=== PATIENT | male | born 1955 | race Caucasian/White ===

== ENCOUNTER 2018-05-08 12:23 | Inpatient (IN) ==
[2018-05-08 13:18] LABS: BASO# 0.05 X1000 (0.0-0.2); BASO% 0.5 % (0.0-0.8); EOS# 0.08 X1000 (0.0-0.7); EOS% 0.9 % (0.0-10.0); HEMATOCRIT 39.7 % (42.0-52.0); HEMOGLOBIN 12.8 g/dL (14.0-18.0); IMM GRAN# 0.02 X1000 (0.0-0.04); IMM GRAN% 0.2 % (0.0-0.5); LYMPH# 1.37 X1000 (1.2-3.4); MCH 27.2 PG (27-31); MCHC 32.2 g/dL (33-37); MCV 84.5 FL (81-99); MONO# 0.46 X1000 (0.11-0.59); MPV 9.5 FL (7.4-10.4); NEUT# 7.17 X1000 (1.4-6.5); NEUT% 78.4 % (42.2-75.2); PLT 347 X1000 (130-400); RDW 16.4 % (11.5-14.5); WBC 9.15 X1000 (4.8-10.8)
--- NOTE | 2018-05-08 13:21 | Diag Imaging Result Doc PS360 ---
CHEST-PORTABLE - 05/08/2018 INDICATION: cough COMPARISON: 04/12/2018 FINDINGS: There is stable COPD. Stable coarse interstitial pulmonary fibrosis. No new infiltrates. Heart size is top normal. IMPRESSION: COPD with pulmonary fibrosis. Electronically signed by Parviz Klein 05/08/2018 1:18 PM
[2018-05-08 13:26] LABS: INR 0.94; PROTIME 13.3 Seconds (11.0-16.0)
[2018-05-08] MEDS ORDERED: ATIVAN IV ONE ×4 (13:35→18:19)
[2018-05-08 13:40] LABS: AGAP 12; ALB/GLOB RATIO 1.2; ALBUMIN 3.9 g/dL (3.5-5.0); ALKALINE PHOSPHATASE 63 U/L (32-122); BUN 9 mg/dL (8-22); CALCIUM 9.6 mg/dL (8.8-10.2); CHLORIDE 94 mmol/L (98-107); COSMO 264; CREATININE 0.7 mg/dL (0.7-1.2); ESTIMATED GFR > 60; GLUCOSE 105 mg/dL (70-104); GOT 18 U/L (10-34); GPT 10 U/L (10-44); POTASSIUM 3.6 mmol/L (3.5-5.1); SALICYLATES < 3.00 mg/dL (3-10); SODIUM 132 mmol/L (136-145); TCO2 26 mmol/L (25-35); TOTAL BILIRUBIN 0.33 mg/dL (0.20-1.00); TOTAL PROTEIN 7.2 g/dL (6.3-8.3)
[2018-05-08] MEDS ORDERED: NS 1,000 ML ONE (13:47)
[2018-05-08] MEDS ORDERED: ZOFRAN IV ONE (14:02)
[2018-05-08 15:26] LABS: URINE SOURCE CLEAN CATCH
[2018-05-08 15:33] LABS: BILIRUBIN URINE NEGATIVE (NEGATIVE); BLOOD URINE NEGATIVE (NEGATIVE); COLOR YELLOW; GLUCOSE URINE NEGATIVE (NEGATIVE); KETONE URINE NEGATIVE (NEGATIVE); LEUKOCYTES URINE NEGATIVE (NEGATIVE); NITRITE URINE NEGATIVE (NEGATIVE); PH URINE 5.5; PROTEIN URINE 50 mg/dL (NEGATIVE); SP GRAVITY URINE > 1.050; TURBIDITY URINE CLEAR (CLEAR); UR EPITHELIAL CELLS <10 /HPF (<10); URINE BACTERIA NEGATIVE /HPF; URINE WBC <10 /HPF (<10); UROBILINOGEN URINE NORMAL (NORMAL)
[2018-05-08 15:47] LABS: UR AMPHETAMINES QUAL NONE DETECTED (NONE DETECT); UR BARBITUATES QUAL NONE DETECTED (NONE DETECT); UR BENZODIAZEPIN QUAL NONE DETECTED (NONE DETECT); UR CANNABINOIDS QUAL NONE DETECTED (NONE DETECT); UR COCAINE QUAL NONE DETECTED (NONE DETECT); UR METHADONE QUAL NONE DETECTED (NONE DETECT); UR OPIATES QUAL NONE DETECTED (NONE DETECT); UR OXYCODONE QUAL NONE DETECTED (NONE DETECT); UR PCP QUAL NONE DETECTED (NONE DETECT)
--- NOTE | 2018-05-08 16:10 | EKG Report ---
Test Performed on : 05/08/2018 12:57:57 PM Test Reason : altered mental Blood Pressure : / mmHG Vent. Rate : 083 BPM Atrial Rate : 083 BPM P-R Int : 176 ms QRS Dur : 108 ms QT Int : 420 ms P-R-T Axes : 087 -31 043 degrees QTc Int : 493 ms Sinus rhythm. with occasional ventricular-paced complexes and with occasional premature ventricular c omplexes. Left axis deviation Septal infarct , age undetermined Abnormal ECG When compared with ECG of 18-FEB-2018 21:54, Electronic ventricular pacemaker has replaced Sinus rhythm. Unconfirmed Result
--- NOTE | 2018-05-08 16:13 | PROVIDER DOCUMENTATION ---
This chart was entered by Kristen Chavis Scribe, acting as scribe for Sulema Stephen MD. HPI-General Adult - General Chief Complaint: Altered Mental Status Stated Complaint: ams Time Seen by Provider: 05/08/18 12:39 Source: patient, EMS Unable to obtain history due to:: altered Allergies/Adverse Reactions: Patient Allergies Allergy/AdvReac Type Severity Reaction Status Date / Time phenytoin sodium * Allergy Severe ANAPHYLAXIS Verified 05/08/18 14:29 [From Dilantin] phenytoin sodium extended * Allergy Severe ANAPHYLAXIS Verified 05/08/18 14:29 [From Dilantin] Milk Containing Products Allergy Mild NAUSEA Verified 05/08/18 14:29 ceftazidime Allergy RASH Verified 05/08/18 14:29 codeine Allergy Unknown Verified 05/08/18 14:29 milk Allergy Unknown Verified 05/08/18 14:29 phenytoin [From Dilantin] Allergy Unknown Verified 05/08/18 14:29 Home Medications: Home Medication List Medication Instructions Recorded Confirmed Last Taken Type Docusate Sodium 100 mg PO DAILY 04/12/18 05/08/18 04/15/18 History Aspirin 325 mg PO DAILY 04/18/18 05/08/18 04/17/18 History Lamotrigine 25 mg PO DAILY 04/18/18 05/08/18 04/15/18 History Paroxetine HCl [Paxil] 40 mg PO DAILY 04/18/18 05/08/18 04/15/18 History Tamsulosin [Flomax] 0.4 mg PO DAILY 04/18/18 05/08/18 04/17/18 History Buspirone [Buspar] 15 mg PO TID 05/08/18 05/08/18 Unknown History - History of Present Illness -Gen Adult Nature of Presenting Problems: 62 yowm presents to the ed with blue substance on lips and tongue and erratic movements BUE/BLE with decreased verbal answering. pt makes grunting noises and shakes head yes. pt was found by ems with a blue capsule (possible lamictal) in his mouth. pt by past charts is a known alcoholic. Location of Pain/Injury: reports: none Pain Radiation: reports: no radiation Quality of Pain: reports: none Severity: reports: moderate (erratic movements) Onset/Duration: reports: unsure Timing: reports: still present Context/Activities at Onset: reports: other (was found at home by family) Modifying Factors: improves with: nothing Associated Symptoms: reports: other (erratic movements of BUE/BLE). denies: back/neck pain, chest pain, cough, fatigue, malaise, nausea, vomiting, trouble walking Similar Symptoms Previously?: No Recently seen or treated by another doctor?: No Review of Systems - Adult - REVIEW OF SYSTEMS - ADULT ROS:: limited per condition Constitutional: denies: chills, fever Eyes: reports: no symptoms reported Ears, Nose, Mouth & Throat: reports: no symptoms reported Cardiovascular: denies: chest pain, edema, palpitations Respiratory: denies: cough, shortness of breath, wheezing Gastrointestinal: denies: abdominal pain, diarrhea, nausea, vomiting Genitourinary: reports: no symptoms reported Musculoskeletal: denies: back pain, neck pain Integumentary: reports: no symptoms reported Neurological: denies: dizziness/vertigo, headache/migraines Psychiatric: reports: see HPI, alcohol/drug dependence (ETOH), other (possible OD) Endocrine: reports: no symptoms reported Hematologic/Lymphatic: reports: no symptoms reported Allergic/Immunologic: reports: no symptoms reported All Other Systems: Reviewed and Negative Past History - Adult - PAST MEDICAL HISTORY-ADULT Review of Records: reports: Old Records Reviewed, Nursing Assessment Review, Medications Reviewed, Social history reviewed & non-contributory. Major Childhood Illnesses: reports: denies history Cardiovascular: reports: CAD, HTN, hyperlipidemia, [place] Respiratory: reports: asthma, COPD, cancer, sleep apnea Gastrointestinal: reports: cancer, GERD, hepatitis Genitourinary: reports: denies history Musculoskeletal: reports: denies history Neurological: reports: Seizures/Epilepsy Psychiatric: reports: bipolar, schizophrenia Endocrine/Immune: reports: HIV/AIDS Other Conditions: reports: other (HIV) Additional History: alcoholism - PRIOR SURGERIES/PROCEDURES Surgical/Procedure History: reports: cardiac stent, hernia repair, orthopedic ( extremity), other - IMMUNIZATION STATUS Childhood Immunizations: See Nurse Assessment Flu Vaccine: See Nurse Assessment - FAMILY HISTORY Family History: reviewed, not pertinent - SOCIAL HISTORY Smoking: quit less than 1 year Substance Use: alcohol Alcohol Use Frequency: every day Number of drinks per typical drinking period:: 3-4 drinks Living Situation: family Physical Exam-General - PHYSICAL EXAM-ADULT Exam Limited by: agitation and confusion with ams Initial Vital Signs Reviewed: Yes - CONSTITUTIONAL General Appearance: alert, mild distress - EYES Eyes: PERRL/EOMI, pink conjunctivae - HEAD, EARS, NOSE, MOUTH & THROAT HENMT: other (blue substance on lips and tongue, dry mucus membranes) - NECK Neck: full range of motion, normal inspection - RESPIRATORY Respiratory: chest non-tender, lungs clear, normal breath sounds - CARDIOVASCULAR Cardiovascular: normal peripheral pulses, regular rate, rhythm - GASTROINTESTINAL (ABDOMEN) Abdominal Exam: normal bowel sounds, soft, no organomegaly, no pulsatile mass - LYMPHATIC Lymphatic: no adenopathy - MUSCULOSKELETAL Back Exam: normal inspection Extremity: normal range of motion, normal inspection, other (erratic movements) Peripheral Pulses: radial (R): 2+, radial (L): 2+ - SKIN Integumentary: normal color, normal turgor, warm/dry - NEUROLOGIC Neurologic: no motor/sensory deficits. negative: facial droop, motor weakness - PSYCHIATRIC Psych/Mental Status: other (not verbal on exam) Progress - PLAN OF CARE/RESULTS Progress/Plan/Lab Results: Vital Signs - 8 hr 05/08/18 12:34 Temperature 97.7 F Pulse Rate 81 Respiratory Rate 20 Blood Pressure 132/89 O2 Sat by Pulse Oximetry 96 Laboratory Results - last 24 hr 05/08/18 05/08/18 13:04 13:06 WBC 9.15 RBC 4.70 Hgb 12.8 L Hct 39.7 L MCV 84.5 MCH 27.2 MCHC 32.2 L RDW Std Deviation 16.4 H Plt Count 347 MPV 9.5 Immature Gran % (Auto) 0.2 Neut % (Auto) 78.4 H Lymph % (Auto) 15.0 L Bee % (Auto) 5.0 Eos % (Auto) 0.9 Baso % (Auto) 0.5 Immature Gran # (Auto) 0.02 Neut # (Auto) 7.17 H Lymph # (Auto) 1.37 Bee # (Auto) 0.46 Eos # (Auto) 0.08 Baso # (Auto) 0.05 POC Glucose 112 H Orders Category Date Time Status Saline Loc DIRECTED Care 05/08/18 12:53 Active CHEST-PORTABLE [RAD] Stat Exams 05/08/18 12:55 Completed ACETONE SERUM [CHEM] Stat Lab 05/08/18 13:06 Received ALCOHOL BLOOD Stat Lab 05/08/18 13:06 Received CBC WITH ELECTRONIC DIFF [HEME] Stat Lab 05/08/18 13:06 Completed COMPREHENSIVE METABOLIC PANEL [CHEM] Stat Lab 05/08/18 13:06 Received LACTATE, PLASMA [CHEM] Stat Lab 05/08/18 13:06 Received LAMICTAL [HOOKS] Stat Lab 05/08/18 13:09 Ordered PRO B-NATRIURETIC PEPTIDE Stat Lab 05/08/18 13:06 Received PT [PROTIME WITH INR] [COAG] Stat Lab 05/08/18 13:06 Received SALICYLATES [TDM] Stat Lab 05/08/18 13:06 Received TROPONIN T Stat Lab 05/08/18 13:06 Received URINALYSIS W/POSS RFLX CULT [URINALYSIS] Stat Lab 05/08/18 12:53 Uncollected URINE DRUG SCREEN Stat Lab 05/08/18 12:53 Uncollected [id number] spoke w Anum at Poison Control re possible Lamictal accidental overdose, risk of seizure, tachycardia, tremors, agitation, hyperreflexia, confusion, wide QRS, elevated K, check q 6 hours. Treat symptoms. Ativan for agitation start at 1 to 2 mg, may have to move to barbiturates or propofol if cannot control agitation with larger doses of ativan, pt VSS at this time 1346 spoke with family member who heard pt throwing up around 2 am and became agitated and continued to have nonbloody emesis. Pt had Lamictal pills and others on the floor, more than half the pills are missing from the Lamictal bottle received 04/26/18. Pt also visits an herbal vitamin store in [place] and she does not know what he is taking from there, she is going home to get bottles to bring back to the ED multiple bottles of meds and supplements from daughter, one is a blue gel cap with herb supplements for sexual performance, unknown how many were taken, all new meds reviewed by poison control, same result, treat the symptoms UDS neg, ETOH neg, WBC nl and no fever, most likely med/supplement po intact overdose, ativan is reducing agitation, will attempt head CT to complete work up and repeat EKG to check QRS, then admit, though pt will likely remain in ED due to no beds pt in room 4, nl VS, sleeping, when flat seems to have sleep apnea, raised HOB 30 degrees and improved, mouth breathing, 96% on 2LBNC head CT neg for intracranial acute changes, some soft tissue swelling left scalp , likely fell past chart info not on summary of problems includes hepatitis, HIV, PMH huffer of pain d/w Bhumi ZELAYA w hospitalist, d/w her HPI exam treatment results, poison control recs, admit to [facility] Result Diagrams: 05/08/18 13:06 05/08/18 13:06 - REASSESSMENT Reassessment #1 Time Reassessed: 13:31 (family now at bedside) Status: unchanged Reassessment #2 Time Reassessed: 14:05 (family at bedside sts he has been to an herbal store recently and bought some "pills". family sts at 0200am this morning pt was heard vomiting ) Status: unchanged Reassessment #3 Time Reassessed: 14:35 (all pt medicine are empty on exam and has been taking a male natural libido medication which s blue in color. unnown how many has been taken) Status: unchanged Reassessment #4 Time Reassessed: 17:00 (pt is combative and confused upon waking) Status: worsening Reassessment Comment: daughter is still at bedside - EKG 1 Time of EKG reading by physician:: 12:57 EKG Read and Signed by:: Sulema Stephen EKG Interpretation (*Must complete 3 of following elements*): Abnormal Rate: 83 Rhythm: sinus rhythm w/ occ ventricular paced complexes w/ occ PVC [place]: left (deviation) QRS: normal MO Interval: normal ST Wave: normal Comments: septal infarct, age undetermined - XRAY 1 XRAY: Bilateral XRAY Study: Chest (CHEST-PORTABLE - 05/08/2018 INDICATION: cough COMPARISON: 04/12/2018 FINDINGS: There is stable COPD. Stable coarse interstitial pulmonary fibrosis. No new infiltrates. Heart size is top normal. IMPRESSION: COPD with pulmonary fibrosis. Electronically signed by Parviz Klein 2018 1:18 PM 05/08/18 1318 Interpreting Physician: Parviz Klein MD Dictated Date/Time: 05/08/18 1314 cc: Sulema Stephen MD; None,PCP) - CT/MRI 1 CT Study: Head (EXAM: CT HEAD W/O CONTRAST INDICATION: ALTERED MENTAL STATUS TECHNIQUE: This exam was performed using automated exposure control, adjustment of mA or kV according to patient size, and/or use of iterative reconstruction technique. COMPARISON: 09/01/2016 FINDINGS: There is no definite acute infarct given the limited sensitivity of CT versus MRI. There is no discrete intracranial mass, mass effect, or intracranial hemorrhage. There is mild soft tissue edema at the forehead on the left. The calvaria is intact. IMPRESSION: 1.No evidence of acute intracranial pathology. 2.Mild scalp edema anteriorly on the left. Electronically signed by Armani Ansari 05/08/2018 4 :24 PM 05/08/18 1624 Interpreting Physician: Armani Ansari MD Dictated Date/Time: 05/08/18 1621 cc: Sulema Stephen MD; None,PCP) - CONSULTS/PCP/HOSPITALIST Notification #1 *Consult/PCP/Hospitalist*: posion control Time Discussed: 13:31 (possible OD on lamictal) Reason/Comments: can cause eraatic movemennts Consult Disposition: other (watch) #2 Consult: hospitalist [facility] Time Discussed: 16:59 Consult Disposition: Admit Departure - Departure Date of Disposition Decision: 05/08/18 Time of Disposition Decision: 16:05 DIAGNOSIS: Agitation, Change in mental state, Overdose, Bipolar disorder, COPD (chronic obstructive pulmonary disease) Disposition: ADMITTED INPATIENT 09 Certified Medical Emergency: Emergent Condition: Good Additional Freetext Instructions: Admit to [facility] 1701 Referrals and Follow-Ups: None,PCP [Primary Care Provider] - - Critical Care Note This patient required my direct & personal management of CC.: Yes Total Time (mins): 46 Critical Care Statement: This patient required my direct personal management to treat or rule out processes, the absence of which, could potentiallly result in sudden, clinically significant life or limb threatening deterioration. Attestation - Physician/ JOSÉ MIGUEL Attestation Patient care was provided by Advanced Practice Provider:: No The physician spent face to face time with patient:: Yes Advanced Practice Provider documentation review:: Supervising physician onsite and consulted in the evaluation and care of this patient. The physician did have a face to face encounter with the patient. This chart was documented by the indicated scribe, (Heflin,Kristen, Scribe) and accurately reflects the services I performed and decisions made by me, Sulema Stephen MD, as attested by the provider's signature.
--- NOTE | 2018-05-08 16:26 | Diag Imaging Result Doc PS360 ---
EXAM: CT HEAD W/O CONTRAST INDICATION: ALTERED MENTAL STATUS TECHNIQUE: This exam was performed using automated exposure control, adjustment of mA or kV according to patient size, and/or use of iterative reconstruction technique. COMPARISON: 09/01/2016 FINDINGS: There is no definite acute infarct given the limited sensitivity of CT versus MRI. There is no discrete intracranial mass, mass effect, or intracranial hemorrhage. There is mild soft tissue edema at the forehead on the left. The calvaria is intact. IMPRESSION: 1.No evidence of acute intracranial pathology. 2.Mild scalp edema anteriorly on the left. Electronically signed by Armani Ansari 05/08/2018 4:24 PM
[2018-05-08] MEDS ORDERED: ATIVAN ONE (16:52)
[2018-05-08] MEDS ORDERED: ZOFRAN IV PRN (19:31)
[2018-05-08] MEDS: NS 1,000 ML IV SCH (19:31)
--- NOTE | 2018-05-08 20:02 | HISTORY AND PHYSICAL ---
CHIEF COMPLAINT: Altered mental status. HISTORY OF PRESENT ILLNESS: Mr. Rodriges is a 62-year-old male who carries a past medical history of COPD, hypertension, hyperlipidemia, bipolar disorder, coronary artery disease with [place], seizure or pseudoseizures, GERD, alcohol and tobacco use. Per ED report, the daughter has been able to keep him away from alcohol and tobacco over the last few weeks. All information was obtained from the ED doctor and the EMR. The patient was found by his daughter with blue substance on his lip and tongue, erratic movements, bilateral upper and lower extremities with decreased verbal answering. He was groaning and shaking his head, yes. The blue substance on his lips was possible Lamictal or other male enhancing medications. ED spoke with Poison Control about possible Lamictal overdose that puts him at risk for seizure, tachycardia, tremors, agitation, hyperreflexia, confusion, wide QRS, elevated potassium. We will check his EKG as well as potassium every 6 hours. He was given 6 mg total of Ativan to control his agitation. The patient is now obtunded. He does respond to painful stimuli. He does not answer any questions. His daughter is no longer at the bedside. Per records the daughter heard him throwing up around 2 a.m. This is when he became agitated. He had several pills on the floor and there were pills missing from his Lamictal bottle that he had just received on the 17th of this month as well as some herbal vitamins and multiple bottles of medications and supplements 1 med with a blue gel cap for sexual enhancement. Unknown if those were taken. Per Poison Control, same results, treat the symptoms. His urine drug screen was negative. He was ETOH negative. WBC within normal limits. No fever. I feel like this is toxic encephalopathy secondary to unintentional overdose. The Ativan has reduced his agitation. Head CT did not show anything acute. He will be admitted to the ICU to monitor closely on telemetry with serial labs and EKG's. PAST MEDICAL HISTORY: HIV, COPD, hypertension, hyperlipidemia, bipolar disorder , coronary artery disease status post [place], seizure, pseudoseizures, GERD, alcohol use, tobacco use , occasional cannabinoids. PAST SURGICAL HISTORY: Bilateral toe surgeries, coronary artery stenting, eye surgery, ALLERGY: Dilantin causing anaphylaxis, ceftazidime causing rash, codeine causing unknown reaction, milk products causing nausea. SOCIAL HISTORY: He was a 1 to 2 pack per day smoker, as well as the use of alcohol and cannabinoids. The daughter states she has been able to keep him away from tobacco and alcohol. However, he does take [id number] supplements for sexual performance enhancing. He currently resides with his daughter. FAMILY HISTORY: Denies any type of chronic health issues. REVIEW OF SYSTEMS: A 14 point review of systems were hard to obtain secondary to the patient being obtunded. HOME MEDICATIONS: 1. Aspirin 325 mg p.o. daily. 2. BuSpar 15 mg p.o. t.i.d. 3. Dulcolax 100 mg p.o. daily. 4. Lamictal 25 mg p.o. daily. 5. Paxil 40 mg p.o. daily. 6. Flomax 0.4 mg p.o. daily. PHYSICAL EXAMINATION: VITAL SIGNS: Temperature is 97.7 degrees, heart rate 87, respirations 18, blood pressure 115/71, O2 is 95% on room air. GENERAL: Mr. Rodriges is lying on the stretcher. He is obtunded from 6 mg of Ativan. He does respond to painful stimuli. He does not answer any questions or follow commands. HEENT: Appears to be atraumatic, normocephalic. PERRL. NECK: Supple. Trachea midline, CARDIOVASCULAR: S1, S2 appreciated. No murmurs, gallops, or rubs. RESPIRATORY: Lungs sound clear, equal chest excursion, nonlabored breathing. GASTROINTESTINAL: Abdomen appears to be soft, nontender, nondistended. Positive bowel sounds 4 quadrants. EXTREMITIES: Generalized edema to the lower extremities. Bilateral pedal pulses are palpable. DIAGNOSTIC DATA: Head CT showed no evidence of acute intracranial pathology. Mild scalp edema anterior on the left. Chest x-ray: COPD with pulmonary fibrosis. EKG sinus rhythm at 83 beats per minute. QTc is 493. LABORATORY DATA: White count 9, hemoglobin and hematocrit 12 and 39, platelet count is 347,000. Sodium 132, potassium 3.6, BUN 9, creatinine 0.7, blood glucose is 112, proBNP 483. Urinalysis is negative for bacteria. Urine drug screen is negative. Acetone level negative. ASSESSMENT AND PLAN: 1. Toxic encephalopathy secondary to unintentional overdose on probable Lamictal and/or male enhancing drugs. He was agitated upon arrival to the ED. He has received a total of 6 mg of Ativan, per Poison Control, monitor q.6 hour EKG and potassium and treat symptoms. Continue with agitation control. We will do Ativan 1 to 2 mg q.4 hours. We will continue with aggressive hydration. Placed in the ICU. Frequent neuro checks. Head CT was negative. 2. Chronic obstructive pulmonary disease. Continue with supplemental O2 p.r.n. , bronchodilators. 3. Hypertension. 4. Hyperlipidemia. 5. Bipolar disorder. 6. Coronary artery disease status post myocardial infarction. 7. Seizures or pseudoseizures. We will continue with Ativan. 8. Gastroesophageal reflux disease. Continue proton pump inhibitor. 9. History of alcohol, tobacco, and cannabinoid use in the past. However, the daughter states for the last few weeks she has been able to keep him away 10. Further recommendation to follow physician evaluation, laboratory, and diagnostic data. Dictated by XENIA Gabriel for Vega Low MD cc: Vega Low MD [facility]
[2018-05-08] MEDS: ATIVAN IV PRN (20:18)
[2018-05-09] MEDS: ATIVAN IV PRN ×4 (00:15→20:42)
[2018-05-09 01:53] LABS: URINE SOURCE CATH
[2018-05-09 01:57] LABS: BILIRUBIN URINE NEGATIVE (NEGATIVE); BLOOD URINE NEGATIVE (NEGATIVE); COLOR YELLOW; GLUCOSE URINE NEGATIVE (NEGATIVE); KETONE URINE NEGATIVE (NEGATIVE); LEUKOCYTES URINE NEGATIVE (NEGATIVE); NITRITE URINE NEGATIVE (NEGATIVE); PH URINE 6.5; PROTEIN URINE NEGATIVE (NEGATIVE); TURBIDITY URINE CLEAR (CLEAR); UR EPITHELIAL CELLS <10 /HPF (<10); URINE BACTERIA NEGATIVE /HPF; URINE RBC <10 /HPF (<10); URINE WBC <10 /HPF (<10); UROBILINOGEN URINE NORMAL (NORMAL)
[2018-05-09] MEDS: NS 1,000 ML IV SCH ×3 (04:55→21:49)
[2018-05-09 05:38] LABS: BASO# 0.06 X1000 (0.0-0.2); BASO% 0.5 % (0.0-0.8); EOS# 0.31 X1000 (0.0-0.7); EOS% 2.8 % (0.0-10.0); HEMATOCRIT 40.2 % (42.0-52.0); HEMOGLOBIN 12.9 g/dL (14.0-18.0); IMM GRAN# 0.02 X1000 (0.0-0.04); IMM GRAN% 0.2 % (0.0-0.5); LYMPH# 1.62 X1000 (1.2-3.4); LYMPH% 14.4 % (20.5-51.1); MCHC 32.1 g/dL (33-37); MCV 87.2 FL (81-99); MONO# 0.61 X1000 (0.11-0.59); MONO% 5.4 % (1.7-9.3); MPV 9.8 FL (7.4-10.4); NEUT% 76.7 % (42.2-75.2); PLT 314 X1000 (130-400); RBC 4.61 XMIL (4.7-6.1); WBC 11.22 X1000 (4.8-10.8)
[2018-05-09 06:10] LABS: ACETAMINOPHEN 1.6 ug/mL (10-30); AGAP 12; BUN 6 mg/dL (8-22); CALCIUM 9.4 mg/dL (8.8-10.2); CHLORIDE 104 mmol/L (98-107); COSMO 280; CREATININE 0.6 mg/dL (0.7-1.2); ESTIMATED GFR > 60; GLUCOSE 83 mg/dL (70-104); MAGNESIUM 1.7 mg/dL (1.5-2.7); POTASSIUM 3.9 mmol/L (3.5-5.1); SALICYLATES < 3.00 mg/dL (3-10); SODIUM 142 mmol/L (136-145); TCO2 26 mmol/L (25-35)
--- NOTE | 2018-05-09 07:25 | EKG Report ---
Test Performed on : 05/09/2018 07:01:00 AM Test Reason : Wide QRS Complex,Overdose Blood Pressure : / mmHG Vent. Rate : 082 BPM Atrial Rate : 082 BPM P-R Int : 176 ms QRS Dur : 112 ms QT Int : 422 ms P-R-T Axes : 078 -50 075 degrees QTc Int : 493 ms Normal sinus rhythm. Possible Left atrial enlargement Left anterior fascicular block Left ventricular hypertrophy Cannot rule out Septal infarct , age undetermined Abnormal ECG When compared with ECG of 08-MAY-2018 12:57, (Unconfirmed) No significant change was found Confirmed by Cesar SIMS, Josemanuel Hanley ([id number]) on 05/09/2018 1:42:26 PM
--- NOTE | 2018-05-09 07:30 | EKG Report ---
Test Performed on : 05/09/2018 00:45:54 AM Test Reason : RHYTHM EVAL Blood Pressure : / mmHG Vent. Rate : 066 BPM Atrial Rate : 066 BPM P-R Int : 184 ms QRS Dur : 118 ms QT Int : 456 ms P-R-T Axes : 074 -51 041 degrees QTc Int : 478 ms Normal sinus rhythm. Left anterior fascicular block Left ventricular hypertrophy with QRS widening Abnormal ECG When compared with ECG of 08-May-2018 premature ventricular complexes. are no longer seen Confirmed by Cesar SIMS, Josemanuel Hanley ([id number]) on 05/09/2018 9:13:26 AM
--- NOTE | 2018-05-09 09:43 | Diag Imaging Result Doc PS360 ---
CT HEAD W/O CONTRAST - 05/09/2018 INDICATION: AMS, Unequal pupils COMPARISON: 05/08/2018 FINDINGS: The ventricles and sulci are normal in size and contour. No intracranial mass or hemorrhage. The skull is intact. The sinuses mastoids and middle ears are clear. IMPRESSION: Negative exam. This exam was performed using automated exposure control, adjustment of mA or kV according to patient size, and/or use of iterative reconstruction technique Electronically signed by Parviz Klein 05/09/2018 9:40 AM
--- NOTE | 2018-05-09 15:37 | PROGRESS NOTE ---
DATE: 05/09/2018 SUBJECTIVE: The patient resting in bed. Sensorium seems to have improved. OBJECTIVE: Vital Signs: Temperature 97.5, pulse 70, respirations 18, blood pressure 118/71, oxygen saturation 97%. HEENT: Atraumatic, normocephalic. Cardiovascular: S1, S2. Respiratory System has positive rhonchi noted in both lung dockery. Abdomen is soft, nontender. No masses felt. Extremities: No evidence of edema. Central Nervous System: No obvious focal deficits noted. LABORATORY STATUS: WBC is 11.2, hematocrit 40.2, platelet count of 314,000. Sodium is 142, potassium 3.9, chloride is 104. Bicarb 26. BUN 6, creatinine 0.6. Head CT: Negative exam. ASSESSMENT AND PLAN: 1. Encephalopathy. The patient's sensorium seemed to be improving. We will continue to follow up on patient's clinical progression. In the meanwhile, the patient can be transferred out to the floor. 2. Chronic obstructive pulmonary disease. Maintain patient on nebulized bronchodilators. 3. Hypertension, controlled. 4. Hyperlipidemia. Recheck lipid panel. 5. Recurrent disease. Asymptomatic. 6. Seizure disorder. Maintain patient on seizure precaution as well as antiepileptic. 7. Gastroesophageal reflux disease. Proton pump inhibitor. 8. Deep vein thrombosis prophylaxis. Sequential compression devices. 9. Gastrointestinal prophylaxis; proton pump inhibitor. cc: Vega Low MD
[2018-05-09] MEDS: DUONEB (A & A) INH SCH ×3 (16:35→23:43)
[2018-05-09] MEDS ORDERED: TYLENOL PR PRN (20:19)
[2018-05-09] MEDS ORDERED: KEPPRA PO SCH (21:00)
[2018-05-09] MEDS: KEPPRA 500 MG in NS 100 ML IV SCH (21:49)
[2018-05-09] MEDS: PROTONIX IV SCH (23:01)
[2018-05-09] MEDS: SODIUM CHLORIDE 0.9% INJ SCH (23:01)
[2018-05-10] MEDS: DUONEB (A & A) INH SCH ×6 (03:49→23:18)
[2018-05-10] MEDS: NS 1,000 ML IV SCH ×3 (05:55→22:19)
[2018-05-10] MEDS ORDERED: PROTONIX PO SCH (07:00)
[2018-05-10 07:44] LABS: BASO% 1.1 % (0.0-0.8); EOS# 0.47 X1000 (0.0-0.7); EOS% 5.3 % (0.0-10.0); HEMATOCRIT 36.5 % (42.0-52.0); HEMOGLOBIN 11.4 g/dL (14.0-18.0); IMM GRAN# 0.04 X1000 (0.0-0.04); IMM GRAN% 0.4 % (0.0-0.5); LYMPH# 1.84 X1000 (1.2-3.4); LYMPH% 20.7 % (20.5-51.1); MCH 27.7 PG (27-31); MCHC 31.2 g/dL (33-37); MCV 88.8 FL (81-99); MONO% 5.6 % (1.7-9.3); MPV 10.4 FL (7.4-10.4); NEUT# 5.96 X1000 (1.4-6.5); NEUT% 66.9 % (42.2-75.2); PLT 250 X1000 (130-400); RBC 4.11 XMIL (4.7-6.1); RDW 17.3 % (11.5-14.5); WBC 8.91 X1000 (4.8-10.8)
[2018-05-10 08:06] LABS: CHOLESTEROL 163 mg/dL (0-200); HDL 37 mg/dL (35-55); LDL 109 mg/dL; TRIGLYCERIDES 86 mg/dL (39-160); VLDL 17 mg/dL
[2018-05-10 08:08] LABS: AGAP 9; ALB/GLOB RATIO 1.3; ALBUMIN 3.2 g/dL (3.5-5.0); ALKALINE PHOSPHATASE 53 U/L (32-122); BUN 5 mg/dL (8-22); CALCIUM 8.4 mg/dL (8.8-10.2); CHLORIDE 104 mmol/L (98-107); COSMO 276; CREATININE 0.5 mg/dL (0.7-1.2); ESTIMATED GFR > 60; GLUCOSE 127 mg/dL (70-104); GOT 15 U/L (10-34); GPT 9 U/L (10-44); POTASSIUM 3.2 mmol/L (3.5-5.1); SODIUM 139 mmol/L (136-145); TCO2 26 mmol/L (25-35); TOTAL BILIRUBIN 0.52 mg/dL (0.20-1.00); TOTAL PROTEIN 5.6 g/dL (6.3-8.3)
[2018-05-10] MEDS: KEPPRA 500 MG in NS 100 ML IV SCH ×2 (08:11→20:03)
--- NOTE | 2018-05-10 18:37 | PROGRESS NOTE ---
DATE: 05/10/2018 INTERVAL HISTORY: The patient encephalopathy is significantly improved. Still slightly confused, but most responses are appropriate, following commands well. No arrhythmias on heart monitor and no acute events overnight. No new complaints. REVIEW OF SYSTEMS: Twelve point review of systems negative except as per interval history. LABS: WBC 8.9, hemoglobin 11.4, hematocrit 36.5, platelets 250. Sodium 139, potassium 3.2, BUN 5, creatinine 0.5, glucose 91 to 138. PHYSICAL EXAMINATION: Vitals: Temperature, T-max 99.1, pulse 77, respirations 18, blood pressure 138/72, O2 saturation 95% on 2 L by nasal cannula. General: No acute distress. Vitals: As above. HEENT: Normocephalic, atraumatic. Moist mucous membranes. Neck: No cervical adenopathy. Cardiovascular: Regular rate and rhythm. No murmurs, rubs or gallops. Pulmonary: Slightly decreased air entry throughout, otherwise clear to auscultation bilaterally. Abdomen: Soft, nontender, nondistended. Bowel sounds positive. Extremities: Peripheral pulses intact. No clubbing or cyanosis. Neurologic: Cranial nerves grossly intact. No focal deficits identified. Psychiatric: Slightly odd affect. Normal mood. Awake, alert. Oriented to person and place, but not time. Skin: No new rashes or lesions identified. ASSESSMENT AND PLAN: 1. Likely toxic encephalopathy related to accidental Lamictal overdose. Was markedly encephalopathic on admission, but has been improving slowly. Family noted that he was missing a number of pills from his recently filled Lamictal prescription. The patient endorses poor recall of events leading up to his hospitalization, but denies any intentional overdose or suicidal ideation. No events on heart monitor thus far. Lamictal level still pending. Ativan available p.r.n. On Keppra to prevent seizure. The patient is stable for the floor when bed is available. 2. Chronic obstructive pulmonary disease. No signs of exacerbation. Continue nebulizers as needed. 3. Hypertension. Reasonable control on current regimen. Continue to monitor. 4. Seizure disorder on Keppra as above. 5. Gastroesophageal reflux disease. Continue proton pump inhibitor. 6. Coronary artery disease restarting aspirin. 7. History of alcohol, tobacco, and THC use. Patient now living with his daughter who states that he has been abstaining the last several weeks. 8. Deep vein thrombosis prophylaxis. Sequential compression devices. 9. Hypokalemia. Will replete and monitor.
[2018-05-10] MEDS: POTASSIUM CHLORIDE 20 MEQ/SWI 20 MEQ/100 ML IVPB IV SCH ×2 (19:00→21:06)
[2018-05-10] MEDS: PROTONIX IV SCH (22:19)
[2018-05-10] MEDS: SODIUM CHLORIDE 0.9% INJ SCH (22:19)
[2018-05-11] MEDS: DUONEB (A & A) INH SCH ×3 (02:58→11:22)
[2018-05-11] MEDS: KEPPRA 500 MG in NS 100 ML IV SCH (08:00)
[2018-05-11] MEDS ORDERED: ASPIRIN EC PO SCH (09:00)
[2018-05-11 12:01] VITALS: BP 115/65
--- NOTE | 2018-05-11 12:32 | EKG Report ---
Test Performed on : 05/11/2018 12:27:24 PM Test Reason : possible lamictal overdose Blood Pressure : / mmHG Vent. Rate : 071 BPM Atrial Rate : 071 BPM P-R Int : 176 ms QRS Dur : 116 ms QT Int : 440 ms P-R-T Axes : 081 -39 015 degrees QTc Int : 478 ms Normal sinus rhythm. Left axis deviation Left ventricular hypertrophy with QRS widening Abnormal ECG When compared with ECG of 09-MAY-2018 07:01, Minimal criteria for Septal infarct are no longer present T wave inversion now evident in Inferior leads Confirmed by Maxwell Fortune MD ([id number]) on 05/13/2018 5:38:50 PM
--- NOTE | 2018-05-12 09:54 | DISCHARGE SUMMARY ---
ADMISSION DATE: 05/08/2018 DISCHARGE DATE: 05/11/2018 PRINCIPAL DIAGNOSIS: Toxic encephalopathy secondary to unintentional overdose, with probable Lamictal. SECONDARY DIAGNOSES: 1. Chronic obstructive pulmonary disease. 2. Hypertension. 3. Hyperlipidemia. 4. Bipolar disorder. 5. Coronary artery disease. 6. Seizure disorder. 7. Gastroesophageal reflux disease. 8. Tobacco use history. 9. Alcoholism. 10. History of substance abuse. DISCHARGE MEDICATIONS: Colace 100 mg p.o. daily. Paroxetine 40 mg p.o. daily. Tamsulosin 0.4 mg p.o. daily. Aspirin 325 mg p.o. once a day. Buspirone 15 mg p.o. 3 times a day. Combivent Respimat 1 puff every 6 hours. Advair Diskus 250/50 one puff twice a day. CONSULTATIONS DONE DURING THIS HOSPITAL STAY: None. PROCEDURES DONE DURING THIS HOSPITAL STAY: CT scan of the head done on 05/08/2018 as well as 05/09/2018. HOSPITAL COURSE: Mr. Obed Rodriges is a 59-year-old male, with a history of COPD, hypertension, hyperlipidemia, bipolar disorder, coronary artery disease, seizure disorder, gastroesophageal reflux disease, and alcohol as well as tobacco use, who presented to the hospital because of altered mental status. The patient was thought to have overdosed on Lamictal or other male enhancing medications. The ED did speak with Poison Control about possible Lamictal overdose. The plan was to check EKG as well as a potassium. The patient did receive 6 mg of Ativan for agitation. His head CT was negative. Urine drug screen was also negative. Alcohol level was negative. The patient was managed in the intensive care unit and his mental status did improve. The patient was subsequently transferred to the floor where he continue to recuperate. At this time he has done fairly well, he is stable, he is now fit to be discharged. I will check an EKG prior to discharge with regards to his QTc level. PHYSICAL EXAMINATION: Vitals: During my evaluation today, his vital signs were as follows: Temperature 98.3 degrees, pulse 68, respirations 18, blood pressure 115/65, oxygen 96%. HEENT: Atraumatic, normocephalic. Cardiovascular: S1, S2. Respiratory system: Has evidence of good entry bilaterally. Abdomen: Soft. Nontender. No masses felt. Extremities: No evidence of edema. Central nervous system: No obvious focal deficits noted. LABORATORY DATA: Blood sugar level is 104. PLAN: Discharge home if QTc level and EKG is within acceptable limits and the patient is clinically stable. The patient will need to follow up with his primary care physician. cc: Vega Low MD
== END 2018-05-11 14:42 | disposition home or self-care (01) | DRG 917 ==
LOC: SUPCPDRO → ED 12:23 → EDIPHOLD 17:48 → SUATTDRO 17:48 → ICU 23:43 → 3N 05-10 22:47
PROVIDERS: ATTEND Internal Medicine
CPT/HCPCS: 51701; 70450; 71010; 71045; 80048; 80053; 80061; 80101; 80175; 80196; 80299; 80301; 80307; 80320; 80324; 80329; 80345; 80346; 80353; 80358; 80361; 80365; 81001; 82003; 82009; 82055; 82948; 83605; 83735; 83880; 83992; 84132; 84484; 85025; 85610; 93005; 93010; 94640; 94761; 96374; 96375; 96376; 99285; A9270; C9113; G0431; G0434; G0479; G0480; G6038; G6039; G6040; J1953; J2060; J2405; J3480; J7030; S0164; XXXXX

== ENCOUNTER 2018-06-30 05:05 | Inpatient (IN) ==
[2018-06-30] MEDS ORDERED: DUONEB (A & A) INH ONE (05:22)
--- NOTE | 2018-06-30 05:32 | PROVIDER DOCUMENTATION ---
HPI-Musculoskeletal Pain/Inj - GENERAL Stated Complaint: fall Time Seen by Provider: 06/30/18 05:32 Source: patient - HX OF PRESENT ILLNESS-MUSKULOSKELTAL Nature of Presenting Problem: Patient states he was getting up to get his medication out of the refridgerator for his breathing treatment when he slipped in dog urine and landed on the floor. he felt a pop in his left hip. he hit his head and states he was knocked out for a minute. He also complains of left knee pain and right shoulder pain. Quality of Pain: reports: aching Severity in ED: severe Onset/Duration: abrupt, just prior to arrival Timing: still present Modifying Factors: improves with: movement Any recent injury?: Yes Locality of Occurance: Home Similar Symptoms Previously?: No Recently seen or treated by another doctor?: No - FALL INJURY Location of Pain/Injury: reports: head, upper extremity, lower extremity Pain Radiation: reports: no radiation Reason for Fall: reports: slipped Symptoms prior to fall:: reports: none Loss of Consciousness: unsure Injury Associated Symptoms: reports: snap/crack/pop sensation (left hip) - BACK & NECK PAIN/INJURY Back/Neck Pain Location: denies: C-spine, T-spine, lumbar spine, sacrum, coccyx, paraspinous muscles, other Back/Neck Pain Radiation: reports: headache - HIP/PELVIS PAIN/INJURY Hip Pain Location: reports: hip (L) Pain Radiation: reports: no radiation - LOWER EXTREMITY PAIN/INJURY Lower Extremities Pain: knee: left Context / Method of Injury: reports: fell - UPPER EXTREMITY PAIN/INJURY Extremities Pain Location: shoulder: right Context / Method of Injury: reports: fell. denies: unknown, assault, burn, direct blow, incised, motor vehicle accident, sports injury, twisted, other Review of Systems - Adult - REVIEW OF SYSTEMS - ADULT Constitutional: reports: no symptoms reported Eyes: reports: no symptoms reported Ears, Nose, Mouth & Throat: reports: no symptoms reported Cardiovascular: reports: no symptoms reported Respiratory: reports: wheezing Gastrointestinal: reports: no symptoms reported Genitourinary: reports: no symptoms reported Musculoskeletal: reports: see HPI Integumentary: reports: no symptoms reported Neurological: reports: no symptoms reported Psychiatric: reports: no symptoms reported Endocrine: reports: no symptoms reported Hematologic/Lymphatic: reports: no symptoms reported Allergic/Immunologic: reports: no symptoms reported Past History - Adult - PAST MEDICAL HISTORY-ADULT Review of Records: reports: Old Records Reviewed, Nursing Assessment Review Major Childhood Illnesses: reports: denies history Cardiovascular: reports: CAD, HTN, hyperlipidemia, PA Respiratory: reports: asthma, COPD, cancer, sleep apnea Gastrointestinal: reports: cancer, GERD, hepatitis Obstetrical/Gynecological: reports: denies history Genitourinary: reports: denies history Musculoskeletal: reports: denies history Neurological: reports: Seizures/Epilepsy Psychiatric: reports: bipolar, schizophrenia Endocrine/Immune: reports: HIV/AIDS Other Conditions: reports: other (HIV) Additional History: alcoholism - PRIOR SURGERIES/PROCEDURES Surgical/Procedure History: reports: cardiac stent, hernia repair, orthopedic (extremity), other - IMMUNIZATION STATUS Childhood Immunizations: See Nurse Assessment Flu Vaccine: See Nurse Assessment - FAMILY HISTORY Family History: reviewed, not pertinent Physical Exam-Injury Related - Physical Exam-Injury Related Initial Vital Signs Reviewed: Yes General Appearance: appears well, alert, moderate distress Eyes: PERRL/EOMI, pink conjunctivae Head, Ears, Nose, Mouth & Throat: normocephalic/atraumatic, moist mucous membranes, normal ENT inspection, TMs normal, pharynx normal Neck: non-tender, full range of motion, supple Respiratory: chest non-tender, wheezing Cardiovascular: normal peripheral pulses, regular rate, rhythm, no edema, no gallop Peripheral Pulses: dorsalis-pedis (R): 1+, dorsalis-pedis (L): 1+ Abdominal Exam: normal bowel sounds, non tender, soft, no organomegaly, no pulsatile mass Rectal Exam: deferred Lymphatic: no adenopathy Back Exam: normal inspection, no CVA tenderness, no vertebral tenderness Extremity: other (left leg shortened and externally rotated. tender to left knee. Tender right shoulder) Integumentary: normal color, warm/dry Neurologic: due diligence coordinator II-XII nml as tested, grossly normal Psych/Mental Status: normal mood/affect, normal thought content - Glascow Coma Score Best Eye Response (Brandan): (4) open spontaneously Best Verbal Response (Brandan): (5) oriented Best Motor Response (Brandan): (6) obeys commands Brandan Total: 15 Progress - PLAN OF CARE/RESULTS Progress/Plan/Lab Results: Laboratory Results - last 24 hr 06/30/18 06/30/18 06/30/18 08:12 08:12 08:12 WBC 15.85 H RBC 3.65 L Hgb 10.2 L Hct 33.6 L MCV 92.1 MCH 27.9 MCHC 30.4 L RDW Std Deviation 15.6 H Plt Count 344 MPV 9.5 Immature Gran % (Auto) 1.8 H Neut % (Auto) 72.6 Lymph % (Auto) 16.3 L Quay % (Auto) 5.8 Eos % (Auto) 3.3 Baso % (Auto) 0.2 Immature Gran # (Auto) 0.29 H Neut # (Auto) 11.50 H Lymph # (Auto) 2.58 Quay # (Auto) 0.92 H Eos # (Auto) 0.53 Baso # (Auto) 0.03 PT 13.2 INR 0.92 PTT (Actin FS) 32.1 Sodium 141 Potassium 3.5 Chloride 106 Carbon Dioxide 27 Anion Gap 8 BUN 9 Creatinine 0.6 L Estimated GFR/1.73 m2 > 60 BUN/Creatinine Ratio 15 Glucose 102 Calculated Osmolality 280 Calcium 8.4 L Total Bilirubin < 0.15 L AST 17 ALT 20 Alkaline Phosphatase 55 Creatine Kinase 50 Troponin T Total Protein 5.7 L Albumin 2.9 L Globulin 2.8 Albumin/Globulin Ratio 1.0 Urine Source Urine Color Urine Turbidity Urine pH Ur Specific [place] Urine Protein Ur Glucose (Stick) Ur Ketones (Stick) Urine Blood Urine Nitrite Urine Bilirubin Urobilinogen Dipstick Urine Leukocytes Urine WBC (Auto) Urine RBC (Auto) U Epithel Cells (Auto) Urine Bacteria (Auto) Urine Opiates Screen Ur Oxycodone Screen Ur Methadone, Qual Ur Barbiturates Screen Ur Phencyclidine Scrn Ur Amphetamines Screen U Benzodiazepines Scrn Urine Cocaine Screen U Cannabinoids Screen Plasma/Serum Ethyl Alc HIV 1&2 Antibody Screen 06/30/18 06/30/18 06/30/18 08:12 08:12 08:12 WBC RBC Hgb Hct MCV MCH MCHC RDW Std Deviation Plt Count MPV Immature Gran % (Auto) Neut % (Auto) Lymph % (Auto) Quay % (Auto) Eos % (Auto) Baso % (Auto) Immature Gran # (Auto) Neut # (Auto) Lymph # (Auto) Quay # (Auto) Eos # (Auto) Baso # (Auto) PT INR PTT (Actin FS) Sodium Potassium Chloride Carbon Dioxide Anion Gap BUN Creatinine Estimated GFR/1.73 m2 BUN/Creatinine Ratio Glucose Calculated Osmolality Calcium Total Bilirubin AST ALT Alkaline Phosphatase Creatine Kinase Troponin T < 0.010 Total Protein Albumin Globulin Albumin/Globulin Ratio Urine Source Urine Color Urine Turbidity Urine pH Ur Specific [place] Urine Protein Ur Glucose (Stick) Ur Ketones (Stick) Urine Blood Urine Nitrite Urine Bilirubin Urobilinogen Dipstick Urine Leukocytes Urine WBC (Auto) Urine RBC (Auto) U Epithel Cells (Auto) Urine Bacteria (Auto) Urine Opiates Screen Ur Oxycodone Screen Ur Methadone, Qual Ur Barbiturates Screen Ur Phencyclidine Scrn Ur Amphetamines Screen U Benzodiazepines Scrn Urine Cocaine Screen U Cannabinoids Screen Plasma/Serum Ethyl Alc HIV 1&2 Antibody Screen SEE COMMENTS 06/30/18 06/30/18 09:37 09:37 WBC RBC Hgb Hct MCV MCH MCHC RDW Std Deviation Plt Count MPV Immature Gran % (Auto) Neut % (Auto) Lymph % (Auto) Quay % (Auto) Eos % (Auto) Baso % (Auto) Immature Gran # (Auto) Neut # (Auto) Lymph # (Auto) Quay # (Auto) Eos # (Auto) Baso # (Auto) PT INR PTT (Actin FS) Sodium Potassium Chloride Carbon Dioxide Anion Gap BUN Creatinine Estimated GFR/1.73 m2 BUN/Creatinine Ratio Glucose Calculated Osmolality Calcium Total Bilirubin AST ALT Alkaline Phosphatase Creatine Kinase Troponin T Total Protein Albumin Globulin Albumin/Globulin Ratio Urine Source CLEAN CATCH Urine Color YELLOW Urine Turbidity CLEAR Urine pH 5.5 Ur Specific [place] 1.009 Urine Protein NEGATIVE Ur Glucose (Stick) NEGATIVE Ur Ketones (Stick) NEGATIVE Urine Blood NEGATIVE Urine Nitrite NEGATIVE Urine Bilirubin NEGATIVE Urobilinogen Dipstick NORMAL Urine Leukocytes NEGATIVE Urine WBC (Auto) <10 Urine RBC (Auto) <10 U Epithel Cells (Auto) <10 Urine Bacteria (Auto) NEGATIVE Urine Opiates Screen NONE DETECTED Ur Oxycodone Screen NONE DETECTED Ur Methadone, Qual NONE DETECTED Ur Barbiturates Screen NONE DETECTED Ur Phencyclidine Scrn NONE DETECTED Ur Amphetamines Screen NONE DETECTED U Benzodiazepines Scrn NONE DETECTED Urine Cocaine Screen NONE DETECTED U Cannabinoids Screen PRESUMPTIVE POSITIVE A Plasma/Serum Ethyl Alc HIV 1&2 Antibody Screen Orders Category Date Time Status [facility] Routine AdmDCTranf 06/30/18 08:55 Active Activity - Strict Bedrest ORDERED Care 06/30/18 08:55 Active Mason Cath Insertion ORDERED Care 06/30/18 08:37 Active Intake and Output-Strict ORDERED Care 06/30/18 08:55 Active Nursing- MD Consult Request ROUTINE Care 06/30/18 08:51 Active Vital Signs Order Q 4-HR ASSESS Care 06/30/18 08:55 Active Z-Document. for Tele Applied ORDERED Care 06/30/18 08:55 Completed Physician/Provider Consults Routine Cons 06/30/18 08:50 Ordered Social Service Consult Routine Cons 06/30/18 08:51 Active CHEST-2 VIEWS [RAD] Stat Exams 06/30/18 05:[address] HEAD W/O CONTRAST [CT] Stat Exams 06/30/18 05:19 Completed KNEE 3 VIEWS LEFT [RAD] Stat Exams 06/30/18 05:21 Completed SHOULDER-RIGHT [RAD] Stat Exams 06/30/18 05:21 Completed XRAY HIP UNILATERAL LT [RAD] Stat Exams 06/30/18 05:23 Completed ABG [RESP] Routine Lab 06/30/18 11:28 Completed ALCOHOL BLOOD Stat Lab 06/30/18 08:12 Completed BASIC METABOLIC PANEL [CHEM] Lab 07/01/18 06:00 Ordered BASIC METABOLIC PANEL [CHEM] Lab 07/02/18 06:00 Ordered BASIC METABOLIC PANEL [CHEM] Lab 07/03/18 06:00 Ordered BASIC METABOLIC PANEL [CHEM] Lab 07/04/18 06:00 Ordered BASIC METABOLIC PANEL [CHEM] Lab 07/05/18 06:00 Ordered CBC WITH DIFF [HEME] Lab 07/01/18 06:00 Ordered CBC WITH DIFF [HEME] Lab 07/02/18 06:00 Ordered CBC WITH DIFF [HEME] Lab 07/03/18 06:00 Ordered CBC WITH ELECTRONIC DIFF [HEME] Stat Lab 06/30/18 08:12 Completed CK PROFILE [SP CHEM] Stat Lab 06/30/18 08:12 Completed COMPREHENSIVE METABOLIC PANEL [CHEM] Stat Lab 06/30/18 08:12 Completed HEPATITIS PROFILE [HH] Timed Lab 06/30/18 08:12 Received HIV AB SCREEN [HH] Timed Lab 06/30/18 08:12 Completed PROTIME WITH INR [COAG] Stat Lab 06/30/18 08:12 Completed PTT [COAG] Stat Lab 06/30/18 08:12 Completed TROPONIN T Stat Lab 06/30/18 08:12 Completed URINALYSIS W/POSS RFLX CULT [URINALYSIS] Stat Lab 06/30/18 09:37 Completed URINE DRUG SCREEN Stat Lab 06/30/18 09:37 Completed 0.9% Sodium Chloride Inj [Ns] 1,000 ml Med 06/30/18 09:19 Discontinued IV 75 mls/hr Albuterol 2.5MG/Ipratrop 0.5MG [Duoneb (A & A)] Med 06/30/18 05:22 Discontinued 3 ml INH NOW ONE Levalbuterol Neb [Xopenex Neb] Med 06/30/18 09:19 Discontinued 1.25 mg INH Q4H PRN PRN Meperidine [Demerol] Med 06/30/18 05:58 Discontinued 25 mg IM NOW ONE Meperidine [Demerol] Med 06/30/18 07:18 Discontinued 25 mg IV NOW ONE Promethazine [Phenergan] Med 06/30/18 07:19 Discontinued 12.5 mg IV NOW ONE Sodium Chloride 0.9% Med 06/30/18 07:19 Discontinued 10 ml INJ NOW ONE Aerosol Treatments Routine Oth 06/30/18 05:22 Completed Aerosol Treatments Routine Oth 06/30/18 09:19 Completed Aerosol Treatments Stat Oth 06/30/18 05:22 Completed Consent for Surgery Routine Oth 06/30/18 10:01 Ordered Telemetry [OM.EQ] Routine Oth 06/30/18 08:55 Active Transfer/Admit Order [TRANSFER] Routine Transfer 06/30/18 08:39 Completed Result Diagrams: 06/30/18 08:12 06/30/18 08:12 - CONSULTS/PCP/HOSPITALIST Notification #1 *Consult/PCP/Hospitalist*: Spoke with Dr Camacho who will see patient in consult #2 Consult: Spoke with Dr Raymond Departure - Departure Date of Disposition Decision: 06/30/18 Time of Disposition Decision: 07:05 DIAGNOSIS: Hip fracture Disposition: ADMITTED INPATIENT 09 Certified Medical Emergency: Emergent Condition: Stable - Critical Care Note This patient required my direct & personal management of CC.: No Attestation - Physician/ JOSÉ MIGUEL Attestation Patient care was provided by Advanced Practice Provider:: No The physician spent face to face time with patient:: Yes Advanced Practice Provider documentation review:: Supervising physician onsite and consulted in the evaluation and care of this patient. The physician did have a face to face encounter with the patient.
[2018-06-30] MEDS ORDERED: DEMEROL IM ONE (05:58)
[2018-06-30] MEDS ORDERED: DEMEROL IV ONE (07:18)
[2018-06-30] MEDS ORDERED: SODIUM CHLORIDE 0.9% INJ ONE (07:19)
[2018-06-30] MEDS ORDERED: PHENERGAN IV ONE (07:19)
--- NOTE | 2018-06-30 08:16 | Diag Imaging Result Doc PS360 ---
EXAM: XRAY HIP UNILATERAL LT INDICATION: fall TECHNIQUE: One view COMPARISON: None. FINDINGS: There is a mildly comminuted intertrochanteric fracture of the left hip. There is significant medial displacement of a fracture fragment through the base of the lesser trochanter. No other discrete fracture or dislocation is appreciated. The surrounding soft tissues are essentially unremarkable. IMPRESSION: Intertrochanteric fracture of the left hip as described. Electronically signed by Armani Ansari 06/30/2018 8:14 AM
--- NOTE | 2018-06-30 08:17 | Diag Imaging Result Doc PS360 ---
EXAM: SHOULDER-RIGHT INDICATION: fall TECHNIQUE: 2 views COMPARISON: None. FINDINGS: There is mild to moderate degenerative arthropathy at the AC joint. There is no discrete fracture, dislocation, or significant intrinsic osseous lesion, otherwise. The surrounding soft tissues are essentially unremarkable. IMPRESSION: No evidence of acute osseous abnormality. Electronically signed by Armani Ansari 06/30/2018 8:14 AM
--- NOTE | 2018-06-30 08:18 | Diag Imaging Result Doc PS360 ---
EXAM: KNEE 3 VIEWS LEFT INDICATION: fall TECHNIQUE: 3 views COMPARISON: None. FINDINGS: There are small marginal osteophytes at all three compartments and mild loss of joint space at the medial and lateral compartments. There is no discrete fracture, dislocation, or significant intrinsic osseous lesion, otherwise. There is probably mild prepatellar soft tissue edema. IMPRESSION: No evidence of acute osseous abnormality. Electronically signed by Armani Ansari 06/30/2018 8:16 AM
--- NOTE | 2018-06-30 08:20 | Diag Imaging Result Doc PS360 ---
EXAM: CHEST-2 VIEWS INDICATION: left hip pain TECHNIQUE: 3 views COMPARISON: 06/22/2018 FINDINGS: COPD changes and diffuse interstitial thickening bilaterally suggesting fibrosis is again noted. The interstitial markings are slightly less prominent than the previous study suggesting that there was a component of interstitial edema that has improved. There is no discrete pleural fluid collection or pneumothorax. The cardiomediastinal silhouette and central vasculature are grossly unremarkable. IMPRESSION: Interstitial thickening throughout that has improved since the previous study. Electronically signed by Armani Ansari 06/30/2018 8:18 AM
[2018-06-30 08:22] LABS: BASO# 0.03 X1000 (0.0-0.2); BASO% 0.2 % (0.0-0.8); EOS# 0.53 X1000 (0.0-0.7); EOS% 3.3 % (0.0-10.0); HEMATOCRIT 33.6 % (42.0-52.0); HEMOGLOBIN 10.2 g/dL (14.0-18.0); IMM GRAN# 0.29 X1000 (0.0-0.04); IMM GRAN% 1.8 % (0.0-0.5); LYMPH# 2.58 X1000 (1.2-3.4); LYMPH% 16.3 % (20.5-51.1); MCH 27.9 PG (27-31); MCHC 30.4 g/dL (33-37); MCV 92.1 FL (81-99); MONO# 0.92 X1000 (0.11-0.59); MONO% 5.8 % (1.7-9.3); MPV 9.5 FL (7.4-10.4); NEUT% 72.6 % (42.2-75.2); PLT 344 X1000 (130-400); RBC 3.65 XMIL (4.7-6.1); RDW 15.6 % (11.5-14.5); WBC 15.85 X1000 (4.8-10.8)
[2018-06-30 08:26] LABS: INR 0.92; PROTIME 13.2 Seconds (11.0-16.0)
[2018-06-30 08:27] LABS: PTT 32.1 Seconds (22.3-41.8)
[2018-06-30 08:41] LABS: AGAP 8; ALBUMIN 2.9 g/dL (3.5-5.0); ALKALINE PHOSPHATASE 55 U/L (32-122); BUN 9 mg/dL (8-22); CALCIUM 8.4 mg/dL (8.8-10.2); CHLORIDE 106 mmol/L (98-107); CK PROFILE 50 U/L (24-204); COSMO 280; CREATININE 0.6 mg/dL (0.7-1.2); ESTIMATED GFR > 60; GLUCOSE 102 mg/dL (70-104); GOT 17 U/L (10-34); GPT 20 U/L (10-44); POTASSIUM 3.5 mmol/L (3.5-5.1); SODIUM 141 mmol/L (136-145); TCO2 27 mmol/L (25-35); TOTAL BILIRUBIN < 0.15 mg/dL (0.20-1.00); TOTAL PROTEIN 5.7 g/dL (6.3-8.3)
[2018-06-30] MEDS ORDERED: NS 1,000 ML IV ONE (09:19)
[2018-06-30] MEDS ORDERED: XOPENEX NEB INH PRN (09:19)
[2018-06-30 09:45] LABS: URINE SOURCE CLEAN CATCH
[2018-06-30 10:11] LABS: BILIRUBIN URINE NEGATIVE (NEGATIVE); BLOOD URINE NEGATIVE (NEGATIVE); COLOR YELLOW; GLUCOSE URINE NEGATIVE (NEGATIVE); KETONE URINE NEGATIVE (NEGATIVE); LEUKOCYTES URINE NEGATIVE (NEGATIVE); NITRITE URINE NEGATIVE (NEGATIVE); PH URINE 5.5; PROTEIN URINE NEGATIVE (NEGATIVE); SP GRAVITY URINE 1.009; TURBIDITY URINE CLEAR (CLEAR); UROBILINOGEN URINE NORMAL (NORMAL)
[2018-06-30 10:13] LABS: UR EPITHELIAL CELLS <10 /HPF (<10); URINE BACTERIA NEGATIVE /HPF; URINE RBC <10 /HPF (<10); URINE WBC <10 /HPF (<10)
[2018-06-30 10:36] LABS: UR AMPHETAMINES QUAL NONE DETECTED (NONE DETECT); UR BARBITUATES QUAL NONE DETECTED (NONE DETECT); UR BENZODIAZEPIN QUAL NONE DETECTED (NONE DETECT); UR CANNABINOIDS QUAL PRESUMPTIVE POSITIVE (NONE DETECT); UR COCAINE QUAL NONE DETECTED (NONE DETECT); UR METHADONE QUAL NONE DETECTED (NONE DETECT); UR OPIATES QUAL NONE DETECTED (NONE DETECT); UR OXYCODONE QUAL NONE DETECTED (NONE DETECT); UR PCP QUAL NONE DETECTED (NONE DETECT)
[2018-06-30] MEDS: MORPHINE IV PRN ×3 (11:15→20:02)
[2018-06-30 11:32] LABS: BE 5.7 mmoll (-3.0-3.0); BLOOD TYPE ARTERIAL; HCO3-(ACT) 29.3 mmoll (20.0-26.0); METHB 1.1 % (0.0-1.5); O2(CT) 14.7 mL/dL (15.0-23.0); O2HB 94.9 % (95.0-99.0); PCO2(98.6) 48 mmHg (35-45); PO2(98.6) 97 mmHg (60-100); SAMPLE BLOOD; SAO2 99.6 % (95.0-100.0); THB 10.9 g/dL (11.5-17.4); pH(98.6) 7.42 (7.35-7.45)
[2018-06-30 11:34] LABS: ALLEN TEST YES; MODALITY CANNULA
--- NOTE | 2018-06-30 11:40 | Diag Imaging Result Doc PS360 ---
EXAM: CT HEAD W/O CONTRAST INDICATION: head contusion with LOC TECHNIQUE: This exam was performed using automated exposure control, adjustment of mA or kV according to patient size, and/or use of iterative reconstruction technique. COMPARISON: 06/21/2018 FINDINGS: There is no definite acute infarct given the limited sensitivity of CT versus MRI. There is no discrete intracranial mass, mass effect, or intracranial hemorrhage. The surrounding soft tissues and bony structures are essentially unremarkable. IMPRESSION: No evidence of acute intracranial pathology. Electronically signed by Armani Ansari 06/30/2018 11:38 AM
--- NOTE | 2018-06-30 13:08 | HISTORY AND PHYSICAL ---
CHIEF COMPLAINT: Fall with left hip pain. HISTORY OF PRESENT ILLNESS: Mr. Rodriges is a 63-year-old male with a history of polysubstance dependence, coronary artery disease, seizure disorder, questionable history of HIV, and a history of COPD on oxygen at home, who presents status post fall this morning with subsequent left hip pain. The patient is somewhat altered at this time and has multiple admissions for toxic encephalopathy as well as polysubstance dependence, so history is somewhat difficult to obtain. He was going to the refrigerator this morning and slipped on the floor in front of his refrigerator and immediately starting having left hip pain. He came to the ER, had imaging done, and was noted to have a left hip fracture. His laboratory data shows some leukocytosis and anemia. Chemistry is unremarkable. A CT of the head was ordered and official read is pending. Orthopedics has been consulted and will see the patient, he will be admitted for further treatment and evaluation. PAST MEDICAL HISTORY: 1. COPD on oxygen at home. 2. Polysubstance dependence. 3. Seizure disorder. 4. Medical noncompliance. 5. Questionable history of HIV: Multiple different documents suggest a history of HIV but the patient himself denies any history, the only antibody test we have is nonreactive in 2014. 6. Coronary artery disease. 7. Bipolar disorder. PAST SURGICAL HISTORY: He has had toe surgery, coronary stenting, and eye surgery. SOCIAL HISTORY: Unclear as to the exact amount of substance use. There is report of 1-2 pack a day of cigarettes, heavy alcohol, and cannabinoid use. The patient himself states that he has a few shots a day. His last drink was a day and half ago. He actually denies illicit substance use at this time. FAMILY HISTORY: Noncontributory. REVIEW OF SYSTEMS: Difficult to obtain, but a limited 10-point review of systems was obtained and found to be negative with the exception of the HPI. ALLERGIES: Dilantin, milk, ceftazidime, codeine. HOME MEDICATIONS: Unknown. PHYSICAL EXAMINATION: VITAL SIGNS: Blood pressure is 145/88, heart rate is 80, respiratory rate 27, O2 saturation 100% on nasal cannula, temperature is 98.1. GENERAL: This is a chronically ill, disheveled and malnourished-appearing 63-year-old male lying in the hospital bed, lethargic. NEUROLOGICAL: He does open his eyes to verbal stimulus. His speech is somewhat garbled but he is oriented to time and place. HEENT: Head is atraumatic and normocephalic. His pupils are pinpoint bilaterally. Oral mucosa is dry. NECK: Trachea is midline. There is no JVD. CHEST: Diminished but clear to auscultation. CARDIOVASCULAR: Regular rate and rhythm. S1 and S2 is noted. GASTROINTESTINAL: Soft, nondistended, nontender. Bowel sounds positive. EXTREMITIES: Trace edema bilaterally. There are diminished pulses, and his left leg is shortened and externally rotated. DIAGNOSTIC DATA: Hip x-ray shows intertrochanteric fracture of the left hip with significant medial displacement. Shoulder x-ray is negative for acute osseous abnormality. Knee x-ray is negative for anything on the left of acute nature. Chest x-ray shows interstitial thickening throughout that has improved since the previous study. Head CT official read is pending. Preliminary on-call report says generalized involutional changes consistent with age. No acute abnormalities. WBC 15.85, hemoglobin 10.2, hematocrit 33.6, platelet count 344. INR 0.92. Sodium 141, potassium 3.5, chloride 106, CO2 27, anion gap 8, BUN 9, creatinine 0.6, glucose 102, calcium 8.4, total bilirubin 0.15, AST 17, ALT 20, alkaline phosphatase 55. Troponin negative. Alcohol level 0. ASSESSMENT AND PLAN: 1. Fall with left intertrochanteric hip fracture: Surgery has been consulted. Will keep the patient n.p.o. Order a Mason, urinalysis and drug screen is pending. Will consult social work and continue with pain control. 2. Toxic encephalopathy: The patient is clearly altered at this time. He has a significant polysubstance dependence history. Head CT is preliminarily negative and we are awaiting urinalysis, drug screen, and ABG. Will hold off on any pain medication at this time since he has had Demerol and Phenergan in the ER. 3. Chronic obstructive pulmonary disease stable. Will add breathing treatments and check an ABG. No exacerbation noted. 4. Questionable history of human immunodeficiency virus: Unclear as to where the documentation of HIV originated, however, we will go ahead and check antibody and also hepatitis as well. 5. Coronary artery disease, stable. No chest pain noted. Will follow telemetry. 6. Polysubstance dependence. We will follow closely for signs of withdrawal or DTs. 7. Deep venous thrombosis prophylaxis will be added after surgery. 8. Further recommendations to follow. Dictated by XENIA Farias for Aquiles Evans MD cc: XENIA Farias MD I agree with most components of history, physical, assessment and plan. A separate addendum has been dictated. ILAN
[2018-06-30] MEDS: DUONEB (A & A) INH SCH ×2 (15:48→19:21)
[2018-06-30] MEDS ORDERED: LOVENOX SUBQ SCH (16:30)
[2018-06-30] MEDS ORDERED: BUSPAR PO SCH (17:00)
--- NOTE | 2018-06-30 17:30 | HISTORY AND PHYSICAL ---
Addendum to history and physical dictated by nurse practitioner. I agree with most components of history, physical, assessment, and plan. In brief, Mr. Rodriges is a 63 years old man who had a mechanical fall early this morning when he tripped and slipped when he stepped over a dog pee pad. He fell on his left side and so he went to the emergency room. In the emergency room, x-ray of hip had suggested left-sided intertrochanteric comminuted fracture. He had CT shoulder x-ray and the x-rays were unremarkable. SUBJECTIVE: He is denying any chest pain. He is not feeling short of breath. He denies any dizziness. He denies any urination problem. We discussed about hip fracture surgery, postoperative potential complications and management. I answered all of his questions. VITALS: Currently, temperature of 98.7 degrees, pulse 83, respiratory rate 18, blood pressure 134/78, saturating 97% on 3 L nasal cannula. PHYSICAL EXAMINATION: GENERAL: Does not appear in any acute distress. HEENT: Oral cavity is moist. LUNGS: He has prominent wheezing bilateral lung dockery. No crackles. Air entry adequate bilaterally. CARDIOVASCULAR: S1, S2 normal. No murmur, rub, or gallop. ABDOMEN: Soft, nontender. EXTREMITIES: No lower extremity edema. His left lower extremity is shorter than the right lower extremity. It is externally rotated. LABS: Suggestive of leukocytosis, normocytic anemia, normal platelet count, normal coagulation, normal kidney function. His troponins initial was negative. His U-tox was positive for cannabinoids. He does mention smoking marijuana off and on. ASSESSMENT AND PLAN: 1. Left femoral intertrochanteric displaced comminuted fracture. 2. Acute exacerbation of COPD, mild. 3. History of COPD and chronic hypoxic respiratory failure on home O2. 4. History of polysubstance abuse. 5. History of benign prostatic hypertrophy. 6. History of anxiety. 7. History of seizure. PLAN: The patient will be admitted for surgical correction of left intertrochanteric femoral fracture. Orthopedic on board. I will continue most of his home medication. I will start him on albuterol ipratropium nebulization. His exacerbation is mild and he does not appear to be in any distress so I am holding off on giving him steroids. Also he has surgical intervention plan. Plan of care discussed with him. All of his questions have been answered. cc: Aquiles Evans MD
[2018-06-30 19:45] LABS: HIV ANTIBODY SCREEN SEE COMMENTS
--- NOTE | 2018-06-30 21:07 | ORTHOPAEDICS CONSULTATION ---
ADMISSION DATE: 06/30/2018 Mr. Rodriges seen today for left hip pain. He reports a fall at home. He presents complaining of pain, tenderness about the left hip. He reports some soreness over the right shoulder. PAST MEDICAL HISTORY: Significant for COPD. He has also undergone surgery on his toes in the past by DR. Reddy. SOCIAL HISTORY: He is a community ambulator and resides in [facility] with his daughter. ALLERGIES: [facility] to [facility] and are as listed by the hospital admission sheet. PHYSICAL EXAM: Examination reveals both upper extremities to be atraumatic and motor and sensory intact. There is good range of motion both shoulders, elbows and wrists and digits. Right lower extremity has normal hip and knee motion with no tenderness about the ankle or calf. Left lower extremity had swelling over the proximal thigh is slightly shortened and externally rotated. Compartments are soft. No open wounds. He is motor and sensory intact. He is nontender from the distal femur down to the toes. There is good capillary refill and warm extremity. X-RAYS: X-rays reviewed show a 2 to 3 part intertrochanteric left hip fracture. X-rays of the shoulder and knee are unremarkable. ASSESSMENT: Left intertrochanteric hip fracture. PLAN: The patient will be admitted and evaluated by the hospitalist for surgical and medical management. We will plan on fixation left hip tomorrow morning. He can be n.p.o. after midnight. I have discussed risks such as bleeding, infection, damage to tendon, nerve, or blood vessel, loss of limb or life and other imponderables with him and he is willing to proceed. cc: Armani Moy MD
[2018-06-30] MEDS: KEPPRA PO SCH (21:19)
[2018-07-01] MEDS ORDERED: MORPHINE IV PRN ×2 (01:06)
[2018-07-01] MEDS: DUONEB (A & A) INH SCH ×4 (03:25→21:29)
[2018-07-01 06:48] LABS: BASO# 0.02 X1000 (0.0-0.2); BASO% 0.2 % (0.0-0.8); EOS# 0.42 X1000 (0.0-0.7); EOS% 3.6 % (0.0-10.0); HEMATOCRIT 36.7 % (42.0-52.0); HEMOGLOBIN 11.2 g/dL (14.0-18.0); IMM GRAN% 1.7 % (0.0-0.5); LYMPH# 2.33 X1000 (1.2-3.4); LYMPH% 19.7 % (20.5-51.1); MCH 27.8 PG (27-31); MCHC 30.5 g/dL (33-37); MCV 91.1 FL (81-99); MONO# 1.13 X1000 (0.11-0.59); MONO% 9.6 % (1.7-9.3); MPV 9.9 FL (7.4-10.4); NEUT# 7.73 X1000 (1.4-6.5); NEUT% 65.2 % (42.2-75.2); PLT 349 X1000 (130-400); RBC 4.03 XMIL (4.7-6.1); RDW 15.4 % (11.5-14.5); WBC 11.83 X1000 (4.8-10.8)
[2018-07-01 07:30] LABS: AGAP 10; BUN 6 mg/dL (8-22); CALCIUM 8.5 mg/dL (8.8-10.2); CHLORIDE 100 mmol/L (98-107); COSMO 274; CREATININE 0.5 mg/dL (0.7-1.2); ESTIMATED GFR > 60; GLUCOSE 108 mg/dL (70-104); POTASSIUM 4.2 mmol/L (3.5-5.1); SODIUM 138 mmol/L (136-145); TCO2 28 mmol/L (25-35)
[2018-07-01] MEDS ORDERED: LR 1,000 ML ONE (07:33)
[2018-07-01] MEDS ORDERED: LEVAQUIN 500 MG/D5W 500 MG/100 ML IVPB IV ONE (07:43)
[2018-07-01] MEDS ORDERED: DIPRIVAN 1% ONE ×2 (07:46→08:49)
[2018-07-01] MEDS ORDERED: XYLOCAINE-MPF 2% ONE ×2 (07:48→08:50)
[2018-07-01] MEDS ORDERED: SUFENTA ONE (07:49)
[2018-07-01] MEDS ORDERED: QUELICIN (DOSE) ONE (07:49)
[2018-07-01] MEDS: KEFZOL 2 GM/D5W 0 GM/0 ML IVPB ONE (07:55)
[2018-07-01] MEDS ORDERED: ZOFRAN ONE (08:42)
[2018-07-01] MEDS ORDERED: DECADRON ONE (08:42)
[2018-07-01] MEDS: DILAUDID ONE ×2 (09:28→09:32)
--- NOTE | 2018-07-01 09:42 | OPERATIVE NOTE ---
PROCEDURE DATE: 06/30/2018 PREOPERATIVE DIAGNOSIS: Intertrochanteric left hip fracture. POSTOPERATIVE DIAGNOSIS: Intertrochanteric left hip fracture. PROCEDURE PERFORMED: Closed reduction and trochanteric fixation nail fixation of left hip. SURGEON: Domonique Moy MD. ANESTHESIA: General. COMPLICATIONS: None. PROCEDURE IN DETAIL: A 63-year-old male who presents for surgical fixation of a left intertrochanteric hip fracture. Risks, benefits, and no guarantees were discussed, and he is willing to proceed. He was taken to the operating room and satisfactory anesthesia obtained. He was transferred to the [place] table. The left hip was prepped and draped in the usual sterile fashion. A time-out was taken to confirm operative site, procedure, and patient. Using the table, traction was slightly applied to the hip with roughly neutral rotation, with near-anatomic reduction of the fracture. A lateral incision was then made roughly 3 cm above the lesser trochanter and dissection carried down to the tip of the trochanter. A TFN guide pin was placed down the intramedullary canal through the tip of the trochanter. This was reamed with the entry reamer and exchanged for a ball-tip guidewire. A 440 length nail was selected. A 12 mm reamer was run over the guidewire and a 440 x 11 diameter nail inserted over the guidewire. The guidewire was removed. Using the proximal alignment sleeve, a small additional incision was made at the level of the lesser trochanter. A guide pin was placed across the nail and into the central aspect of the femoral neck and head with care taken to avoid any articular penetration. This was measured and a 110 helical blade inserted over this after reaming of the lateral cortex. The anti-rotation screw was set and the proximal guide removed, completing proximal fixation of the femur. The C-arm was used to verify accurate hardware placement and reduction. A distal screw was placed through the dynamic slot of the nail using fluoroscopic guidance through a small lateral percutaneous incision. A 42 length screw was placed with bicortical fixation and verified to capture the nail on the fluoroscopic image. The wounds were then closed in layers with 2-0 Vicryl followed by skin kulwinder. Sterile dressings were applied. The patient was recovered from anesthesia and transferred to the recovery room in stable condition. No intraoperative complications were noted. Instrument count and sponge count were correct at the time of closure. cc: Armani Moy MD
[2018-07-01] MEDS ORDERED: ZOFRAN IV PRN (09:46)
[2018-07-01] MEDS ORDERED: HALDOL IV PRN (10:00)
[2018-07-01] MEDS ORDERED: VANCOMYCIN 1 GM/NS 1 GM/250 ML IVPB IV SCH (11:00)
[2018-07-01] MEDS: FLOMAX PO SCH (11:16)
[2018-07-01] MEDS: BUSPAR PO SCH ×3 (11:16→17:26)
[2018-07-01] MEDS: NS 1,000 ML IV SCH (11:17)
[2018-07-01] MEDS: KEPPRA PO SCH ×2 (11:17→20:58)
[2018-07-01] MEDS: PAXIL PO SCH (11:17)
[2018-07-01] MEDS: TYLENOL PO SCH ×2 (11:18→17:26)
[2018-07-01 12:51] LABS: HEPATITIS PROFILE ACUTE SEE COMMENTS
[2018-07-01] MEDS: MORPHINE IV PRN ×3 (13:23→22:43)
[2018-07-01] MEDS: MILK OF MAGNESIA PO PRN (13:24)
--- NOTE | 2018-07-01 13:26 | PROGRESS NOTE ---
DATE: 07/01/2018 INTERVAL HISTORY: Mr. Rodriges underwent closed reduction and trochanteric nail fixation of left hip today morning and he tolerated the procedure well. I am seeing him postprocedure. He currently denies any pain. Alert, oriented, not in any distress. He is not feeling short of breath. Denies any chest pain. VITALS: Temperature 98.1 degrees, pulse 89, respiratory rate 28, blood pressure 117/77, saturating 90% on 3 L of nasal cannula. PHYSICAL EXAMINATION: General: He does not appear in any acute distress. Oral cavity is moist. No pallor, cyanosis, clubbing, or icterus. Lungs: Air entry bilaterally equal. No wheeze, rhonchi, or crackles. He has transmitted upper respiratory tract noise on lung examination. He has S1, S2 normal. No murmur, rub, or gallop. Abdomen: Soft, nontender. No lower extremity edema. The left lower extremity and right lower extremity are of equal length. Left lower extremity is no longer externally rotated. He is able to wiggle his toes and has intact circulation on both extremities, lower side. LABS: Suggestive of normocytic anemia, mild leukocytosis which is likely reactive, with normal platelet count. BMP is essentially unremarkable. ASSESSMENT AND PLAN: 1. Left femoral intertrochanteric displaced comminuted fracture after mechanical fall, status post closed reduction and intertrochanteric nailing by orthopedics on July 01. Today is postoperative day 0. Continue oxycodone, intravenous morphine as needed for pain control. Continue Xarelto for deep venous thrombosis prophylaxis as per surgery recommendation. 2. The patient will be advised to follow up with his regular doctor outpatient for osteoporosis screening. 3. Mild acute chronic obstructive pulmonary disease exacerbation with chronic hypoxic respiratory failure, on home oxygen. Continue albuterol ipratropium nebulization every 6 hours scheduled. I will avoid steroids since his exacerbation appears better today and he just had a surgery to allow proper wound healing. Continue home oxygen to maintain saturation between 88 to 92 percent. 4. History of anxiety and depression. Continue home buspirone and paroxetine. Continue tamsulosin for history of benign prostatic hypertrophy and levetiracetam for history of seizure. 5. Continue docusate sodium with milk of magnesia to avoid constipation. 6. Others: His HIV and Hepatitis panel are negative. 6. Disposition. Patient remains inside the hospital as we monitor postoperative course. I will evaluate. Physical therapy will be ordered and, accordingly, we will plan discharge sometime next week. Plan of care discussed with the patient. All of his questions have been answered. cc: Aquiles Evans MD MTDD
[2018-07-01] MEDS: OXY IR PO PRN (20:57)
[2018-07-01] MEDS: PERIDEX MT SCH (20:58)
[2018-07-01] MEDS: COLACE PO SCH (20:58)
[2018-07-02] MEDS: OXY IR PO PRN ×4 (00:17→17:48)
[2018-07-02] MEDS: NS 1,000 ML IV SCH ×2 (01:34→19:40)
[2018-07-02] MEDS: MORPHINE IV PRN ×5 (01:38→22:56)
[2018-07-02] MEDS: TYLENOL PO SCH ×3 (01:48→15:55)
[2018-07-02] MEDS: DUONEB (A & A) INH SCH ×4 (03:40→23:26)
[2018-07-02] MEDS: XARELTO PO SCH (05:26)
[2018-07-02 06:19] LABS: BASO# 0.01 X1000 (0.0-0.2); BASO% 0.1 % (0.0-0.8); EOS# 0.01 X1000 (0.0-0.7); EOS% 0.1 % (0.0-10.0); HEMATOCRIT 34.1 % (42.0-52.0); HEMOGLOBIN 10.4 g/dL (14.0-18.0); IMM GRAN# 0.14 X1000 (0.0-0.04); LYMPH# 1.02 X1000 (1.2-3.4); LYMPH% 7.5 % (20.5-51.1); MCH 27.7 PG (27-31); MCHC 30.5 g/dL (33-37); MCV 90.7 FL (81-99); MONO# 1.15 X1000 (0.11-0.59); MONO% 8.5 % (1.7-9.3); MPV 9.8 FL (7.4-10.4); NEUT# 11.18 X1000 (1.4-6.5); NEUT% 82.8 % (42.2-75.2); PLT 296 X1000 (130-400); RBC 3.76 XMIL (4.7-6.1); RDW 14.6 % (11.5-14.5); WBC 13.51 X1000 (4.8-10.8)
[2018-07-02 06:48] LABS: AGAP 7; BUN 8 mg/dL (8-22); CALCIUM 9.1 mg/dL (8.8-10.2); CHLORIDE 97 mmol/L (98-107); COSMO 272; CREATININE 0.6 mg/dL (0.7-1.2); ESTIMATED GFR > 60; GLUCOSE 104 mg/dL (70-104); POTASSIUM 5.1 mmol/L (3.5-5.1); SODIUM 137 mmol/L (136-145); TCO2 33 mmol/L (25-35)
[2018-07-02] MEDS: KEFZOL 2 GM/D5W 0 GM/0 ML IVPB ONE (08:26)
--- NOTE | 2018-07-02 09:03 | PROGRESS NOTE ---
DATE: 07/02/2018 SUBJECTIVE DATA: Mr. Rodriges is on postop day 1 of left TFN placement. He reports he is still having pain and swelling in that leg. He reports he does have some itching today and that he usually takes Benadryl for it and this is normal for him. He is requesting Benadryl at this time. He also reports that he does not have insurance and does want some home health set up. OBJECTIVE DATA: There is good sensation left lower extremity. There is good capillary refill. The patient is able to flex his quadriceps muscles without difficulty. There is negative Homans sign. The incision sites are clean and dry. ASSESSMENT: Left intertrochanteric hip fracture. PLAN: We will plan on monitoring Mr. Rodriges overnight in the hospital. I will order Benadryl for him for itching. We will see how he does with physical therapy today. Dictated by XENIA Marrero for Armani Moy MD cc: XENIA Marrero MD
[2018-07-02] MEDS: BENADRYL PO PRN (11:25)
[2018-07-02] MEDS: BUSPAR PO SCH ×3 (11:34→20:19)
[2018-07-02] MEDS: PERIDEX MT SCH ×2 (15:52→20:20)
[2018-07-02] MEDS: KEPPRA PO SCH ×2 (15:52→20:19)
[2018-07-02] MEDS: PAXIL PO SCH (16:03)
[2018-07-02] MEDS: FLOMAX PO SCH (16:03)
[2018-07-02] MEDS: FERROUS SULFATE PO SCH (16:03)
[2018-07-02] MEDS: DULCOLAX PR SCH ×2 (16:17→20:20)
--- NOTE | 2018-07-02 16:25 | PROGRESS NOTE ---
DATE: 07/02/2018 INTERVAL HISTORY: No acute events overnight. The patient was able to work out with physical therapy, however, he needed a lot of help. Apparently, the patient does not have health insurance and he would not qualify for going to the rehab. We discussed about stopping intravenous pain medications, starting on p.o. medication tomorrow onwards. I answered all of his questions. The patient denies chest pain or shortness of breath, nausea, vomiting, or abdominal pain. OBJECTIVE: Vital Signs: Currently, temperature 98 degrees, pulse 83, respiratory rate 18, blood pressure 117/57, saturating 92% on 2 L nasal cannula. General: He does not appear in any acute distress. Oral cavity is moist. No pallor, cyanosis, clubbing, or icterus. Lungs: Air entry bilaterally equal. No wheeze, rhonchi, or crackles. Cardiovascular: S1, S2 normal. No murmur, rub, or gallop. Abdomen: Soft, nontender. Extremities: Bilateral mild lower extremity edema. He is able to wiggle toes bilaterally. He is able to lift right lower extremity above ground level. Left lower extremity, he is able to wiggle the toes, not able to lift. LABORATORY DATA: Suggestive of leukocytosis of 13,000, which is likely reactive. Hemoglobin of 10.4, platelets of 296,000. His electrolytes are largely in acceptable range with normal kidney function. Microbiology: No data. IMAGING: No data. ASSESSMENT AND PLAN: 1. Left femoral intertrochanteric displaced comminuted fracture after mechanical fall, status post closed reduction and intertrochanteric nailing on 07/01/2018. Today is postoperative day 1. Continue current pain regimen tomorrow onwards. I am going to change the pain medication to minimize intravenous pain medication use. Continue Xarelto for deep venous thrombosis prophylaxis as per Orthopedic Surgery recommendation. The patient was advised to follow up with his regular doctor for osteoporosis screening. 2. Mild acute chronic obstructive pulmonary disease exacerbation with chronic hypoxic respiratory failure on home oxygen. Continue albuterol ipratropium nebulization every 6 hours as scheduled. Avoid steroids to allow wound healing. Continue home oxygen to maintain saturation between 88% to 92%. 3. History of anxiety, depression. Continue home buspirone and paroxetine. 4. Continue tamsulosin for history of benign prostatic hypertrophy. 5. Levetiracetam for history of seizure. 6. Continue docusate sodium with bisacodyl suppository for his constipation. DISPOSITION: The patient remains inside the hospital. My goal is to have him reach appropriate level of functional status before I could discharge him home. He does not have insurance and who would not qualify for rehab or home PT. Plan of care discussed with the patient. All of his questions have been answered. cc: Aquiles Evans MD
[2018-07-02] MEDS: PERCOCET-10 PO PRN (20:18)
[2018-07-02] MEDS: COLACE PO SCH (20:19)
[2018-07-03] MEDS ORDERED: PERCOCET-10 PO PRN (00:01)
[2018-07-03] MEDS: BENADRYL PO PRN (00:03)
[2018-07-03] MEDS: MORPHINE IV PRN ×2 (01:42→09:10)
[2018-07-03] MEDS: DUONEB (A & A) INH SCH ×4 (03:30→23:15)
[2018-07-03 06:05] LABS: BASO# 0.02 X1000 (0.0-0.2); BASO% 0.2 % (0.0-0.8); EOS# 0.56 X1000 (0.0-0.7); EOS% 5.3 % (0.0-10.0); HEMATOCRIT 32.5 % (42.0-52.0); HEMOGLOBIN 9.9 g/dL (14.0-18.0); IMM GRAN# 0.06 X1000 (0.0-0.04); IMM GRAN% 0.6 % (0.0-0.5); LYMPH# 1.42 X1000 (1.2-3.4); LYMPH% 13.4 % (20.5-51.1); MCH 27.7 PG (27-31); MCHC 30.5 g/dL (33-37); MCV 90.8 FL (81-99); MONO# 0.82 X1000 (0.11-0.59); MONO% 7.7 % (1.7-9.3); MPV 9.7 FL (7.4-10.4); NEUT# 7.75 X1000 (1.4-6.5); NEUT% 72.8 % (42.2-75.2); PLT 275 X1000 (130-400); RBC 3.58 XMIL (4.7-6.1); RDW 14.9 % (11.5-14.5); WBC 10.63 X1000 (4.8-10.8)
[2018-07-03] MEDS: PERCOCET-10 PO PRN ×3 (06:25→21:40)
[2018-07-03] MEDS: MILK OF MAGNESIA PO PRN (06:25)
[2018-07-03] MEDS: XARELTO PO SCH (06:25)
[2018-07-03] MEDS ORDERED: LACTULOSE PO PRN (06:27)
[2018-07-03 06:28] LABS: AGAP 8; BUN 11 mg/dL (8-22); CALCIUM 9.1 mg/dL (8.8-10.2); CHLORIDE 97 mmol/L (98-107); COSMO 270; CREATININE 0.6 mg/dL (0.7-1.2); ESTIMATED GFR > 60; GLUCOSE 103 mg/dL (70-104); POTASSIUM 4.3 mmol/L (3.5-5.1); SODIUM 135 mmol/L (136-145); TCO2 30 mmol/L (25-35)
[2018-07-03] MEDS: PERIDEX MT SCH ×2 (08:55→21:56)
[2018-07-03] MEDS: KEPPRA PO SCH ×2 (08:55→21:56)
[2018-07-03] MEDS: FERROUS SULFATE PO SCH (08:55)
[2018-07-03] MEDS: PAXIL PO SCH (08:55)
[2018-07-03] MEDS: BUSPAR PO SCH ×3 (08:56→18:55)
[2018-07-03] MEDS: FLOMAX PO SCH (08:57)
[2018-07-03] MEDS: DULCOLAX PR SCH ×2 (08:57→21:56)
[2018-07-03] MEDS: TYLENOL PO SCH (08:58)
--- NOTE | 2018-07-03 12:39 | PROGRESS NOTE ---
DATE: 07/03/2018 Mr. Rodriges is seen today status post TFN fixation of the hip. At the present time, his incisions are all clean and dry. Vital signs are stable. He is doing relatively well surgically. He can be transferred to a rehab center or home with home therapy when he is medically cleared per the hospitalist. We will need to see him back in the office in roughly 10 to 14 days for staple removal and followup x-rays. He can be mobilized with therapy, partial weightbearing in the interim. He can return in the interim for any worsening signs or symptoms. We will be available as needed at this point. cc: Armani Moy MD
[2018-07-03] MEDS: ZYRTEC PO PRN (13:49)
--- NOTE | 2018-07-03 13:51 | PROGRESS NOTE ---
DATE: 07/03/2018 INTERVAL HISTORY: No acute event overnight. I discussed with physical therapy about informing me whenever the patient is able to transfer himself from bed to chair, go to bedside commode or bathroom without too much assistance at which point I will consider discharging. Currently, the patient denies chest pain, shortness of breath, nausea, vomiting, or abdominal pain. VITALS: Temperature 99.1 degrees, pulse 92, respiratory rate 20, blood pressure 110/58, saturating 91 to 94 percent on 2 L nasal cannula. Input and output, he had liquid brown bowel movement. PHYSICAL EXAMINATION: The patient does not appear in any acute distress. Oral cavity is moist. No pallor, cyanosis, clubbing, or icterus. Air entry bilaterally equal. No wheeze, rhonchi, or crackles. S1, S2 normal. No murmur, rub, or gallop. Abdomen is soft, nontender. Mild bilateral lower extremity edema. He is able to wiggle both toes bilaterally. He is able to flex left lower extremity with some tenderness. The left lateral thigh wound is dressed, not soaked. LAB DATA: Suggestive of drop in hemoglobin. However, no need of transfusion at the moment. BMP suggests mostly acceptable range of electrolytes. ASSESSMENT AND PLAN: 1. Left femoral intertrochanteric, displaced, comminuted fracture after mechanical fall, status post closed reduction and intertrochanteric nailing on July 01. Continue current pain regimen with acetaminophen, Percocet, and intravenous morphine as needed. Continue Xarelto for deep venous thrombosis prophylaxis. The patient was advised to follow up outpatient doctor for osteoporosis screening. 2. Mild acute chronic obstructive pulmonary disease exacerbation with chronic hypoxic respiratory failure, on home oxygen, currently stable. Continue albuterol, ipratropium nebulization. Currently, he is not in any acute exacerbation. 3. Acute blood loss anemia related to surgery. Continue patient on ferrous sulfate. 4. History of anxiety, depression. Continue home buspirone, paroxetine; continue tamsulosin for history of benign prostatic hypertrophy; levetiracetam for history of seizure; docusate, bisacodyl, and magnesium hydroxide to avoid constipation. 5. Disposition. The patient remains inside the hospital for inpatient physical therapy. I am anticipating discharge in the next 48 hours as we aim to have him reach a reasonable functional status level at what point we will consider discharging him home. He does not have insurance so he would not qualify for home physical therapy. cc: Aquiles Evans MD
[2018-07-03] MEDS: COLACE PO SCH (21:56)
[2018-07-03] MEDS: TYLENOL PO PRN (23:48)
[2018-07-04] MEDS: MORPHINE IV PRN ×2 (01:53→16:35)
[2018-07-04] MEDS: DUONEB (A & A) INH SCH ×7 (03:34→23:55)
[2018-07-04] MEDS: PERCOCET-10 PO PRN ×3 (04:31→20:10)
[2018-07-04] MEDS: XARELTO PO SCH ×2 (04:31→06:20)
[2018-07-04 04:50] LABS: URINE SOURCE CATH
[2018-07-04 05:02] LABS: BILIRUBIN URINE NEGATIVE (NEGATIVE); BLOOD URINE NEGATIVE (NEGATIVE); COLOR YELLOW; GLUCOSE URINE NEGATIVE (NEGATIVE); KETONE URINE NEGATIVE (NEGATIVE); LEUKOCYTES URINE NEGATIVE (NEGATIVE); NITRITE URINE NEGATIVE (NEGATIVE); PH URINE 7.5; PROTEIN URINE NEGATIVE (NEGATIVE); SP GRAVITY URINE 1.001; TURBIDITY URINE CLEAR (CLEAR); UROBILINOGEN URINE NORMAL (NORMAL)
[2018-07-04 05:03] LABS: UR EPITHELIAL CELLS <10 /HPF (<10); URINE BACTERIA NEGATIVE /HPF; URINE RBC <10 /HPF (<10); URINE WBC <10 /HPF (<10)
[2018-07-04 05:49] LABS: HEMATOCRIT 28.5 % (42.0-52.0); HEMOGLOBIN 8.9 g/dL (14.0-18.0)
[2018-07-04 06:11] LABS: AGAP 6; BUN 9 mg/dL (8-22); CALCIUM 8.6 mg/dL (8.8-10.2); CHLORIDE 95 mmol/L (98-107); COSMO 266; CREATININE 0.6 mg/dL (0.7-1.2); ESTIMATED GFR > 60; GLUCOSE 107 mg/dL (70-104); POTASSIUM 4.4 mmol/L (3.5-5.1); SODIUM 133 mmol/L (136-145); TCO2 32 mmol/L (25-35)
--- NOTE | 2018-07-04 07:54 | Diag Imaging Result Doc PS360 ---
EXAM: CHEST-PORTABLE INDICATION: Fever, cough, rhonchi TECHNIQUE: One view COMPARISON: 06/30/2018 FINDINGS: Interstitial thickening throughout both lungs has not changed. This probably represents a combination of edema and fibrosis. No new consolidation is identified. Cardiac silhouette is stable. IMPRESSION: Essentially stable chest. Electronically signed by Armani Ansari 07/04/2018 7:51 AM
[2018-07-04] MEDS: PAXIL PO SCH (08:02)
[2018-07-04] MEDS: PERIDEX MT SCH ×2 (08:02→20:09)
[2018-07-04] MEDS: DULCOLAX PR SCH ×2 (08:03→23:39)
[2018-07-04] MEDS: BUSPAR PO SCH ×4 (08:03→20:09)
[2018-07-04] MEDS: KEPPRA PO SCH ×2 (08:03→20:10)
[2018-07-04] MEDS: FERROUS SULFATE PO SCH (08:03)
[2018-07-04] MEDS: FLOMAX PO SCH (08:03)
[2018-07-04] MEDS: TYLENOL PO PRN ×2 (08:14→22:35)
[2018-07-04] MEDS: ZYRTEC PO PRN (08:14)
[2018-07-04] MEDS: COLACE PO SCH (20:09)
--- NOTE | 2018-07-04 20:47 | PROGRESS NOTE ---
DATE: 07/04/2018 INTERVAL HISTORY: No acute events. The patient did have one time fever of 100 degrees Fahrenheit; however, he was asymptomatic. He denies chest pain, shortness of breath, nausea, vomiting. He states he was able to work out with physical therapy; however, he is needing a lot of support and he is not strong enough. He is also complaining of excruciating pain in the left thigh when he is able to move. CURRENT VITAL SIGNS: Detect temperature of 98.4 degrees, pulse 98, respiratory rate 16, blood pressure 107/55, saturating 95% on 4 L nasal cannula. Input and output suggest he had 1 bowel movement today. LABS: Suggestive of drop in hemoglobin to 8.9. I will repeat CBC tomorrow. His BMP is unremarkable. His electrolytes are largely within acceptable range. No new microbiological data. PHYSICAL EXAMINATION: General: Does not appear in any acute distress. HEENT: Oral cavity is moist. No pallor, cyanosis, clubbing, or icterus. Lungs: Air entry bilaterally equal. No wheeze, rhonchi, crackles. Cardiovascular: S1, S2 normal. No murmur, rub, or gallop. Abdomen: Soft, nontender. Extremities: Mild bilateral lower extremity edema, which has improved since presentation. He is able to wiggle both toes bilaterally, and has intact dorsalis pedis and posterior tibial pulses, with normal capillary refill time. He is able to flex left lower extremity slightly with tenderness. The lateral thigh wound is dressed and not soaked. ASSESSMENT AND PLAN: 1. Left femoral intertrochanteric displaced comminuted fracture after mechanical fall, status post closed reduction and intertrochanteric nailing on 07/01/2018. Continue current pain regimen with acetaminophen, Percocet, and intravenous morphine as needed. Continue Xarelto for deep venous thrombosis prophylaxis. The patient should follow up outpatient for osteoporosis screening. 2. Mild acute chronic obstructive pulmonary disease exacerbation on chronic hypoxic respiratory failure, on home oxygen, currently stable. Continue albuterol/ipratropium nebulization. Currently, he is not in any acute exacerbation. I will avoid steroids considering recent surgery. 3. Acute blood loss anemia, related to surgery. Continue the patient on ferrous sulfate. I will follow up with CBC. He does not have any transfusion need at the moment. 4. History of anxiety/depression. Continue home buspirone and paroxetine. 5. Continue tamsulosin for history of BPH; levetiracetam for history of seizure; docusate, bisacodyl, and magnesium hydroxide to avoid constipation. DISPOSITION: Unfortunately, patient does not have any insurance, and so he would not be a candidate to be transferred to rehabilitation, or receive home physical therapy. My goal is to help him achieve a reasonable level of functional status with inpatient physical therapy inside this hospital before I could discharge him. He has shown slow progress so far. I encouraged him. I also discussed with Physical Therapy about this plan. I anticipate he will be able to go home in the next 48 hours or so. Plan of care was discussed with the patient. All of his questions have been answered. cc: Aquiles Evans MD
[2018-07-05] MEDS: PERCOCET-10 PO PRN ×4 (01:28→19:56)
[2018-07-05] MEDS: MORPHINE IV PRN ×2 (02:55→23:41)
[2018-07-05] MEDS: DUONEB (A & A) INH SCH ×6 (03:53→23:53)
[2018-07-05] MEDS ORDERED: BENADRYL CREAM TOP PRN (03:58)
[2018-07-05 06:31] LABS: BASO# 0.05 X1000 (0.0-0.2); BASO% 0.5 % (0.0-0.8); EOS# 0.75 X1000 (0.0-0.7); EOS% 7.7 % (0.0-10.0); HEMATOCRIT 31.2 % (42.0-52.0); HEMOGLOBIN 9.6 g/dL (14.0-18.0); IMM GRAN# 0.09 X1000 (0.0-0.04); IMM GRAN% 0.9 % (0.0-0.5); LYMPH# 1.17 X1000 (1.2-3.4); MCH 27.7 PG (27-31); MCHC 30.8 g/dL (33-37); MCV 89.9 FL (81-99); MONO# 0.68 X1000 (0.11-0.59); MPV 9.7 FL (7.4-10.4); NEUT# 7.02 X1000 (1.4-6.5); NEUT% 71.9 % (42.2-75.2); PLT 301 X1000 (130-400); RBC 3.47 XMIL (4.7-6.1); RDW 14.3 % (11.5-14.5); WBC 9.76 X1000 (4.8-10.8)
[2018-07-05] MEDS: XARELTO PO SCH (06:59)
[2018-07-05] MEDS: PAXIL PO SCH (08:05)
[2018-07-05] MEDS: FERROUS SULFATE PO SCH (08:05)
[2018-07-05] MEDS: FLOMAX PO SCH (08:05)
[2018-07-05] MEDS: KEPPRA PO SCH ×3 (08:05→20:06)
[2018-07-05] MEDS: PERIDEX MT SCH ×3 (08:05→20:06)
[2018-07-05] MEDS: BUSPAR PO SCH ×3 (08:06→19:40)
[2018-07-05] MEDS: DULCOLAX PR SCH ×2 (08:06→20:06)
[2018-07-05] MEDS: TYLENOL PO PRN (10:17)
[2018-07-05] MEDS: COLACE PO SCH ×2 (19:56→20:05)
--- NOTE | 2018-07-05 22:11 | PROGRESS NOTE ---
DATE: 07/05/2018 SUBJECTIVE: The patient has no major complaints. Pain seems to be controlled. OBJECTIVE: Vital signs: Blood pressure is 126/66, heart rate of 88, respiratory rate of 18, temperature 98.1 degrees, saturation 97% on 4 L. Cardiovascular: Regular rate and rhythm. Pulmonary: Bilateral breath sounds. Clear to auscultation. Gastrointestinal: Soft, nontender, nondistended. Bowel sounds were positive. LABORATORY DATA: White count is 9, hemoglobin and hematocrit 9 and 31, platelets 301,000. Electrolytes are stable. 1. Left femoral intertrochanteric fracture status post ORIF with bipolar nailing. He seems to be doing okay at this point. Pain is controlled. He is on Xarelto for DVT prophylaxis. 2. Chronic obstructive pulmonary disease appears to be compensated. 3. Anemia associated with blood loss associated with surgery. Seems to be stable. Hemoglobin and hematocrit are stable. 4. Anxiety/depression. We will continue regular medications and follow. 5. Benign prostatic hypertrophy. We will continue his regular medications. DISPOSITION: Apparently there are no rehab options so anticipate discharge soon hopefully in the next 24 hours. cc: Denilson Capone MD
[2018-07-06] MEDS: PERCOCET-10 PO PRN ×2 (02:58→11:16)
[2018-07-06] MEDS: DUONEB (A & A) INH SCH ×3 (03:45→11:20)
[2018-07-06] MEDS: XARELTO PO SCH (05:52)
[2018-07-06 06:12] LABS: BASO# 0.06 X1000 (0.0-0.2); BASO% 0.7 % (0.0-0.8); EOS# 0.51 X1000 (0.0-0.7); EOS% 5.7 % (0.0-10.0); HEMATOCRIT 29.8 % (42.0-52.0); HEMOGLOBIN 9.1 g/dL (14.0-18.0); IMM GRAN# 0.08 X1000 (0.0-0.04); IMM GRAN% 0.9 % (0.0-0.5); LYMPH% 13.5 % (20.5-51.1); MCH 27.5 PG (27-31); MCHC 30.5 g/dL (33-37); MONO# 0.61 X1000 (0.11-0.59); MONO% 6.9 % (1.7-9.3); MPV 9.9 FL (7.4-10.4); NEUT# 6.44 X1000 (1.4-6.5); NEUT% 72.3 % (42.2-75.2); PLT 333 X1000 (130-400); RBC 3.31 XMIL (4.7-6.1)
[2018-07-06 06:37] LABS: AGAP 8; BUN 8 mg/dL (8-22); CALCIUM 8.5 mg/dL (8.8-10.2); CHLORIDE 96 mmol/L (98-107); COSMO 267; CREATININE 0.6 mg/dL (0.7-1.2); ESTIMATED GFR > 60; GLUCOSE 98 mg/dL (70-104); POTASSIUM 4.2 mmol/L (3.5-5.1); SODIUM 134 mmol/L (136-145); TCO2 30 mmol/L (25-35)
[2018-07-06] MEDS: DULCOLAX PR SCH (09:47)
[2018-07-06] MEDS: PAXIL PO SCH (09:47)
[2018-07-06] MEDS: FLOMAX PO SCH (09:47)
[2018-07-06] MEDS: PERIDEX MT SCH (09:47)
[2018-07-06] MEDS: FERROUS SULFATE PO SCH (09:47)
[2018-07-06] MEDS: BUSPAR PO SCH ×2 (09:47→12:17)
[2018-07-06] MEDS: KEPPRA PO SCH (09:47)
[2018-07-06 11:55] VITALS: BP 125/68
--- NOTE | 2018-07-06 19:27 | DISCHARGE SUMMARY ---
ADMISSION DATE: 06/30/2018 DISCHARGE DATE: 07/06/2018 DISCHARGE DIAGNOSES: 1. Left hip fracture. The patient will be discharged home. He has no insurance for outpatient resources unfortunately. 2. History of alcohol use. 3. History of chronic obstructive pulmonary disease without exacerbation but chronic hypoxia. HOSPITAL COURSE: Briefly, this is a 63-year-old male who came in status post fall on the . He was altered. He has had numerous admissions for encephalopathy, and he was found to have a left hip fracture. His laboratory data showed leukocytosis and anemia and a CT of the head was ordered which showed no significant issue. He had a left intertrochanteric hip fracture and he underwent surgery per Dr. Moy on the which showed a closed reduction and trochanteric nail fixation of his left hip. He tolerated that. Unfortunately, he had a prolonged course because there was no outpatient physical therapy options for him or he refused to participate in outpatient physical therapy that was offered to him and there were no rehab options. We continued to monitor him, give him PT. The PT note stated that he was walked at least 50 feet. On the it was minimum assistance. He had 10 feet ambulated partial weightbearing. He was provided a walker. He did have a low oxygen, but he has oxygen at home. His PT note from the though looked pretty well as far as that is concerned. In any case, the plan will be to discharge. DISCHARGE MEDICATIONS: BuSpar 15 t.i.d., Flomax 0.4 daily, Keppra 500 b.i.d., Paxil 40 daily, prednisone taper. I am not really sure he needs that. I would probably discontinue that. Colace 200 daily, DuoNeb q.6, ferrous sulfate 325 daily, Percocet p.r.n., and Xarelto 10 mg daily for the next 25 days. DISCHARGE CONDITION: Stable. DISCHARGE INSTRUCTIONS: Follow up with Orthopedics in 1-2 weeks. Return for any pain, swelling. TIME SPENT AT DISCHARGE: 35 minute discharge. cc: Denilson Capone MD [facility]
== END 2018-07-06 14:57 | disposition home or self-care (01) | DRG 481 ==
LOC: SUPCPDRO → ED 05:05 → SUATTDRO 09:46 → 4N 09:46
PROVIDERS: ATTEND Internal Medicine
CPT/HCPCS: 51702; 70450; 71010; 71020; 71045; 71046; 73030; 73502; 73562; 76000; 80048; 80053; 80074; 80101; 80301; 80307; 80320; 80324; 80345; 80346; 80353; 80358; 80361; 80365; 81001; 82055; 82550; 82805; 83992; 84484; 85014; 85018; 85025; 85610; 85730; 86701; 87088; 87389; 94640; 94760; 94761; 94799; 96372; 96374; 96375; 97110; 97116; 97162; 97530; 99285; A9270; G0431; G0434; G0479; G0480; G6040; J0330; J0690; J1100; J1170; J1956; J2175; J2270; J2405; J2550; J3370; J7030; J7120

== ENCOUNTER 2018-07-16 23:45 | Inpatient (IN) ==
[2018-07-17 00:06] LABS: ALLEN TEST YES; BE 2.6 mmoll (-3.0-3.0); BLOOD TYPE ARTERIAL; HCO3-(ACT) 26.8 mmoll (20.0-26.0); METHB 1.7 % (0.0-1.5); MODALITY COOL AEROSOL; O2(CT) 15.5 mL/dL (15.0-23.0); PCO2(98.6) 41 mmHg (35-45); PO2(98.6) 110 mmHg (60-100); SAMPLE BLOOD; SAO2 98.9 % (95.0-100.0); THB 12.2 g/dL (11.5-17.4); pH(98.6) 7.43 (7.35-7.45)
[2018-07-17 00:08] LABS: O2HB 89.1 % (95.0-99.0)
[2018-07-17] MEDS ORDERED: SOLU-MEDROL IV ONE (00:12)
[2018-07-17] MEDS ORDERED: ATIVAN IV ONE ×3 (00:12→00:45)
[2018-07-17] MEDS ORDERED: ATIVAN ONE (00:14)
[2018-07-17] MEDS ORDERED: HALDOL IM ONE ×2 (00:20→05:12)
[2018-07-17] MEDS ORDERED: MAGNESIUM SULFATE 2 GM/S.W.I. 2 GM/50 ML IVPB ONE (00:21)
[2018-07-17] MEDS ORDERED: HALDOL ONE ×2 (00:25→05:11)
[2018-07-17] MEDS ORDERED: ZOSYN 4.5 GM in NS 100 ML IV ONE (00:52)
[2018-07-17] MEDS ORDERED: VANCOMYCIN 1 GM/NS 1 GM/250 ML IVPB IV ONE (00:52)
[2018-07-17 01:52] LABS: BASO# 0.04 X1000 (0.0-0.2); BASO% 0.3 % (0.0-0.8); EOS# 0.41 X1000 (0.0-0.7); EOS% 3.4 % (0.0-10.0); HEMATOCRIT 38.3 % (42.0-52.0); HEMOGLOBIN 11.6 g/dL (14.0-18.0); IMM GRAN# 0.17 X1000 (0.0-0.04); IMM GRAN% 1.4 % (0.0-0.5); LYMPH# 1.26 X1000 (1.2-3.4); LYMPH% 10.4 % (20.5-51.1); MCH 26.5 PG (27-31); MCHC 30.3 g/dL (33-37); MCV 87.4 FL (81-99); MONO# 0.54 X1000 (0.11-0.59); MONO% 4.4 % (1.7-9.3); MPV 9.3 FL (7.4-10.4); NEUT# 9.74 X1000 (1.4-6.5); NEUT% 80.1 % (42.2-75.2); PLT 500 X1000 (130-400); RBC 4.38 XMIL (4.7-6.1); RDW 15.5 % (11.5-14.5); WBC 12.16 X1000 (4.8-10.8)
--- NOTE | 2018-07-17 01:56 | PROVIDER DOCUMENTATION ---
This chart was entered by Adalid Dobbins Scribe, acting as scribe for Salazar Langley MD. HPI-General Adult <ChioHattie YeboahCarmen - Last Filed: 07/17/18 02:55> - General Source: family, EMS - History of Present Illness -Gen Adult Nature of Presenting Problems: Pt is a 63 y/o comes to the ED by EMS per family call. EMS reports pt wears home O2 and when they arrive on scene pt was not wearing his O2. Family reports he his altered. Pt keeps yelling he cant breath and does not tolerate breathing tx with the mask on his face. Pt recently treated for metabolic encephalopathy. <Salazar Langley - Last Filed: 07/20/18 14:10> - General Chief Complaint: Altered Mental Status Stated Complaint: ams Time Seen by Provider: 07/17/18 00:03 Allergies/Adverse Reactions: Patient Allergies Allergy/AdvReac Type Severity Reaction Status Date / Time phenytoin sodium * Allergy Severe ANAPHYLAXIS Verified 05/08/18 14:29 [From Dilantin] phenytoin sodium extended * Allergy Severe ANAPHYLAXIS Verified 05/08/18 14:29 [From Dilantin] Milk Containing Products Allergy Mild NAUSEA Verified 05/08/18 14:29 ceftazidime Allergy RASH Verified 05/08/18 14:29 codeine Allergy Unknown Verified 05/08/18 14:29 milk Allergy Unknown Verified 05/08/18 14:29 phenytoin [From Dilantin] Allergy Unknown Verified 05/08/18 14:29 Home Medications: Home Medication List Medication Instructions Recorded Confirmed Last Taken Type Paroxetine HCl [Paxil] 40 mg PO DAILY 04/18/18 07/17/18 06/21/18 History Tamsulosin [Flomax] 0.4 mg PO DAILY 04/18/18 07/17/18 06/21/18 History Buspirone [Buspar] 15 mg PO TID 05/08/18 07/17/18 06/21/18 History Levetiracetam [Keppra] 500 mg PO BID 06/23/18 07/17/18 06/21/18 History Albuterol 2.5MG/Ipratrop 0.5MG 3 ml INH RTQ6H #120 neb 06/24/18 07/17/18 Unknown Rx [Duoneb (A & A)] Docusate Sodium [Colace] 200 mg PO QHS #30 cap 07/06/18 07/17/18 Unknown Rx Ferrous Sulfate 325 mg PO WBREAKFAST #30 tab 07/06/18 07/17/18 Unknown Rx Oxycodone/APAP 10 mg/325 mg 1 ea PO Q6H PRN PRN #25 tab 07/06/18 07/17/18 Unknown Rx [Percocet-10] Rivaroxaban [Xarelto] 10 mg PO Q24H #20 tab 07/06/18 07/17/18 Unknown Rx Review of Systems - Adult - REVIEW OF SYSTEMS - ADULT ROS:: limited per condition Constitutional: denies: chills, fever Respiratory: reports: shortness of breath <Salazar Langley - Last Filed: 07/20/18 14:10> Past History - Adult - PAST MEDICAL HISTORY-ADULT Review of Records: reports: Old Records Reviewed, Nursing Assessment Review, Medications Reviewed Major Childhood Illnesses: reports: denies history Cardiovascular: reports: CAD, HTN, hyperlipidemia, [place] Respiratory: reports: asthma, COPD, cancer, sleep apnea Gastrointestinal: reports: cancer, GERD, hepatitis Obstetrical/Gynecological: reports: denies history Genitourinary: reports: denies history Musculoskeletal: reports: denies history Neurological: reports: Seizures/Epilepsy Psychiatric: reports: bipolar, schizophrenia Endocrine/Immune: reports: HIV/AIDS Other Conditions: reports: other (HIV) Additional History: alcoholism - PRIOR SURGERIES/PROCEDURES Surgical/Procedure History: reports: cardiac stent, hernia repair, orthopedic (extremity), other - IMMUNIZATION STATUS Childhood Immunizations: See Nurse Assessment Flu Vaccine: See Nurse Assessment - FAMILY HISTORY Family History: reviewed, not pertinent - SOCIAL HISTORY Smoking: cigarettes Substance Use: alcohol Living Situation: family <Salazar Langley - Last Filed: 07/20/18 14:10> Physical Exam-General - PHYSICAL EXAM-ADULT Initial Vital Signs Reviewed: Yes - CONSTITUTIONAL General Appearance: alert, moderate distress, anxious (super anxious), combative (keeps pulling off breathing mask) - EYES Eyes: PERRL/EOMI, pink conjunctivae - HEAD, EARS, NOSE, MOUTH & THROAT HENMT: moist mucous membranes, pharynx normal - NECK Neck: non-tender, full range of motion, supple, normal inspection - RESPIRATORY Respiratory: respiratory distress, decreased breath sounds (not moving air, tight sounding), accessory muscle use, increased rate - CARDIOVASCULAR Cardiovascular: normal peripheral pulses, tachycardia - GASTROINTESTINAL (ABDOMEN) Abdominal Exam: normal bowel sounds, non tender, soft - MUSCULOSKELETAL Extremity: normal range of motion, non-tender, normal gait, normal inspection - SKIN Integumentary: normal color, diaphoresis - NEUROLOGIC Neurologic: no motor/sensory deficits - PSYCHIATRIC Psych/Mental Status: anxious. negative: normal thought content, normal thought process, oriented x 3 <Salazar Langley - Last Filed: 07/20/18 14:10> Progress - PLAN OF CARE/RESULTS Progress/Plan/Lab Results: Vital Signs - 8 hr 07/16/18 23:54 07/17/18 00:00 07/17/18 00:10 Pulse Rate 94 H 78 Respiratory Rate 35 H Blood Pressure O2 Sat by Pulse Oximetry 93 L 91 L 07/17/18 00:20 07/17/18 00:30 07/17/18 00:40 Pulse Rate 148 H Respiratory Rate 36 H Blood Pressure O2 Sat by Pulse Oximetry 100 93 L 93 L 07/17/18 00:50 07/17/18 01:00 07/17/18 01:10 Pulse Rate Respiratory Rate Blood Pressure O2 Sat by Pulse Oximetry 93 L 90 L 90 L 07/17/18 01:20 07/17/18 01:30 07/17/18 01:39 Pulse Rate Respiratory Rate Blood Pressure 118/76 O2 Sat by Pulse Oximetry 90 L 91 L 92 L 07/17/18 01:40 07/17/18 01:46 07/17/18 01:50 Pulse Rate Respiratory Rate Blood Pressure 134/70 O2 Sat by Pulse Oximetry 93 L 93 L 92 L 07/17/18 02:00 07/17/18 02:01 07/17/18 02:10 Pulse Rate 97 H 92 H 95 H Respiratory Rate 18 Blood Pressure 118/72 O2 Sat by Pulse Oximetry 97 96 94 L 07/17/18 02:16 07/17/18 02:20 07/17/18 02:30 Pulse Rate 106 H 104 H 114 H Respiratory Rate 15 16 16 Blood Pressure 135/73 O2 Sat by Pulse Oximetry 98 94 L 98 07/17/18 02:31 Pulse Rate 121 H Respiratory Rate 33 H Blood Pressure 145/75 O2 Sat by Pulse Oximetry 98 Laboratory Results - last 24 hr 07/17/18 07/17/18 07/17/18 00:01 01:05 01:05 WBC 12.16 H RBC 4.38 L Hgb 11.6 L Hct 38.3 L MCV 87.4 MCH 26.5 L MCHC 30.3 L RDW Std Deviation 15.5 H Plt Count 500 H MPV 9.3 Immature Gran % (Auto) 1.4 H Neut % (Auto) 80.1 H Lymph % (Auto) 10.4 L Kendall % (Auto) 4.4 Eos % (Auto) 3.4 Baso % (Auto) 0.3 Immature Gran # (Auto) 0.17 H Neut # (Auto) 9.74 H Lymph # (Auto) 1.26 Kendall # (Auto) 0.54 Eos # (Auto) 0.41 Baso # (Auto) 0.04 Specimen Type ARTERIAL Sample Site R RADIAL pH 7.43 pCO2 41 pO2 110 H HCO3 26.8 H Base Excess 2.6 Oxyhemoglobin 89.1 L* ABG O2 Sat (Calculated) 15.5 ABG O2 Saturation 98.9 ABG Carboxyhemoglobin 8.20 H* ABG Methemoglobin 1.7 H Humble Test YES A-a O2 Difference 195.0 Total Hemoglobin 12.2 Lactate 0.90 Liter Flow 10.0 Blood Gas Modality COOL AEROSOL FiO2 % 50.0 Sodium Potassium Chloride Carbon Dioxide Anion Gap BUN Creatinine Estimated GFR/1.73 m2 BUN/Creatinine Ratio Glucose Calculated Osmolality Calcium Total Bilirubin AST ALT Alkaline Phosphatase Ammonia 35 Creatine Kinase Troponin T Total Protein Albumin Globulin Albumin/Globulin Ratio Plasma Lactate Plasma/Serum Ethyl Alc 07/17/18 07/17/18 07/17/18 01:05 01:05 01:05 WBC RBC Hgb Hct MCV MCH MCHC RDW Std Deviation Plt Count MPV Immature Gran % (Auto) Neut % (Auto) Lymph % (Auto) Kendall % (Auto) Eos % (Auto) Baso % (Auto) Immature Gran # (Auto) Neut # (Auto) Lymph # (Auto) Kendall # (Auto) Eos # (Auto) Baso # (Auto) Specimen Type Sample Site pH pCO2 pO2 HCO3 Base Excess Oxyhemoglobin ABG O2 Sat (Calculated) ABG O2 Saturation ABG Carboxyhemoglobin ABG Methemoglobin Humble Test A-a O2 Difference Total Hemoglobin Lactate Liter Flow Blood Gas Modality FiO2 % Sodium 136 Potassium 4.0 Chloride 99 Carbon Dioxide 26 Anion Gap 11 BUN 9 Creatinine 1.0 Estimated GFR/1.73 m2 > 60 BUN/Creatinine Ratio 9 Glucose 106 H Calculated Osmolality 271 Calcium 9.5 Total Bilirubin 0.28 AST 21 ALT 15 Alkaline Phosphatase 129 H Ammonia Creatine Kinase 64 Troponin T Total Protein 7.5 Albumin 4.0 Globulin 3.5 Albumin/Globulin Ratio 1.1 Plasma Lactate 1.6 Plasma/Serum Ethyl Alc 07/17/18 01:05 WBC RBC Hgb Hct MCV MCH MCHC RDW Std Deviation Plt Count MPV Immature Gran % (Auto) Neut % (Auto) Lymph % (Auto) Kendall % (Auto) Eos % (Auto) Baso % (Auto) Immature Gran # (Auto) Neut # (Auto) Lymph # (Auto) Kendall # (Auto) Eos # (Auto) Baso # (Auto) Specimen Type Sample Site pH pCO2 pO2 HCO3 Base Excess Oxyhemoglobin ABG O2 Sat (Calculated) ABG O2 Saturation ABG Carboxyhemoglobin ABG Methemoglobin Humble Test A-a O2 Difference Total Hemoglobin Lactate Liter Flow Blood Gas Modality FiO2 % Sodium Potassium Chloride Carbon Dioxide Anion Gap BUN Creatinine Estimated GFR/1.73 m2 BUN/Creatinine Ratio Glucose Calculated Osmolality Calcium Total Bilirubin AST ALT Alkaline Phosphatase Ammonia Creatine Kinase Troponin T < 0.010 Total Protein Albumin Globulin Albumin/Globulin Ratio Plasma Lactate Plasma/Serum Ethyl Alc Orders Category Date Time Status CHEST-1 VIEW [RAD] Stat Exams 07/17/18 00:12 Taken ABG [RESP] Routine Lab 07/17/18 00:01 Completed ALCOHOL BLOOD Stat Lab 07/17/18 01:05 Completed AMMONIA [CHEM] Stat Lab 07/17/18 01:05 Completed BLOOD CULTURE [BLDCUL] Stat Lab 07/17/18 01:05 Ordered CBC WITH ELECTRONIC DIFF [HEME] Stat Lab 07/17/18 01:05 Completed CK PROFILE [SP CHEM] Stat Lab 07/17/18 01:05 Completed COMPREHENSIVE METABOLIC PANEL [CHEM] Stat Lab 07/17/18 01:05 Completed LACTATE, PLASMA [CHEM] Stat Lab 07/17/18 01:05 Completed TROPONIN T Stat Lab 07/17/18 01:05 Completed URINALYSIS W/POSS RFLX CULT [URINALYSIS] Stat Lab 07/17/18 00:12 Uncollected Haloperidol Lactate [Haldol] Med 07/17/18 00:25 Discontinued 5 mg .ROUTE .STK-MED ONE Lorazepam [Ativan] Med 07/17/18 00:12 Discontinued 1 mg IV NOW ONE Lorazepam [Ativan] Med 07/17/18 00:14 Discontinued 2 mg .ROUTE .STK-MED ONE Magnesium Sulfate 2 gm/S.w.i. [Magnesium Sulfate 2 gm/S Med 07/17/18 00:21 Discontinued .w.i] 2 gm in 50 ml .ROUTE As directed Methylprednisolone Sod Succ [Solu-Medrol] Med 07/17/18 00:12 Discontinued 125 mg IV NOW ONE Piperacillin/Tazobactam [Zosyn] 4.5 gm Med 07/17/18 00:52 Discontinued 0.9% Sodium Chloride Inj [Ns] 100 ml IV NOW Vancomycin 1 gm/Ns Med 07/17/18 00:52 Discontinued 1 gm in 250 ml IV NOW BIPAP Stat Oth 07/17/18 01:29 Active EKG [EKG] Stat Ther 07/17/18 00:12 Ordered Result Diagrams: 07/17/18 01:05 07/17/18 01:05 - EKG 1 Time of EKG reading by physician:: 01:10 EKG Read and Signed by:: Salazar Langley EKG Interpretation (*Must complete 3 of following elements*): Normal (Sinus Rhythm, rate 101, no acute st changes, normal axis and intervals) <Hattie Barroso - Last Filed: 07/17/18 02:55> - PLAN OF CARE/RESULTS Progress/Plan/Lab Results: Laboratory Results - last 24 hr 07/17/18 00:01 Specimen Type ARTERIAL Sample Site R RADIAL pH 7.43 pCO2 41 pO2 110 H HCO3 26.8 H Base Excess 2.6 Oxyhemoglobin 89.1 L* ABG O2 Sat (Calculated) 15.5 ABG O2 Saturation 98.9 ABG Carboxyhemoglobin 8.20 H* ABG Methemoglobin 1.7 H Humble Test YES A-a O2 Difference 195.0 Total Hemoglobin 12.2 Lactate 0.90 Liter Flow 10.0 Blood Gas Modality COOL AEROSOL FiO2 % 50.0 Orders Category Date Time Status CHEST-1 VIEW [RAD] Stat Exams 07/17/18 00:12 Ordered ABG [RESP] Routine Lab 07/17/18 00:01 Completed AMMONIA [CHEM] Stat Lab 07/17/18 00:12 Uncollected CBC WITH ELECTRONIC DIFF [HEME] Stat Lab 07/17/18 00:12 Uncollected COMPREHENSIVE METABOLIC PANEL [CHEM] Stat Lab 07/17/18 00:12 Uncollected LACTATE, PLASMA [CHEM] Stat Lab 07/17/18 00:12 Uncollected URINALYSIS W/POSS RFLX CULT [URINALYSIS] Stat Lab 07/17/18 00:12 Uncollected Lorazepam [Ativan] Med 07/17/18 00:12 Discontinued 1 mg IV NOW ONE Methylprednisolone Sod Succ [Solu-Medrol] Med 07/17/18 00:12 Discontinued 125 mg IV NOW ONE EKG [EKG] Stat Ther 07/17/18 00:12 Ordered Result Diagrams: 07/18/18 04:37 07/18/18 04:37 - CONSULTS/PCP/HOSPITALIST Notification #1 *Consult/PCP/Hospitalist*: [email or web address] Time Discussed: 18:00 Consult Disposition: Admit <Salazar Langley - Last Filed: 07/20/18 14:10> Departure <Hattie Barroso - Last Filed: 07/17/18 02:55> - Departure Date of Disposition Decision: 07/17/18 Time of Disposition Decision: 18:00 Certified Medical Emergency: Emergent - Critical Care Note This patient required my direct & personal management of CC.: No <Salazar Langley - Last Filed: 07/20/18 14:10> - Departure DIAGNOSIS: COPD (chronic obstructive pulmonary disease), COPD (chronic obstructive pulmonary disease) with acute bronchitis, Pneumonia Disposition: ADMITTED INPATIENT 09 Condition: Stable Attestation - Physician/ JOSÉ MIGUEL Attestation Patient care was provided by Advanced Practice Provider:: No The physician spent face to face time with patient:: Yes Advanced Practice Provider documentation review:: Supervising physician onsite and consulted in the evaluation and care of this patient. The physician did have a face to face encounter with the patient. <Salazar Langley - Last Filed: 07/20/18 14:10> This chart was documented by the indicated scribe, (Adalid Dobbins Scribe) and accurately reflects the services I performed and decisions made by Shivam arthur Christophe J., MD, as attested by the provider's signature.
[2018-07-17 02:02] LABS: AGAP 11; ALB/GLOB RATIO 1.1; ALKALINE PHOSPHATASE 129 U/L (32-122); BUN 9 mg/dL (8-22); CALCIUM 9.5 mg/dL (8.8-10.2); CHLORIDE 99 mmol/L (98-107); CK PROFILE 64 U/L (24-204); COSMO 271; ESTIMATED GFR > 60; GLUCOSE 106 mg/dL (70-104); GOT 21 U/L (10-34); GPT 15 U/L (10-44); SODIUM 136 mmol/L (136-145); TCO2 26 mmol/L (25-35); TOTAL BILIRUBIN 0.28 mg/dL (0.20-1.00); TOTAL PROTEIN 7.5 g/dL (6.3-8.3)
[2018-07-17] MEDS ORDERED: MAGNESIUM SULFATE 2 GM/S.W.I. 2 GM/50 ML IVPB IV ONE (02:57)
[2018-07-17] MEDS ORDERED: DUONEB (A & A) INH ONE (02:58)
[2018-07-17] MEDS ORDERED: LASIX IV ONE (03:17)
[2018-07-17] MEDS: LOVENOX SUBQ SCH (03:30)
[2018-07-17] MEDS ORDERED: VANCOMYCIN IV PER PHARMACY MISC SCH (03:30)
[2018-07-17] MEDS ORDERED: NS 1,000 ML IV SCH (03:30)
[2018-07-17] MEDS ORDERED: VANCOMYCIN 1,450 MG in NS 250 ML IV ONE (04:00)
[2018-07-17] MEDS: ATIVAN IV PRN ×11 (04:02→23:22)
[2018-07-17] MEDS: HALDOL IM PRN ×5 (04:02→22:33)
[2018-07-17] MEDS ORDERED: LASIX ONE (04:07)
--- NOTE | 2018-07-17 04:12 | HISTORY AND PHYSICAL ---
ADDENDUM HISTORY OF PRESENT ILLNESS: Mr. Rodriges is a frequent visitor to our ER and usually gets admitted or treated for COPD exacerbation at the times he comes. On this occasion the patient's family called EMS because the patient was acutely dyspneic and when EMS got here he was not wearing his O2. He was also very confused and agitated. He had to be restrained by a total, I believe of 6 people to get him to keep his mask on. He kept on pulling off his mask and his IV Angiocath. Eventually he had to be sedated multiple times to get him to calm down to keep the BiPAP on. Unfortunately, when I got there no family members were there. He is currently restrained and partially sedated. DATA: His lab work is only notable for white count of 12,000, hemoglobin 11, hematocrit 38, platelet count 500,000. His chemistry is grossly unremarkable. His blood gas on 50% shows pH 7.43, pCO2 41, pO2 110 and he is on FIO2 of 50%. X-ray showed COPD with possible bilateral pneumonia versus chronic interstitial changes versus pulmonary edema. The patient had no evidence of CHF, although this does not rule out the possibility he might have pulmonary edema. ASSESSMENT/PLAN: The primary diagnosis here will be bilateral pneumonia with possible superimposed mild pulmonary edema and chronic obstructive pulmonary disease exacerbation. The patient will be admitted with broad spectrum antibiotics to cover for nosocomial pathogens. He will be on short-acting and long-acting bronchodilators. Consult Dr. Almonte. Repeat ABGs in the next few hours while on BiPAP and modify titration accordingly. P.r.n. sedation will be given. The patient's Keppra will also be given to avoid seizure activity. The patient might also benefit from an echocardiogram. His last EF was 55% with some diastolic dysfunction. cc: Marcos Swan MD
[2018-07-17 04:38] LABS: URINE SOURCE CATH
[2018-07-17 04:44] LABS: BILIRUBIN URINE NEGATIVE (NEGATIVE); BLOOD URINE NEGATIVE (NEGATIVE); COLOR YELLOW; GLUCOSE URINE NEGATIVE (NEGATIVE); KETONE URINE NEGATIVE (NEGATIVE); LEUKOCYTES URINE NEGATIVE (NEGATIVE); NITRITE URINE NEGATIVE (NEGATIVE); PH URINE 5.5; PROTEIN URINE NEGATIVE (NEGATIVE); TURBIDITY URINE CLEAR (CLEAR); UROBILINOGEN URINE NORMAL (NORMAL)
[2018-07-17 04:45] LABS: UR EPITHELIAL CELLS <10 /HPF (<10); URINE BACTERIA NEGATIVE /HPF; URINE RBC <10 /HPF (<10); URINE WBC <10 /HPF (<10)
[2018-07-17 06:31] LABS: ALLEN TEST YES; BE 3.4 mmoll (-3.0-3.0); BLOOD TYPE ARTERIAL; HCO3-(ACT) 27.6 mmoll (20.0-26.0); MODALITY BI PAP; PCO2(98.6) 50 mmHg (35-45); PO2(98.6) 180 mmHg (60-100); SAMPLE BLOOD; SRATE 14 BPM; pH(98.6) 7.38 (7.35-7.45)
--- NOTE | 2018-07-17 07:11 | EKG Report ---
Test Performed on : 07/17/2018 01:09:48 AM Test Reason : sob Blood Pressure : / mmHG Vent. Rate : 101 BPM Atrial Rate : 101 BPM P-R Int : 158 ms QRS Dur : 104 ms QT Int : 368 ms P-R-T Axes : 081 -33 072 degrees QTc Int : 477 ms Sinus tachycardia. with occasional premature ventricular complexes. Left axis deviation Abnormal ECG When compared with ECG of 21-JUN-2018 10:53, (Unconfirmed) premature ventricular complexes. are now present premature atrial complexes. are no longer present Minimal criteria for Septal infarct are no longer present Unconfirmed Result
[2018-07-17] MEDS ORDERED: BROVANA NEB ONE ×2 (07:13)
[2018-07-17] MEDS: DUONEB (A & A) INH SCH ×6 (07:30→23:00)
[2018-07-17] MEDS: BROVANA NEB INH SCH ×3 (07:30→18:32)
[2018-07-17] MEDS: ZOSYN 3.375 GM in NS 50 ML IV SCH ×3 (07:48→18:21)
[2018-07-17 08:21] LABS: UR AMPHETAMINES QUAL NONE DETECTED (NONE DETECT); UR BARBITUATES QUAL NONE DETECTED (NONE DETECT); UR BENZODIAZEPIN QUAL NONE DETECTED (NONE DETECT); UR CANNABINOIDS QUAL NONE DETECTED (NONE DETECT); UR COCAINE QUAL NONE DETECTED (NONE DETECT); UR METHADONE QUAL NONE DETECTED (NONE DETECT); UR OPIATES QUAL NONE DETECTED (NONE DETECT); UR OXYCODONE QUAL PRESUMPTIVE POSITIVE (NONE DETECT); UR PCP QUAL NONE DETECTED (NONE DETECT)
--- NOTE | 2018-07-17 08:22 | Diag Imaging Result Doc PS360 ---
EXAM: CHEST-1 VIEW HISTORY: copd exacebation TECHNIQUE: Chest single view COMPARISON: 07/03/2018 FINDINGS: The lungs are well expanded. The heart is not enlarged. The vessels are not distended. There are mild increased interstitial markings bilaterally. These are similar to prior exam and likely represent fibrosis. No effusion identified. IMPRESSION: Stable chest Electronically signed by Esau Kelly 07/17/2018 8:20 AM
[2018-07-17] MEDS: KEPPRA 500 MG in NS 100 ML IV SCH ×2 (08:30→20:16)
[2018-07-17] MEDS: NS 1,000 ML IV SCH (18:22)
--- NOTE | 2018-07-17 18:24 | PROGRESS NOTE ---
DATE: 07/17/2018 SUBJECTIVE: Mr. Rodriges is sleeping at the present time. He is in restraints. He did have quite a bit of agitation when he first came up to the ICU. Breathing is a little more comfortable. We have him on broad-spectrum antibiotics. This is not the first time he has had encephalopathy. Family is concerned, and do not feel like he is drinking or taking a different medication. OBJECTIVE: Temperature 97.9 degrees, pulse 85, respirations 20, blood pressure 105/69. Pupils are equal round. Lungs are clear in all lung dockery. Cardiovascular exam: Regular rhythm and rate without murmur or S3. Abdomen is soft. Skin is warm and dry. Urine output was about 8000 mL yesterday. ASSESSMENT AND PLAN: Bilateral pneumonia, possible superimposed mild pulmonary edema, chronic obstructive pulmonary disease exacerbation and metabolic encephalopathy. My suspicion is that it is related to medication. Continue present antibiotics and bronchodilators. We will continue his normal saline at 125 mL/h. He is on levetiracetam with history of seizures, 500 mg twice a day. Getting Zosyn 3.375 g intravenously q.6, vancomycin 800 mg intravenously q.18 hours and then methylprednisone was loaded with 125 mg. I think he just got a loading dose of it. cc: Humble Guajardo MD
--- NOTE | 2018-07-17 18:41 | CONSULTATION ---
DATE OF CONSULTATION: 07/17/2018 REQUESTING PROVIDER: Dr. Swan. REASON FOR CONSULTATION: Pneumonia and COPD. HISTORY OF PRESENT ILLNESS: This is a 63-year-old male with a medical history of COPD, polysubstance dependence, seizure disorder, medical noncompliance, questionable HIV, coronary artery disease, and bipolar disorder. He presented to the ER last night via EMS with dyspnea, confusion, and agitation. Initial workup in the ER revealed bilateral pneumonia with possible superimposed mild pulmonary edema and COPD exacerbation. He has been admitted to the ICU for further evaluation and management. At the time of my examination, patient is still in the ER. He is lying on the stretcher. He is on the BiPAP at 12/8 and FiO2 50%. Four-point restraint is applied. The nurse at the bedside reports that the patient was really agitated this morning, and he has been sedated multiple times with multiple medicines. He is currently very lethargic and unresponsive to verbal or physical stimuli. He does move his extremities and body randomly at times. There is no family at the bedside. All other information is obtained from the E-chart. PAST MEDICAL HISTORY: 1. COPD, on home oxygen. 2. Polysubstance dependence. 3. Seizure disorder. 4. Medical noncompliance. 5. Questionable history of HIV. 6. Coronary artery disease, status post coronary stenting. 7. Bipolar disorder. 8. Toe surgery. 9. Eye surgery. SOCIAL HISTORY: Per the chart, the patient smokes 1 to 2 packs per day of cigarettes. He is a heavy alcohol drinker with a few shots a day. He has a history of cannabinoid use. FAMILY HISTORY: Unknown. ALLERGIES: Dilantin, milk-containing products, ceftazidime, codeine. REVIEW OF SYSTEMS: Unable to be obtained. PHYSICAL EXAMINATION: Vital Signs: Temperature 98.4 degrees, blood pressure 113/60, pulse 104, respiratory rate 16, oxygen saturation 100% on BiPAP 12/8 with FiO2 50%. General: Chronically ill appearing, malnourished, in no acute distress, randomly moving extremities and body at times. HEENT: Atraumatic. Trachea midline. Respiratory: Symmetrical excursion. Barrel chested. Auscultation reveals diminished breathing sounds with prolonged expiratory phase, otherwise clear. Cardiovascular: Regular rate and rhythm. Gastrointestinal: Bowel sounds present in all 4 quadrants. Soft and nondistended. Extremities: Trace pedal edema. Mild cyanosis with varicose veins bilaterally. No clubbing. Warm to touch. Neurologic: Lethargic, likely sedated, unresponsive to verbal or physical stimuli. LAB DATA: White blood cells 12.16, hemoglobin 11.6, hematocrit 38.3, platelet 500,000. Sodium 136, potassium 4.0, chloride 99, carbon dioxide 26, BUN 9, creatinine 1.0, glucose 106. ABGs: pH 7.38, pCO2 50, pO2 180, HC03 27.6, and base excess 3.4. IMAGING DATA: Chest x-ray reveals stable, mild increased interstitial markings bilaterally, likely representing fibrosis. ASSESSMENT: This is a 63-year-old male with a medical history of chronic obstructive pulmonary disease, polysubstance dependence, seizure disorder, medical noncompliance, questionable history of human immunodeficiency virus, coronary artery disease, and bipolar disorder. He has been admitted to the ICU with metabolic encephalopathy, bilateral pneumonia with possible superimposed mild pulmonary edema and chronic obstructive pulmonary disease exacerbation. 1. Acute on chronic hypoxemic hypercapnic respiratory failure, likely secondary to pneumonia and chronic obstructive pulmonary disease. 2. Bilateral pneumonia. 3. Chronic obstructive pulmonary disease. 4. Metabolic encephalopathy. PLAN: 1. Continue BiPAP with supplemental oxygen. 2. Continue antibiotics and bronchodilators. 3. Check proBNP. 4. Follow up with arterial blood gases, CBC, BMP, chest x-ray, and blood culture. 5. Continue gastrointestinal and deep venous thrombosis prophylaxis. 6. Further recommendations pending hospital course. Thank you for the courtesy of this consult. Dictated by XENIA Gallardo for Kaylie Salazar MD cc: XENIA Gallardo MD [facility]
--- NOTE | 2018-07-17 20:17 | HISTORY AND PHYSICAL ---
CHIEF COMPLAINT: Altered mental status and respiratory distress. HISTORY OF PRESENT ILLNESS: Mr. Rodriges is a 63-year-old, male, with known history of polysubstance dependence, coronary artery disease, seizure disorder and COPD. The patient was just recently discharged from our facility after undergoing treatment for a left femoral intertrochanteric displaced hip fracture and mild COPD exacerbation. He did undergo surgery with Dr. Moy for left hip repair. The patient was discharged on 07/06/2018. According to EMS and ER reports, the patient's family, who unfortunately is not present at this time to assist with providing any information, did call 911 due to the patient being confused. EMS reports that they arrived on scene to find the patient in respiratory distress. He does wear home oxygen, though did not have any oxygen at home at the time of their arrival. He was noted to have oxygen saturations in the low 80s. He was brought to the ER for further treatment evaluation. According to ER staff upon arrival, the patient was confused and agitated, as well as was in respiratory distress. He was also combative as well. I did have a difficult time trying to calm him and get him under control to be able to treat his respiratory distress. Unfortunately, we did end up having to provide some sedation as well as restraints and he is on BiPAP at this time. Since being placed on BiPAP, his respiratory status has improved. His chest x-ray did show what appeared to be a COPD with possible bilateral pneumonia versus chronic interstitial changes versus pulmonary edema. The patient has no reported history of heart failure, though does have longstanding COPD disease. He has recently been admitted to the hospital as previously mentioned. He did have some mild leukocytosis with a white blood cell count of 12,160. Arterial blood gases did show the oxyhemoglobin 89.1, and carboxyhemoglobin of 8.2, though his pCO2 was 41, pO2 was 110 and O2 saturation was 98.9. Urine drug screen was only positive for oxycodone for which patient did have prescription for, and an alcohol level of zero. This time the patient will be admitted to the ICU for further treatment and evaluation. REVIEW OF SYSTEMS: Unfortunately at this time, review of systems is not able to be performed with the patient due to his current condition and mentation. PAST MEDICAL HISTORY: 1. COPD on oxygen at home. 2. Polysubstance dependence. 3. Seizure disorder. 4. Medical noncompliance. 5. Coronary artery disease. 6. Bipolar disorder. 7. Recent discharge from the hospital on 07/06/2018 for repair of a left hip fracture. PAST SURGICAL HISTORY: 1. Toe surgery. 2. Coronary stenting. 3. Eye surgery. 4. Recent left hip surgery for repair of a left hip fracture. SOCIAL HISTORY: The patient has reported history of polysubstance dependence. He reportedly has a history of heavy alcohol and cannabinoid use. He is a reported smoker as well. As far as I know, I do believe he lives at home with family. He was discharged home on his most recent admission. FAMILY HISTORY: Unable to obtain family history at the time due to the patient's current condition and mentation. ALLERGIES: Patient has reported allergy to Dilantin, milk, ceftazidime and codeine. HOME MEDICATION: Unfortunately, at this time, we are unable to confirm the patient's home medications with him due to his current condition and mentation, though on his most recent admission he did take the following medicines: 1. DuoNeb treatments 3 mL inhaled q.6 hours. 2. BuSpar 50 mg p.o. t.i.d. 3. Colace 200 mg p.o. at bedtime. 4. Ferrous sulfate 325 mg p.o. with breakfast. 5. Keppra 500 mg p.o. b.i.d. 6. Percocet 10 mg 1 p.o. q.6 hours p.r.n. 7. Paxil 40 mg p.o. daily. 8. Xarelto 10 mg q.24 hours. The patient was only prescribed 20 of these. This is likely secondary to his recent hip surgery. I do not believe he takes Xarelto on a regular basis for any other medical reasons. 9. Flomax 0.4 mg p.o. daily. DIAGNOSTIC DATA/LABORATORY RESULTS: White blood cell count is 12,160, hemoglobin 11.6, hematocrit 38.3, platelet count is 500. Sodium 136, potassium 4, chloride 99, serum bicarb was 26, BUN 9, creatinine 1, GFR greater than 60. Glucose 106, calcium 9.5. Liver function tests are within normal limits except for alkaline phosphatase that is slightly elevated at 129. Ammonia level 35. CK 64, troponin less than 0.01. ProBNP is 573. Plasma lactate was 1.6. Serum alcohol level was 0. Urinalysis was obtained via catheter and was negative for protein, glucose, ketones, blood, nitrites, leukocytes, white blood cells or bacteria. Urine drug screen positive for oxycodone. Arterial blood gases were obtained on FiO2 of 50%. The pH 7.43, pCO2 of 41, pO2 of 110, HCO-3 is 26.8, oxyhemoglobin 89.1, O2 saturation is 98.9 carboxyhemoglobin was 8.2 with a methemoglobin of 1.7. EKG showed a sinus tachycardia with occasional PVCs at a rate of 101 with a QTc of 477. Chest x-ray did show COPD with possible bilateral pneumonia versus chronic interstitial changes versus pulmonary edema. We are awaiting official radiology over-read. PHYSICAL EXAMINATION: VITAL SIGNS: Her heart rate is 97, respirations 18, blood pressure is 115/63, oxygen saturation 100% on BiPAP at 50% FiO2. GENERAL: Mr. Rodriges is an elderly, 63-year-old, ill-appearing man who was resting in the ER stretcher. At this time, secondary to being given sedative medicines, he is only responsive to painful stimuli, though he does not appear to be in any distress. HEENT: Head is atraumatic, normocephalic. Pupils are 2 mm bilaterally. It was difficult to see reaction at this time, due to his pupils are quite pinpoint. Oral mucosa is difficult to assess at this time due to patient does have a BiPAP mask in place. NECK: Supple. Trachea midline. CARDIOVASCULAR: Patient had S1-S2. No murmurs, gallops, rubs appreciated. Regular rate and rhythm. PULMONARY: His lung sounds were slightly diminished in bilateral bases. Though were clear to auscultation in bilateral upper dockery. ABDOMEN: Soft. Does not appear to be distended. He did not have any facial grimacing upon palpation. Bowel sounds were present. They were slightly hypoactive. EXTREMITIES: No cyanosis or edema noted. Radial and pedal pulses were 2+ bilaterally. Capillary refill is less than 3. INTEGUMENTARY: The patient's skin is pink, warm, and dry. NEUROLOGICAL: Patient is unresponsive to painful stimuli at this time, though he has been given sedative medicine due to when he arrived in the ER, he was acutely confused, agitated and combative. He was able to move all extremities. At this time though his neurological exam is limited secondary to this. ASSESSMENT AND PLAN: 1. Hypoxic respiratory failure. Since arriving to the ER, the patient's respiratory status has markedly improved with placement of BiPAP. We will continue this therapy, especially until the patient's mentation improves as well and he can be weaned off of the BiPAP mask. I do believe this may be likely a causative acute confusion and agitation as well given that he was found at home upon EMS arrival, without his oxygen on. 2. Chronic obstructive pulmonary disease exacerbation. We will continue oxygen therapy as mentioned above. We have placed him on long-acting and short-acting bronchodilators. We will continue with aggressive pulmonary toilet as well. He was given a dose of Solu-Medrol 125 in the emergency room. We will continue to follow closely. Also for #1 2 and 3, we have placed a Pulmonary consult. We will await their evaluation and further recommendations for management. 3. Possible bilateral pneumonia with possible superimposed mild pulmonary edema. Given that the patient had been recently in the hospital, we will place him with antibiotic coverage for healthcare associated pneumonia with Zosyn and vancomycin. Blood cultures have been obtained. We will continue to follow. 4. Encephalopathy. This could be multifactorial. The patient was found to be hypoxic on scene with oxygen saturation in the 80s, though he also does have a history of polysubstance dependency in the past, though his urine drug screen is only positive for oxycodone at this time and serum alcohol was 0. We will continue to monitor this closely. 5. Seizure disorder. We will continue with his rarely prescribed Keppra. 6. History of polysubstance dependence. At this time, we are unsure whether or not the patient might have taken any substances that could have contributed to his encephalopathy. His urine drug screen was only positive for oxycodone and serum alcohol was 0, though we will continue to follow along. 7. Deep vein thrombosis prophylaxis provided with Lovenox 40 mg subcutaneously q.24 hours. 8. The patient has been placed in ICU for close monitoring. He will have vital signs per ICU protocol. We will provide p.r.n. medication for agitation. We will do strict intake and output. 9. Further orders and recommendations pending hospital course, diagnostic studies, and physician evaluation. Dictated by XENIA Henry for Marcos Swan MD cc: Marcos Swan MD
[2018-07-17] MEDS: VANCOMYCIN 1,800 MG in NS 500 ML IV SCH (22:33)
[2018-07-18] MEDS: ZOSYN 3.375 GM in NS 50 ML IV SCH ×4 (01:24→19:31)
[2018-07-18] MEDS: ATIVAN IV PRN ×8 (01:24→23:20)
[2018-07-18] MEDS: NS 1,000 ML IV SCH ×2 (03:23→12:34)
[2018-07-18] MEDS: HALDOL IM PRN ×5 (03:23→21:34)
[2018-07-18] MEDS: LOVENOX SUBQ SCH (03:24)
[2018-07-18 04:59] LABS: ALLEN TEST YES; BE 3.6 mmoll (-3.0-3.0); BLOOD TYPE ARTERIAL; HCO3-(ACT) 27.7 mmoll (20.0-26.0); METHB 1.7 % (0.0-1.5); O2(CT) 14.3 mL/dL (15.0-23.0); O2HB 94.5 % (95.0-99.0); PO2(98.6) 92 mmHg (60-100); SAMPLE BLOOD; SAO2 97.7 % (95.0-100.0); THB 10.7 g/dL (11.5-17.4); pH(98.6) 7.32 (7.35-7.45)
[2018-07-18 05:00] LABS: MODALITY BI PAP; PCO2(98.6) 60 mmHg (35-45)
[2018-07-18 06:01] LABS: BASO# 0.01 X1000 (0.0-0.2); BASO% 0.1 % (0.0-0.8); EOS# 0.01 X1000 (0.0-0.7); EOS% 0.1 % (0.0-10.0); HEMATOCRIT 33.6 % (42.0-52.0); HEMOGLOBIN 10.1 g/dL (14.0-18.0); IMM GRAN# 0.05 X1000 (0.0-0.04); IMM GRAN% 0.6 % (0.0-0.5); LYMPH# 0.92 X1000 (1.2-3.4); LYMPH% 11.2 % (20.5-51.1); MCH 26.8 PG (27-31); MCHC 30.1 g/dL (33-37); MCV 89.1 FL (81-99); MONO% 8.6 % (1.7-9.3); MPV 9.7 FL (7.4-10.4); NEUT# 6.49 X1000 (1.4-6.5); NEUT% 79.4 % (42.2-75.2); PLT 412 X1000 (130-400); RBC 3.77 XMIL (4.7-6.1); RDW 15.6 % (11.5-14.5); WBC 8.18 X1000 (4.8-10.8)
[2018-07-18 06:20] LABS: AGAP 8; BUN 9 mg/dL (8-22); CALCIUM 8.8 mg/dL (8.8-10.2); CHLORIDE 107 mmol/L (98-107); COSMO 280; CREATININE 0.5 mg/dL (0.7-1.2); ESTIMATED GFR > 60; GLUCOSE 102 mg/dL (70-104); POTASSIUM 4.2 mmol/L (3.5-5.1); SODIUM 141 mmol/L (136-145); TCO2 26 mmol/L (25-35)
--- NOTE | 2018-07-18 06:54 | Diag Imaging Result Doc PS360 ---
EXAM: CHEST-1 VIEW HISTORY: SOB TECHNIQUE: Portable chest single view COMPARISON: 07/17/2018 FINDINGS: The lungs are well expanded. No cardiomegaly. There are mild increased interstitial markings bilaterally. No consolidation. No pleural effusions identified. IMPRESSION: Stable chest. Electronically signed by Esau Kelly 07/18/2018 6:52 AM
[2018-07-18] MEDS: DUONEB (A & A) INH SCH ×5 (07:52→23:30)
[2018-07-18] MEDS: KEPPRA 500 MG in NS 100 ML IV SCH ×2 (08:15→21:34)
--- NOTE | 2018-07-18 09:21 | PROGRESS NOTE ---
DATE: 07/18/2018 SUBJECTIVE: Mr. Rodriges was sleeping. I noticed one pupil is a little larger than the other. He is in 4-point restraint and gets very agitated. We are using Ativan and some Haldol. I may try some phenobarbital today. OBJECTIVE: Vitals: Temperature 97.5 degrees, pulse 106, respirations 20, blood pressure 138/83. Eyes: Pupils are equal, round. Lungs: Clear in all lung dockery. Cardiovascular: Regular rhythm and rate without murmur or S3. Abdomen: Soft. Skin: Warm and dry. Extremities: No pedal edema. URINE OUTPUT: 2900 mL. IMAGING: Chest x-ray: Lungs are well expanded. No cardiomegaly. Mild increased interstitial markings. ASSESSMENT AND PLAN: 1. Hypoxemic respiratory failure. His respiratory status has improved. Continue to use supplemental O2, bronchodilators. 2. Chronic obstructive pulmonary disease exacerbation. Using long-acting and short-acting bronchodilators and aggressive pulmonary toilet. He was given a dose of Solu-Medrol in the emergency room. He does not seem to have much in the way of bronchospasm at this time. 3. Possible bilateral pneumonia, possible superimposed pulmonary edema. So continue present antibiotic coverage. 4. Encephalopathy that I suspect is multifactorial from his hypoxemia, but also suspicious of drug withdrawal. History of polysubstance dependency in the past and he has had encephalopathy before. I do not see any focal neurologic findings other than left pupil seems a little larger than the right. I would like to get an MRI of his head, but he will have to be able to tolerate the exam. Right now, he is in 4-point restraint. 5. Seizure disorder. Continue Keppra. 6. Polysubstance dependence, not sure what medicines he had been taking. He was positive for oxycodone on the urine screen, serum alcohol was 0. 7. Continue deep venous thrombosis prophylaxis with Lovenox 40 mg subcutaneous q.24 hours. His white count has come down to 8180, hematocrit 33, platelet count 412,000. Electrolytes look good. His creatinine is down to 0.5. Troponin was less than 0.01. We will check his thyroid, B12 and folate. 8. Looking at his orders, I do not see any change at this point. He is on vancomycin and he is on Zosyn. cc: Humble Guajardo MD
[2018-07-18] MEDS: PHENOBARBITAL IV PRN ×2 (10:01→19:31)
[2018-07-18] MEDS: BROVANA NEB INH SCH ×2 (11:29→19:30)
[2018-07-18] MEDS: ATIVAN 20 MG in NS 190 ML IV SCH (15:31)
[2018-07-18] MEDS: VANCOMYCIN 1,800 MG in NS 500 ML IV SCH (16:57)
[2018-07-19] MEDS: NS 1,000 ML IV SCH ×3 (00:50→16:20)
[2018-07-19] MEDS: ATIVAN 20 MG in NS 190 ML IV SCH ×2 (01:09→19:41)
[2018-07-19] MEDS: ZOSYN 3.375 GM in NS 50 ML IV SCH ×4 (01:27→19:40)
[2018-07-19] MEDS: HALDOL IM PRN ×4 (02:34→22:23)
[2018-07-19] MEDS: ATIVAN IV PRN ×3 (04:27→17:22)
[2018-07-19] MEDS: LOVENOX SUBQ SCH (04:27)
[2018-07-19 05:12] LABS: ALLEN TEST YES; BE 3.7 mmoll (-3.0-3.0); BLOOD TYPE ARTERIAL; HCO3-(ACT) 27.8 mmoll (20.0-26.0); METHB 0.6 % (0.0-1.5); O2HB 97.2 % (95.0-99.0); PCO2(98.6) 43 mmHg (35-45); PO2(98.6) 103 mmHg (60-100); SAMPLE BLOOD; SAO2 100.8 % (95.0-100.0); SRATE 14 BPM; THB 10.1 g/dL (11.5-17.4); pH(98.6) 7.43 (7.35-7.45)
[2018-07-19 05:13] LABS: MODALITY BI PAP
--- NOTE | 2018-07-19 07:01 | Diag Imaging Result Doc PS360 ---
EXAM: CHEST-1 VIEW 07/19/2018 HISTORY: SOB TECHNIQUE: AP portable at 0505 COMMENT: There is diffuse interstitial and alveolar opacity bilaterally which is slightly worse than on the previous study of 07/18/2018. IMPRESSION: Worsened pulmonary edema plus minus pneumonia. Electronically signed by George Canas 07/19/2018 6:59 AM
[2018-07-19] MEDS ORDERED: BROVANA NEB ONE (07:18)
[2018-07-19] MEDS: BROVANA NEB INH SCH ×2 (07:21→20:15)
[2018-07-19] MEDS: DUONEB (A & A) INH SCH ×5 (07:21→23:27)
[2018-07-19] MEDS: KEPPRA 500 MG in NS 100 ML IV SCH ×2 (08:28→20:31)
--- NOTE | 2018-07-19 08:49 | PROGRESS NOTE ---
DATE: 07/19/2018 SUBJECTIVE: Mr. Rodriges appears to be comfortable. He was sleeping but did arouse during exam. OBJECTIVE: He remains afebrile with temperature at 98.2 degrees, pulse 100, respirations 28, blood pressure 123/75. Pupils are equal and round. No distended neck veins. Lungs are clear anterolateral. Cardiovascular exam with regular rhythm and rate without murmur or S3. Abdomen is soft. Skin is warm and dry. Urine output 42 mL. Chest x-ray worsened pulmonary edema plus/minus pneumonia. There is a diffuse interstitial alveolar opacity bilaterally which is slightly worse than previous study on 07/18/2018. His EKG from yesterday shows sinus tachycardia, occasional PVCs. ASSESSMENT AND PLAN: 1. Hypoxemic respiratory failure. Respiratory status is improving. Radiographically not much change. Continue supplemental O2 and bronchodilators. Treating for bilateral pneumonia. 2. Chronic obstructive pulmonary disease with exacerbation. 3. Possible bilateral pneumonia. Continue present antibiotic coverage. 4. Encephalopathy, suspect multifactorial, suspicious of drug withdrawal. He has a history of polysubstance abuse. His air and gas exchange is improved. 5. Seizure disorder. He is on Keppra. 6. Polysubstance dependence in the past. His urine drug screen was positive for oxycodone. 7. Deep venous prophylaxis. Continue Lovenox 40 mg daily. LABS: Looking at his labs from yesterday show hematocrit is stable 33, hemoglobin 10, white count did come down 8180, platelet count 412,000. Sodium was 141, potassium 4.2, chloride 107, BUN 9, creatinine 0.5. His proBNP has been 700 or less. Troponin less than 0.01. PLAN: So, he is still in 4-point restraints. Seems to be doing better. We are giving him Ativan as needed for agitation. He is on vancomycin and Zosyn. Continue present treatment. He is also on Keppra 500 mg IV twice a day. cc: Humble Guajardo MD
[2018-07-19] MEDS: VANCOMYCIN 1,800 MG in NS 500 ML IV SCH (10:59)
[2018-07-19] MEDS ORDERED: SODIUM CHLORIDE 0.9% INJ SCH (12:30)
[2018-07-19] MEDS ORDERED: LASIX IV ONE (13:02)
[2018-07-19] MEDS: PROTONIX IV SCH (13:27)
[2018-07-19] MEDS: PHENOBARBITAL IV PRN (16:20)
[2018-07-20] MEDS: NS 1,000 ML IV SCH ×3 (01:11→17:34)
[2018-07-20] MEDS: ZOSYN 3.375 GM in NS 50 ML IV SCH ×4 (02:18→20:23)
[2018-07-20] MEDS: VANCOMYCIN 1,800 MG in NS 500 ML IV SCH ×2 (04:04→23:15)
[2018-07-20] MEDS: LOVENOX SUBQ SCH (04:04)
[2018-07-20 05:38] LABS: ALLEN TEST YES; BLOOD TYPE ARTERIAL; HCO3-(ACT) 25.5 mmoll (20.0-26.0); METHB 1.3 % (0.0-1.5); O2(CT) 15.9 mL/dL (15.0-23.0); O2HB 90.6 % (95.0-99.0); PCO2(98.6) 38 mmHg (35-45); PO2(98.6) 60 mmHg (60-100); SAMPLE BLOOD; SAO2 94.4 % (95.0-100.0); THB 12.5 g/dL (11.5-17.4); pH(98.6) 7.43 (7.35-7.45)
[2018-07-20 05:39] LABS: MODALITY ROOM AIR
[2018-07-20] MEDS: BROVANA NEB INH SCH ×2 (07:29→19:30)
[2018-07-20] MEDS: DUONEB (A & A) INH SCH ×4 (07:29→19:30)
--- NOTE | 2018-07-20 07:34 | Diag Imaging Result Doc PS360 ---
EXAM: CHEST-1 VIEW INDICATION: SOB TECHNIQUE: One view COMPARISON: 07/19/2018 FINDINGS: Interstitial and airspace opacities most compatible with pulmonary edema are unchanged. No new consolidation is identified. Cardiac silhouette is stable. IMPRESSION: Stable chest. Electronically signed by Armani Ansari 07/20/2018 7:32 AM
[2018-07-20] MEDS: KEPPRA 500 MG in NS 100 ML IV SCH ×2 (09:09→20:23)
[2018-07-20] MEDS: PHENOBARBITAL IV PRN (10:55)
[2018-07-20] MEDS: ATIVAN IV PRN ×2 (11:38→20:23)
[2018-07-20] MEDS ORDERED: LIBRIUM PO PRN (11:40)
[2018-07-20] MEDS ORDERED: ATIVAN IV PRN (11:41)
[2018-07-20] MEDS: HALDOL IM PRN ×2 (14:16→20:22)
[2018-07-20] MEDS: PROTONIX IV SCH (14:16)
[2018-07-20 16:44] LABS: BASO# 0.03 X1000 (0.0-0.2); BASO% 0.3 % (0.0-0.8); EOS# 0.53 X1000 (0.0-0.7); HEMATOCRIT 34.7 % (42.0-52.0); HEMOGLOBIN 10.9 g/dL (14.0-18.0); IMM GRAN# 0.04 X1000 (0.0-0.04); IMM GRAN% 0.5 % (0.0-0.5); LYMPH# 1.33 X1000 (1.2-3.4); MCH 26.8 PG (27-31); MCHC 31.4 g/dL (33-37); MCV 85.5 FL (81-99); MONO# 0.54 X1000 (0.11-0.59); MONO% 6.1 % (1.7-9.3); MPV 9.2 FL (7.4-10.4); NEUT# 6.39 X1000 (1.4-6.5); NEUT% 72.1 % (42.2-75.2); PLT 380 X1000 (130-400); RBC 4.06 XMIL (4.7-6.1); RDW 14.4 % (11.5-14.5); WBC 8.86 X1000 (4.8-10.8)
--- NOTE | 2018-07-20 16:58 | PROGRESS NOTE ---
DATE: 07/20/2018 SUBJECTIVE: Mr. Rodriges appears to be comfortable. He does get agitated and we have had to try and give him some Ativan and he remains hemodynamically pretty stable. OBJECTIVE: Temperature 98.2 degrees, pulse 85, respirations 22, blood pressure 140/84. Pupils are equal and round. Lungs are clear in all lung dockery. Cardiovascular: Regular rhythm and rate without murmur or S3. Abdomen is soft. Skin is warm and dry. URINE OUTPUT: 1300 mL. DIAGNOSTIC STUDIES: X-ray: Stable chest. ASSESSMENT AND PLAN: 1. Hypoxemic respiratory failure. Appears to be improving. Continue supplemental O2 and bronchodilators for treating for bilateral pneumonia. 2. Chronic obstructive pulmonary disease with exacerbation. 3. Possible bilateral pneumonia. Continue present antibiotics. Clinically improving. 4. Encephalopathy. We suspect it is multifactorial, suspicious for drug withdrawal and polysubstance abuse. He seems to have improved and may be stabilizing. We are still having to use some Ativan. 5. Seizure disorder. He is on Keppra. 6. Polysubstance abuse in the past. Aware. 7. Continue his deep venous thrombosis prophylaxis. Looking at his orders, I do not see any changes. I thought we would check some labs today and tomorrow. cc: Humble Guajardo MD
[2018-07-20 17:01] LABS: AGAP 14; ALB/GLOB RATIO 0.8; ALBUMIN 2.7 g/dL (3.5-5.0); ALKALINE PHOSPHATASE 106 U/L (32-122); BUN 5 mg/dL (8-22); CALCIUM 8.4 mg/dL (8.8-10.2); CHLORIDE 102 mmol/L (98-107); COSMO 264; CREATININE 0.5 mg/dL (0.7-1.2); ESTIMATED GFR > 60; GLUCOSE 66 mg/dL (70-104); GOT 33 U/L (10-34); GPT 12 U/L (10-44); MAGNESIUM 1.6 mg/dL (1.5-2.7); POTASSIUM 3.6 mmol/L (3.5-5.1); SODIUM 134 mmol/L (136-145); TCO2 18 mmol/L (25-35); TOTAL BILIRUBIN 0.45 mg/dL (0.20-1.00); TOTAL PROTEIN 6.2 g/dL (6.3-8.3)
[2018-07-21] MEDS: DUONEB (A & A) INH SCH ×6 (00:34→23:14)
[2018-07-21] MEDS: NS 1,000 ML IV SCH ×4 (01:11→23:56)
[2018-07-21] MEDS: ZOSYN 3.375 GM in NS 50 ML IV SCH ×4 (01:12→20:23)
[2018-07-21] MEDS: ATIVAN IV PRN (01:12)
[2018-07-21] MEDS: LOVENOX SUBQ SCH (04:20)
[2018-07-21 05:09] LABS: ALLEN TEST YES; BE -2.1 mmoll (-3.0-3.0); BLOOD TYPE ARTERIAL; HCO3-(ACT) 23.3 mmoll (20.0-26.0); METHB 1.3 % (0.0-1.5); O2HB 95.5 % (95.0-99.0); PCO2(98.6) 47 mmHg (35-45); PO2(98.6) 97 mmHg (60-100); SAMPLE BLOOD; SAO2 99.2 % (95.0-100.0); THB 11.1 g/dL (11.5-17.4); pH(98.6) 7.32 (7.35-7.45)
[2018-07-21 05:10] LABS: MODALITY CANNULA
[2018-07-21 06:20] LABS: BASO# 0.05 X1000 (0.0-0.2); BASO% 0.6 % (0.0-0.8); EOS# 0.83 X1000 (0.0-0.7); EOS% 10.4 % (0.0-10.0); HEMATOCRIT 34.1 % (42.0-52.0); HEMOGLOBIN 10.5 g/dL (14.0-18.0); IMM GRAN# 0.03 X1000 (0.0-0.04); IMM GRAN% 0.4 % (0.0-0.5); LYMPH# 1.11 X1000 (1.2-3.4); LYMPH% 13.9 % (20.5-51.1); MCH 26.4 PG (27-31); MCHC 30.8 g/dL (33-37); MCV 85.9 FL (81-99); MONO# 0.48 X1000 (0.11-0.59); MPV 9.9 FL (7.4-10.4); NEUT# 5.49 X1000 (1.4-6.5); NEUT% 68.7 % (42.2-75.2); PLT 362 X1000 (130-400); RBC 3.97 XMIL (4.7-6.1); RDW 14.5 % (11.5-14.5); WBC 7.99 X1000 (4.8-10.8)
--- NOTE | 2018-07-21 07:22 | Diag Imaging Result Doc PS360 ---
EXAM: CHEST-1 VIEW 07/21/2018 HISTORY: SOB TECHNIQUE: AP portable at 0539 COMMENT: Compared to the previous study of 07/20/2018 there is slight worsening of opacity in the area of the cardiac apex obscuring the heart border. There continues to be diffuse interstitial opacity bilaterally. IMPRESSION: Slightly worsened pulmonary edema and/or pneumonia in the left lower lobe. Electronically signed by George Canas 07/21/2018 7:20 AM
[2018-07-21 07:25] LABS: AGAP 16; ALB/GLOB RATIO 0.9; ALBUMIN 2.9 g/dL (3.5-5.0); ALKALINE PHOSPHATASE 109 U/L (32-122); BUN 5 mg/dL (8-22); CALCIUM 7.9 mg/dL (8.8-10.2); CHLORIDE 104 mmol/L (98-107); COSMO 278; CREATININE 0.5 mg/dL (0.7-1.2); ESTIMATED GFR > 60; GLUCOSE 59 mg/dL (70-104); GOT 26 U/L (10-34); GPT 13 U/L (10-44); MAGNESIUM 1.6 mg/dL (1.5-2.7); SODIUM 142 mmol/L (136-145); TCO2 22 mmol/L (25-35); TOTAL BILIRUBIN 0.33 mg/dL (0.20-1.00); TOTAL PROTEIN 6.1 g/dL (6.3-8.3)
[2018-07-21] MEDS: BROVANA NEB INH SCH ×2 (08:01→19:39)
[2018-07-21] MEDS: KEPPRA 500 MG in NS 100 ML IV SCH ×2 (08:10→20:24)
[2018-07-21] MEDS ORDERED: MAGNESIUM SULFATE 2 GM/S.W.I. 2 GM/50 ML IVPB IV ONE (08:28)
--- NOTE | 2018-07-21 09:20 | PROGRESS NOTE ---
DATE: 07/21/2018 SUBJECTIVE: Mr. Rodriges is awake. I explained to him he is in the hospital, he is at [facility] in intensive care, and reminded him of the month and the year. He still seems to have at times quite a bit of confusion. Right now, he seems to be calm and trying to understand the plan. OBJECTIVE: Vital Signs: Temperature 98.2 degrees, pulse 78, respirations 20, blood pressure 127/74. Eyes: Pupils are equal and round. Neck: No distended neck veins. Lungs: Clear in all lung dockery. Cardiovascular exam: Regular rhythm and rate without murmur or S3. : Urine output is 3500 mL. DIAGNOSTICS: His chest x-ray: Slight worsened pulmonary edema. Pneumonia in the left lower lobe. ASSESSMENT AND PLAN: 1. Hypoxemic respiratory failure appears to be improving. Continue supplemental O2, bronchodilators and his antibiotics. 2. Chronic obstructive pulmonary disease with exacerbation. 3. Encephalopathy, multifactorial. Suspect he may have some underlying cognitive decline. The family said he has had some confusion at home as well. Seems to be doing a little bit better. We are trying to avoid any medications that would contribute to his confusion. 4. Seizure disorder on Keppra. 5. Polysubstance abuse in the past. Aware. 6. Deep venous thrombosis. REVIEW OF HIS CURRENT MEDICATIONS: He is on BuSpar 15 mg t.i.d., Brovana 15 mg inhaler b.i.d., DuoNebs q. 3 hours. I have given him some potassium chloride for hypokalemia and gave him some magnesium as well. Continue vancomycin and Zosyn. This seemed to be improving. cc: Humble Guajardo MD
[2018-07-21] MEDS: POTASSIUM CHLORIDE 20 MEQ/SWI 20 MEQ/100 ML IVPB IV SCH ×2 (09:38→12:41)
[2018-07-21] MEDS: BUSPAR PO SCH ×3 (09:41→17:11)
[2018-07-21] MEDS: VANCOMYCIN 1,800 MG in NS 500 ML IV SCH ×3 (12:42→23:54)
[2018-07-21] MEDS: PROTONIX IV SCH (15:31)
[2018-07-22] MEDS: NS 1,000 ML IV SCH ×3 (01:00→18:10)
[2018-07-22] MEDS: ZOSYN 3.375 GM in NS 50 ML IV SCH ×4 (02:00→20:00)
[2018-07-22] MEDS: LOVENOX SUBQ SCH (04:48)
[2018-07-22 05:04] LABS: ALLEN TEST YES; BLOOD TYPE ARTERIAL; HCO3-(ACT) 26.4 mmoll (20.0-26.0); METHB 0.8 % (0.0-1.5); O2HB 95.2 % (95.0-99.0); PCO2(98.6) 47 mmHg (35-45); PO2(98.6) 82 mmHg (60-100); SAMPLE BLOOD; SAO2 99.3 % (95.0-100.0); THB 13.4 g/dL (11.5-17.4); pH(98.6) 7.38 (7.35-7.45)
[2018-07-22 05:06] LABS: MODALITY CANNULA
[2018-07-22] MEDS ORDERED: POTASSIUM CHLORIDE 20% LIQUID PO ONE (06:03)
--- NOTE | 2018-07-22 06:34 | PROGRESS NOTE ---
DATE: 07/22/2018 SUBJECTIVE: Mr. Rodriges is awake. He is alert. Knows he is in the hospital. I had to remind him it was [facility] and not [facility]. He seems to know the month and the year and was asking me questions about what was going on. OBJECTIVE: Vital Signs: Temperature 98.2 degrees, pulse 80, respirations 30, blood pressure 99/56. Blood pressures have been between 99 to 149 over 56 to 80. HEENT: Pupils are equal. Neck: No distended neck veins. Lungs: Clear in all lung dockery. Cardiovascular: Regular rhythm and rate without murmur or S3. Abdomen: Soft. Skin: Warm and dry. LABORATORY STUDIES: Urine output 4600 mL. ASSESSMENT AND PLAN: 1. Hypoxemic respiratory failure. Seems to be improving with improving air and gas exchange. Continue supplemental O2, bronchodilators antibiotics. 2. Chronic obstructive pulmonary disease with exacerbation. 3. Encephalopathy which I think is multifactorial and this is much better. He did state he was taking a medicine to help with sexual function at home, did not remember the name, but it appears to be somewhat medication dependent. He is also asking for something for pain but I really do not want to give him opiates so will try some Tylenol p.r.n. 4. Seizure disorder, on Keppra. No sign of further seizures. 5. Polysubstance abuse in the past. 6. Deep venous thrombosis. He is asking to be moved to the floor. Looking over his orders, he is on BuSpar 15 mg t.i.d. He has fluids going at 125 mL of normal saline an hour, Protonix 40 mg IV q.24 h., vancomycin 1800 mg IV q.12 h., Zosyn 3.375 g IV q.6 h. He is on a regular diet. Review of his lab, hematocrit stable at 34, hemoglobin 10. Electrolytes look good. Potassium a little bit low so will give a little potassium by mouth. cc: Humble Guajardo MD
[2018-07-22] MEDS ORDERED: BROVANA NEB ONE (07:12)
[2018-07-22] MEDS: DUONEB (A & A) INH SCH ×5 (07:24→23:43)
--- NOTE | 2018-07-22 07:39 | Diag Imaging Result Doc PS360 ---
EXAM: CHEST-1 VIEW 07/22/2018 HISTORY: SOB TECHNIQUE: AP portable at 0505 COMMENT: There are patchy ill-defined opacities bilaterally. Compared to 07/21/2018 there has been improvement in the right upper lobe and slight worsening in the left upper lobe. Some of the background increased interstitial markings may be due to fibrosis as seen on 03/12/2018. IMPRESSION: Pulmonary fibrosis with superimposed pulmonary edema and/or pneumonia. Electronically signed by George Canas 07/22/2018 7:37 AM
[2018-07-22] MEDS: BUSPAR PO SCH ×3 (08:05→18:10)
[2018-07-22] MEDS: KEPPRA 500 MG in NS 100 ML IV SCH ×2 (08:05→21:22)
[2018-07-22] MEDS: OFIRMEV 1000 MG/ISOTONIC SOLN 1,000 MG/100 ML BOTTLE IV PRN ×3 (09:11→21:22)
[2018-07-22] MEDS: BROVANA NEB INH SCH ×2 (09:14→19:53)
[2018-07-22] MEDS: VANCOMYCIN 2,000 MG in NS 500 ML IV SCH ×2 (11:51→23:00)
[2018-07-22] MEDS: PROTONIX IV SCH (13:25)
[2018-07-22] MEDS: SOLU-MEDROL IV SCH ×2 (14:55→20:30)
[2018-07-23] MEDS: ZOSYN 3.375 GM in NS 50 ML IV SCH ×4 (01:53→21:00)
[2018-07-23] MEDS: SOLU-MEDROL IV SCH ×5 (01:54→21:10)
[2018-07-23] MEDS: NS 1,000 ML IV SCH ×3 (01:54→18:17)
[2018-07-23] MEDS: LOVENOX SUBQ SCH (03:30)
[2018-07-23 05:06] LABS: ALLEN TEST YES; BE 3.6 mmoll (-3.0-3.0); BLOOD TYPE ARTERIAL; HCO3-(ACT) 27.7 mmoll (20.0-26.0); METHB 1.2 % (0.0-1.5); O2(CT) 14.4 mL/dL (15.0-23.0); O2HB 96.8 % (95.0-99.0); PCO2(98.6) 39 mmHg (35-45); PO2(98.6) 120 mmHg (60-100); SAMPLE BLOOD; SAO2 99.7 % (95.0-100.0); THB 10.4 g/dL (11.5-17.4); pH(98.6) 7.46 (7.35-7.45)
[2018-07-23 05:11] LABS: MODALITY CANNULA
[2018-07-23 06:48] LABS: BASO# 0.01 X1000 (0.0-0.2); BASO% 0.4 % (0.0-0.8); HEMATOCRIT 31.8 % (42.0-52.0); HEMOGLOBIN 9.8 g/dL (14.0-18.0); LYMPH# 0.32 X1000 (1.2-3.4); LYMPH% 11.2 % (20.5-51.1); MCH 26.1 PG (27-31); MCHC 30.8 g/dL (33-37); MCV 84.8 FL (81-99); MONO# 0.03 X1000 (0.11-0.59); MONO% 1.1 % (1.7-9.3); MPV 10.2 FL (7.4-10.4); NEUT# 2.49 X1000 (1.4-6.5); NEUT% 87.3 % (42.2-75.2); PLT 316 X1000 (130-400); RBC 3.75 XMIL (4.7-6.1); RDW 14.5 % (11.5-14.5); WBC 2.85 X1000 (4.8-10.8)
--- NOTE | 2018-07-23 07:08 | Diag Imaging Result Doc PS360 ---
EXAM: CHEST-1 VIEW HISTORY: SOB TECHNIQUE: Portable chest single view COMPARISON: 07/22/2018 FINDINGS: The lungs are well expanded. No cardiomegaly. There are increased interstitial markings throughout both lungs. This is likely due to a combination of infiltrates and fibrosis. The markings in the lower lungs are slightly less prominent. No consolidation. No pleural effusions identified. IMPRESSION: Slight interval improvement. Electronically signed by Esau Kelly 07/23/2018 7:06 AM
[2018-07-23 07:25] LABS: AGAP 10; BUN 3 mg/dL (8-22); CALCIUM 8.8 mg/dL (8.8-10.2); CHLORIDE 104 mmol/L (98-107); COSMO 281; CREATININE 0.5 mg/dL (0.7-1.2); ESTIMATED GFR > 60; GLUCOSE 191 mg/dL (70-104); POTASSIUM 3.6 mmol/L (3.5-5.1); SODIUM 140 mmol/L (136-145); TCO2 26 mmol/L (25-35)
[2018-07-23] MEDS: OFIRMEV 1000 MG/ISOTONIC SOLN 1,000 MG/100 ML BOTTLE IV PRN ×3 (07:26→21:02)
[2018-07-23 07:36] LABS: LYMPHS 12 % (21-51); SEGS 88 % (42-75)
[2018-07-23] MEDS: BROVANA NEB INH SCH ×2 (07:42→20:00)
[2018-07-23] MEDS: DUONEB (A & A) INH SCH ×5 (07:42→23:55)
[2018-07-23] MEDS: KEPPRA 500 MG in NS 100 ML IV SCH ×2 (09:23→22:35)
[2018-07-23] MEDS: BUSPAR PO SCH ×3 (09:23→16:18)
[2018-07-23] MEDS: VANCOMYCIN 2,000 MG in NS 500 ML IV SCH (11:51)
--- NOTE | 2018-07-23 11:52 | PROGRESS NOTE ---
DATE: 07/23/2018 SUBJECTIVE: Mr. Rodriges is better. He is awake. He is alert, breathing comfortably. He is asking about going to the floor. Also asking for something more for his pain. OBJECTIVE: Vital Signs: Temp 98.8 degrees, pulse 85, respirations 20, blood pressure 127/76. HEENT: Pupils are equal and round. Lungs: Clear in all lung dockery anterior and posterior. Cardiovascular: Regular rhythm and rate without murmur or S3. Abdomen: Soft. Skin: Warm and dry. Urine output 9200 mL, so excellent urine output. X-RAYS: Chest x-ray from this morning, slight interval improvement. Lungs are well expanded. There are increased interstitial markings throughout both lungs and feel like this is likely a combination of fibrosis and possible infiltrates. ASSESSMENT AND PLAN: 1. Hypoxemic respiratory failure seems to be improving with air and gas exchange. Continue his supplemental O2 and bronchodilators and antibiotics. 2. He is on methylprednisone 40 mg IV q.6. He is on vancomycin 2 g IV q.12, and Zosyn 3.375 g IV q.6. 3. History of seizures. He is on levetiracetam 500 mg IV b.i.d. He has not had any seizure activity. 4. Metabolic encephalopathy. [facility] this was multifactorial, but this is clearly improved. He no longer requires restraints. He is awake and alert, seems to be pleasant. 5. History of anxiety. We have him on the BuSpar. We have physical therapy going. Continue DVT prophylaxis and will continue his other treatment. His blood counts, white count 2850, hematocrit is 31, platelet count is 360,000. Chemistries look good. Potassium 3.6, sodium 140, chloride 104, BUN 3, creatinine 0.5. So he could possibly move to floor today. cc: Humble Guajardo MD
[2018-07-23] MEDS: PROTONIX IV SCH (14:33)
[2018-07-23] MEDS: ATIVAN IV PRN (21:44)
[2018-07-24] MEDS: NS 1,000 ML IV SCH ×3 (00:50→18:43)
[2018-07-24] MEDS: ZOSYN 3.375 GM in NS 50 ML IV SCH ×3 (01:04→14:37)
[2018-07-24] MEDS: SOLU-MEDROL IV SCH ×3 (01:08→14:38)
[2018-07-24] MEDS: ATIVAN IV PRN ×2 (01:44→09:56)
[2018-07-24] MEDS: VANCOMYCIN 2,000 MG in NS 500 ML IV SCH ×2 (03:07→18:41)
[2018-07-24] MEDS: LOVENOX SUBQ SCH (03:08)
[2018-07-24] MEDS: OFIRMEV 1000 MG/ISOTONIC SOLN 1,000 MG/100 ML BOTTLE IV PRN ×2 (04:02→12:04)
[2018-07-24 05:38] LABS: ALLEN TEST YES; BE 7.9 mmoll (-3.0-3.0); BLOOD TYPE ARTERIAL; HCO3-(ACT) 31.1 mmoll (20.0-26.0); METHB 1.6 % (0.0-1.5); MODALITY CANNULA; O2(CT) 13.2 mL/dL (15.0-23.0); O2HB 96.3 % (95.0-99.0); PCO2(98.6) 42 mmHg (35-45); PO2(98.6) 144 mmHg (60-100); SAMPLE BLOOD; SAO2 99.4 % (95.0-100.0); THB 9.5 g/dL (11.5-17.4); pH(98.6) 7.49 (7.35-7.45)
--- NOTE | 2018-07-24 07:28 | Diag Imaging Result Doc PS360 ---
CHEST-1 VIEW - 07/24/2018 INDICATION: SOB COMPARISON: 07/23/2018 FINDINGS: Stable coarse, fibrotic appearing opacities in the lung periphery. Stable COPD changes. No new infiltrates. Heart size remains normal. IMPRESSION: COPD with pulmonary fibrosis. No new infiltrates. Electronically signed by Parviz Klein 07/24/2018 7:26 AM
[2018-07-24] MEDS: DUONEB (A & A) INH SCH ×3 (07:54→15:48)
[2018-07-24] MEDS ORDERED: LIBRIUM PO PRN (08:20)
[2018-07-24] MEDS: BUSPAR PO SCH ×3 (09:37→18:42)
[2018-07-24] MEDS: BROVANA NEB INH SCH (10:05)
[2018-07-24] MEDS: KEPPRA 500 MG in NS 100 ML IV SCH (10:38)
[2018-07-24] MEDS: PROTONIX IV SCH (14:37)
--- NOTE | 2018-07-24 16:27 | DISCHARGE SUMMARY ---
ADMISSION DATE: 07/17/2018 DISCHARGE DATE: 07/24/2018 ADMITTING DIAGNOSES: 1. Acute hypoxic respiratory failure. 2. Chronic obstructive pulmonary disease exacerbation. 3. Possible bilateral pneumonia with superimposed mild pulmonary edema. 4. Toxic metabolic encephalopathy. 5. Seizure disorder. 6. History of polysubstance dependence. DIAGNOSTIC PROCEDURES AND FINDINGS: Chest x-ray on 07/17/2018 is stable chest, mild increased interstitial markings bilaterally. Chest x-ray on 07/18/2018 is stable chest. Chest x-ray on 07/19/2018 showed worsened pulmonary edema plus or minus pneumonia. Chest x-ray on 07/20/2018 with unchanged pulmonary edema, airspace opacities. Chest x-ray on 07/21/2018 with slightly worsened pulmonary edema and/or pneumonia in the left lower lobe. Chest x-ray on 07/22/2018 shows pulmonary fibrosis with superimposed pulmonary edema and/or pneumonia. Chest x-ray on 07/23/2018 shows interval improvement. Chest x-ray on 07/24/2018 shows COPD with pulmonary fibrosis, no new infiltrates. CONSULTATIONS: Dr. Salazar with Pulmonary Critical Care. HOSPITAL COURSE: Mr. Rodriges is a well-known 63-year-old male who came to our ER with acute dyspnea, not wearing his oxygen at home and becoming confused and agitated to the point where he required physical restraint to prevent self harm. His family called the ambulance, and he was brought here. He was treated with BiPAP and oxygen, antibiotics, breathing treatments, and IV steroids and did improve. However, given his history of severe COPD, we did opt to put him in the ICU. We continued all of his home medications, consulted Pulmonary. He did begin to develop what appeared to be consistent with pneumonia. Antibiotics, breathing treatments and steroids all improved his breathing and neurologic status, and we discussed with him the perils of illicit drug use and alcohol use. Overall, he has reached maximum benefit of inpatient hospitalization and is now stable for discharge home. DISCHARGE MEDICATIONS: Paxil 40 mg daily, Flomax 0.4 mg daily, BuSpar 15 mg t.i.d., Keppra 500 mg p.o. b.i.d., Colace 200 mg p.o. at bedtime, iron sulfate 325 mg with breakfast, Xarelto 10 mg p.o. q.24, Medrol Dosepak 1 p.o. as directed, Atrovent HFA 2 puffs inhaled 4 times a day, albuterol sulfate 2 puffs inhaled every 6 hours as needed, doxycycline 100 mg p.o. b.i.d. for 7 days, DuoNeb every 6 hours, Percocet 10 one p.o. q.6 hours p.r.n. pain. DISCHARGE DIET: Heart healthy. DISCHARGE ACTIVITY: Resume activity as tolerated. DISCHARGE LABORATORY DATA: ABG on nasal cannula shows pH of 7.49, CO2 of 42, O2 of 144, bicarbonate 31.1, lactate 1.2. Sodium 140, potassium 3.6, chloride 104, CO2 is 26, anion gap 10, BUN is 3, creatinine 0.5, glucose 191. DISPOSITION AND OTHER DISCHARGE INSTRUCTIONS: The patient is discharged home. He is to follow up with his PCP within the week or sooner if needed. He is to continue all medications as directed. Return to the ER or call 911 for worsening complaints or concerns. All questions answered. Discharge time greater than 35 minutes. Dictated by XENIA Farias for Rosendo Varghese MD cc: XENIA Farias MD Mamoun I. Najjar, MD
[2018-07-24 20:00] VITALS: BP 120/68
== END 2018-07-24 20:21 | disposition home or self-care (01) | DRG 193 ==
LOC: ED 23:45 → SUATTDRO 07-17 03:34 → EDIPHOLD 07-17 03:34 → ICU 07-17 12:43 → 3N 07-23 14:09
PROVIDERS: ATTEND Internal Medicine
CPT/HCPCS: 51702; 71010; 71045; 80048; 80053; 80101; 80202; 80301; 80307; 80320; 80324; 80345; 80346; 80353; 80358; 80361; 80365; 81001; 82055; 82140; 82550; 82805; 83605; 83735; 83880; 83992; 84484; 85025; 87040; 93005; 94640; 94660; 94761; 96365; 96366; 96367; 96368; 96372; 96375; 96376; 97116; 97162; 99285; A9270; C9113; G0431; G0434; G0479; G0480; G6040; J0131; J1630; J1650; J1940; J1953; J2060; J2543; J2560; J2920; J2930; J3370; J3475; J3480; J7030; J7040; J7050; S0164

== ENCOUNTER 2019-01-28 05:47 | Inpatient (IN) ==
[2019-01-28] MEDS ORDERED: SOLU-MEDROL IV ONE (05:52)
[2019-01-28] MEDS ORDERED: DUONEB (A & A) INH ONE (05:52)
--- NOTE | 2019-01-28 06:14 | Diag Imaging Result Doc PS360 ---
EXAM: CHEST-1 VIEW HISTORY: sob TECHNIQUE: Single view COMPARISON: 07/24/2018 FINDINGS: The lungs are hyperexpanded. No cardiomegaly. There are increased interstitial markings primarily in the mid lungs. No cardiomegaly. No pleural effusions identified. IMPRESSION: Emphysema with fibrosis Electronically signed by Esau Kelly 01/28/2019 6:12 AM
--- NOTE | 2019-01-28 06:30 | PROVIDER DOCUMENTATION ---
HPI-General Adult - General Chief Complaint: Shortness of Breath Stated Complaint: sob Time Seen by Provider: 01/28/19 05:51 Source: patient Allergies/Adverse Reactions: Patient Allergies Allergy/AdvReac Type Severity Reaction Status Date / Time phenytoin sodium * Allergy Severe ANAPHYLAXIS Verified 05/08/18 14:29 [From Dilantin] phenytoin sodium extended * Allergy Severe ANAPHYLAXIS Verified 05/08/18 14:29 [From Dilantin] Milk Containing Products Allergy Mild NAUSEA Verified 05/08/18 14:29 ceftazidime Allergy RASH Verified 05/08/18 14:29 codeine Allergy Unknown Verified 05/08/18 14:29 milk Allergy Unknown Verified 05/08/18 14:29 phenytoin [From Dilantin] Allergy Unknown Verified 05/08/18 14:29 Home Medications: Home Medication List Medication Instructions Recorded Confirmed Last Taken Type Paroxetine HCl [Paxil] 40 mg PO DAILY 04/18/18 01/28/19 06/21/18 History Tamsulosin [Flomax] 0.4 mg PO DAILY 04/18/18 01/28/19 06/21/18 History Buspirone [Buspar] 15 mg PO TID 05/08/18 01/28/19 06/21/18 History Levetiracetam [Keppra] 500 mg PO BID 06/23/18 01/28/19 06/21/18 History Docusate Sodium [Colace] 200 mg PO QHS #30 cap 07/06/18 01/28/19 Unknown Rx Ferrous Sulfate 325 mg PO WBREAKFAST #30 tab 07/06/18 01/28/19 Unknown Rx Rivaroxaban [Xarelto] 10 mg PO Q24H #20 tab 07/06/18 01/28/19 Unknown Rx Albuterol 2.5MG/Ipratrop 0.5MG 3 ml INH RTQ6H #120 neb 07/24/18 01/28/19 Unknown Rx [Duoneb (A & A)] Albuterol Sulfate Inhaler 2 puff INH Q6H PRN PRN #1 inhaler 07/24/18 01/28/19 Unknown Rx [Ventolin Hfa] Ipratropium [place] Inhaler 2 puff INH [id number] #1 inhaler 07/24/18 01/28/19 Unknown Rx [Atrovent Hfa] Oxycodone/APAP 10 mg/325 mg 1 ea PO Q6H PRN PRN #10 tab 07/24/18 01/28/19 Unkno wn Rx [Percocet-10] Lorazepam [Ativan] 0.5 mg PO TID 01/28/19 01/28/19 Unknown History - History of Present Illness -Gen Adult Nature of Presenting Problems: Pt presents with sob, x 1 day, pmh of COPD on home O2, pt had stopped smoking but in the last couple of days started smoking again, ran out of all home medications, pt now with sob, pt denies f/c, pereira, cp, cough, ap, n/v/d. Pt is lying in bed in no acute distress. Location of Pain/Injury: reports: none Pain Radiation: reports: no radiation Quality of Pain: reports: none Onset/Duration: reports: 24 hours ago Timing: reports: still present Context/Activities at Onset: reports: none Modifying Factors: improves with: nothing Associated Symptoms: reports: shortness of breath Similar Symptoms Previously?: Yes Recently seen or treated by another doctor?: No Review of Systems - Adult - REVIEW OF SYSTEMS - ADULT Constitutional: reports: no symptoms reported Eyes: reports: no symptoms reported Ears, Nose, Mouth & Throat: reports: no symptoms reported Cardiovascular: reports: no symptoms reported Respiratory: reports: see HPI Gastrointestinal: reports: no symptoms reported Genitourinary: reports: no symptoms reported Musculoskeletal: reports: no symptoms reported Integumentary: reports: no symptoms reported Neurological: reports: no symptoms reported Psychiatric: reports: no symptoms reported Endocrine: reports: no symptoms reported Hematologic/Lymphatic: reports: no symptoms reported Allergic/Immunologic: reports: no symptoms reported All Other Systems: Reviewed and Negative Past History - Adult - PAST MEDICAL HISTORY-ADULT Review of Records: reports: Old Records Reviewed, Nursing Assessment Review, Medications Reviewed, Social history reviewed & non-contributory. Major Childhood Illnesses: reports: denies history Cardiovascular: reports: CAD, HTN, hyperlipidemia, [place] Respiratory: reports: asthma, COPD, cancer, sleep apnea Gastrointestinal: reports: cancer, GERD, hepatitis Obstetrical/Gynecological: reports: denies history Genitourinary: reports: denies history Musculoskeletal: reports: denies history Neurological: reports: Seizures/Epilepsy Psychiatric: reports: bipolar, schizophrenia Endocrine/Immune: reports: HIV/AIDS Other Conditions: reports: other (HIV) Additional History: alcoholism - PRIOR SURGERIES/PROCEDURES Surgical/Procedure History: reports: cardiac stent, hernia repair, orthopedic (extremity), other - IMMUNIZATION STATUS Childhood Immunizations: See Nurse Assessment Flu Vaccine: See Nurse Assessment - FAMILY HISTORY Family History: reviewed, not pertinent Physical Exam-General - PHYSICAL EXAM-ADULT Initial Vital Signs Reviewed: Yes - CONSTITUTIONAL General Appearance: appears well - EYES Eyes: PERRL/EOMI - HEAD, EARS, NOSE, MOUTH & THROAT HENMT: normocephalic/atraumatic - NECK Neck: normal inspection - RESPIRATORY Respiratory: no respiratory distress, no accessory muscle use, wheezing - CARDIOVASCULAR Cardiovascular: regular rate, rhythm - GASTROINTESTINAL (ABDOMEN) Abdominal Exam: non tender, soft - LYMPHATIC Lymphatic: no adenopathy - MUSCULOSKELETAL Back Exam: normal inspection Extremity: normal range of motion - SKIN Integumentary: normal color - NEUROLOGIC Neurologic: grossly normal - PSYCHIATRIC Psych/Mental Status: normal mood/affect Progress - PLAN OF CARE/RESULTS Progress/Plan/Lab Results: Vital Signs - 8 hr 01/28/19 05:57 01/28/19 06:09 Temperature 97.8 F Pulse Rate 79 79 Respiratory Rate 22 15 Blood Pressure 142/77 O2 Sat by Pulse Oximetry 97 Orders Category Date Time Status Nursing- Obtain EKG ONCE Care 01/28/19 05:51 Active cxr [CHEST-1 VIEW] [RAD] Stat Exams 01/28/19 05:51 Completed CBC WITH ELECTRONIC DIFF [HEME] Stat Lab 01/28/19 05:51 Uncollected COMPREHENSIVE METABOLIC PANEL [CHEM] Stat Lab 01/28/19 05:51 Uncollected PRO B-NATRIURETIC PEPTIDE Stat Lab 01/28/19 05:51 Uncollected TROPONIN T Stat Lab 01/28/19 05:51 Uncollected Albuterol 2.5MG/Ipratrop 0.5MG [Duoneb (A & A)] Med 01/28/19 05:52 Discontinued 3 ml INH NOW ONE Methylprednisolone Sod Succ [Solu-Medrol] Med 01/28/19 05:52 Discontinued 125 mg IV NOW ONE Aerosol Treatments Routine Oth 01/28/19 05:52 Active Aerosol Treatments Stat Oth 01/28/19 05:52 Active EKG [EKG] Stat Ther 01/28/19 05:51 Ordered Result Diagrams: 01/28/19 06:27 01/28/19 06:27 - REASSESSMENT Reassessment #1 Time Reassessed: 08:30 Status: improving (still sob and increased WOB after solumedrol and tx.) - CONSULTS/PCP/HOSPITALIST Notification #1 *Consult/PCP/Hospitalist*: dr Patrice Mcgill Consult Disposition: Admit Departure - Departure Date of Disposition Decision: 01/28/19 Time of Disposition Decision: 08:33 DIAGNOSIS: COPD (chronic obstructive pulmonary disease) with acute bronchitis, Smoker Disposition: ADMITTED INPATIENT 09 Certified Medical Emergency: Emergent Condition: Fair Referrals and Follow-Ups: None,PCP [Primary Care Provider] - - Critical Care Note This patient required my direct & personal management of CC.: No Attestation - Physician/ JOSÉ MIGUEL Attestation Patient care was provided by Advanced Practice Provider:: No The physician spent face to face time with patient:: Yes Advanced Practice Provider documentation review:: Supervising physician onsite and consulted in the evaluation and care of this patient. The physician did have a face to face encounter with the patient.
[2019-01-28 07:02] LABS: BASO# 0.08 X1000 (0.0-0.2); BASO% 0.6 % (0.0-0.8); EOS# 0.18 X1000 (0.0-0.7); EOS% 1.3 % (0.0-10.0); HEMATOCRIT 43.5 % (42.0-52.0); HEMOGLOBIN 14.1 g/dL (14.0-18.0); IMM GRAN# 0.04 X1000 (0.0-0.04); IMM GRAN% 0.3 % (0.0-0.5); LYMPH# 1.68 X1000 (1.2-3.4); LYMPH% 12.3 % (20.5-51.1); MCHC 32.4 g/dL (33-37); MCV 83.3 FL (81-99); MONO# 0.49 X1000 (0.11-0.59); MONO% 3.6 % (1.7-9.3); MPV 9.2 FL (7.4-10.4); NEUT% 81.9 % (42.2-75.2); PLT 414 X1000 (130-400); RBC 5.22 XMIL (4.7-6.1); RDW 14.9 % (11.5-14.5); WBC 13.67 X1000 (4.8-10.8)
[2019-01-28 07:03] LABS: AGAP 15; ALB/GLOB RATIO 1.1; ALKALINE PHOSPHATASE 84 U/L (32-122); BUN 3 mg/dL (8-22); CALCIUM 9.3 mg/dL (8.8-10.2); CHLORIDE 97 mmol/L (98-107); COSMO 272; CREATININE 0.6 mg/dL (0.7-1.2); ESTIMATED GFR > 60; GLUCOSE 92 mg/dL (70-104); GOT 18 U/L (10-34); GPT 16 U/L (10-44); SODIUM 138 mmol/L (136-145); TCO2 26 mmol/L (25-35); TOTAL BILIRUBIN 0.27 mg/dL (0.20-1.00); TOTAL PROTEIN 7.7 g/dL (6.3-8.3)
--- NOTE | 2019-01-28 07:41 | EKG Report ---
Test Performed on : 01/28/2019 05:57:00 AM Test Reason : sob Blood Pressure : / mmHG Vent. Rate : 081 BPM Atrial Rate : 081 BPM P-R Int : 164 ms QRS Dur : 110 ms QT Int : 424 ms P-R-T Axes : 084 -15 073 degrees QTc Int : 492 ms Sinus rhythm. with premature supraventricular complexes. and with occasional premature ventricular co mplexes. Possible Left atrial enlargement Left ventricular hypertrophy Cannot rule out Septal infarct , age undetermined Abnormal ECG When compared with ECG of 17-JUL-2018 01:09, premature supraventricular complexes. are now present Minimal criteria for Septal infarct are now present Unconfirmed Result
[2019-01-28] MEDS ORDERED: LEVAQUIN 750 MG/D5W 750 MG/150 ML IVPB IV ONE (08:29)
[2019-01-28] MEDS ORDERED: BUSPAR PO ONE (08:31)
[2019-01-28] MEDS ORDERED: PAXIL PO ONE (08:31)
[2019-01-28] MEDS ORDERED: ATIVAN PO ONE (08:32)
--- NOTE | 2019-01-28 09:55 | HISTORY AND PHYSICAL ---
PRIMARY CARE PHYSICIAN: None. CHIEF COMPLAINT: Shortness of breath and states that he ran out of his medications approximately 2 months ago. HISTORY OF PRESENTING ILLNESS: This is a 63-year-old male who presents to [facility] with complaints of increased shortness of breath for the past couple of days that progressively worsened. States that he has been out of his home medications for about 2 months, that he does not have a primary care physician and that his refills ran out from the last time he was in the hospital and he did not seek out any further medical assistance. States he has been smoking 2 packs of cigarettes a day, drinking 2 cases of beer a day and uses marijuana occasionally. He does have home O2. Denied any fever, chills, cough. His workup showed on arrival saturating 97%. His white blood cell count was 13.67. His chest x-ray showed emphysema with fibrosis, so he will be admitted to the medical unit for further evaluation and treatment. PAST MEDICAL HISTORY: 1. COPD with home O2. 2. Polysubstance abuse. 3. Seizures. 4. Coronary artery disease. 5. Bipolar. PAST SURGICAL HISTORY: 1. Left hip replacement. 2. Toe surgery. 3. Heart stent placement. 4. Eye surgery. FAMILY HISTORY: Reviewed and noncontributory. SOCIAL HISTORY: Currently lives with family. Smokes 2 pack of cigarettes a day and has done so for 30+ years. Has been drinking 2 cases of beer a day and uses marijuana occasionally. ALLERGIES TO: 1. Phenytoin. 2. Milk containing products. 3. Ceftazidime. 4. Codeine. HOME MEDICATIONS: 1. DuoNeb q.6 hours will be held. 2. Ventolin inhaler 2 puffs q.6 hours p.r.n. 3. BuSpar 15 mg p.o. t.i.d. 4. Colace 200 mg p.o. at bedtime. 5. Ferrous sulfate 325 mg p.o. with breakfast. 6. Atrovent inhaler 4 times daily will be held. 7. Keppra 500 mg p.o. b.i.d. 8. Ativan 0.5 mg p.o. t.i.d. 9. Percocet 10 1 p.o. q.6 hours p.r.n. 10. Paroxetine 40 mg p.o. daily. 11. Xarelto 10 mg p.o. daily. 12. Tamsulosin 0.4 mg p.o. daily. LABORATORY DATA: Showed a white blood cell count of 13.67, hemoglobin 14.1, hematocrit 43.5, platelets 414,000. Sodium 138, potassium 4.0, chloride 97, CO2 26, BUN of 3, creatinine 0.6, glucose 92. Troponin less than 0.010. ProBNP of 371. Chest x-ray showed emphysema with fibrosis. EKG showed sinus rhythm with premature supraventricular complexes and with occasional PVCs at 81. REVIEW OF SYSTEMS: He denied any fever, chills, blurred vision, dizziness, chest pain, cough. He was positive for shortness of breath despite his home O2. Denied any abdominal pain, constipation, diarrhea, burning or hurting with urination. PHYSICAL EXAMINATION: VITAL SIGNS: On arrival, he had a temperature of 97.8 degrees, pulse 79, respirations 22, blood pressure 142/77, saturating 97% on O2. GENERAL: This is a 63-year-old male who is lying in the bed and answers questions appropriately. HEENT: Normocephalic, atraumatic. Normal ENT inspection. Oropharynx and nares are clear. EYES: Pupils are equal, round, reactive to light and accommodation. Extraocular movements are intact. NECK: Normal inspection. Normal range of motion. LUNGS: With wheezing throughout entire posterior lung dockery. Equal lung expansion, chest wall movement noted. O2 via nasal cannula currently in use. HEART: Regular rate and rhythm. No murmurs, rubs, or gallops. ABDOMEN: Soft, nontender, nondistended. Bowel sounds are present x4 quadrants. MUSCULOSKELETAL: He had 5/5 strength x4 extremities. NEUROLOGICAL: The cranial nerves 2-12 appear grossly intact. ASSESSMENT: 1. Acute chronic obstructive pulmonary disease exacerbation. 2. Leukocytosis. 3. Tobacco abuse. 4. Ethanol abuse. PLAN: He will be admitted to the medical unit, placed on telemetry, O2 per protocol, healthy heart diet, incentive spirometry, SCDs for DVT prophylaxis. We will place him on DuoNeb q.4 hours, a banana bag daily, Ativan 1 mg IV q.4 hours p.r.n. for withdrawal from alcohol, Solu- Medrol 80 mg IV q.6h, will wean as he improves, nicotine 21 mg transdermal patch daily, Rocephin 1 gram IV q.24, azithromycin 500 IV q. 24. Discussed smoking cessation and ETOH cessation with this patient who verbalized understanding. Dictated by XENIA Simmons for Erik Lui MD Addendum: Patient seen and examined by myself. Agree with XENIA note. It reflects my assessment and plan. Patient is being admitted to hospital for COPD exacerbation. He is active smoker and history of polysubstance abuse. Will place him on Duoneb q4hrs scheduled. Will provide nicotine patch as well. cc: XENIA Simmons MD [facility]
[2019-01-28] MEDS ORDERED: ATIVAN IV PRN (09:59)
[2019-01-28] MEDS ORDERED: VENTOLIN HFA INH PRN (09:59)
[2019-01-28] MEDS: DUONEB (A & A) INH SCH ×4 (10:11→23:30)
[2019-01-28] MEDS: PAXIL PO SCH (10:36)
[2019-01-28] MEDS: BUSPAR PO SCH ×3 (10:37→21:19)
[2019-01-28] MEDS: PERCOCET-10 PO PRN ×2 (10:43→18:29)
[2019-01-28] MEDS: M.V.I.-12 10 ML, FOLIC ACID 1 MG, MAGNESIUM SULFATE 1 GM, THIAMINE 100 MG in NS 1,000 ML IV SCH (11:56)
[2019-01-28] MEDS: SOLU-MEDROL IV SCH ×2 (11:57→19:13)
[2019-01-28] MEDS: NICODERM PATCH TD SCH (11:57)
[2019-01-28] MEDS: ZITHROMAX 500 MG/NS 500 MG/250 ML IVPB IV SCH (11:57)
[2019-01-28] MEDS: FLOMAX PO SCH (11:58)
[2019-01-28] MEDS: XARELTO PO SCH (11:58)
[2019-01-28] MEDS: KEPPRA PO SCH ×2 (11:58→21:18)
[2019-01-28] MEDS: ROCEPHIN 1 GM in NS 50 ML IV SCH (12:29)
[2019-01-28] MEDS: KLONOPIN PO PRN (12:47)
[2019-01-28] MEDS: COLACE PO SCH (21:19)
[2019-01-29] MEDS: SOLU-MEDROL IV SCH ×4 (00:43→18:09)
[2019-01-29] MEDS: PERCOCET-10 PO PRN ×3 (00:43→18:06)
[2019-01-29] MEDS: KLONOPIN PO PRN ×2 (03:08→15:25)
[2019-01-29] MEDS: DUONEB (A & A) INH SCH ×6 (03:59→23:28)
[2019-01-29 07:08] LABS: HEMATOCRIT 37.7 % (42.0-52.0); IMM GRAN# 0.02 X1000 (0.0-0.04); IMM GRAN% 0.2 % (0.0-0.5); LYMPH# 0.36 X1000 (1.2-3.4); MCH 27.1 PG (27-31); MCHC 31.8 g/dL (33-37); MCV 85.3 FL (81-99); MONO# 0.19 X1000 (0.11-0.59); MONO% 2.1 % (1.7-9.3); MPV 9.5 FL (7.4-10.4); NEUT# 8.45 X1000 (1.4-6.5); NEUT% 93.7 % (42.2-75.2); PLT 348 X1000 (130-400); RBC 4.42 XMIL (4.7-6.1); RDW 14.9 % (11.5-14.5); WBC 9.02 X1000 (4.8-10.8)
[2019-01-29 07:31] LABS: AGAP 11; BUN 11 mg/dL (8-22); CALCIUM 9.9 mg/dL (8.8-10.2); CHLORIDE 96 mmol/L (98-107); COSMO 275; CREATININE 0.7 mg/dL (0.7-1.2); ESTIMATED GFR > 60; GLUCOSE 161 mg/dL (70-104); POTASSIUM 4.1 mmol/L (3.5-5.1); SODIUM 136 mmol/L (136-145); TCO2 29 mmol/L (25-35)
[2019-01-29] MEDS: XARELTO PO SCH (09:14)
[2019-01-29] MEDS: BUSPAR PO SCH ×3 (09:14→21:58)
[2019-01-29] MEDS: KEPPRA PO SCH ×2 (09:14→21:58)
[2019-01-29] MEDS: NICODERM PATCH TD SCH (09:15)
[2019-01-29] MEDS: PAXIL PO SCH (09:15)
[2019-01-29] MEDS: M.V.I.-12 10 ML, FOLIC ACID 1 MG, MAGNESIUM SULFATE 1 GM, THIAMINE 100 MG in NS 1,000 ML IV SCH (09:15)
[2019-01-29] MEDS: FLOMAX PO SCH (09:15)
[2019-01-29] MEDS: ROCEPHIN 1 GM in NS 50 ML IV SCH (12:35)
[2019-01-29] MEDS: FERROUS SULFATE PO SCH (12:47)
[2019-01-29] MEDS: ZITHROMAX 500 MG/NS 500 MG/250 ML IVPB IV SCH (13:37)
[2019-01-29] MEDS ORDERED: PRILOSEC PO ONE (19:02)
--- NOTE | 2019-01-29 19:24 | PROGRESS NOTE ---
DATE: 01/29/2019 INTERVAL HISTORY: No acute events overnight. SUBJECTIVE: He states he has not seen any doctor since many months. He does not have any regular physicians. The only way he was getting his medications was coming to the hospital. He is not sure if he was supposed to be taking Xarelto or any blood thinners at home, so the home medication list and history regarding it is unclear. Currently, temperature 98.5 degrees, pulse 92, respiratory 20, blood pressure 108/63. He is saturating 95% on 2 L nasal cannula. PHYSICAL EXAMINATION: General: Not in any acute distress. Mouth: Oral cavity is moist. Lungs: Air entry bilaterally equal. He does have end-expiratory wheezes in bilateral lung dockery. Cardiovascular: S1, S2 normal. No murmur or gallop. Abdomen: Soft, nontender. Extremity: No lower extremity edema. Neurologic: He is alert and oriented x3. LABS: Suggestive of no leukocytosis. Otherwise, essentially normal labs. Blood cultures are in lab. ASSESSMENT AND PLAN: 1. Acute chronic obstructive pulmonary disease exacerbation. 2. Active tobacco abuse. 3. Active alcohol abuse. 4. History of chronic obstructive pulmonary disease and pulmonary fibrosis. 5. History of seizure and bipolar mood disorder. PLAN: I will continue albuterol ipratropium nebulization. I will decrease the steroid frequency and dosing. I will resume most of his home medications. He was counseled about smoking cessation. It looks like he was discharged on Xarelto for deep vein thrombosis prophylaxis after his left femoral intertrochanteric fracture, which I will discontinue. Plan of care discussed with him. His questions were answered. cc: Aquiles Evans MD
[2019-01-29] MEDS: COLACE PO SCH (21:57)
[2019-01-29] MEDS: MIRALAX PO SCH (22:02)
[2019-01-30] MEDS: PERCOCET-10 PO PRN ×4 (00:01→22:13)
[2019-01-30] MEDS: DUONEB (A & A) INH SCH ×6 (03:30→23:18)
[2019-01-30] MEDS: KLONOPIN PO PRN ×2 (03:49→15:50)
[2019-01-30] MEDS: PRILOSEC PO SCH (06:12)
[2019-01-30] MEDS: PAXIL PO SCH (09:29)
[2019-01-30] MEDS: BUSPAR PO SCH ×3 (09:29→20:29)
[2019-01-30] MEDS: KEPPRA PO SCH ×2 (09:29→20:29)
[2019-01-30] MEDS: FLOMAX PO SCH (09:29)
[2019-01-30] MEDS: FERROUS SULFATE PO SCH (09:29)
[2019-01-30] MEDS: THERA M PLUS PO SCH (09:30)
[2019-01-30] MEDS: VITAMIN B-1 PO SCH (09:30)
[2019-01-30] MEDS: NICODERM PATCH TD SCH (09:32)
[2019-01-30] MEDS: MIRALAX PO SCH ×2 (09:32→20:29)
[2019-01-30] MEDS: ROCEPHIN 1 GM in NS 50 ML IV SCH (11:00)
[2019-01-30] MEDS: ZITHROMAX 500 MG/NS 500 MG/250 ML IVPB IV SCH (11:58)
[2019-01-30] MEDS: DULCOLAX PR SCH ×2 (15:43→20:29)
[2019-01-30] MEDS: LOVENOX SUBQ SCH (15:45)
--- NOTE | 2019-01-30 15:45 | PROGRESS NOTE ---
DATE: 01/30/2019 INTERVAL HISTORY: No acute events overnight. He states that his shortness of breath is better. We discussed about stopping his clonazepam, starting him on alternative medication. I discussed with him about smoking cessation. I answered all of his questions. VITALS: Currently temperature 97.7 degrees, pulse 87, respiratory rate 17, blood pressure 122/70, saturating 98% on 2 L nasal cannula. OBJECTIVE: On physical examination, not in any acute distress. Oral cavity is moist. He appears cachectic. He has severe COPD changes with barrel-shaped chest. He has bilateral wheezing and occasional rhonchi. No crackles. S1, S2 normal. No murmur, rub, or gallop. Abdomen is soft, nontender. No lower extremity edema. He is alert and oriented x3. LABS: No CBC or BMP today. He was requesting additional medication for constipation, which I ordered. ASSESSMENT AND PLAN: 1. Acute chronic obstructive pulmonary disease exacerbation due to ongoing active tobacco abuse. Continue albuterol/ipratropium nebulization, nicotine patch, intravenous methylprednisolone, and intravenous ceftriaxone and azithromycin. Continue oxygen to maintain saturation more than 92%. I again counseled him about tobacco cessation. He should establish with outpatient Pulmonology. He also has pulmonary fibrosis. 2. Chronic hypoxic respiratory failure. He uses 2 to 4 L of nasal cannula oxygen at home, which I will continue at the moment. 3. History of bipolar mood disorder and seizure and chronic pain. I will continue him on his home buspirone. I will start him on mirtazapine. I will stop his paroxetine and clonazepam. I counseled him about long-term adverse effect of opioids as well as benzodiazepines. He understood it. 4. Alcohol use disorder. Continue multivitamin with minerals and oral thiamine. DISPOSITION: I will monitor patient inside the hospital since he is still wheezing. Plan of care discussed with him. His questions were answered. cc: Aquiles Evans MD
[2019-01-30] MEDS: SOLU-MEDROL IV SCH (17:44)
[2019-01-30] MEDS: COLACE PO SCH (20:29)
[2019-01-31] MEDS: DUONEB (A & A) INH SCH ×6 (03:49→23:30)
[2019-01-31] MEDS: KLONOPIN PO PRN (04:34)
[2019-01-31] MEDS: FERROUS SULFATE PO SCH (08:39)
[2019-01-31] MEDS: KEPPRA PO SCH ×2 (08:39→20:20)
[2019-01-31] MEDS: PERCOCET-10 PO PRN ×3 (08:39→20:39)
[2019-01-31] MEDS: FLOMAX PO SCH (08:39)
[2019-01-31] MEDS: THERA M PLUS PO SCH (08:39)
[2019-01-31] MEDS: MIRALAX PO SCH ×2 (08:39→20:20)
[2019-01-31] MEDS: BUSPAR PO SCH ×3 (08:40→20:20)
[2019-01-31] MEDS: PRILOSEC PO SCH (08:40)
[2019-01-31] MEDS: VITAMIN B-1 PO SCH (08:40)
[2019-01-31] MEDS: NICODERM PATCH TD SCH (08:40)
[2019-01-31] MEDS: DULCOLAX PR SCH ×2 (08:40→20:20)
[2019-01-31] MEDS: ZITHROMAX 500 MG/NS 500 MG/250 ML IVPB IV SCH (13:59)
[2019-01-31] MEDS: ROCEPHIN 1 GM in NS 50 ML IV SCH (14:44)
[2019-01-31] MEDS: LOVENOX SUBQ SCH (16:46)
[2019-01-31] MEDS: SOLU-MEDROL IV SCH (17:19)
--- NOTE | 2019-01-31 20:04 | PROGRESS NOTE ---
DATE: 01/31/2019 INTERVAL HISTORY: The patient did have a bowel movement. He says Physical Therapy helped him walk up to the nursing station. However, he felt winded after that. He is complaining of some blurriness of vision. He denies new other complaints. VITALS: Temperature 98.1 degrees, pulse 95, respiratory rate 20, blood pressure 113/67, saturating 95% on room air to 2 L nasal cannula. PHYSICAL EXAMINATION: General: Does not appear in any acute distress. Oral cavity is moist. Air entry bilaterally equal. He has end-expiratory wheezes bilaterally with some rhonchi, however, better than before. S1, S2 normal. No murmur or gallop. Abdomen: Soft, nontender. No lower extremity edema. He is alert and oriented x3. He is tremulous, which is baseline for him. LABORATORY DATA: No CBC or BMP today. ASSESSMENT AND PLAN: 1. Acute chronic obstructive pulmonary disease exacerbation due to ongoing active tobacco abuse. Continue albuterol/ipratropium nebulization, nicotine patch, intravenous methylprednisolone. His blood culture did not have any growth. I will also continue him on intravenous ceftriaxone and azithromycin. Continue oxygenation to maintain saturation more than 92%. 2. Chronic hypoxic respiratory failure due to chronic obstructive pulmonary disease. On home 2 to 4 L nasal cannula oxygen. Continue oxygenation and outpatient Pulmonology followup. 3. History of bipolar mood disorder, seizure, anxiety, chronic pain. Continue home buspirone, mirtazapine. His clonazepam has been stopped. I will continue his home Percocet. Apparently, he ran out of all of his medications since six months and has not been taking any of these medications. I will not be able to prescribe him opioids. 4. Disposition: I am anticipating discharge in the next 24 to 48 hours. I offered him that I could call his daughter and granddaughter that he lives with to update them. However, he did not want me to call them. cc: Aquiles Evans MD
[2019-01-31] MEDS: REMERON PO SCH (20:20)
[2019-01-31] MEDS: COLACE PO SCH (20:20)
[2019-02-01] MEDS: PERCOCET-10 PO PRN ×4 (02:41→21:47)
[2019-02-01] MEDS: DUONEB (A & A) INH SCH ×6 (03:29→23:30)
[2019-02-01] MEDS: PRILOSEC PO SCH (06:20)
[2019-02-01] MEDS: FERROUS SULFATE PO SCH (08:01)
[2019-02-01 08:09] LABS: EOS# 0.03 X1000 (0.0-0.7); EOS% 0.4 % (0.0-10.0); HEMATOCRIT 39.1 % (42.0-52.0); HEMOGLOBIN 11.7 g/dL (14.0-18.0); IMM GRAN# 0.08 X1000 (0.0-0.04); IMM GRAN% 1.1 % (0.0-0.5); LYMPH# 1.32 X1000 (1.2-3.4); LYMPH% 17.6 % (20.5-51.1); MCHC 29.9 g/dL (33-37); MCV 90.3 FL (81-99); MONO# 0.46 X1000 (0.11-0.59); MONO% 6.1 % (1.7-9.3); MPV 9.4 FL (7.4-10.4); NEUT# 5.61 X1000 (1.4-6.5); NEUT% 74.8 % (42.2-75.2); PLT 359 X1000 (130-400); RBC 4.33 XMIL (4.7-6.1); RDW 16.2 % (11.5-14.5)
[2019-02-01 08:36] LABS: AGAP 11; BUN 14 mg/dL (8-22); CALCIUM 9.1 mg/dL (8.8-10.2); CHLORIDE 98 mmol/L (98-107); COSMO 277; CREATININE 0.6 mg/dL (0.7-1.2); ESTIMATED GFR > 60; GLUCOSE 87 mg/dL (70-104); POTASSIUM 4.6 mmol/L (3.5-5.1); SODIUM 139 mmol/L (136-145); TCO2 30 mmol/L (25-35)
[2019-02-01] MEDS: KEPPRA PO SCH ×2 (09:45→20:32)
[2019-02-01] MEDS: MIRALAX PO SCH ×2 (09:45→20:32)
[2019-02-01] MEDS: NICODERM PATCH TD SCH (09:45)
[2019-02-01] MEDS: THERA M PLUS PO SCH (09:45)
[2019-02-01] MEDS: FLOMAX PO SCH (09:45)
[2019-02-01] MEDS: BUSPAR PO SCH ×3 (09:45→20:32)
[2019-02-01] MEDS: VITAMIN B-1 PO SCH (09:45)
[2019-02-01] MEDS: DULCOLAX PR SCH ×2 (09:46→20:32)
[2019-02-01] MEDS: ROCEPHIN 1 GM in NS 50 ML IV SCH (10:54)
[2019-02-01] MEDS ORDERED: REMERON PO ONE (11:11)
--- NOTE | 2019-02-01 12:06 | PROGRESS NOTE ---
DATE: 02/01/2019 INTERVAL HISTORY: No acute events overnight. I had a discussion with physical therapy and I was told that he was able to walk in the hallway. However, then he started feeling really short of breath. SUBJECTIVE: He is feeling better day by day. He is requesting me to write him a prescription at the time of discharge, and I clearly told him that I would not be able to write him an opioid prescription. I discussed with him about his exam findings. His shortness of breath is better. VITALS: Temperature of 98.1 degrees, pulse 85, respiratory 21, blood pressure 120/70 and saturating 97% on 2 L nasal cannula. PHYSICAL EXAMINATION: General: Does not appear in acute distress. Oral cavity is moist. He has some secretions in his upper airways which he is able to cough up. Lungs: Air entry otherwise bilaterally equal. Mild end-expiratory wheezes. No rhonchi or crackles. Heart: S1, S2 normal. No murmur or gallop. Abdomen: Soft and nontender. Extremities: No evidence of edema. Neurologic: He is alert and oriented x3. LABORATORY: His CBC and BMP is largely unremarkable. No positive blood culture or new imaging data. ASSESSMENT AND PLAN: 1. Acute chronic obstructive pulmonary disease exacerbation with ongoing tobacco abuse. 2. Chronic hypoxic respiratory failure due to chronic obstructive pulmonary disease on home 2 to 4 L nasal cannula oxygen. 3. History of bipolar mood disorder and insomnia. 4. Inability to be compliant with medication due to financial issues. PLAN: 1. Continue albuterol and ipratropium nebulization, intravenous antibiotics, and intravenous steroids, and oxygenation to maintain saturation more than 92%. I will continue him on mirtazapine for anxiety, and will write him a prescription at the time of discharge. At home, he was supposed to be taking buspirone and levetiracetam as well. 2. Disposition: Patient is medically ready to be discharged. However, he requests that he is not feeling completely 100% ready for discharge, and he is requesting that I should keep him for another day. Considering his concern, I will monitor him for another 24 hours, and discharge him tomorrow if he continues to feel better. 3. Plan of care discussed with him, and he is in agreement. cc: Aquiles Evans MD
[2019-02-01] MEDS: ZITHROMAX 500 MG/NS 500 MG/250 ML IVPB IV SCH (14:30)
[2019-02-01] MEDS: LOVENOX SUBQ SCH (15:50)
[2019-02-01] MEDS: SOLU-MEDROL IV SCH (17:09)
[2019-02-01] MEDS: REMERON PO SCH (20:32)
[2019-02-01] MEDS: COLACE PO SCH (20:32)
[2019-02-02] MEDS: DUONEB (A & A) INH SCH ×3 (02:55→11:26)
[2019-02-02] MEDS: PERCOCET-10 PO PRN ×2 (03:46→09:47)
[2019-02-02] MEDS: PRILOSEC PO SCH (06:30)
[2019-02-02] MEDS: FLOMAX PO SCH (08:43)
[2019-02-02] MEDS: FERROUS SULFATE PO SCH (08:43)
[2019-02-02] MEDS: THERA M PLUS PO SCH (08:43)
[2019-02-02] MEDS: KEPPRA PO SCH (08:43)
[2019-02-02] MEDS: VITAMIN B-1 PO SCH (08:43)
[2019-02-02] MEDS: BUSPAR PO SCH (08:43)
[2019-02-02] MEDS: MIRALAX PO SCH (08:44)
[2019-02-02] MEDS: DULCOLAX PR SCH (08:44)
[2019-02-02] MEDS: NICODERM PATCH TD SCH (08:45)
[2019-02-02] MEDS: ROCEPHIN 1 GM in NS 50 ML IV SCH (10:00)
[2019-02-02 12:15] VITALS: BP 132/82
[2019-02-02] MEDS ORDERED: REMERON PO ONE (12:17)
[2019-02-02] MEDS: ZITHROMAX 500 MG/NS 500 MG/250 ML IVPB IV SCH (14:29)
--- NOTE | 2019-02-02 14:51 | DISCHARGE SUMMARY ---
ADMISSION DATE: 01/28/2019 DISCHARGE DATE: 02/02/2019 DISCHARGE DISPOSITION: Home. DISCHARGE CONDITION: Hemodynamically stable. He has home oxygen. His COPD exacerbation has now resolved. I advised him to have outpatient pulmonology, regular physician, and pain physician. I also advised him that he should try and take himself of opioids and benzodiazepines and quit smoking. DISCHARGE DIAGNOSES: 1. Acute chronic obstructive pulmonary disease exacerbation. 2. Ongoing active tobacco abuse. 3. Acute on chronic hypoxic respiratory failure with home 2 to 3 L nasal cannula oxygen. 4. Severe anxiety. 5. Inability to be compliant with medication due to financial issues. OTHER DIAGNOSES: 1. History of anxiety and bipolar mood disorder. 2. History of seizures. 3. History of polysubstance abuse. 4. History of chronic obstructive pulmonary disease with home oxygen. 5. History of left hip replacement in 2019. DISCHARGE MEDICATIONS: Lorazepam 0.5 mg t.i.d. HOME MEDICATIONS: 1. Buspirone 15 mg t.i.d.. 2. Tamsulosin 0.4 mg daily. 3. Paroxetine 40 mg daily. 4. Docusate 200 mg at nighttime. 5. Mirtazapine 15 mg at nighttime, 30 tablets have been prescribed. 6. Ipratropium 2 puffs inhaled every 4 hours. 7. Albuterol 2 puffs inhaled every 4 hours as needed for shortness of breath. 8. Albuterol ipratropium nebulization has also been provided to him. 9. Ferrous Sulfate 325 mg with breakfast. 10. Keppra 500 mg b.i.d.. 11. Nicotine patch 21 mg daily. 12. Percocet 10 1 tablet every 6 hours as needed for pain. VITAL SIGNS: Vitals at the time of discharge temperature of 98.1 degrees, pulse 97, respiratory 21 blood pressure 130/80, saturating 99% on 2 L nasal cannula. PHYSICAL EXAMINATION: Not in acute distress. He does appear to have lost some weight according to him. HEENT: Oral cavity is moist. Lungs: Air entry bilaterally equal. No wheeze rhonchi or crackles. Cardiovascular: S1, S2 normal. No murmur or gallop. Abdomen: Soft, nontender. Extremity: No lower extremity edema. NEUROLOGIC: He is alert oriented x3. He was able to walk using a walker in the hallway with minimal discomfort except at the end he became short of breath as per physical therapy note. SIGNIFICANT LABS: During hospital admission and [place] [address] [place] presentation, which improved to 7.5 at the time of discharge, hemoglobin 11.7 platelet count 359,000. Electrolytes: Sodium 139, potassium 4.6, BUN of 14, creatinine 0.6. MICROBIOLOGY: Blood culture has not shown any growth. Chest x-ray on admission had emphysema with fibrosis. Electrocardiogram on admission had sinus rhythm with premature supraventricular complexes and left ventricle hypertrophy. HOSPITAL COURSE SUMMARY: Mr. Rodriges is a 63 years old man with past medical history of chronic obstructive pulmonary disease and chronic hypoxic respiratory failure, who came in with chief complaints of shortness of breath, which was progressively worsening since several weeks now. He, in fact, ran out of his medications approximately 2 months ago and was not able to see any physician. He states that usually gets he used to get prescription refills from the hospital. He has active smoking of about 2 packs a day and active drinking about 2 beers a day and occasional use of marijuana. However, he states he quit drinking about 6 months ago. In the hospital, he was found to be in respiratory distress and wheezing and was admitted for acute chronic obstructive pulmonary disease exacerbation. He was started on inhaled bronchodilators, intravenous steroids and intravenous ceftriaxone, azithromycin. His blood culture did not have any growth. Chest x-ray did not have any pneumonia. With this treatment his respiratory status improved stay would be discharged on just inhaled bronchodilator and have outpatient followup. Apparently, he has not been on long-acting anticholinergic inhalation because of insurance issues. At the time of discharge, he was also feeling anxious and during hospitalization he was kept on his home buspirone. Mirtazapine was added and his home levetiracetam. At the time of discharge only Mirtazapine prescription was provided. TIME SPENT: More than 30 minutes spent discharging the patient plan of care discussed with him. He was also advised to have follow-up with his heart doctor since there was a documented history of a cardiac stent. cc: Aquiles Evans MD
== END 2019-02-02 14:08 | disposition home or self-care (01) | DRG 190 ==
LOC: SUPCPDRO → ED 05:47 → SUATTDRO 08:55 → 3N 08:55
PROVIDERS: ATTEND Internal Medicine

== ENCOUNTER 2019-05-06 07:44 | Inpatient (IN) ==
[2019-05-06 08:33] LABS: BASO# 0.07 X1000 (0.0-0.2); BASO% 0.5 % (0.0-0.8); EOS# 0.19 X1000 (0.0-0.7); EOS% 1.4 % (0.0-10.0); HEMATOCRIT 38.1 % (42.0-52.0); HEMOGLOBIN 11.7 g/dL (14.0-18.0); IMM GRAN# 0.05 X1000 (0.0-0.04); IMM GRAN% 0.4 % (0.0-0.5); LYMPH# 1.57 X1000 (1.2-3.4); LYMPH% 11.2 % (20.5-51.1); MCH 26.4 PG (27-31); MCHC 30.7 g/dL (33-37); MONO# 0.69 X1000 (0.11-0.59); MONO% 4.9 % (1.7-9.3); NEUT% 81.6 % (42.2-75.2); PLT 410 X1000 (130-400); RBC 4.43 XMIL (4.7-6.1); RDW 15.3 % (11.5-14.5); WBC 14.07 X1000 (4.8-10.8)
[2019-05-06] MEDS ORDERED: LEVAQUIN 750 MG/D5W 750 MG/150 ML IVPB IV ONE (08:35)
[2019-05-06] MEDS ORDERED: VANCOMYCIN 1 GM/NS 1 GM/250 ML IVPB IV ONE (08:35)
[2019-05-06] MEDS ORDERED: ZOSYN 4.5 GM in NS 100 ML IV ONE (08:35)
--- NOTE | 2019-05-06 08:43 | Diag Imaging Result Doc PS360 ---
EXAM: CHEST-1 VIEW 05/06/2019 HISTORY: shortness of breath TECHNIQUE: AP upright portable at 0824 COMMENT: The inspiration is less optimal than on 01/28/2019. There are dense alveolar and coarse interstitial opacities bilaterally which appear worse than on the previous study particularly laterally in the mid lung field on the left. This is much worse in appearance than on 07/24/2018. IMPRESSION: Pulmonary edema and/or pneumonia superimposed on interstitial fibrosis. Electronically signed by George Canas 05/06/2019 8:40 AM
--- NOTE | 2019-05-06 08:44 | EKG Report ---
Test Performed on : 05/06/2019 08:42:40 AM Test Reason : sob Blood Pressure : / mmHG Vent. Rate : 105 BPM Atrial Rate : 105 BPM P-R Int : 158 ms QRS Dur : 112 ms QT Int : 356 ms P-R-T Axes : 077 -49 062 degrees QTc Int : 470 ms Sinus tachycardia. with occasional premature ventricular complexes. Possible Left atrial enlargement Incomplete right bundle branch block Left anterior fascicular block Left ventricular hypertrophy with repolarization abnormality Abnormal ECG When compared with ECG of 28-JAN-2019 05:57, premature supraventricular complexes. are no longer present Left anterior fascicular block is now present Incomplete right bundle branch block is now present Minimal criteria for Septal infarct are no longer present Unconfirmed Result
[2019-05-06 08:47] LABS: INR 0.98; PROTIME 13.1 Seconds (11.0-16.0)
[2019-05-06 08:48] LABS: PTT 37.7 Seconds (22.3-41.8)
[2019-05-06 08:57] LABS: AGAP 10; ALB/GLOB RATIO 0.9; ALBUMIN 3.6 g/dL (3.5-5.0); ALKALINE PHOSPHATASE 66 U/L (32-122); BUN 10 mg/dL (8-22); CALCIUM 9.4 mg/dL (8.8-10.2); CHLORIDE 86 mmol/L (98-107); CK PROFILE 32 U/L (24-204); COSMO 252; CREATININE 0.8 mg/dL (0.7-1.2); ESTIMATED GFR > 60; GLUCOSE 96 mg/dL (70-104); GOT 16 U/L (10-34); GPT 10 U/L (10-44); POTASSIUM 4.6 mmol/L (3.5-5.1); SODIUM 126 mmol/L (136-145); TCO2 30 mmol/L (25-35); TOTAL BILIRUBIN 0.28 mg/dL (0.20-1.00); TOTAL PROTEIN 7.6 g/dL (6.3-8.3)
--- NOTE | 2019-05-06 09:12 | PROVIDER DOCUMENTATION ---
HPI-Respiratory General - General Chief Complaint: SEPSIS ALERT - D Stated Complaint: SOB/ wheezing Time Seen by Provider: 05/06/19 08:05 Source: patient Allergies/Adverse Reactions: Patient Allergies Allergy/AdvReac Type Severity Reaction Status Date / Time phenytoin sodium * Allergy Severe ANAPHYLAXIS Verified 05/06/19 10:34 [From Dilantin] phenytoin sodium extended * Allergy Severe ANAPHYLAXIS Verified 05/06/19 10:34 [From Dilantin] Milk Containing Products Allergy Mild NAUSEA Verified 05/06/19 10:34 ceftazidime Allergy RASH Verified 05/06/19 10:34 codeine Allergy Unknown Verified 05/06/19 10:34 milk Allergy Unknown Verified 05/06/19 10:34 phenytoin [From Dilantin] Allergy Unknown Verified 05/06/19 10:34 Home Medications: Home Medication List Medication Instructions Recorded Confirmed Last Taken Type Paroxetine HCl [Paxil] 40 mg PO DAILY 04/18/18 05/06/19 04/28/19 History Tamsulosin [Flomax] 0.4 mg PO DAILY 04/18/18 05/06/19 04/28/19 History Ferrous Sulfate 325 mg PO WBREAKFAST #30 tab 07/06/18 05/06/19 04/28/19 Rx Albuterol Sulfate Inhaler 2 puff INH Q6H PRN PRN #1 inhaler 07/24/18 05/06/19 04/28/19 Rx [Ventolin Hfa] Ipratropium [place] Inhaler 2 puff INH [id number] #1 inhaler 07/24/18 05/06/19 Rx [Atrovent Hfa] Oxycodone/APAP 10 mg/325 mg 1 ea PO Q6H PRN PRN #10 tab 07/24/18 05/06/19 Unknown Rx [Percocet-10] Lorazepam [Ativan] 0.5 mg PO TID 01/28/19 05/06/19 04/28/19 History Albuterol 2.5MG/Ipratrop 0.5MG 3 ml INH RTQ6H #120 neb 02/02/19 05/06/19 04/28/19 Rx [Duoneb (A & A)] Levetiracetam [Keppra] 500 mg PO BID #90 tab 02/02/19 05/06/1920 Rx Mirtazapine [Remeron] 15 mg PO QHS #30 tab 02/02/19 05/06/19 04/28/19 Rx Nicotine Patch [Nicoderm Patch] 21 mg TD DAILY #15 patch.[email or web address] 02/02/19 05/06/19 04/28/19 Rx - History of Present Illness-Resp Nature of Presenting Problem: Patient is a 63 yo M with PMH of COPD on home O2 2lpm, psychiatric disorder, seizure disorder, who presents c/o worsening productive cough, dyspnea, wheezing, subjective fever. Patient states he did not have albuterol to self treat at home. Quality of Pain: reports: none Severity in ED: reports: moderate Onset/Duration: reports: abrupt Timing: reports: still present Context: reports: out of meds. denies: recent foreign travel Exposure: reports: unknown cause Cough Quality/Degree: reports: productive cough, sputum (Yellow). denies: blood streaked sputum Episode Frequency: frequent episodes Current Respiratory Medication Therapy: Initiated none Modifying Factors: worse with: exertion Associated Symptoms: reports: cough, fever/chills, shortness of breath, wheezing Similar Symptoms Previously?: Yes Recently seen or treated by another doctor?: No Review of Systems - Adult - REVIEW OF SYSTEMS - ADULT Constitutional: reports: see HPI Eyes: reports: no symptoms reported Ears, Nose, Mouth & Throat: reports: no symptoms reported Cardiovascular: reports: no symptoms reported Respiratory: reports: see HPI, chronic cough Gastrointestinal: reports: no symptoms reported Genitourinary: reports: no symptoms reported Musculoskeletal: reports: no symptoms reported Neurological: reports: no symptoms reported All Other Systems: Reviewed and Negative Past History - Adult - PAST MEDICAL HISTORY-ADULT Review of Records: reports: Nursing Assessment Review, Medications Reviewed, Soc ial history reviewed & non-contributory. Major Childhood Illnesses: reports: denies history Cardiovascular: reports: CAD, HTN, hyperlipidemia, [place] Respiratory: reports: COPD, sleep apnea Gastrointestinal: reports: cancer, GERD, hepatitis Obstetrical/Gynecological: reports: denies history Genitourinary: reports: denies history Musculoskeletal: reports: denies history Neurological: reports: Seizures/Epilepsy Psychiatric: reports: bipolar, schizophrenia Other Conditions: reports: other (HIV) Additional History: alcoholism - PRIOR SURGERIES/PROCEDURES Surgical/Procedure History: reports: cardiac stent, hernia repair, orthopedic (extremity), other - IMMUNIZATION STATUS Childhood Immunizations: See Nurse Assessment Flu Vaccine: See Nurse Assessment - FAMILY HISTORY Family History: reviewed, not pertinent - SOCIAL HISTORY Smoking: cigarettes Substance Use: marijuana Alcohol Use Frequency: sober (former use) Physical Exam-General - PHYSICAL EXAM-ADULT Initial Vital Signs Reviewed: Yes (Febrile, tachypnic. ) - CONSTITUTIONAL General Appearance: alert, no apparent distress - EYES Eyes: PERRL/EOMI - HEAD, EARS, NOSE, MOUTH & THROAT HENMT: normocephalic/atraumatic, moist mucous membranes - NECK Neck: non-tender, full range of motion, supple - RESPIRATORY Respiratory: rales (Diffuse), wheezing (Diffuse) - CARDIOVASCULAR Cardiovascular: normal peripheral pulses, regular rate, rhythm, no edema - GASTROINTESTINAL (ABDOMEN) Abdominal Exam: normal bowel sounds, non tender, soft - MUSCULOSKELETAL Extremity: normal inspection - SKIN Integumentary: warm/dry - NEUROLOGIC Neurologic: grossly normal - PSYCHIATRIC Psych/Mental Status: oriented x 3 Progress - PLAN OF CARE/RESULTS Progress/Plan/Lab Results: 05/06/19 08:19 Influenza Screen - Final Nasopharyngeal Laboratory Results - last 24 hr 05/06/19 05/06/19 05/06/19 08:05 08:05 08:05 WBC 14.07 H RBC 4.43 L Hgb 11.7 L Hct 38.1 L MCV 86.0 MCH 26.4 L MCHC 30.7 L RDW Std Deviation 15.3 H Plt Count 410 H MPV 9.0 Immature Gran % (Auto) 0.4 Neut % (Auto) 81.6 H Lymph % (Auto) 11.2 L [place] % (Auto) 4.9 Eos % (Auto) 1.4 Baso % (Auto) 0.5 Immature Gran # (Auto) 0.05 H Neut # (Auto) 11.50 H Lymph # (Auto) 1.57 [place] # (Auto) 0.69 H Eos # (Auto) 0.19 Baso # (Auto) 0.07 PT INR PTT (Actin FS) Specimen Type Sample Site pH pCO2 pO2 HCO3 Base Excess Oxyhemoglobin ABG O2 Sat (Calculated) ABG O2 Saturation ABG Carboxyhemoglobin ABG Methemoglobin Humble Test A-a O2 Difference Total Hemoglobin Lactate Liter Flow Blood Gas Modality FiO2 % Sodium 126 L Potassium 4.6 Chloride 86 L Carbon Dioxide 30 Anion Gap 10 BUN 10 Creatinine 0.8 Estimated GFR/1.73 m2 > 60 BUN/Creatinine Ratio 13 Glucose 96 Calculated Osmolality 252 Uric Acid Calcium 9.4 Total Bilirubin 0.28 AST 16 ALT 10 Alkaline Phosphatase 66 Creatine Kinase 32 Troponin T High Sens Total Protein 7.6 Albumin 3.6 Globulin 4.0 Albumin/Globulin Ratio 0.9 Plasma Lactate 1.2 TSH Free T4 Cortisol 05/06/19 05/06/19 05/06/19 08:05 08:05 08:05 WBC RBC Hgb Hct MCV MCH MCHC RDW Std Deviation Plt Count MPV Immature Gran % (Auto) Neut % (Auto) Lymph % (Auto) [place] % (Auto) Eos % (Auto) Baso % (Auto) Immature Gran # (Auto) Neut # (Auto) Lymph # (Auto) [place] # (Auto) Eos # (Auto) Baso # (Auto) PT 13.1 INR 0.98 PTT (Actin FS) 37.7 Specimen Type Sample Site pH pCO2 pO2 HCO3 Base Excess Oxyhemoglobin ABG O2 Sat (Calculated) ABG O2 Saturation ABG Carboxyhemoglobin ABG Methemoglobin [place] Test A-a O2 Difference Total Hemoglobin Lactate Liter Flow Blood Gas Modality FiO2 % Sodium Potassium Chloride Carbon Dioxide Anion Gap BUN Creatinine Estimated GFR/1.73 m2 BUN/Creatinine Ratio Glucose Calculated Osmolality Uric Acid 4.3 Calcium Total Bilirubin AST ALT Alkaline Phosphatase Creatine Kinase Troponin T High Sens 18 Total Protein Albumin Globulin Albumin/Globulin Ratio Plasma Lactate TSH Free T4 Cortisol 05/06/19 05/06/19 05/06/19 08:05 08:05 09:35 WBC RBC Hgb Hct MCV MCH MCHC RDW Std Deviation Plt Count MPV Immature Gran % (Auto) Neut % (Auto) Lymph % (Auto) [place] % (Auto) Eos % (Auto) Baso % (Auto) Immature Gran # (Auto) Neut # (Auto) Lymph # (Auto) [place] # (Auto) Eos # (Auto) Baso # (Auto) PT INR PTT (Actin FS) Specimen Type ARTERIAL Sample Site R RADIAL pH 7.52 H pCO2 39 pO2 76 HCO3 31.4 H Base Excess 8.3 H Oxyhemoglobin 94.8 L ABG O2 Sat (Calculated) 15.5 ABG O2 Saturation 98.4 ABG Carboxyhemoglobin 2.40 ABG Methemoglobin 1.3 Humble Test YES A-a O2 Difference 132.0 Total Hemoglobin 11.6 Lactate 0.70 Liter Flow 4.0 Blood Gas Modality CANNULA FiO2 % 36.0 Sodium Potassium Chloride Carbon Dioxide Anion Gap BUN Creatinine Estimated GFR/1.73 m2 BUN/Creatinine Ratio Glucose Calculated Osmolality Uric Acid Calcium Total Bilirubin AST ALT Alkaline Phosphatase Creatine Kinase Troponin T High Sens Total Protein Albumin Globulin Albumin/Globulin Ratio Plasma Lactate TSH 2.06 Free T4 0.88 L Cortisol 18.1 Orders Category Date Time Status Admit - [facility] Routine AdmDCTranf 05/06/19 10:00 Active Activity - Up with Assistance ORDERED Care 05/06/19 10:00 Active Cardiac Monitoring DIRECTED Care 05/06/19 08:14 Active Elevate Head of Bed DIRECTED Care 05/06/19 12:59 Active Encourage Fluids DIRECTED Care 05/06/19 12:59 Active IV Insertion ORDERED Care 05/06/19 08:14 Completed Intake and Output-Strict Q 8-HR ASSESS Care 05/06/19 12:59 Active Notify MD of + Sepsis Screen NOW Care 05/06/19 08:14 Active Notify Physician As Ordered Care 05/06/19 08:14 Active Nursing- Assist w/ IS as order ORDERED Care 05/06/19 10:00 Active Straight Catheterization ORDERED Care 05/06/19 08:37 Active Turn, Cough and Deep Breathe Q2HR Care 05/06/19 12:59 Active Update & Confirm Home Medicati ROUTINE Care 05/06/19 10:01 Active Vital Signs Order Q 4-HR ASSESS Care 05/06/19 12:59 Completed Z-Document. for Tele Applied ORDERED Care 05/06/19 12:59 Completed Social Service Consult Routine Cons 05/06/19 12:59 Active Regular Diet Diet 05/06/19 10:01 Active CHEST-1 VIEW [RAD] Stat Exams 05/06/19 08:14 Completed CHEST-2 VIEWS [RAD] Routine Exams 05/07/19 06:00 Ordered ABG [RESP] Routine Lab 05/06/19 09:35 Completed BLOOD CULTURE [BLDCUL] Stat Lab 05/06/19 08:05 Results CBC WITH DIFF [HEME] Q24H Lab 05/07/19 06:00 Ordered CBC WITH DIFF [HEME] Q24H Lab 05/08/19 06:00 Ordered CBC WITH DIFF [HEME] Q24H Lab 05/09/19 06:00 Ordered CBC WITH DIFF [HEME] Q24H Lab 05/10/19 06:00 Ordered CBC WITH DIFF [HEME] Q24H Lab 05/11/19 06:00 Ordered CBC WITH DIFF [HEME] Q24H Lab 05/12/19 06:00 Ordered CBC WITH DIFF [HEME] Q24H Lab 05/13/19 06:00 Ordered CBC WITH DIFF [HEME] Stat Lab 05/06/19 08:05 Completed CK PROFILE [SP CHEM] Stat Lab 05/06/19 08:05 Completed COMPREHENSIVE METABOLIC PANEL [CHEM] Q24H Lab 05/07/19 06:00 Ordered COMPREHENSIVE METABOLIC PANEL [CHEM] Q24H Lab 05/08/19 06:00 Ordered COMPREHENSIVE METABOLIC PANEL [CHEM] Q24H Lab 05/09/19 06:00 Ordered COMPREHENSIVE METABOLIC PANEL [CHEM] Q24H Lab 05/10/19 06:00 Ordered COMPREHENSIVE METABOLIC PANEL [CHEM] Q24H Lab 05/11/19 06:00 Ordered COMPREHENSIVE METABOLIC PANEL [CHEM] Q24H Lab 05/12/19 06:00 Ordered COMPREHENSIVE METABOLIC PANEL [CHEM] Q24H Lab 05/13/19 06:00 Ordered COMPREHENSIVE METABOLIC PANEL [CHEM] Stat Lab 05/06/19 08:05 Completed INFLUENZA SCREEN A/B Stat Lab 05/06/19 08:19 Completed LACTATE, PLASMA [CHEM] Lab 05/06/19 11:55 Completed LACTATE, PLASMA [CHEM] Lab 05/06/19 14:47 Completed LACTATE, PLASMA [CHEM] Q3H Lab 05/06/19 08:05 Completed PROTIME WITH INR [COAG] Stat Lab 05/06/19 08:05 Completed PTT [COAG] Stat Lab 05/06/19 08:05 Completed SPUTUM CULTURE WITH GRAM STAIN [RM] Routine Lab 05/06/19 11:49 Results TROPONIN T HIGH SENSITIVITY Stat Lab 05/06/19 08:05 Completed URINALYSIS W/POSS RFLX CULT [URINALYSIS] Stat Lab 05/06/19 12:12 Completed 0.9% Sodium Chloride Inj [Ns] 1,000 ml Med 05/06/19 10:00 Active IV 100 mls/hr 0.9% Sodium Chloride Inj [Ns] 2,000 ml Med 05/06/19 09:30 Active IV Per Protocol mls/hr Acetaminophen [Tylenol] Med 05/06/19 10:00 Active 650 mg PO Q4H PRN PRN Albuterol 2.5MG/Ipratrop 0.5MG [Duoneb (A & A)] Med 05/06/19 09:13 Discontinued 3 ml INH NOW ONE Albuterol 2.5MG/Ipratrop 0.5MG [Duoneb (A & A)] Med 05/06/19 11:30 Active 3 ml INH RTQ4H Budesonide [Pulmicort] Med 05/06/19 19:30 Active 0.5 mg INH RTBID Enoxaparin [Lovenox] Med 05/07/19 09:00 Active 40 mg SUBQ Q24H Levofloxacin 750 mg/D5w [Levaquin 750 mg/D5w] Med 05/06/19 08:35 Discontinued 750 mg in 150 ml IV NOW Pharmacy Order [Vancomycin IV Per Pharmacy] Med 05/06/19 10:15 Active 1 each MISC DIRECTED Piperacillin/Tazobactam [Zosyn] 3.375 gm Med 05/06/19 15:00 Active 0.9% Sodium Chloride Inj [Ns] 50 ml IV Q6H Piperacillin/Tazobactam [Zosyn] 4.5 gm Med 05/06/19 08:35 Discontinued 0.9% Sodium Chloride Inj [Ns] 100 ml IV NOW Aerosol Treatments Routine Ot 05/06/19 09:13 Completed Aerosol Treatments Routine [facility] 05/06/19 10:00 Completed Aerosol Treatments Stat [facility] 05/06/19 09:13 Completed Incentive Spirometer Routine [facility] 05/06/19 10:00 Completed Oxygen Device Routine [facility] 05/06/19 10:00 Completed Oxygen Device Stat [facility] 05/06/19 08:14 Completed Pulse Oximetry Routine [facility] 05/06/19 10:00 Completed Telemetry [OM.EQ] Routine Ot 05/06/19 12:59 Active EKG [EKG] Stat Ther 05/06/19 08:36 Draft Transfer/Admit Order [TRANSFER] Routine Transfer 05/06/19 09:56 Completed Result Diagrams: 05/06/19 08:05 05/06/19 08:05 - EKG 1 Time of EKG reading by physician:: 09:00 EKG Read and Signed by:: Gayle Perez EKG Interpretation (*Must complete 3 of following elements*): Abnormal Rate: 105 Rhythm: Sinus [place]: left QRS: PVC's MS Interval: normal ST Wave: non-specific ST changes Prior EKG Comparison: no prior EKG - XRAY 1 XRAY: Bilateral XRAY Study: Chest Impression: See EMR Report ( EXAM: CHEST-1 VIEW 05/06/2019 HISTORY: shortness of breath TECHNIQUE: AP upright portable at 0824 COMMENT: The inspiration is less optimal than on 01/28/2019. There are dense alveolar and coarse interstitial opacities bilaterally which appear worse than on the previous study particularly laterally in the mid lung field on the left. This is much worse in appearance than on 07/24/2018. IMPRESSION: Pulmonary edema and/or pneumonia superimposed on interstitial fibrosis. Electronically signed by George Canas 05/06/2019 8:40 AM 05/06/19 0840 Interpreting Physician: George Canas MD Dictated Date/Time: 05/06/19 0839) - CONSULTS/PCP/HOSPITALIST Notification #1 *Consult/PCP/Hospitalist*: 30, [employer] Blanca Time Discussed: 09:53 Consult Disposition: Admit (To DR. Dubon) Departure - Departure Date of Disposition Decision: 05/06/19 Time of Disposition Decision: 09:34 DIAGNOSIS: Sepsis due to pneumonia, Hyponatremia, Normocytic anemia, Metabolic alkalosis Chronic respiratory failure Qualifiers: Respiratory failure complication: hypoxia Qualified Code(s): J96.11 - Chronic respiratory failure with hypoxia Disposition: ADMITTED INPATIENT 09 Certified Medical Emergency: Emergent Condition: Fair - Critical Care Note This patient required my direct & personal management of CC.: No Attestation - Physician/ JOSÉ MIGUEL Attestation Patient care was provided by Advanced Practice Provider:: No The physician spent face to face time with patient:: Yes Advanced Practice Provider documentation review:: Supervising physician onsite and consulted in the evaluation and care of this patient. The physician did have a face to face encounter with the patient.
[2019-05-06] MEDS ORDERED: DUONEB (A & A) INH ONE (09:13)
[2019-05-06] MEDS ORDERED: NS 2,000 ML IV SCH (09:30)
[2019-05-06 09:42] LABS: ALLEN TEST YES; BE 8.3 mmoll (-3.0-3.0); BLOOD TYPE ARTERIAL; HCO3-(ACT) 31.4 mmoll (20.0-26.0); METHB 1.3 % (0.0-1.5); O2(CT) 15.5 mL/dL (15.0-23.0); O2HB 94.8 % (95.0-99.0); PCO2(98.6) 39 mmHg (35-45); PO2(98.6) 76 mmHg (60-100); SAMPLE BLOOD; SAO2 98.4 % (95.0-100.0); THB 11.6 g/dL (11.5-17.4); pH(98.6) 7.52 (7.35-7.45)
[2019-05-06 09:45] LABS: MODALITY CANNULA
[2019-05-06] MEDS ORDERED: VANCOMYCIN IV PER PHARMACY MISC SCH (10:15)
[2019-05-06] MEDS: TYLENOL PO PRN (10:19)
[2019-05-06] MEDS: NS 1,000 ML IV SCH ×2 (10:37→21:24)
[2019-05-06] MEDS ORDERED: SOLU-MEDROL IV ONE (10:57)
[2019-05-06] MEDS ORDERED: VANCOMYCIN 1,900 MG in NS 500 ML IV ONE (11:00)
[2019-05-06 11:50] LABS: FREE T4 0.88 ng/dL (0.93-1.70); TSH 2.06 uIUmL (0.27-4.20)
[2019-05-06] MEDS: DUONEB (A & A) INH SCH ×4 (11:58→23:20)
--- NOTE | 2019-05-06 12:07 | Diag Imaging Result Doc PS360 ---
EXAM: CT ANGIOGRM PULMONARY ARTERIES 05/06/2019 HISTORY: pna; r/o PE; also has new hyponatremia TECHNIQUE: This exam was performed using automated exposure control, adjustment of mA or kV according to patient size, and/or use of iterative reconstruction technique. COMMENT: 3-D MIPS were performed. The ascending aorta is slightly ectatic measuring 4.2 cm in diameter. This has not changed significantly since 10/31/2017. There are no filling defects in the pulmonary arteries. There is bilateral hilar adenopathy which is worse than on the previous study. There is some calcification in some hilar and subcarinal nodes but there is a large amount of noncalcified kan material likely in the subcarina which measures up to 3.6 cm in AP dimension. Compared to the previous noncontrast study of 06/21/2018 this appears worse. There is honeycombing in both lungs particularly in the lung bases. This has worsened particularly in the right middle lobe. There are areas of masslike consolidation present in the anterior left lower lobe measuring up to 6 cm in dimension. This was not the case previously. This was also not present at the time of the abdominal study of 12/06/2018. There are severe emphysematous changes in the upper lung zones. There is no evidence of acute bony abnormality. IMPRESSION: 1. Masslike opacity in the left lower lobe. 2. Worsened hilar and mediastinal adenopathy. 3. Pulmonary fibrosis with honeycombing, worsened. 4. COPD. 5. No evidence of pulmonary embolus. Electronically signed by George Canas 05/06/2019 12:05 PM
[2019-05-06 12:24] LABS: URINE SOURCE CLEAN CATCH
[2019-05-06 12:33] LABS: BILIRUBIN URINE NEGATIVE (NEGATIVE); BLOOD URINE NEGATIVE (NEGATIVE); COLOR YELLOW; GLUCOSE URINE NEGATIVE (NEGATIVE); KETONE URINE NEGATIVE (NEGATIVE); LEUKOCYTES URINE NEGATIVE (NEGATIVE); NITRITE URINE NEGATIVE (NEGATIVE); PROTEIN URINE TRACE mg/dL (NEGATIVE); TURBIDITY URINE CLEAR (CLEAR); UROBILINOGEN URINE NORMAL (NORMAL)
[2019-05-06 12:35] LABS: UR EPITHELIAL CELLS <10 /HPF (<10); URINE BACTERIA NEGATIVE /HPF; URINE RBC <10 /HPF (<10); URINE WBC <10 /HPF (<10)
[2019-05-06 12:52] LABS: SP GRAVITY URINE 1.005
--- NOTE | 2019-05-06 13:00 | HISTORY AND PHYSICAL ---
PRIMARY CARE PROVIDER: No one. CHIEF COMPLAINT: Shortness of breath, productive phlegm, fever. HISTORY OF PRESENT ILLNESS: Mr. Obed Rodriges is a 63-year-old male with a medical history of COPD on home oxygen, seizure disorder, he states he has one about once a month and the last one was 2-1/2 weeks ago, coronary artery disease with stent, bipolar disorder, who is now here with 3 weeks of increased productive cough. States he has been around his daughter who has been diagnosed with the flu; however, his flu is negative. Around 1 week ago, he started developing yellow-green phlegm, and then around 4 or 5 days ago, he increased his oxygen from 2 liters up to 5 liters. He states he ran out of his albuterol treatments at home and symptoms just progressively got worse. Here he had a chest x-ray which revealed bilateral pneumonia; it is worse on the left. He also has a newfound hyponatremia. There does seem to be little rash on his back and on his arms, which he states actually has been healing, and it does appear to be healing, with a history of bedbugs, which he states that is resolved. He had a fever up to 101.6. His white blood cell count is 14,000. Lactate is normal. Flu negative. Sodium is 126; in the past it has been upper 130s to 140s. Looks like he also has chronic anemia. He denies any bleeding. PAST MEDICAL HISTORY: 1. COPD with 2 liters of home oxygen. 2. History of polysubstance abuse. 3. Seizure disorder where he has a seizure once a month. The last one was 2-1/2 weeks ago. 4. Coronary artery disease. No heart attack, but did have a cardiac stent placed. 5. Bipolar disorder. 6. BPH. PAST SURGICAL HISTORY: 1. Left hip replacement in 2019. 2. Toe surgery. 3. Cardiac stent. 4. 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 SOCIAL HISTORY: He has been a 0-ducm-weu-day smoker since the age of 32; however, he has not been able to smoke much recently. He had an alcohol abuse issue where he drink 2 cases of beer a day. States he has not done that for at least 1 year and smokes marijuana only occasionally. FAMILY HISTORY: Mother had a heart attack at 65. Father had a heart attack at 47. ALLERGIES: 1. Phenytoin. 2. Lactose or milk containing products. 3. Ceftazidime. 4. Codeine. HOME MEDICATIONS: 1. Ativan 0.5 mg p.o. t.i.d. 2. Flomax 0.4 mg p.o. daily. 3. Paxil 40 mg p.o. daily. 4. Remeron 15 mg p.o. nightly. 5. Atrovent 2 puffs 4 times a day. 6. DuoNeb every 6 hours. 7. Ferrous sulfate 325 mg p.o. with breakfast. 8. Keppra 500 mg p.o. twice daily. 9. Nicotine 20 mg transdermal daily. 10. Percocet 10 one tablet p.o. every 6 hours p.r.n. 11. Albuterol. REVIEW OF SYSTEMS: A 14-point review of systems is complete, and all were negative except those mentioned above in HPI. PHYSICAL EXAMINATION: VITAL SIGNS: Temperature 99.8 degrees, heart rate 105, respiratory rate 26, blood pressure 100/59, and O2 saturation 95% on 3 liters nasal cannula. GENERAL: Mr. Obed Rodriges is a 63-year-old male. He is in no acute distress. He is able to answer questions appropriately. HEENT: Atraumatic, normocephalic. Pupils equal, round, reactive to light. Extraocular movements intact. Mucous membranes are moist. He does have a little bit of deviation of the right eye that is secondary to his failed corneal transplant. NECK: Trachea midline. CARDIOVASCULAR: S1 and S2. Tachycardic rate and rhythm. No rubs, gallops, murmurs. Trace lower extremity edema. There are +2 dorsalis and radial pulses. Negative JVD or carotid bruits. PULMONARY: Coarse throughout. Expiratory wheezes noted. Prolonged expiration, tachypneic, but tolerating 3 liters nasal cannula. GASTROINTESTINAL: Soft, nontender, nondistended. Positive bowel sounds x4. EXTREMITIES: Moves all extremities equally. Full range of motion. NEUROLOGIC: Alert and oriented x3. Follows commands. Sensory is intact. SKIN: Warm, dry, intact except there are tiny scabs everywhere that are red and in the healing process. It is on his back and arms; it is everywhere. He states he had bedbugs, but he paid money to have those removed and that he is bedbug free at this time that is reported. LABORATORY DATA: White blood cells 14,000, hemoglobin 11, hematocrit 38, platelet count 410,000. INR 0.98, PTT is 37.7. ABGs, pH 7.52, pCO2 of 39, PO2 of 76, bicarbonate 31.4, base excess is 8.3, saturation 94%, lactate 0.4; that was on 4 liters. Sodium 126, potassium 4.6, BUN 10, creatinine 0.8, glucose 96, calcium 9.4, total bilirubin 0.28, AST 16, ALT 10. CK 32, troponin 18. Albumin is 3.6. Lactate, serum lactate is 1.2. IMAGING STUDIES: Chest x-ray, pulmonary edema and/or pneumonia superimposed on interstitial fibrosis. Essentially, he has got bilateral pneumonia and it is worse on the left. EKG, sinus tachycardia, rate 105, QTc 470. Has occasional PVCs. ASSESSMENT AND PLAN: 1. Chronic hypoxemic respiratory failure with chronic obstructive pulmonary disease exacerbation without CO2 retention and pH is normal. We will do nebulizers and steroids. 2. Bilateral pneumonia, worse on the left. We will do broad-spectrum antibiotics for now and collect a sputum culture. Lactate is normal. He is sinus tach and he has elevated white blood cell count. He had fever, but was it negative for the flu. However, he was exposed to it. 3. Seizure disorder. We will continue the Keppra. His last one was 2-1/2 weeks ago. He states he has 1 every month. 4. Coronary artery disease with history of stent. 5. Bipolar disorder. Still waiting on his home medications to be reconciled. 6. Hyponatremia. This is newly found. His sodium level today is 126. However, he normally ranges upper 130s to 140s. The last one that was obtained was January 2019, essentially 3 months ago, but now we are down to 126, and with a history of chronic obstructive pulmonary disease and the pneumonia that is found, we are going to go ahead and just get a CT of the chest to rule out any type of lesions that may not be found on chest x-ray. We will get a urinalysis to try to evaluate for syndrome of inappropriate antidiuretic hormone secretion. 7. Iron deficiency anemia, currently stable. Looks like he takes iron supplementation at home. 8. Possibility of medication noncompliance. 9. Tobacco abuse cessation discussed. 10. History of alcohol abuse. However, he used to drink 2 cases of beer a day. Now, he states that he has not had alcohol in 1 year, and the last time he has had a positive alcohol level was February 2018. Ever since then, they have all been negative. He did have a longstanding alcohol abuse though; it was from 2011 to 2017. Every test he had was positive for alcohol, but again, since February 2018, he has not had any positive alcohol screens. 11. Deep venous thrombosis prophylaxis. Sequential compression devices for now. Dictated by XENIA Marcano for Salima Dubon MD cc: XENIA Marcano MD MTDD
[2019-05-06] MEDS ORDERED: ATIVAN PO PRN (14:26)
[2019-05-06] MEDS: ZOSYN 3.375 GM in NS 50 ML IV SCH ×2 (15:39→21:24)
[2019-05-06] MEDS: PERCOCET-10 PO PRN ×2 (15:46→21:26)
[2019-05-06] MEDS: SOLU-MEDROL IV SCH (17:24)
[2019-05-06] MEDS: PULMICORT INH SCH (20:10)
[2019-05-06] MEDS: MUCOMYST 20% INH SCH (20:10)
[2019-05-06] MEDS: KEPPRA PO SCH (21:25)
[2019-05-06] MEDS: MUCINEX PO SCH (21:25)
[2019-05-06] MEDS: REMERON PO SCH (21:26)
--- NOTE | 2019-05-06 22:19 | PULMONOLOGY CONSULTATION ---
DATE: 05/06/2019 REQUESTING CLINICIAN: Salima Dubon MD REASON FOR CONSULTATION: Respiratory failure, adenopathy with masslike opacity. HISTORY OF PRESENT ILLNESS: Mr. Rodriges is a 63-year-old male with COPD, alcohol use, marijuana use, with seizure disorder, bipolar disorder, and component of pulmonary fibrosis, who presented to the emergency room with cough, increasing shortness of breath, fevers, and wheezing. His temperature was 101.6 degrees in the emergency room. Chest x-ray revealed coarse opacities with increased density at the left base. CT scan of the thorax with contrast revealed some adenopathy along with a new masslike area in the left lower lobe, which was not seen on CT scan of the thorax 06/21/2018, although there are some nonspecific densities in that area. He has had progression of his fibrosis over the last year. PAST MEDICAL HISTORY: 1. Nonspecific pulmonary fibrosis with progression. 2. COPD on chronic oxygen therapy. 3. Seizure disorder. 4. Polysubstance abuse. 5. Coronary artery disease status post stent placement. 6. Bipolar disorder. SOCIAL HISTORY: Ongoing tobacco, alcohol and cannabinoid use. FAMILY HISTORY: Noncontributory to current presentation. REVIEW OF SYSTEMS: Notable for increased cough, increased shortness of breath, fevers, increased sputum production. PHYSICAL EXAMINATION: General: Reveals a chronically ill-appearing male with no increased work of breathing. Vital Signs: The patient has been afebrile for the last 18 hours. HEENT: Pupils are equal and reactive. Oropharynx appears clear. Neck Supple. Chest: Reveals coarse crackles bilaterally with decreased breath sounds left base. Cardiac Exam: S1 and S2. Abdomen: Soft. Extremities: Without edema. LABORATORIES: Arterial blood gas reveals a pH of 7.52, pCO2 of 39, pO2 of 76 on 4 L per nasal cannula. White blood count 14.07, hemoglobin 11.7, platelet count 410,000. CT scan as per HPI. IMPRESSION: A 63-year-old with: 1. Acute on chronic hypoxemic respiratory failure. 2. Fevers and leukocytosis. 3. Daily alcohol and tobacco use/nicotine addiction. 4. Left lower lobe mass which may be infectious or malignant. 5. History of Stenotrophomonas and Pseudomonas sputum cultures. RECOMMENDATIONS: 1. Check a CEA level. If significantly elevated, then CT-guided biopsy may be pursued during this hospitalization. 2. Attempt to collect sputum for C and S. 3. Continue broad-spectrum antibiotics. Would consider increasing Levaquin dosing to pseudomonal dosing regimen at 4.5 q.6 hours but also consider adding a quinolone or Bactrim for prior history of Stenotrophomonas maltophilia. 4. Patient will need a followup CT scan after treatment to ensure he does not need a biopsy of this left lower lobe masslike area. cc: Juan Miguel Almonte MD
[2019-05-07] MEDS: DUONEB (A & A) INH SCH ×7 (00:02→23:30)
[2019-05-07] MEDS: SOLU-MEDROL IV SCH ×2 (01:58→08:01)
[2019-05-07] MEDS: ZOSYN 3.375 GM in NS 50 ML IV SCH (01:59)
[2019-05-07] MEDS: PERCOCET-10 PO PRN ×4 (03:29→22:36)
[2019-05-07] MEDS: VANCOMYCIN 1,500 MG in NS 250 ML IV SCH ×2 (05:03→22:37)
[2019-05-07] MEDS: NS 1,000 ML IV SCH (05:03)
[2019-05-07 06:11] LABS: BASO# 0.01 X1000 (0.0-0.2); BASO% 0.1 % (0.0-0.8); EOS# 0.01 X1000 (0.0-0.7); EOS% 0.1 % (0.0-10.0); HEMATOCRIT 32.9 % (42.0-52.0); HEMOGLOBIN 10.3 g/dL (14.0-18.0); IMM GRAN# 0.04 X1000 (0.0-0.04); IMM GRAN% 0.3 % (0.0-0.5); LYMPH# 0.71 X1000 (1.2-3.4); LYMPH% 5.1 % (20.5-51.1); MCH 27.2 PG (27-31); MCHC 31.3 g/dL (33-37); MONO# 0.07 X1000 (0.11-0.59); MONO% 0.5 % (1.7-9.3); MPV 9.1 FL (7.4-10.4); NEUT# 13.07 X1000 (1.4-6.5); NEUT% 93.9 % (42.2-75.2); PLT 341 X1000 (130-400); RBC 3.78 XMIL (4.7-6.1); RDW 15.1 % (11.5-14.5); WBC 13.91 X1000 (4.8-10.8)
[2019-05-07 06:41] LABS: AGAP 12; ALB/GLOB RATIO 0.7; ALBUMIN 3.1 g/dL (3.5-5.0); ALKALINE PHOSPHATASE 57 U/L (32-122); BUN 10 mg/dL (8-22); CALCIUM 9.4 mg/dL (8.8-10.2); CHLORIDE 99 mmol/L (98-107); COSMO 279; CREATININE 0.8 mg/dL (0.7-1.2); ESTIMATED GFR > 60; GLUCOSE 174 mg/dL (70-104); GOT 14 U/L (10-34); GPT 9 U/L (10-44); SODIUM 138 mmol/L (136-145); TCO2 27 mmol/L (25-35); TOTAL BILIRUBIN 0.18 mg/dL (0.20-1.00); TOTAL PROTEIN 7.4 g/dL (6.3-8.3)
[2019-05-07 07:12] LABS: LYMPHS 5 % (21-51); SEGS 95 % (42-75)
[2019-05-07] MEDS: MUCOMYST 20% INH SCH ×2 (07:32→20:14)
[2019-05-07] MEDS: PULMICORT INH SCH ×2 (07:33→20:15)
[2019-05-07] MEDS: PAXIL PO SCH (08:00)
[2019-05-07] MEDS: FLOMAX PO SCH (08:00)
[2019-05-07] MEDS: NICODERM PATCH TD SCH (08:01)
[2019-05-07] MEDS: LOVENOX SUBQ SCH (08:01)
[2019-05-07] MEDS: KEPPRA PO SCH ×2 (08:01→21:21)
[2019-05-07] MEDS: MUCINEX PO SCH ×2 (08:01→21:21)
[2019-05-07] MEDS: FERROUS SULFATE PO SCH (08:01)
[2019-05-07] MEDS: ZOSYN 4.5 GM in NS 100 ML IV SCH ×3 (08:17→21:21)
--- NOTE | 2019-05-07 09:02 | Diag Imaging Result Doc PS360 ---
CHEST-2 VIEWS - 05/07/2019 INDICATION: Pneumonia COMPARISON: 05/06/2019 FINDINGS: There has been pronounced improvement in the central interstitial opacities compatible with improving pulmonary edema/pneumonia. This is particularly pronounced in the lateral left midlung. There is a stable lobular mass in the lateral left costophrenic angle. Stable severe COPD. Stable extensive pulmonary fibrosis. Heart size remains stable. No pneumothorax or large pleural effusion. IMPRESSION: Pronounced improvement in the central interstitial infiltrates/pulmonary edema. Electronically signed by Parviz Klein 05/07/2019 9:00 AM
--- NOTE | 2019-05-07 10:28 | PROGRESS NOTE ---
DATE: 05/07/2019 INTERVAL HISTORY: No acute events overnight. SUBJECTIVE: Mr. Rodriges is feeling significantly better than yesterday. He continues to have cough with yellowish-green expectoration, but he is feeling better. He wanted me to address his anxiety. I discussed with him about adverse effects including potential for dependence with Ativan and we decided to decrease his Ativan. I also decided to keep him on paroxetine, which was the discharge medication on last admission. SUBJECTIVE: Mr. Rodriges otherwise denies any chest pain, nausea, vomiting, or abdominal pain. VITALS: Temperature of 97.5 degrees, pulse 93, respiratory 20 blood pressure 108/58 saturating 94% on 2 L nasal cannula. PHYSICAL EXAMINATION: Not in acute distress. Oral cavity is moist.Lungs: Air entry had decreased bilateral infrascapular region with coarse inspiratory crackles in bilateral bases. Heart: S1, S2 normal no murmur or gallop. Abdomen: Soft, nontender. Extremity: Edema. Skin: He has a pruritic rash all over his body, which has been ongoing since the last 2 weeks. LABORATORY: He has persistent leukocytosis normocytic anemia normal platelet count. His hemoglobin is 10.3 potassium 4. His sodium improved to 138, chloride improved to 99. His BUN back and creatinine is 0.8 with normal kidney function. No positive microbiological data. IMAGING: No new imaging except chest x-ray which suggests pronounced improvement in the central interstitial infiltrate and pulmonary edema. ASSESSMENT AND PLAN: 1. Sepsis and acute on chronic hypoxic respiratory failure with acute chronic obstructive pulmonary disease exacerbation due to predominantly left lung and bilateral pneumonia. Continue oxygen 2 L to maintain saturation more than saturation between 88 to 92 percent. Continue inhaled bronchodilators, intravenous vancomycin and intravenous Zosyn. Decrease intravenous steroid frequency. Follow up final blood culture and sputum culture data. He previously had Pseudomonas and Stenotrophomonas pneumonia. Based on sputum culture, I will adjust antibiotics. 2. Left lower lobe lung mass with active tobacco abuse and longstanding smoking history with chronic obstructive pulmonary disease. His CEA levels where unremarkable. However, his opacity appears concerning. After the treatment of pneumonia, he may need a repeat CT scan and based on that possibly biopsy in the future. Pulmonology team on board. I explained this to the patient and he understands. 3. Anxiety. Continue lorazepam at nighttime orally as needed and continue home paroxetine. 4. Active tobacco abuse. He was counseled about smoking cessation. I will continue nicotine patch. 5. Bilateral pruritic rash with history of eczema. He currently does not have any definitive eczematous patches. Previously, he did have insect manifestation at a place where he was living. I will start him on oral Benadryl. DISPOSITION: Continue to monitor patient inside the hospital. I will consider transferring him to medical floor depending on his course. Plan of care discussed with him. His questions have been answered. cc: Aquiles Evans MD MTDD
[2019-05-07] MEDS: BENADRYL PO PRN (13:11)
--- NOTE | 2019-05-07 21:04 | PULMONOLOGY PROGRESS NOTE ---
DATE: 05/07/2019 SUBJECTIVE: The patient is awake, alert, and conversant. He reports his sputum production significantly increased following the initiation of the Mucinex. His shortness of breath has diminished. OBJECTIVE: Vital Signs: The patient has been afebrile for the last 24 hours. BP 110/54, heart rate 90, respiratory rate 20, oxygen saturation 92%. HEENT: Pupils are equal and reactive. Oropharynx appears clear. Neck: Supple. Chest: Coarse rhonchi bilaterally. Cardiac: S1, S2. Abdomen: Soft. Extremities: Without edema. LABORATORIES: Chest x-ray reveals stable masslike area in the left base, but significant decrease in interstitial edema. Laboratories: White blood count 3.9, hemoglobin 10.3, platelet count 341,000. Sodium 138, potassium 4.0, chloride 99, bicarbonate 27, BUN 10, creatinine 0.8, glucose 174. IMPRESSION: A 63-year-old with: 1. Fevers and leukocytosis. 2. Acute on chronic hypoxemic respiratory failure. 3. Masslike area in the left base. This may be infectious or malignant. 4. History of Stenotrophomonas maltophilia and Pseudomonas in sputum cultures. PLAN: 1. Continue broad-spectrum antibiotics. 2. Continue bronchodilators and Mucomyst. 3. Anticipate the need for followup CT scan after he has received adequate treatment for this left basilar infiltrate. cc: Juan Miguel Almonte MD
[2019-05-07] MEDS: REMERON PO SCH (21:21)
[2019-05-07] MEDS: ATIVAN PO SCH (21:22)
[2019-05-08] MEDS: BENADRYL PO PRN ×2 (00:26→14:04)
[2019-05-08] MEDS: ZOSYN 4.5 GM in NS 100 ML IV SCH ×4 (01:32→21:06)
[2019-05-08] MEDS: DUONEB (A & A) INH SCH ×6 (03:40→23:20)
[2019-05-08] MEDS: PERCOCET-10 PO PRN ×3 (04:59→18:06)
[2019-05-08 06:11] LABS: AGAP 7; ALB/GLOB RATIO 0.8; ALBUMIN 2.9 g/dL (3.5-5.0); ALKALINE PHOSPHATASE 51 U/L (32-122); BUN 12 mg/dL (8-22); CALCIUM 9.3 mg/dL (8.8-10.2); CHLORIDE 104 mmol/L (98-107); COSMO 285; CREATININE 0.7 mg/dL (0.7-1.2); ESTIMATED GFR > 60; GLUCOSE 141 mg/dL (70-104); GOT 27 U/L (10-34); GPT 19 U/L (10-44); POTASSIUM 4.1 mmol/L (3.5-5.1); SODIUM 142 mmol/L (136-145); TCO2 31 mmol/L (25-35); TOTAL PROTEIN 6.6 g/dL (6.3-8.3)
[2019-05-08 06:24] LABS: TOTAL BILIRUBIN < 0.15 mg/dL (0.20-1.00)
[2019-05-08 06:29] LABS: BASO# 0.02 X1000 (0.0-0.2); BASO% 0.1 % (0.0-0.8); HEMATOCRIT 32.8 % (42.0-52.0); HEMOGLOBIN 9.5 g/dL (14.0-18.0); IMM GRAN# 0.13 X1000 (0.0-0.04); IMM GRAN% 0.7 % (0.0-0.5); LYMPH# 0.82 X1000 (1.2-3.4); LYMPH% 4.1 % (20.5-51.1); MCV 89.6 FL (81-99); MONO# 0.47 X1000 (0.11-0.59); MONO% 2.4 % (1.7-9.3); MPV 9.6 FL (7.4-10.4); NEUT# 18.38 X1000 (1.4-6.5); NEUT% 92.7 % (42.2-75.2); PLT 378 X1000 (130-400); RBC 3.66 XMIL (4.7-6.1); RDW 15.7 % (11.5-14.5); WBC 19.82 X1000 (4.8-10.8)
[2019-05-08] MEDS: MUCOMYST 20% INH SCH ×2 (07:35→20:03)
[2019-05-08] MEDS: PULMICORT INH SCH ×2 (07:35→20:03)
[2019-05-08] MEDS ORDERED: PRILOSEC PO ONE (07:45)
[2019-05-08] MEDS: MIRALAX PO SCH ×2 (08:04→20:11)
[2019-05-08] MEDS: FERROUS SULFATE PO SCH (08:05)
[2019-05-08] MEDS: NICODERM PATCH TD SCH (08:05)
[2019-05-08] MEDS: MUCINEX PO SCH ×2 (08:05→20:11)
[2019-05-08] MEDS: METAMUCIL POWDER PACKET PO SCH (08:05)
[2019-05-08] MEDS: SOLU-MEDROL IV SCH (08:05)
[2019-05-08] MEDS: LOVENOX SUBQ SCH (08:05)
[2019-05-08] MEDS: PAXIL PO SCH (08:05)
[2019-05-08] MEDS: KEPPRA PO SCH ×2 (08:05→20:10)
[2019-05-08] MEDS: FLOMAX PO SCH (08:05)
--- NOTE | 2019-05-08 08:17 | PROGRESS NOTE ---
DATE: 05/08/2019 INTERVAL HISTORY: No acute events overnight. Mr. Rodriges is feeling better. His breathing is better. We discussed about his lung sounds, lung mass, possible need for repeat CT scan in future and continuing antibiotics. I answered all of his questions. VITAL SIGNS: Temperature 97.6 degrees, pulse 88 respiratory 16 blood pressure 120/68. He is saturating 94% on 2 L nasal cannula. PHYSICAL EXAMINATION: General: Not in acute distress. HEENT: He does have nasal congestion. Oral cavity is moist. Chest: He has bilateral rhonchi and fine as well as coarse inspiratory crackles bilateral infrascapular region, more pronounced on the left. Cardiovascular: S1, S2 normal. No murmur or gallop. Abdomen: Soft, nontender. Extremities: No lower extremity edema. Skin: He has petechial rash which has happened because of his constant itching since last 2 to 3 weeks. Laboratory Data: Labs suggestive of leukocytosis with 0% eosinophil count. Normal electrolytes with creatinine 0.7, WBC 19.8, hemoglobin 9.5. Microbiology: Blood culture and sputum culture are in lab, no new imaging. ASSESSMENT AND PLAN: 1. Sepsis and acute on chronic hypoxic respiratory failure with mild acute chronic obstructive pulmonary disease exacerbation due to predominantly left lung and bilateral pneumonia. 2. Continue oxygenation to maintain saturation around 90%, intravenous vancomycin and Zosyn, and followup final blood and sputum culture data. 3. Continue on current dose of intravenous steroids. Previously, he did have history of Pseudomonas and Stenotrophomonas pneumonia. 4. Left lower lung opacity with acute tobacco abuse with long-standing smoking history, with COPD. His CEA levels are unremarkable. He may need a repeat CT scan after a few days to differentiate whether the opacity is pneumonia or lung mass and may need possible biopsy in the future. Appreciate Pulmonology recommendations. 5. Anxiety. Continue nighttime lorazepam and paroxetine. 6. He was counseled about smoking cessation for active tobacco use and I will continue nicotine patch. 7. Continue oral Benadryl and topical hydrocortisone for generalized pruritic rash next. DISPOSITION: Continue the patient monitor patient inside the hospital. He has transferred to medical floor order pending bed availability. All of the patient's questions have been answered. cc: Aquiles Evans MD
[2019-05-08] MEDS ORDERED: NS 500 ML ONE (15:47)
[2019-05-08] MEDS: VANCOMYCIN 1,500 MG in NS 250 ML IV SCH (18:06)
[2019-05-08] MEDS: ATIVAN PO SCH (20:10)
[2019-05-08] MEDS: REMERON PO SCH (20:10)
--- NOTE | 2019-05-08 22:04 | PULMONOLOGY PROGRESS NOTE ---
DATE: 05/08/2019 SUBJECTIVE: The patient is awake, alert, and conversant. He reports he feels significantly better. He continues to have cough with purulent sputum production. OBJECTIVE: Vital Signs: The patient has been afebrile for the last 24 hours. Blood pressure 139/76, heart rate 88, respiratory rate 20, oxygen saturation 98% on 2 L per nasal cannula. HEENT: Pupils are equal and reactive. Oropharynx appears clear. Neck: Is supple. Chest: Reveals rhonchi bilaterally. Cardiac exam: S1-S2. Abdomen: Is soft. Extremities: Reveal trace edema. LABORATORIES: Microbiology reveals no new data. White blood count 19.8, hemoglobin 9.5, platelet count 378,000. Sodium 142, potassium 4.1, chloride 104, bicarbonate 31, BUN 12, creatinine 0.7. IMPRESSION: A 63-year-old with 1. Fevers and leukocytosis. 2. Masslike area in the left base, infection or malignancy is suspected. 3. Acute on chronic hypoxemic respiratory failure. 4. History of Stenotrophomonas maltophilia and Pseudomonas in prior sputum cultures. PLAN: 1. Continue broad-spectrum antibiotics. 2. Continue bronchodilators and Mucomyst. 3. Follow up chest x-ray tomorrow. 4. Anticipate the need for CT scan of the thorax after a prolonged course of antibiotics. cc: Juan Miguel Almonte MD
[2019-05-09] MEDS: PERCOCET-10 PO PRN ×4 (00:39→19:13)
[2019-05-09] MEDS: BENADRYL PO PRN ×2 (02:26→15:06)
[2019-05-09] MEDS: DUONEB (A & A) INH SCH ×6 (03:43→22:51)
[2019-05-09] MEDS: ZOSYN 4.5 GM in NS 100 ML IV SCH ×3 (04:21→15:06)
[2019-05-09] MEDS: SYSTANE EYE DROPS BOTH EYES PRN ×2 (04:25→10:01)
[2019-05-09] MEDS: VANCOMYCIN 1,500 MG in NS 250 ML IV SCH ×2 (06:37→17:31)
[2019-05-09] MEDS: PRILOSEC PO SCH (06:38)
[2019-05-09 07:43] LABS: AGAP 5; ALB/GLOB RATIO 0.8; ALKALINE PHOSPHATASE 57 U/L (32-122); BASO# 0.05 X1000 (0.0-0.2); BASO% 0.3 % (0.0-0.8); BUN 16 mg/dL (8-22); CALCIUM 9.1 mg/dL (8.8-10.2); CHLORIDE 99 mmol/L (98-107); COSMO 275; CREATININE 0.7 mg/dL (0.7-1.2); EOS# 0.04 X1000 (0.0-0.7); EOS% 0.2 % (0.0-10.0); ESTIMATED GFR > 60; GLUCOSE 102 mg/dL (70-104); GOT 52 U/L (10-34); GPT 46 U/L (10-44); HEMATOCRIT 34.8 % (42.0-52.0); HEMOGLOBIN 10.1 g/dL (14.0-18.0); IMM GRAN# 0.23 X1000 (0.0-0.04); IMM GRAN% 1.4 % (0.0-0.5); LYMPH# 2.05 X1000 (1.2-3.4); LYMPH% 12.2 % (20.5-51.1); MCV 89.7 FL (81-99); MONO# 0.88 X1000 (0.11-0.59); MONO% 5.2 % (1.7-9.3); MPV 9.4 FL (7.4-10.4); NEUT# 13.56 X1000 (1.4-6.5); NEUT% 80.7 % (42.2-75.2); PLT 416 X1000 (130-400); RBC 3.88 XMIL (4.7-6.1); RDW 15.9 % (11.5-14.5); SODIUM 137 mmol/L (136-145); TCO2 33 mmol/L (25-35); TOTAL PROTEIN 6.8 g/dL (6.3-8.3); WBC 16.81 X1000 (4.8-10.8)
[2019-05-09 07:48] LABS: TOTAL BILIRUBIN < 0.15 mg/dL (0.20-1.00)
[2019-05-09] MEDS: PULMICORT INH SCH ×2 (07:59→19:52)
[2019-05-09] MEDS: MUCOMYST 20% INH SCH ×2 (07:59→19:52)
[2019-05-09] MEDS: MIRALAX PO SCH ×2 (08:29→22:34)
[2019-05-09] MEDS: LOVENOX SUBQ SCH (08:31)
[2019-05-09] MEDS: KEPPRA PO SCH ×2 (08:31→22:33)
[2019-05-09] MEDS: METAMUCIL POWDER PACKET PO SCH (08:31)
[2019-05-09] MEDS: PAXIL PO SCH (08:32)
[2019-05-09] MEDS: FLOMAX PO SCH (08:32)
[2019-05-09] MEDS: FERROUS SULFATE PO SCH (08:32)
[2019-05-09] MEDS: SOLU-MEDROL IV SCH (08:32)
[2019-05-09] MEDS: MUCINEX PO SCH ×2 (08:32→22:33)
[2019-05-09] MEDS: NICODERM PATCH TD SCH (08:34)
[2019-05-09] MEDS: HYDROCORTISONE 1% CREAM TOP PRN (10:18)
[2019-05-09] MEDS: DULCOLAX PR SCH ×2 (15:23→22:34)
--- NOTE | 2019-05-09 16:01 | PROGRESS NOTE ---
DATE: 05/09/2019 INTERVAL HISTORY: He was transferred out of [facility] to surgical floor yesterday. He has not had any other overnight events. SUBJECTIVE: Mr. Rodriges is feeling better day by day. He is still coughing up some sputum. He denies any chest pain. He states he does have shortness of breath, which is pretty close to his baseline. He has not had any bowel movement. I again discussed with him about following up with repeat CT scan as an outpatient. VITAL SIGNS: Temperature 97.9 degrees, pulse 91, respiratory rate 18, blood pressure 128/73. He is saturating 95% on 2 L neck cannula. PHYSICAL EXAMINATION: General: Not in acute distress. He appears cachectic. Oral cavity is moist. Lungs: Air entry bilaterally equal. He has mild end-expiratory wheezes. No rhonchi. He has crackles in the infrascapular region which are coarse and sounds like pulmonary fibrosis. Abdomen: Soft, nontender, no lower extremity edema. He has petechial rash because of constant itching, which is improving. INTAKE AND OUTPUT: Suggests he has not had any bowel movement. LABORATORY DATA: [place] [address], hemoglobin 10.1, platelet 416,000. Essentially unremarkable electrolytes. MICROBIOLOGY: No positive data. IMAGING: Chest x-ray has been ordered. ASSESSMENT AND PLAN: 1. Acute on chronic hypoxic respiratory failure with acute chronic obstructive pulmonary disease exacerbation as well as sepsis due to predominantly left lung and bilateral pneumonia. Continue oxygenation to maintain saturation more than 90%, intravenous vancomycin and Zosyn. His culture data have been unremarkable. He did have prior history of Pseudomonas and Stenotrophomonas pneumonia. I will give him current dose of steroids intravenously. 2. Left lung opacity with active tobacco abuse and long-standing smoking history with chronic obstructive pulmonary disease. His CEA levels have been unremarkable. Follow up with chest x- ray and he would need outpatient CT scan to evaluate the nodular opacity on the lungs in the future. 3. Others. Continue nighttime lorazepam and paroxetine for anxiety; add bisacodyl to MiraLAX and Metamucil for constipation; continue nicotine patch for tobacco abuse; continue oral Benadryl and topical hydrocortisone for generalized itching. DISPOSITION: If the chest x-ray suggests improvement, I would anticipate discharge in next 24 to 48 hours on oral levofloxacin for a total of 10 to 14 days course. However, patient is a little reluctant to go home and had suggested he would rather be in the hospital for a longer time and I discussed with him that we would take 1 day at a time. cc: Aquiles Evans MD
--- NOTE | 2019-05-09 18:18 | Diag Imaging Result Doc PS360 ---
EXAM: CHEST-2 VIEWS - 05/09/2019 HISTORY: Follow up pneumonia TECHNIQUE: Chest two views COMPARISON: 05/07/2019 FINDINGS: Heart size is normal. There are COPD changes and interstitial fibrosis. There is been mild decrease in mid and lower lung opacity suggesting further decrease in superimposed infiltrates. There is no new consolidation, substantial pleural effusion, or pneumothorax identified. IMPRESSION: COPD changes and interstitial fibrosis. Apparent further decrease in superimposed infiltrates. Electronically signed by [employer] 05/09/2019 6:15 PM
--- NOTE | 2019-05-09 21:29 | PULMONOLOGY PROGRESS NOTE ---
DATE: 05/09/2019 SUBJECTIVE: The patient is awake and alert. He continues to cough, but reports sputum production is decreasing. OBJECTIVE: Vital Signs: The patient has been afebrile for the last 24 hours. Blood pressure 124/73, heart rate 86, respiratory rate 18, oxygen saturation 98% on 2 L per nasal cannula. HEENT: Pupils are equal and reactive. Oropharynx appears clear. Neck: Supple. Chest: Scattered rhonchi bilaterally. Cardiac: S1-S2. Abdomen: Soft. Extremities: Without edema. LABORATORY AND DIAGNOSTIC DATA: Chest x-ray reveals diffuse emphysema with component of fibrosis. Interstitial infiltrates have diminished. The masslike area at the left base appears to be less dense with more aeration. White blood count 16.81, hemoglobin 10.1, platelet count 416,000. Sodium 137, potassium 4.0, chloride 99, bicarbonate 33, BUN 16, creatinine 0.7. IMPRESSION: A 63-year-old with: 1. Fevers and leukocytosis. 2. Masslike area in the left base. This appears maybe to be undergoing some radiographic improvement, making malignancy less likely. Continued surveillance will be required. 3. Acute on chronic hypoxemic respiratory failure. 4. Stenotrophomonas maltophilia and Pseudomonas in prior cultures. 5. Tobacco use at the time of admission. PLAN: 1. Continue broad-spectrum antibiotics. The patient will require a prolonged course of antibiotics. Would recommend treating him at least through the weekend with a followup chest x-ray on Monday. 2. Continue bronchodilators and Mucomyst. 3. Anticipate the need for a followup CT scan in 2 to 3 weeks. cc: Juan Miguel Almonte MD
[2019-05-09] MEDS: REMERON PO SCH (22:33)
[2019-05-09] MEDS: ATIVAN PO SCH (22:33)
[2019-05-10] MEDS: ZOSYN 4.5 GM in NS 100 ML IV SCH ×4 (01:14→23:02)
[2019-05-10] MEDS: BENADRYL PO PRN ×2 (03:35→17:54)
[2019-05-10] MEDS: PERCOCET-10 PO PRN ×4 (03:35→22:51)
[2019-05-10] MEDS: DUONEB (A & A) INH SCH ×6 (03:37→23:13)
[2019-05-10] MEDS: VANCOMYCIN 1,500 MG in NS 250 ML IV SCH ×2 (05:52→18:08)
[2019-05-10 07:39] LABS: AGAP 8; BUN 16 mg/dL (8-22); CALCIUM 9.2 mg/dL (8.8-10.2); CHLORIDE 99 mmol/L (98-107); COSMO 279; CREATININE 0.8 mg/dL (0.7-1.2); ESTIMATED GFR > 60; GLUCOSE 95 mg/dL (70-104); POTASSIUM 4.3 mmol/L (3.5-5.1); SODIUM 139 mmol/L (136-145); TCO2 32 mmol/L (25-35)
[2019-05-10] MEDS: PULMICORT INH SCH ×2 (08:07→19:44)
[2019-05-10] MEDS: MUCOMYST 20% INH SCH ×2 (08:07→19:44)
[2019-05-10] MEDS: PRILOSEC PO SCH (08:29)
[2019-05-10] MEDS: KEPPRA PO SCH ×2 (09:17→22:52)
[2019-05-10] MEDS: MUCINEX PO SCH ×2 (09:17→22:51)
[2019-05-10] MEDS: FLOMAX PO SCH (09:17)
[2019-05-10] MEDS: LOVENOX SUBQ SCH (09:17)
[2019-05-10] MEDS: PAXIL PO SCH (09:17)
[2019-05-10] MEDS: DULCOLAX PR SCH ×2 (09:18→22:53)
[2019-05-10] MEDS: FERROUS SULFATE PO SCH (09:18)
[2019-05-10] MEDS: METAMUCIL POWDER PACKET PO SCH (09:18)
[2019-05-10] MEDS: MIRALAX PO SCH ×2 (09:18→22:53)
[2019-05-10] MEDS: NICODERM PATCH TD SCH (09:18)
[2019-05-10] MEDS: SOLU-MEDROL IV SCH (09:19)
[2019-05-10] MEDS: FLONASE NAS SCH (18:01)
[2019-05-10] MEDS: HYDROCORTISONE 1% CREAM TOP PRN (18:01)
--- NOTE | 2019-05-10 18:03 | PROVIDER PROGRESS NOTE ---
Progress Note Dr. Salazar Progress Note/Pulmonary and or critical care We appreciated progress of care, Complications, change in diagnosis, and instructions to patient. Subjective: We note the level of consciousness, bed (chair) position, family presence (if any), level of lethargy, feeling of symptoms, and changes from baseline condition/symptom. Patient is lying in bed with no acute distress noted. He is on NC 3 L and tolerates well. He has no cough, but SOB with activity, such as walking from the bed to the bathroom, which is within 10 steps. He had constipation, but resolved this am. He does have some itchiness and has been scratching all around his body. Benadryl helps. No family at the bedside. Objective: Vital Signs: We reviewed EMR current values for Pulse rate, Blood pressure, Pulse rate, respiratory rate and Pulse oximetry. Also noted other values and trends if present (e.g. I/O, CVP). T 97.6, MO 90, RR 22, BP 118/73 and SaO2 92% on NC 3 L. Physical Examination: General: Lying in bed with no acute distress noted. Appears cachectic with scratches all over the back, chest and abdomen. HEENT: Normocephalic. Trachea midline. Mucosa pink and moist. Chest: Even and unlabored. Symmetrical excursion. Auscultation reveals scattered rhonchi bilaterally and coarse crackles bibasilarly. CVS: S1 and S2 appreciated. Abdomen: Soft. Non-tender. Non-distended. Normoactive bowel sounds in all 4 quadrants. Extremities: No pedal edema. No cyanosis. No clubbing. Dorsalis pedis 2+ bilaterally. Neuro: A/O x4. Speech fluent. Following commands. Labs and Radiology: Reviewed available labs and radiology values available at time of EMR review. Laboratory Results 05/10/19 05/10/19 06:45 17:00 Sodium 139 Potassium 4.3 Chloride 99 Carbon Dioxide 32 Anion Gap 8 BUN 16 Creatinine 0.8 Estimated GFR/1.73 m2 > 60 BUN/Creatinine Ratio 20 Glucose 95 Calculated Osmolality 279 Calcium 9.2 Random Vancomycin 16.40 Assessment: Acute on chronic hypoxemic respiratory failure. COPD with pulmonary fibrosis. LLL masslike opacity measuring up to 6 cm with worsened hilar and mediastinal adenopathy. Tobacco use. Stenotrophomonas maltophilia and Pseudomonas in prior sputum cultures. Plan: Continue current treatment and supportive care per admitting and other teams on the case. Antibiotic (Zosyn and Vancomycin). Bronchodilators. Mucomyst. IV Solu-Medrol. GI and DVT prophylaxis. Outpatient CT followup. Input was appreciated from Admitting MD and other teams on the case.
--- NOTE | 2019-05-10 18:35 | PROGRESS NOTE ---
DATE: 05/10/2019 INTERVAL HISTORY: No acute events overnight. SUBJECTIVE: Mr. Rodriges denies new complaints. He states when he went to have a shower, he started feeling dizzy and almost passed out, though did not and he had to come back. I discussed with him about asking for assistance when moving around. OBJECTIVE: Vital signs: Temperature 97.1 degrees, pulse 70, respiratory rate 17, blood pressure 123/74, saturating 93% on nasal cannula. On physical examination not in acute distress. Oral cavity is moist. Air entry bilaterally equal. He does have bilateral rhonchi and mild end- expiratory wheezes. He has coarse crackles in bilateral lower dockery. Abdomen is soft, nontender. No lower extremity edema. He has a petechial rash because of constant itching which is improving. LABORATORY DATA: Labs suggestive of no CBC today. BMP is essentially unremarkable. No microbiological positive data. DIAGNOSTIC DATA: Chest x-ray performed yesterday evening had COPD changes, interstitial fibrosis and decrease in superimposed infiltrate. ASSESSMENT: 1. [id number] hypoxic respiratory failure. 2. Acute chronic obstructive pulmonary disease exacerbation. 3. Sepsis due to predominantly left lung and bilateral pneumonia. 4. History of pseudomonas and Stenotrophomonas pneumonia. 5. Left lung opacity concerning for pneumonia versus malignancy. 6. Anxiety. PLAN: 1. Continue intravenous antibiotics, intravenous steroids, inhaled bronchodilators. 2. Continue his home Keppra for history of seizure disorder. 3. Plan is to get a chest x-ray on Monday and potentially plan discharge accordingly. Plan of care discussed with him. His questions have been answered. He was counseled about smoking cessation. cc: Aquiles Evans MD
[2019-05-10] MEDS: ATIVAN PO SCH (22:51)
[2019-05-10] MEDS: REMERON PO SCH (22:51)
[2019-05-11] MEDS: DUONEB (A & A) INH SCH ×6 (03:43→23:29)
[2019-05-11] MEDS: ZOSYN 4.5 GM in NS 100 ML IV SCH ×4 (04:30→23:28)
[2019-05-11] MEDS: VANCOMYCIN 1,500 MG in NS 250 ML IV SCH ×2 (06:35→17:32)
[2019-05-11] MEDS: PRILOSEC PO SCH (06:50)
[2019-05-11] MEDS: PERCOCET-10 PO PRN ×3 (07:20→19:11)
[2019-05-11] MEDS: MUCOMYST 20% INH SCH ×2 (07:53→20:10)
[2019-05-11] MEDS: PULMICORT INH SCH ×2 (07:53→20:10)
[2019-05-11] MEDS: NICODERM PATCH TD SCH (09:27)
[2019-05-11] MEDS: MIRALAX PO SCH ×2 (09:27→23:26)
[2019-05-11] MEDS: SOLU-MEDROL IV SCH (09:28)
[2019-05-11] MEDS: DULCOLAX PR SCH ×2 (09:28→23:38)
[2019-05-11] MEDS: METAMUCIL POWDER PACKET PO SCH (09:28)
[2019-05-11] MEDS: FERROUS SULFATE PO SCH (09:28)
[2019-05-11] MEDS: PAXIL PO SCH (09:29)
[2019-05-11] MEDS: FLOMAX PO SCH (09:29)
[2019-05-11] MEDS: LOVENOX SUBQ SCH (09:29)
[2019-05-11] MEDS: KEPPRA PO SCH ×2 (09:29→23:26)
[2019-05-11] MEDS: MUCINEX PO SCH ×2 (09:29→23:26)
[2019-05-11] MEDS: FLONASE NAS SCH (09:30)
[2019-05-11] MEDS: BENADRYL PO PRN (09:34)
--- NOTE | 2019-05-11 14:00 | PROVIDER PROGRESS NOTE ---
Progress Note Dr. Salazar Progress Note/Pulmonary and or critical care We appreciated progress of care, Complications, change in diagnosis, and instructions to patient. Subjective: We note the level of consciousness, bed (chair) position, family presence (if any), level of lethargy, feeling of symptoms, and changes from baseline condition/symptom. Patient is lying in bed with no acute distress noted. He is on NC 2.5 L and tolerates well. He states he is feeling a lot better and he has no complaint at this time. Objective: Vital Signs: We reviewed EMR current values for Pulse rate, Blood pressure, Pulse rate, respiratory rate and Pulse oximetry. Also noted other values and trends if present (e.g. I/O, CVP). T 98.3, ND 101, RR 22, BP 132/79 and SaO2 97% on NC 3 L. Physical Examination: General: Lying in bed with no acute distress noted. Appears cachectic. HEENT: Normocephalic. Trachea midline. Mucosa pink and moist. Chest: Even and unlabored. Symmetrical excursion. Auscultation reveals scattered rhonchi bilaterally, very mild expiratory wheezing on the left side of the lung and inspiratory coarse crackles LLL. CVS: Mild tachycardia with S1 and S2 appreciated. Abdomen: Soft. Non-tender. Non-distended. Normoactive bowel sounds in all 4 quadrants. Extremities: No pedal edema. No cyanosis. No clubbing. Dorsalis pedis 2+ bilaterally. Neuro: A/O x4. Speech fluent. Following commands. Labs and Radiology: Reviewed available labs and radiology values available at time of EMR review. Assessment: Acute on chronic hypoxemic respiratory failure. COPD with pulmonary fibrosis. LLL masslike opacity measuring up to 6 cm with worsened hilar and mediastinal adenopathy. Tobacco use. Stenotrophomonas maltophilia and Pseudomonas in prior sputum cultures. Plan: Continue current treatment and supportive care per admitting and other teams on the case. Antibiotic (Zosyn and Vancomycin). Bronchodilators. Mucomyst. IV Solu-Medrol. GI and DVT prophylaxis. Outpatient CT followup. Input was appreciated from Admitting MD and other teams on the case.
--- NOTE | 2019-05-11 17:18 | PROGRESS NOTE ---
DATE: 05/11/2019 INTERVAL HISTORY: No acute events overnight. SUBJECTIVE: He is feeling better after applying hydrocortisone cream and getting a nasal spray. VITALS: Temperature of 98, pulse 85, respiratory rate 18, blood pressure 128/87, saturating 92% on 3 L nasal cannula. PHYSICAL EXAMINATION: General: Not in acute distress HEENT: Oral cavity is moist. Lungs: Air entry bilaterally equal. Mild end-expiratory wheezes and rhonchi. Mild coarse crackles, infrascapular region. Abdomen: Soft, nontender. Extremities: No lower extremity edema. Skin: He has a pruritic rash on his entire body. Input and output: Suggests he has been having regular bowel movements. LABS: No CBC today. BMP is unremarkable. Microbiology: No new data. No new imaging. ASSESSMENT: 1. Acute on chronic hypoxic respiratory failure. 2. Acute chronic obstructive pulmonary disease exacerbation. 3. Sepsis due to predominantly left lung and bilateral pneumonia. 4. History of Pseudomonas and Stenotrophomonas pneumonia. 5. Left lung opacity concerning for pneumonia versus malignancy. 6. Anxiety. PLAN: 1. Continue current dose of intravenous vancomycin and intravenous Zosyn, inhaled bronchodilators, and current dose of steroids, which I will change to oral starting tomorrow. 2. Continue home Keppra for history of seizure disorder. DISPOSITION: The plan is to get a repeat chest x-ray on Monday, and further disposition to be decided based on that. cc: Aquiles Evans MD
[2019-05-11] MEDS: ATIVAN PO SCH (23:26)
[2019-05-11] MEDS: REMERON PO SCH (23:26)
[2019-05-12] MEDS: PERCOCET-10 PO PRN ×4 (01:17→22:53)
[2019-05-12] MEDS: DUONEB (A & A) INH SCH ×6 (03:30→23:53)
[2019-05-12] MEDS: ZOSYN 4.5 GM in NS 100 ML IV SCH ×5 (04:55→22:56)
[2019-05-12] MEDS: BENADRYL PO PRN (05:10)
[2019-05-12] MEDS: VANCOMYCIN 1,500 MG in NS 250 ML IV SCH ×2 (06:01→17:53)
[2019-05-12] MEDS: PRILOSEC PO SCH (06:01)
[2019-05-12] MEDS: PULMICORT INH SCH ×2 (07:41→19:59)
[2019-05-12] MEDS: MUCOMYST 20% INH SCH ×2 (07:41→19:59)
[2019-05-12 08:05] LABS: AGAP 8; BUN 14 mg/dL (8-22); CALCIUM 8.8 mg/dL (8.8-10.2); CHLORIDE 100 mmol/L (98-107); COSMO 281; CREATININE 0.7 mg/dL (0.7-1.2); ESTIMATED GFR > 60; GLUCOSE 110 mg/dL (70-104); POTASSIUM 4.1 mmol/L (3.5-5.1); SODIUM 140 mmol/L (136-145); TCO2 32 mmol/L (25-35)
[2019-05-12] MEDS: MIRALAX PO SCH ×2 (08:09→21:19)
[2019-05-12] MEDS: PAXIL PO SCH (08:10)
[2019-05-12] MEDS: NICODERM PATCH TD SCH (08:10)
[2019-05-12] MEDS: MUCINEX PO SCH ×2 (08:10→21:17)
[2019-05-12] MEDS: LOVENOX SUBQ SCH (08:10)
[2019-05-12] MEDS: PREDNISONE PO SCH (08:10)
[2019-05-12] MEDS: KEPPRA PO SCH ×2 (08:11→21:17)
[2019-05-12] MEDS: METAMUCIL POWDER PACKET PO SCH (08:11)
[2019-05-12] MEDS: DULCOLAX PR SCH ×2 (08:11→21:19)
[2019-05-12] MEDS: FLOMAX PO SCH (08:11)
[2019-05-12] MEDS: FERROUS SULFATE PO SCH (08:11)
[2019-05-12] MEDS: FLONASE NAS SCH (09:30)
--- NOTE | 2019-05-12 15:48 | PROGRESS NOTE ---
DATE: 05/12/2019 INTERVAL HISTORY: No acute events overnight. SUBJECTIVE: Mr. Rodriges denies new complaints. He states he still feels he runs out of breath when he takes a shower. I discussed with him about his advanced COPD, emphysema, and I answered all of his questions. VITALS: Temperature 97.8 degrees, pulse 90, respiratory rate 19, blood pressure 109/60, saturating 95% on 3 L nasal cannula. PHYSICAL EXAMINATION: Not in acute distress. Oral cavity is moist. Lungs: Air entry bilaterally equal. No wheezes. He does have bilateral rhonchi and inspiratory crackles in the infrascapular region. S1, S2 normal. No murmur, rub, or gallop. Abdomen: Soft, nontender. No lower extremity edema. He does appear to have protein calorie malnutrition and a pruritic rash on his entire body. He has regular bowel movements. LABS: No CBC today. BMP is essentially unremarkable. No positive microbiological or imaging data. ASSESSMENT AND PLAN: 1. Acute on chronic hypoxic respiratory failure. 2. Acute chronic obstructive pulmonary disease exacerbation. 3. Sepsis due to predominantly left lower lobe and bilateral pneumonia. 4. History of Pseudomonas and Stenotrophomonas pneumonia. 5. Left lung basal opacity, concerning for pneumonia versus malignancy. 6. Anxiety. 7. Pruritic rash. PLAN: 1. Continue intravenous vancomycin, intravenous Zosyn, and inhaled bronchodilators, and oral prednisone which I have started tapering down. 2. Continue Keppra for history of seizure and increase frequency of Benadryl for itching. 3. Continue Percocet, paroxetine, and lorazepam for anxiety and chronic pain, continue a nicotine patch for tobacco use disorder. He was counseled about tobacco cessation. Continue tamsulosin for benign prostatic hypertrophy. 4. Disposition. Plan is to get a repeat chest x-ray tomorrow. Based on the lung capacity, further disposition will be decided. Pulmonology recommendation appreciated. cc: Aquiles Evans MD
--- NOTE | 2019-05-12 16:37 | PROVIDER PROGRESS NOTE ---
Progress Note Dr. Salazar Progress Note/Pulmonary and or critical care We appreciated progress of care, Complications, change in diagnosis, and instructions to patient. Subjective: We note the level of consciousness, bed (chair) position, family presence (if any), level of lethargy, feeling of symptoms, and changes from baseline condition/symptom. Patient is sitting in bed having lunch. He is on NC 23 L which is his baseline oxygen requirement. He states he is feeling better and he is ready to go home. Objective: Vital Signs: We reviewed EMR current values for Pulse rate, Blood pressure, Pulse rate, respiratory rate and Pulse oximetry. Also noted other values and trends if present (e.g. I/O, CVP). T 98.2, [place] 83, RR 18, BP 116/68 and SaO2 95% on NC 3 L. Physical Examination: General: sitting in bed having lunch with no acute distress noted. Appears cachectic. HEENT: Normocephalic. Trachea midline. Mucosa pink and moist. Chest: Even and unlabored. Symmetrical excursion. Auscultation reveals very mild expiratory wheezing bibasilarly and inspiratory coarse crackles LLL. CVS: S1 and S2 appreciated. Abdomen: Soft. Non-tender. Non-distended. Normoactive bowel sounds in all 4 quadrants. Extremities: No pedal edema. No cyanosis. No clubbing. Dorsalis pedis 2+ bilaterally. Neuro: A/O x4. Speech fluent. Following commands. Labs and Radiology: Reviewed available labs and radiology values available at time of EMR review. Laboratory Results 05/12/19 06:50 Sodium 140 Potassium 4.1 Chloride 100 Carbon Dioxide 32 Anion Gap 8 BUN 14 Creatinine 0.7 Estimated GFR/1.73 m2 > 60 BUN/Creatinine Ratio 20 Glucose 110 H Calculated Osmolality 281 Calcium 8.8 Assessment: Acute on chronic hypoxemic respiratory failure. COPD with pulmonary fibrosis. LLL masslike opacity measuring up to 6 cm with worsened hilar and mediastinal adenopathy. Tobacco use. Stenotrophomonas maltophilia and Pseudomonas in prior sputum cultures. Plan: Continue current treatment and supportive care per admitting and other teams on the case. Antibiotic (Zosyn and Vancomycin). Bronchodilators. Mucomyst. IV Solu-Medrol. GI and DVT prophylaxis. Outpatient CT followup. Discharge planning per Admitting MD> Input was appreciated from Admitting MD and other teams on the case.
[2019-05-12] MEDS: REMERON PO SCH (21:17)
[2019-05-12] MEDS: ATIVAN PO SCH (21:18)
[2019-05-13] MEDS: BENADRYL PO PRN ×3 (03:22→23:20)
[2019-05-13] MEDS: DUONEB (A & A) INH SCH ×6 (03:36→23:33)
[2019-05-13] MEDS: ZOSYN 4.5 GM in NS 100 ML IV SCH ×3 (04:37→17:13)
[2019-05-13] MEDS: PERCOCET-10 PO PRN ×4 (05:07→23:20)
[2019-05-13] MEDS: VANCOMYCIN 1,500 MG in NS 250 ML IV SCH (05:07)
[2019-05-13] MEDS ORDERED: PREVNAR 13 IM ONE (05:17)
[2019-05-13] MEDS ORDERED: FLU VACCINE IM ONE (05:18)
[2019-05-13] MEDS: PULMICORT INH SCH ×2 (07:44→20:04)
[2019-05-13] MEDS: MUCOMYST 20% INH SCH ×2 (07:44→20:04)
[2019-05-13] MEDS: FLOMAX PO SCH (08:15)
[2019-05-13] MEDS: PRILOSEC PO SCH (08:16)
[2019-05-13] MEDS: MUCINEX PO SCH ×2 (08:16→20:21)
[2019-05-13] MEDS: PAXIL PO SCH (08:16)
[2019-05-13] MEDS: KEPPRA PO SCH ×2 (08:16→20:21)
[2019-05-13] MEDS: PREDNISONE PO SCH (08:16)
[2019-05-13] MEDS: MIRALAX PO SCH ×2 (08:17→20:22)
[2019-05-13] MEDS: METAMUCIL POWDER PACKET PO SCH (08:17)
[2019-05-13] MEDS: FERROUS SULFATE PO SCH (08:17)
[2019-05-13] MEDS: LOVENOX SUBQ SCH (08:18)
[2019-05-13] MEDS: NICODERM PATCH TD SCH (08:18)
[2019-05-13] MEDS: DULCOLAX PR SCH ×2 (08:18→20:22)
[2019-05-13] MEDS: FLONASE NAS SCH (08:19)
[2019-05-13 09:01] LABS: BASO# 0.07 X1000 (0.0-0.2); BASO% 0.3 % (0.0-0.8); EOS# 0.72 X1000 (0.0-0.7); EOS% 3.6 % (0.0-10.0); HEMATOCRIT 34.1 % (42.0-52.0); HEMOGLOBIN 10.1 g/dL (14.0-18.0); LYMPH# 3.41 X1000 (1.2-3.4); MCH 26.7 PG (27-31); MCHC 29.6 g/dL (33-37); MCV 90.2 FL (81-99); MONO# 1.31 X1000 (0.11-0.59); MONO% 6.5 % (1.7-9.3); MPV 9.4 FL (7.4-10.4); NEUT# 13.14 X1000 (1.4-6.5); NEUT% 65.6 % (42.2-75.2); PLT 455 X1000 (130-400); RBC 3.78 XMIL (4.7-6.1); RDW 16.6 % (11.5-14.5); WBC 20.05 X1000 (4.8-10.8)
[2019-05-13 09:16] LABS: BANDS 3 % (0-1); EOS 2 % (1-10); HYPOCHROM 1+; LYMPHS 20 % (21-51); MONO 5 % (1-9); SEGS 69 % (42-75)
--- NOTE | 2019-05-13 10:56 | Diag Imaging Result Doc PS360 ---
EXAM: CHEST-2 VIEWS 05/13/2019 HISTORY: hypoxia TECHNIQUE: PA and lateral chest COMMENT: There are alveolar and coarse interstitial opacities bilaterally particularly in the left lower lobe. There has been no appreciable change since 05/09/2019 or 05/07/2019, and in comparison with 04/12/2018 the dense alveolar opacity in the lateral left base is worse but generally there has been very little change in the interstitial opacities. Compared to 05/06/2019 there has been considerable improvement in the density of alveolar opacity in the left lower lobe. IMPRESSION: Pneumonia in the left lower lobe superimposed on pulmonary fibrosis, improved since 05/06/2019. Electronically signed by George Canas 05/13/2019 10:54 AM
[2019-05-13] MEDS: VANCOMYCIN 1,700 MG in NS 250 ML IV SCH (18:59)
[2019-05-13] MEDS: ATIVAN PO SCH (20:21)
[2019-05-13] MEDS: REMERON PO SCH (20:21)
--- NOTE | 2019-05-13 22:03 | PROGRESS NOTE ---
DATE: 05/13/2019 INTERVAL HISTORY: No acute events overnight. SUBJECTIVE: Mr. Rodriges denies new complaints. He states when he takes a shower, he gets short of breath. Otherwise, he is feeling better day by day. He is requesting more hydrocortisone cream. VITALS: Temperature 97.6 degrees, pulse 80 to 85, respiratory rate 17, blood pressure 125/69, saturating 99% on 2 L nasal cannula. PHYSICAL EXAMINATION: Mouth: Oral cavity is moist. Lungs: Air entry bilaterally equal. No wheeze, rhonchi, crackles. Cardiovascular: S1, S2 normal. Abdomen: Soft, nontender. Extremities: No lower extremity edema. Skin: He has particular malnutrition and a pruritic rash on his entire body. Gastrointestinal: He has had regular bowel movements. LABS: Suggestive of CBC of 20,000, hemoglobin 10.1, platelet 455,000. No BMP today. ASSESSMENT AND PLAN: 1. Acute on chronic hypoxic respiratory failure. 2. Acute chronic obstructive pulmonary disease exacerbation. 3. Sepsis due to left lower lobe pneumonia. 4. History of Pseudomonas and Stenotrophomonas pneumonia. 5. Left lung basal opacity concerning for pneumonia versus malignancy. 6. Anxiety and pruritic rash. IMAGING: Chest x-ray performed today suggests improvement in left lower lobe opacity. PLAN: 1. Continue intravenous vancomycin, Zosyn, inhaled bronchodilators, and oral prednisone. I will appreciate pulmonology team's recommendation about considering changing antibiotics to potentially oral agent for further disposition plan. 2. Continue Keppra for history of seizure, Benadryl as needed for itching. 3. Continue Percocet, paroxetine and lorazepam for history of anxiety and chronic pain; nicotine patch for tobacco use disorder; tamsulosin for benign prostatic hypertrophy. DISPOSITION: His chest x-ray suggests improvement in left lower lung opacity and he has been on intravenous antibiotics almost 7 days now. He seems to have been improving clinically. I will appreciate Pulmonology recommendation about further disposition. Plan of care discussed with Mr. Rodriges and his questions have been answered. cc: Aquiles Evans MD
--- NOTE | 2019-05-13 22:44 | PULMONOLOGY PROGRESS NOTE ---
DATE: 05/13/2019 SUBJECTIVE: The patient is awake, alert, and conversant. He reports he feels better. He has a wet cough but is not able to produce sputum. OBJECTIVE: Vital Signs: The patient has been afebrile for the last 24 hours. Blood pressure 125/69, heart rate 85, oxygen saturation 99% on 3 L per nasal cannula. HEENT: Pupils are equal and reactive. Oropharynx appears clear. Neck: Supple. Chest: Reveals scattered rhonchi bilaterally. Cardiac: S1-S2. Abdomen: Soft. Extremities: Without edema. LABORATORIES: White blood count 20,000, hemoglobin 10.1, platelet count 455,000. Sodium 140, potassium 4.1, chloride 100, bicarbonate 32, BUN 14, creatinine 0.7. IMPRESSION: A 63-year-old with 1. Ongoing leukocytosis. 2. Masslike area in the left base. Chest x-ray reveals marginal improved. 3. History of Stenotrophomonas maltophilia and Pseudomonas in prior cultures. 4. Ongoing tobacco use. PLAN: 1. Wean steroids to see if this has an effect on his leukocytosis. 2. Would add a quinolone. We are not currently covering his Stenotrophomonas, which may be an ongoing issue. 3. Continue bronchodilators. 4. Anticipate need for followup scan 2 weeks or greater after discharge. cc: Juan Miguel Almonte MD
[2019-05-14] MEDS: DUONEB (A & A) INH SCH ×6 (03:35→22:58)
[2019-05-14] MEDS: ZOSYN 4.5 GM in NS 100 ML IV SCH ×5 (04:25→20:59)
[2019-05-14] MEDS: LEVAQUIN PO SCH ×4 (04:26→04:52)
[2019-05-14] MEDS: PRILOSEC PO SCH (06:06)
[2019-05-14] MEDS: VANCOMYCIN 1,700 MG in NS 250 ML IV SCH ×2 (06:06→17:58)
[2019-05-14] MEDS: PERCOCET-10 PO PRN ×3 (06:06→19:41)
[2019-05-14] MEDS: MUCOMYST 20% INH SCH ×2 (07:34→19:42)
[2019-05-14] MEDS: PULMICORT INH SCH ×2 (07:34→19:43)
[2019-05-14 07:42] LABS: AGAP 8; BUN 14 mg/dL (8-22); CALCIUM 8.5 mg/dL (8.8-10.2); CHLORIDE 98 mmol/L (98-107); COSMO 270; CREATININE 0.7 mg/dL (0.7-1.2); ESTIMATED GFR > 60; GLUCOSE 91 mg/dL (70-104); POTASSIUM 4.2 mmol/L (3.5-5.1); SODIUM 135 mmol/L (136-145); TCO2 29 mmol/L (25-35)
[2019-05-14] MEDS: METAMUCIL POWDER PACKET PO SCH (08:19)
[2019-05-14] MEDS: PAXIL PO SCH (08:19)
[2019-05-14] MEDS: KEPPRA PO SCH ×2 (08:19→20:58)
[2019-05-14] MEDS: LOVENOX SUBQ SCH (08:19)
[2019-05-14] MEDS: PREDNISONE PO SCH (08:19)
[2019-05-14] MEDS: FLOMAX PO SCH (08:19)
[2019-05-14] MEDS: MIRALAX PO SCH ×2 (08:19→20:59)
[2019-05-14] MEDS: MUCINEX PO SCH ×2 (08:19→20:58)
[2019-05-14] MEDS: FERROUS SULFATE PO SCH (08:20)
[2019-05-14] MEDS: DULCOLAX PR SCH ×2 (08:20→20:59)
[2019-05-14] MEDS: NICODERM PATCH TD SCH (08:22)
[2019-05-14] MEDS: FLONASE NAS SCH (11:14)
--- NOTE | 2019-05-14 20:37 | PROGRESS NOTE ---
DATE: 05/14/2019 SUBJECTIVE: The patient is resting comfortably in bed. He states that he is starting to feel a lot better. He is eating well and having regular bowel movements. OBJECTIVE: Vital Signs: Temperature 98.5 degrees, blood pressure 116/63, heart rate 88, respirations 18, O2 saturation 94% on 2 L nasal cannula. Intake 1.9 L, output 6.5 L. General: This is a chronically ill-appearing elderly male lying in bed in no acute distress. Heart: S1, S2 normal. Regular rate and rhythm. Lungs: Equal air entry bilaterally. No wheezing. Abdomen: Positive bowel sounds. Soft, nontender, nondistended. Extremities: No edema, no cyanosis. Neurologic: The patient is alert and oriented x4. LABORATORY DATA: Sodium 135, potassium 4.2, BUN 14, creatinine 0.7, glucose 91. ASSESSMENT AND PLAN: 1. Chronic hypoxemic respiratory failure. Multifactorial. The patient is currently being treated for a COPD exacerbation and pneumonia. He appears to be improving. 2. COPD exacerbation. Slowly improving. Continue on the steroid taper, oxygen, and bronchodilator therapy. 3. Left lower lobe pneumonia. Continue on the current antibiotic regimen. 4. History of pseudomonas and Stenotrophomonas pneumonia. Aware. 5. Left basilar opacity. The patient will continue to be treated for pneumonia. He will need a repeat CT scan following completion of his antibiotic therapy for the pneumonia. is following. 6. Anxiety disorder. Continue on Ativan. 7. Seizure disorder. Continue on Keppra. 8. Situational depression. Continue on Paxil. 9. Benign prostatic hypertrophy. Continue on Flomax. 10. Deep vein thrombosis prophylaxis. Continue on Lovenox. cc: Salima Dubon MD [facility]
[2019-05-14] MEDS: ATIVAN PO SCH (20:58)
[2019-05-14] MEDS: REMERON PO SCH (20:59)
--- NOTE | 2019-05-14 22:11 | PULMONOLOGY PROGRESS NOTE ---
DATE: 05/14/2019 SUBJECTIVE: The patient is awake, alert, and conversant. He reports he has ambulated some today and feels better. OBJECTIVE: Vital Signs: The patient has been afebrile for the last 24 hours. Blood pressure 116/63, heart rate 88, respiratory rate 18, oxygen saturation 94%. HEENT: Pupils are equal and reactive. Oropharynx appears clear. Neck: Supple. Chest: Crackles and wheezing bilaterally. Cardiac: S1-S2. Abdomen: Soft. Extremities: Without edema. LABORATORIES: Sodium 135, potassium 4.2, chloride 98, bicarbonate 29, BUN 14, creatinine 0.7. IMPRESSION: A 63-year-old with: 1. Pneumonia. 2. Masslike-area in the left base. 3. Chronic obstructive pulmonary disease with ongoing tobacco use. 4. History of Stenotrophomonas maltophilia and Pseudomonas in prior cultures. RECOMMENDATIONS: 1. Chest x-ray tomorrow. 2. Continue steroid dosing. 3. Consider discharge with a 3-week course of Levaquin if he continues to improve. cc: Juan Miguel Almonte MD
[2019-05-15] MEDS: PERCOCET-10 PO PRN ×4 (01:44→20:39)
[2019-05-15] MEDS: ZOSYN 4.5 GM in NS 100 ML IV SCH ×6 (03:28→20:39)
[2019-05-15] MEDS: DUONEB (A & A) INH SCH ×6 (03:40→23:23)
[2019-05-15] MEDS: BENADRYL PO PRN ×2 (04:47→15:30)
[2019-05-15 06:03] LABS: AGAP 8; BUN 14 mg/dL (8-22); CALCIUM 8.8 mg/dL (8.8-10.2); CHLORIDE 98 mmol/L (98-107); COSMO 274; CREATININE 0.7 mg/dL (0.7-1.2); ESTIMATED GFR > 60; GLUCOSE 89 mg/dL (70-104); POTASSIUM 4.1 mmol/L (3.5-5.1); SODIUM 137 mmol/L (136-145); TCO2 31 mmol/L (25-35)
[2019-05-15 06:09] LABS: BASO# 0.04 X1000 (0.0-0.2); BASO% 0.3 % (0.0-0.8); EOS# 0.76 X1000 (0.0-0.7); EOS% 4.9 % (0.0-10.0); HEMATOCRIT 34.4 % (42.0-52.0); HEMOGLOBIN 10.4 g/dL (14.0-18.0); IMM GRAN# 0.98 X1000 (0.0-0.04); IMM GRAN% 6.3 % (0.0-0.5); LYMPH% 14.8 % (20.5-51.1); MCH 27.1 PG (27-31); MCHC 30.2 g/dL (33-37); MCV 89.6 FL (81-99); MONO# 0.98 X1000 (0.11-0.59); MONO% 6.3 % (1.7-9.3); MPV 8.9 FL (7.4-10.4); NEUT# 10.52 X1000 (1.4-6.5); NEUT% 67.4 % (42.2-75.2); PLT 415 X1000 (130-400); RBC 3.84 XMIL (4.7-6.1); RDW 16.9 % (11.5-14.5); WBC 15.58 X1000 (4.8-10.8)
[2019-05-15] MEDS: VANCOMYCIN 1,700 MG in NS 250 ML IV SCH ×2 (06:56→18:07)
--- NOTE | 2019-05-15 07:42 | Diag Imaging Result Doc PS360 ---
EXAM: CHEST-2 VIEWS HISTORY: abnormal exam TECHNIQUE: Two views COMPARISON: Multiple recent prior films FINDINGS: The lungs are hyperexpanded. No cardiomegaly. There are increased interstitial markings in the mid and lower lungs. These are most pronounced in the left costophrenic angle. The majority of the markings are likely due to fibrosis. Left lower lung mass again demonstrated. This was described on the recent CT. IMPRESSION: No interval improvement. Electronically signed by Esau Kelly 05/15/2019 7:39 AM
[2019-05-15] MEDS: MUCOMYST 20% INH SCH ×2 (07:44→19:46)
[2019-05-15] MEDS: PULMICORT INH SCH ×2 (08:00→19:46)
[2019-05-15] MEDS: MIRALAX PO SCH (08:35)
[2019-05-15] MEDS: METAMUCIL POWDER PACKET PO SCH (08:35)
[2019-05-15] MEDS: PAXIL PO SCH (08:36)
[2019-05-15] MEDS: FLOMAX PO SCH (08:36)
[2019-05-15] MEDS: KEPPRA PO SCH ×2 (08:36→20:39)
[2019-05-15] MEDS: PREDNISONE PO SCH (08:36)
[2019-05-15] MEDS: LEVAQUIN PO SCH (08:36)
[2019-05-15] MEDS: MUCINEX PO SCH ×2 (08:36→20:39)
[2019-05-15] MEDS: LOVENOX SUBQ SCH (08:37)
[2019-05-15] MEDS: FERROUS SULFATE PO SCH (08:37)
[2019-05-15] MEDS: DULCOLAX PR SCH (08:37)
[2019-05-15] MEDS: NICODERM PATCH TD SCH (08:37)
[2019-05-15] MEDS: FLONASE NAS SCH (08:38)
--- NOTE | 2019-05-15 19:37 | PROGRESS NOTE ---
DATE: 05/15/2019 SUBJECTIVE: The patient is resting comfortably. He states that he is feeling much better today. No acute events noted overnight. OBJECTIVE: Vital Signs: Temperature 98.3 degrees, blood pressure 113/64, heart rate 93, respirations 18, O2 saturation 94% on 3 L nasal cannula. General: This is a chronically-ill- appearing elderly male lying in bed, in no acute distress. Heart: S1, S2 normal. Tachycardic. Lungs: Equal air entry bilaterally. No wheezing. Abdomen: Positive bowel sounds. Soft, nontender, nondistended. Extremities: No edema, no cyanosis. Neurologic: The patient is alert and oriented x4. LABS: White blood cell count 15, hemoglobin 10, hematocrit 34, platelets 415. Sodium 137, potassium 4.1, chloride 98. CO2 is 31, BUN 14, creatinine 0.7, glucose 89. ASSESSMENT AND PLAN: 1. Chronic hypoxemic respiratory failure. Continue to treat the underlying medical issues. 2. Chronic obstructive pulmonary disease exacerbation. Continue on steroid taper, oxygen, antibiotics and bronchodilator therapy. 3. Left lower lobe pneumonia. Continue on the current antibiotic regimen. 4. History of Pseudomonas and Stenotrophomonas pneumonia. Aware. 5. Left basilar opacity. Continue with the current treatment regimen. Repeat CT of the chest at the discretion of . 6. Anxiety disorder. Continue on Ativan. 7. Seizure disorder. Continue on Keppra. 8. Situational depression. Continue on Paxil. 9. Benign prostatic hypertrophy. Continue on Flomax. 10. Deep vein thrombosis prophylaxis. Continue on Lovenox. 11. Disposition. We will plan to discharge the patient home once cleared by Dr. Almonte. cc: Salima Dubon MD [facility]
[2019-05-15] MEDS: ATIVAN PO SCH (20:39)
[2019-05-15] MEDS: REMERON PO SCH (20:39)
[2019-05-16] MEDS: DULCOLAX PR SCH ×3 (00:27→21:10)
[2019-05-16] MEDS: MIRALAX PO SCH ×3 (00:28→21:10)
[2019-05-16] MEDS: PRILOSEC PO SCH ×3 (00:31→11:39)
[2019-05-16] MEDS: ZOSYN 4.5 GM in NS 100 ML IV SCH ×5 (00:38→22:36)
[2019-05-16] MEDS: BENADRYL PO PRN ×2 (01:06→08:33)
[2019-05-16] MEDS: PERCOCET-10 PO PRN ×4 (02:38→22:36)
[2019-05-16] MEDS: DUONEB (A & A) INH SCH ×6 (03:45→23:05)
[2019-05-16] MEDS: VANCOMYCIN 1,700 MG in NS 250 ML IV SCH ×2 (05:40→18:30)
[2019-05-16 06:56] LABS: BASO# 0.03 X1000 (0.0-0.2); BASO% 0.2 % (0.0-0.8); EOS# 0.94 X1000 (0.0-0.7); EOS% 7.2 % (0.0-10.0); HEMOGLOBIN 10.1 g/dL (14.0-18.0); IMM GRAN# 0.64 X1000 (0.0-0.04); IMM GRAN% 4.9 % (0.0-0.5); LYMPH# 1.92 X1000 (1.2-3.4); LYMPH% 14.6 % (20.5-51.1); MCH 26.8 PG (27-31); MCHC 29.7 g/dL (33-37); MCV 90.2 FL (81-99); MONO# 1.02 X1000 (0.11-0.59); MONO% 7.8 % (1.7-9.3); NEUT# 8.57 X1000 (1.4-6.5); NEUT% 65.3 % (42.2-75.2); PLT 381 X1000 (130-400); RBC 3.77 XMIL (4.7-6.1); RDW 17.2 % (11.5-14.5); WBC 13.12 X1000 (4.8-10.8)
[2019-05-16 07:38] LABS: AGAP 11; BUN 13 mg/dL (8-22); CALCIUM 8.7 mg/dL (8.8-10.2); CHLORIDE 97 mmol/L (98-107); COSMO 273; CREATININE 0.7 mg/dL (0.7-1.2); ESTIMATED GFR > 60; GLUCOSE 124 mg/dL (70-104); SODIUM 136 mmol/L (136-145); TCO2 28 mmol/L (25-35)
[2019-05-16] MEDS: PULMICORT INH SCH ×2 (08:09→19:45)
[2019-05-16] MEDS: MUCOMYST 20% INH SCH ×2 (08:09→19:45)
[2019-05-16] MEDS: FERROUS SULFATE PO SCH (08:33)
[2019-05-16] MEDS: NICODERM PATCH TD SCH (08:33)
[2019-05-16] MEDS: MUCINEX PO SCH ×2 (08:33→21:09)
[2019-05-16] MEDS: METAMUCIL POWDER PACKET PO SCH (08:34)
[2019-05-16] MEDS: LEVAQUIN PO SCH (08:34)
[2019-05-16] MEDS: FLOMAX PO SCH (08:34)
[2019-05-16] MEDS: PAXIL PO SCH (08:34)
[2019-05-16] MEDS: KEPPRA PO SCH ×2 (08:34→21:10)
[2019-05-16] MEDS: LOVENOX SUBQ SCH (08:34)
[2019-05-16] MEDS: PREDNISONE PO SCH (08:34)
[2019-05-16] MEDS: FLONASE NAS SCH (11:12)
--- NOTE | 2019-05-16 16:10 | PROGRESS NOTE ---
DATE: 05/16/2019 SUBJECTIVE: The patient is resting comfortably. He states that he is still doing well. No new complaints. OBJECTIVE: Vital Signs: Temperature 97.4 degrees, blood pressure 133/68, heart rate 80, respirations 20, O2 saturation 91% on 3 L nasal cannula. General: This is a chronically ill- appearing elderly male lying in bed in no acute distress. Heart: S1, S2 normal. Regular rate and rhythm. Lungs: End expiratory wheezes noted. Abdomen: Positive bowel sounds. Soft, nontender, nondistended. Extremities: No edema, no cyanosis. Neurologic: The patient is alert and oriented x4. LABORATORY: White blood cell count 13, hemoglobin 10, hematocrit 34, platelets 381,000. Sodium 136, potassium 4, chloride 97, CO2 28, BUN 13, creatinine 0.7, glucose 124. ASSESSMENT AND PLAN: 1. Chronic hypoxemic respiratory failure. Stable. 2. Chronic obstructive pulmonary disease exacerbation. Continue on the steroid taper, oxygen, antibiotics and bronchodilator therapy. 3. Left lower lobe pneumonia. Continue with the current antibiotic regimen. 4. History of pseudomonas and Stenotrophomonas pneumonia. Aware. 5. Left basilar opacity. A repeat CT of the chest is pending for today. 6. Seizure disorder. Continue on Keppra. 7. Anxiety disorder. Continue on Ativan. 8. Situational depression. Continue on Paxil. 9. Benign prostatic hypertrophy. Continue on Flomax. 10. Deep vein thrombosis prophylaxis. Continue on Lovenox. 11. Disposition. The patient states that he does not feel up to going home right now. We will continue with the current treatment regimen. cc: Salima Dubon [facility] [place]
[2019-05-16] MEDS: ATIVAN PO SCH (21:09)
[2019-05-16] MEDS: HYDROCORTISONE 1% CREAM TOP PRN (21:10)
[2019-05-16] MEDS: REMERON PO SCH (21:10)
--- NOTE | 2019-05-16 22:12 | Diag Imaging Result Doc PS360 ---
EXAM: CT THORAX W/O CONTRAST HISTORY: f/u lung mass TECHNIQUE: CT chest without intravenous contrast COMPARISON: 05/06/2019 FINDINGS: Severe emphysema. No cardiomegaly. Trace left pleural fluid similar to the prior exam. Severe fibrosis. Mediastinal and hilar adenopathy which may be slightly less prominent. Left lower lobe mass is unchanged. Infiltrates in the left lower lobe. IMPRESSION: 1.Left lower lobe mass unchanged 2.Severe emphysema 3.Severe fibrosis 4.Left lower lobe infiltrates 5.Adenopathy which is more difficult to see without contrast, but which may be slightly improved This exam was performed using automated exposure control, adjustment of mA or kV according to patient size, and/or use of iterative reconstruction technique. Electronically signed by Esau Kelly 05/16/2019 10:10 PM
--- NOTE | 2019-05-16 23:24 | PULMONOLOGY PROGRESS NOTE ---
DATE: 05/16/2019 SUBJECTIVE: The patient is awake and alert. He has been ambulating short distances. He continues to have significant sputum production. OBJECTIVE: Vital Signs: The patient has been afebrile for the last 24 hours. Blood pressure 108/65, heart rate 69, respiratory rate 20, oxygen saturation 94% on 3 L per nasal cannula. HEENT: Pupils are equal and reactive. Oropharynx is clear. Neck: Supple. Chest: Reveals rhonchi bilaterally. Cardiac: S1-S2. Abdomen: Soft. Extremities: Without edema. LABORATORIES: Chest x-ray reveals bilateral coarse markings along with mass at the left base. White blood count 13.1, hemoglobin 10.1, platelet count 381,000. IMPRESSION: 1. A 63-year-old with pneumonia. 2. Mass-like area in the left base. 3. Chronic obstructive pulmonary disease. 4. History of Stenotrophomonas maltophilia and Pseudomonas. PLAN: 1. CT scan of the thorax was requested earlier today but has not yet been completed. If the mass in the left base has not changed/improved, would recommend proceeding with his CT-guided biopsy. He has had 10 days of antibiotics. 2. Continue current steroid dosing. 3. Continue antibiotics and current bronchodilators. cc: Juan Miguel Almonte MD
[2019-05-17] MEDS: BENADRYL PO PRN ×2 (03:09→12:50)
[2019-05-17] MEDS: DUONEB (A & A) INH SCH ×6 (03:30→23:05)
[2019-05-17] MEDS: ZOSYN 4.5 GM in NS 100 ML IV SCH ×3 (05:35→16:55)
[2019-05-17] MEDS: VANCOMYCIN 1,700 MG in NS 250 ML IV SCH ×2 (06:33→18:59)
[2019-05-17] MEDS: MUCOMYST 20% INH SCH ×2 (07:43→20:15)
[2019-05-17] MEDS: PULMICORT INH SCH ×2 (07:44→20:15)
[2019-05-17 07:53] LABS: BASO# 0.03 X1000 (0.0-0.2); BASO% 0.2 % (0.0-0.8); EOS# 0.98 X1000 (0.0-0.7); EOS% 8.1 % (0.0-10.0); HEMATOCRIT 36.3 % (42.0-52.0); HEMOGLOBIN 10.8 g/dL (14.0-18.0); IMM GRAN# 0.47 X1000 (0.0-0.04); IMM GRAN% 3.9 % (0.0-0.5); LYMPH# 1.58 X1000 (1.2-3.4); MCHC 29.8 g/dL (33-37); MCV 90.8 FL (81-99); MONO# 0.92 X1000 (0.11-0.59); MONO% 7.6 % (1.7-9.3); MPV 9.4 FL (7.4-10.4); NEUT# 8.16 X1000 (1.4-6.5); NEUT% 67.2 % (42.2-75.2); PLT 391 X1000 (130-400); RDW 17.1 % (11.5-14.5); WBC 12.14 X1000 (4.8-10.8)
[2019-05-17 08:15] LABS: AGAP 8; BUN 13 mg/dL (8-22); CALCIUM 8.8 mg/dL (8.8-10.2); CHLORIDE 98 mmol/L (98-107); COSMO 276; CREATININE 0.7 mg/dL (0.7-1.2); ESTIMATED GFR > 60; GLUCOSE 99 mg/dL (70-104); POTASSIUM 4.1 mmol/L (3.5-5.1); SODIUM 138 mmol/L (136-145); TCO2 32 mmol/L (25-35)
[2019-05-17] MEDS: PRILOSEC PO SCH (08:38)
[2019-05-17] MEDS: METAMUCIL POWDER PACKET PO SCH (10:25)
[2019-05-17] MEDS: NICODERM PATCH TD SCH (10:25)
[2019-05-17] MEDS: MIRALAX PO SCH ×2 (10:25→20:23)
[2019-05-17] MEDS: PREDNISONE PO SCH (10:26)
[2019-05-17] MEDS: KEPPRA PO SCH ×2 (10:26→20:25)
[2019-05-17] MEDS: PAXIL PO SCH (10:26)
[2019-05-17] MEDS: FLOMAX PO SCH (10:26)
[2019-05-17] MEDS: LEVAQUIN PO SCH (10:26)
[2019-05-17] MEDS: FERROUS SULFATE PO SCH (10:26)
[2019-05-17] MEDS: MUCINEX PO SCH ×2 (10:26→20:24)
[2019-05-17] MEDS: LOVENOX SUBQ SCH (10:27)
[2019-05-17] MEDS: DULCOLAX PR SCH ×2 (10:27→20:29)
[2019-05-17] MEDS: FLONASE NAS SCH (10:29)
[2019-05-17] MEDS: PERCOCET-10 PO PRN ×2 (10:36→17:00)
--- NOTE | 2019-05-17 13:45 | PROVIDER PROGRESS NOTE ---
Progress Note Dr. Salazar Progress Note/Pulmonary and or critical care We appreciated progress of care, Complications, change in diagnosis, and instructions to patient. Subjective: We note the level of consciousness, bed (chair) position, family presence (if any), level of lethargy, feeling of symptoms, and changes from baseline condition/symptom. Patient is sitting in bed. Family member at bedside. He is on NC 3 L which is his baseline oxygen requirement. He states he is feeling better. Objective: Vital Signs: We reviewed EMR current values for Pulse rate, Blood pressure, Pulse rate, respiratory rate and Pulse oximetry. Also noted other values and trends if present (e.g. I/O, CVP). T 98.5 , [place] 96 , RR 16 , BP 113/70 and SaO2 98 on NC 3 L. Physical Examination: General: sitting in bed having lunch with no acute distress noted. Appears cachectic. HEENT: Normocephalic. Trachea midline. Mucosa pink and moist. Chest: Even and unlabored. Symmetrical excursion. Auscultation reveals very mild expiratory wheezing bibasilarly and inspiratory coarse crackles LLL. CVS: S1 and S2 appreciated. Abdomen: Soft. Non-tender. Non-distended. Normoactive bowel sounds in all 4 quadrants. Extremities: No pedal edema. No cyanosis. No clubbing. Dorsalis pedis 2+ bilaterally. Neuro: A/O x4. Speech fluent. Following commands. Management, face to face evaluation by Dr. Salazar. XENIA did scribing only. Labs and Radiology: Reviewed available labs and radiology values available at time of EMR review. Laboratory Results 05/17/19 05/17/19 07:00 07:00 WBC 12.14 H RBC 4.00 L Hgb 10.8 L Hct 36.3 L MCV 90.8 MCH 27.0 MCHC 29.8 L RDW Std Deviation 17.1 H Plt Count 391 MPV 9.4 Immature Gran % (Auto) 3.9 H Neut % (Auto) 67.2 Lymph % (Auto) 13.0 L Hooker % (Auto) 7.6 Eos % (Auto) 8.1 Baso % (Auto) 0.2 Immature Gran # (Auto) 0.47 H Neut # (Auto) 8.16 H Lymph # (Auto) 1.58 Hooker # (Auto) 0.92 H Eos # (Auto) 0.98 H Baso # (Auto) 0.03 Sodium 138 Potassium 4.1 Chloride 98 Carbon Dioxide 32 Anion Gap 8 BUN 13 Creatinine 0.7 Estimated GFR/1.73 m2 > 60 BUN/Creatinine Ratio 19 Glucose 99 Calculated Osmolality 276 Calcium 8.8 Assessment: Acute on chronic hypoxemic respiratory failure. COPD with pulmonary fibrosis. LLL masslike opacity measuring up to 6 cm with worsened hilar and mediastinal adenopathy. Tobacco use. Stenotrophomonas maltophilia and Pseudomonas in prior sputum cultures. Plan: Continue current treatment and supportive care per admitting and other teams on the case. Antibiotic (Zosyn and Vancomycin). Bronchodilators. Mucomyst. IV Solu-Medrol. GI and DVT prophylaxis. Outpatient CT followup. Discharge planning per Admitting MD> Input was appreciated from Admitting MD and other teams on the case.
--- NOTE | 2019-05-17 18:47 | PROGRESS NOTE ---
DATE: 05/17/2019 SUBJECTIVE: The patient is sitting up in bed eating. He states that he feels okay. He still is coughing. OBJECTIVE: Vital Signs: Temperature 98.5 degrees, blood pressure 113/70, heart rate 88, respirations 16, O2 saturation 98% on 3 L nasal cannula. General: This is a chronically ill- appearing elderly male, lying in bed in no acute distress. Heart: S1, S2 normal. Regular rate and rhythm. Lungs: Mild expiratory wheezes bilaterally. Abdomen: Positive bowel sounds. Soft, nontender, nondistended. Extremities: No edema, no cyanosis. Neurologic: The patient is alert and oriented x3. LABORATORY DATA: White blood cell count 12, hemoglobin 10, hematocrit 36, platelets 391,000. Sodium 138, potassium 4.1, chloride 98, CO2 is 32, BUN 13, creatinine 0.7, glucose 99. ASSESSMENT AND PLAN: 1. Chronic hypoxemic respiratory failure. Stable. 2. Chronic obstructive pulmonary disease exacerbation. Continue on the current treatment regimen. 3. Left lower lobe pneumonia. The patient remains on antibiotic, bronchodilator therapy and supplemental oxygen. Day 11 of antibiotic therapy. 4. Left basilar opacity. The repeat CT scan done yesterday reveals that the opacity has not changed. We will order a CT-guided biopsy to be done on Monday. 5. Seizure disorder. Continue on Keppra. 6. Anxiety disorder. Continue on Ativan. 7. Situational depression. Continue on Paxil. 8. Benign prostatic hypertrophy. Continue on Flomax. 9. Deep vein thrombosis prophylaxis. Continue on Lovenox. 10. Disposition. I discussed the CT results with the patient and he states that he would like to go forward with the CT-guided lung biopsy on Monday. We will make the patient NPO at midnight Monday night. cc: Salima Dubon MD [facility]TDD
[2019-05-17] MEDS: VANCOMYCIN 1,900 MG in NS 500 ML IV SCH (20:23)
[2019-05-17] MEDS: ATIVAN PO SCH (20:23)
[2019-05-17] MEDS: REMERON PO SCH (20:24)
[2019-05-18] MEDS: PERCOCET-10 PO PRN ×2 (00:24→19:03)
[2019-05-18] MEDS: ZOSYN 4.5 GM in NS 100 ML IV SCH ×4 (01:10→18:57)
--- NOTE | 2019-05-18 02:49 | EKG Report ---
Test Performed on : 05/18/2019 02:10:33 AM Test Reason : 26 beat run of v-tach per telemetry Blood Pressure : / mmHG Vent. Rate : 091 BPM Atrial Rate : 091 BPM P-R Int : 158 ms QRS Dur : 110 ms QT Int : 386 ms P-R-T Axes : 060 -34 051 degrees QTc Int : 474 ms Sinus rhythm. with occasional premature ventricular complexes. Left axis deviation Incomplete right bundle branch block Voltage criteria for left ventricular hypertrophy Abnormal ECG When compared with ECG of 06-MAY-2019 08:42, (Unconfirmed) No significant change was found Confirmed by Casey Ménedz MD ([id number]) on 05/18/2019 8:42:18 AM
[2019-05-18] MEDS: DUONEB (A & A) INH SCH ×6 (03:05→23:00)
[2019-05-18 03:10] LABS: BASO# 0.03 X1000 (0.0-0.2); BASO% 0.3 % (0.0-0.8); EOS# 0.75 X1000 (0.0-0.7); EOS% 6.7 % (0.0-10.0); HEMOGLOBIN 10.8 g/dL (14.0-18.0); IMM GRAN% 3.6 % (0.0-0.5); LYMPH# 1.74 X1000 (1.2-3.4); LYMPH% 15.5 % (20.5-51.1); MCH 27.1 PG (27-31); MCV 90.5 FL (81-99); MONO# 0.65 X1000 (0.11-0.59); MONO% 5.8 % (1.7-9.3); MPV 9.2 FL (7.4-10.4); NEUT# 7.63 X1000 (1.4-6.5); NEUT% 68.1 % (42.2-75.2); PLT 393 X1000 (130-400); RBC 3.98 XMIL (4.7-6.1); RDW 16.9 % (11.5-14.5)
[2019-05-18 03:31] LABS: MAGNESIUM 1.8 mg/dL (1.5-2.7)
[2019-05-18 03:32] LABS: AGAP 9; BUN 12 mg/dL (8-22); CHLORIDE 100 mmol/L (98-107); COSMO 280; CREATININE 0.7 mg/dL (0.7-1.2); ESTIMATED GFR > 60; GLUCOSE 115 mg/dL (70-104); POTASSIUM 3.9 mmol/L (3.5-5.1); SODIUM 140 mmol/L (136-145); TCO2 31 mmol/L (25-35)
[2019-05-18] MEDS: PRILOSEC PO SCH (06:29)
[2019-05-18] MEDS: PULMICORT INH SCH ×2 (08:14→19:28)
[2019-05-18] MEDS: MUCOMYST 20% INH SCH ×2 (08:14→19:29)
[2019-05-18] MEDS: VANCOMYCIN 1,900 MG in NS 500 ML IV SCH ×2 (11:49→23:13)
[2019-05-18] MEDS: PAXIL PO SCH (12:44)
[2019-05-18] MEDS: FERROUS SULFATE PO SCH (12:44)
[2019-05-18] MEDS: MUCINEX PO SCH ×2 (12:44→20:23)
[2019-05-18] MEDS: LEVAQUIN PO SCH (12:45)
[2019-05-18] MEDS: PREDNISONE PO SCH (12:45)
[2019-05-18] MEDS: KEPPRA PO SCH ×2 (12:45→20:23)
[2019-05-18] MEDS: NICODERM PATCH TD SCH (12:46)
[2019-05-18] MEDS: DULCOLAX PR SCH ×2 (12:46→20:24)
[2019-05-18] MEDS: FLOMAX PO SCH (12:46)
[2019-05-18] MEDS: FLONASE NAS SCH (12:47)
[2019-05-18] MEDS: LOVENOX SUBQ SCH (12:47)
[2019-05-18] MEDS: MIRALAX PO SCH ×2 (12:47→20:24)
[2019-05-18] MEDS: METAMUCIL POWDER PACKET PO SCH (12:47)
--- NOTE | 2019-05-18 15:09 | PROVIDER PROGRESS NOTE ---
Progress Note Dr. Salazar Progress Note/Pulmonary and or critical care We appreciated progress of care, Complications, change in diagnosis, and instructions to patient. Subjective: We note the level of consciousness, bed (chair) position, family presence (if any), level of lethargy, feeling of symptoms, and changes from baseline condition/symptom. Patient is lying in bed sleeping. He is on NC 2 L. Objective: Vital Signs: We reviewed EMR current values for Pulse rate, Blood pressure, Pulse rate, respiratory rate and Pulse oximetry. Also noted other values and trends if present (e.g. I/O, CVP). T 98.1 , PA 91 , RR 14 , BP 114/56 and SaO2 95 on NC 2 L. Physical Examination: General: Lying in bed having sleeping with no acute distress noted. Appears cachectic. HEENT: Normocephalic. Trachea midline. Mucosa pink and moist. Chest: Even and unlabored. Symmetrical excursion. Auscultation reveals very mild expiratory wheezing bibasilarly and inspiratory coarse crackles LLL. CVS: S1 and S2 appreciated. Abdomen: Soft. Non-tender. Non-distended. Normoactive bowel sounds in all 4 quadrants. Extremities: No pedal edema. No cyanosis. No clubbing. Dorsalis pedis 2+ bilaterally. Neuro: A/O x4. Speech fluent. Following commands. Management, face to face evaluation by Dr. Salazar. XENIA Amaya did scribing only. Labs and Radiology: Reviewed available labs and radiology values available at time of EMR review. Laboratory Results 05/17/19 05/18/19 05/18/19 17:38 02:25 02:25 WBC 11.20 H RBC 3.98 L Hgb 10.8 L Hct 36.0 L MCV 90.5 MCH 27.1 MCHC 30.0 L RDW Std Deviation 16.9 H Plt Count 393 MPV 9.2 Immature Gran % (Auto) 3.6 H Neut % (Auto) 68.1 Lymph % (Auto) 15.5 L [place] % (Auto) 5.8 Eos % (Auto) 6.7 Baso % (Auto) 0.3 Immature Gran # (Auto) 0.40 H Neut # (Auto) 7.63 H Lymph # (Auto) 1.74 [place] # (Auto) 0.65 H Eos # (Auto) 0.75 H Baso # (Auto) 0.03 Sodium 140 Potassium 3.9 Chloride 100 Carbon Dioxide 31 Anion Gap 9 BUN 12 Creatinine 0.7 Estimated GFR/1.73 m2 > 60 BUN/Creatinine Ratio 17 Glucose 115 H Calculated Osmolality 280 Calcium 9.0 Magnesium Creatine Kinase Troponin T High Sens Random Vancomycin 14.50 05/18/19 05/18/19 02:25 02:25 WBC RBC Hgb Hct MCV MCH MCHC RDW Std Deviation Plt Count MPV Immature Gran % (Auto) Neut % (Auto) Lymph % (Auto) [place] % (Auto) Eos % (Auto) Baso % (Auto) Immature Gran # (Auto) Neut # (Auto) Lymph # (Auto) [place] # (Auto) Eos # (Auto) Baso # (Auto) Sodium Potassium Chloride Carbon Dioxide Anion Gap BUN Creatinine Estimated GFR/1.73 m2 BUN/Creatinine Ratio Glucose Calculated Osmolality Calcium Magnesium 1.8 Creatine Kinase 15 L Troponin T High Sens 11 Random Vancomycin Assessment: Acute on chronic hypoxemic respiratory failure. COPD with pulmonary fibrosis. LLL masslike opacity measuring up to 6 cm with worsened hilar and mediastinal adenopathy. Tobacco use. Stenotrophomonas maltophilia and Pseudomonas in prior sputum cultures. Plan: Continue current treatment and supportive care per admitting and other teams on the case. Will titrate supplemental O2 by patient response and protocol. Antibiotic (Zosyn and Vancomycin). Bronchodilators. Mucomyst. IV Solu-Medrol. GI and DVT prophylaxis. Outpatient CT followup. Discharge planning per Admitting MD> Input was appreciated from Admitting MD and other teams on the case.
[2019-05-18] MEDS: ATIVAN PO SCH (20:23)
[2019-05-18] MEDS: REMERON PO SCH (20:23)
--- NOTE | 2019-05-18 22:04 | PROGRESS NOTE ---
DATE: 05/18/2019 SUBJECTIVE: The patient is sitting up in bed eating. He has no complaints at this time. OBJECTIVE: Vital Signs: Temperature 98.1, blood pressure 114/56, heart rate 88, respirations 16, O2 saturation 95% on 2 L nasal cannula. General: This is a ecdqikcbfav-jet-yisfapgmk elderly male lying in bed in no acute distress. Heart: S1, S2. Normal. Lungs: Diminished air entry bilaterally. No wheezing. No rales. Abdomen: Positive bowel sounds. Soft, nontender, nondistended. Extremities: No edema. No cyanosis. Neurologic: The patient is alert and oriented x4. LABS: White blood cell count 11, hemoglobin 10, hematocrit 36, platelets 393. Sodium 140, potassium 3.9, chloride 100, CO2 31, BUN 12, creatinine 0.7, glucose 115, magnesium 1.8. ASSESSMENT AND PLAN: 1. Chronic hypoxemic respiratory failure. Stable. 2. Chronic obstructive pulmonary disease exacerbation. Improved. 3. Left lower lobe pneumonia. The patient is currently on Zosyn and Levaquin. 4. Benign prostatic hypertrophy. Continue on Flomax. 5. History of pseudomonas and Stenotrophomonas pneumonia. Aware. 6. Left basilar opacity. The patient is scheduled to undergo a CT-guided lung biopsy on Monday. 7. Anxiety disorder. Continue on Ativan. 8. Seizure disorder. Continue on Keppra. 9. Situational depression. Continue on Paxil. 10. Benign prostatic hypertrophy. Continue on Flomax. 11. Deep vein thrombosis prophylaxis. Continue on Lovenox. cc: Salima Dubon MD
[2019-05-19] MEDS: TYLENOL PO PRN (00:08)
[2019-05-19] MEDS: BENADRYL PO PRN ×2 (00:08→18:17)
[2019-05-19] MEDS: PERCOCET-10 PO PRN ×4 (01:28→21:11)
[2019-05-19] MEDS: ZOSYN 4.5 GM in NS 100 ML IV SCH ×4 (02:18→21:01)
[2019-05-19] MEDS: DUONEB (A & A) INH SCH ×6 (03:20→22:47)
[2019-05-19] MEDS: PRILOSEC PO SCH (06:31)
[2019-05-19 07:22] LABS: INR 0.84; PROTIME 11.6 Seconds (11.0-16.0)
[2019-05-19] MEDS: MUCOMYST 20% INH SCH ×2 (07:52→20:05)
[2019-05-19] MEDS: PULMICORT INH SCH ×2 (07:52→20:05)
[2019-05-19] MEDS: NICODERM PATCH TD SCH (08:06)
[2019-05-19] MEDS: PAXIL PO SCH (08:07)
[2019-05-19] MEDS: METAMUCIL POWDER PACKET PO SCH (08:07)
[2019-05-19] MEDS: MIRALAX PO SCH ×2 (08:07→21:01)
[2019-05-19] MEDS: FERROUS SULFATE PO SCH (08:07)
[2019-05-19] MEDS: KEPPRA PO SCH ×2 (08:08→21:01)
[2019-05-19] MEDS: MUCINEX PO SCH ×2 (08:08→21:01)
[2019-05-19] MEDS: FLOMAX PO SCH (08:08)
[2019-05-19] MEDS: LEVAQUIN PO SCH (08:08)
[2019-05-19] MEDS: DULCOLAX PR SCH ×2 (08:08→21:01)
[2019-05-19] MEDS: PREDNISONE PO SCH (08:08)
[2019-05-19] MEDS: FLONASE NAS SCH (08:08)
[2019-05-19 08:21] LABS: AGAP 13; BUN 10 mg/dL (8-22); CALCIUM 8.9 mg/dL (8.8-10.2); CHLORIDE 102 mmol/L (98-107); COSMO 281; CREATININE 0.7 mg/dL (0.7-1.2); ESTIMATED GFR > 60; GLUCOSE 108 mg/dL (70-104); POTASSIUM 4.2 mmol/L (3.5-5.1); SODIUM 141 mmol/L (136-145); TCO2 26 mmol/L (25-35)
[2019-05-19] MEDS: VANCOMYCIN 1,900 MG in NS 500 ML IV SCH (11:49)
--- NOTE | 2019-05-19 17:15 | Diag Imaging Result Doc PS360 ---
EXAM: CHEST-2 VIEWS 05/19/2019 HISTORY: pneumonia TECHNIQUE: PA and lateral chest COMMENT: There is extensive interstitial opacity bilaterally. There is superimposed volume loss and opacity in the right middle lobe which was not present on 05/15/2019. IMPRESSION: Atelectasis and/or pneumonia in the right middle lobe. Pulmonary fibrosis. Electronically signed by George Canas 05/19/2019 5:12 PM
--- NOTE | 2019-05-19 19:30 | PROVIDER PROGRESS NOTE ---
Progress Note Progress Note Dr. Salazar Progress Note/Pulmonary and or critical care We appreciated progress of care, Complications, change in diagnosis, and instructions to patient. Subjective: We note the level of consciousness, bed (chair) position, family presence (if any), level of lethargy, feeling of symptoms, and changes from baseline condition/symptom. Patient is lying in bed sleeping. He is on NC 2 L. Objective: Vital Signs: We reviewed EMR current values for Pulse rate, Blood pressure, Pulse rate, respiratory rate and Pulse oximetry. Also noted other values and trends if present (e.g. I/O, CVP). T 97.6 , UT 101 , RR 18 , BP 122/74 and SaO2 95% on NC 2 L. Physical Examination: General: Lying in bed having sleeping with no acute distress noted. Appears cachectic. HEENT: Normocephalic. Trachea midline. Mucosa pink and moist. Chest: Even and unlabored. Symmetrical excursion. Auscultation reveals very mild expiratory wheezing bilaterally. CVS: S1 and S2 appreciated. Abdomen: Soft. Non-tender. Non-distended. Normoactive bowel sounds in all 4 quadrants. Extremities: No pedal edema. No cyanosis. No clubbing. Dorsalis pedis 2+ bilaterally. Neuro: A/O x4. Speech fluent. Following commands. Management, face to face evaluation by Dr. Salazar. XENIA Amaya did scribing only. Labs and Radiology: Reviewed available labs and radiology values available at time of EMR review. Laboratory Results 05/19/19 05/19/19 06:58 06:58 PT 11.6 INR 0.84 PTT (Actin FS) 33.0 Sodium 141 Potassium 4.2 Chloride 102 Carbon Dioxide 26 Anion Gap 13 BUN 10 Creatinine 0.7 Estimated GFR/1.73 m2 > 60 BUN/Creatinine Ratio 14 Glucose 108 H Calculated Osmolality 281 Calcium 8.9 Assessment: Acute on chronic hypoxemic respiratory failure. COPD with pulmonary fibrosis. LLL masslike opacity measuring up to 6 cm with worsened hilar and mediastinal adenopathy. Tobacco use. Stenotrophomonas maltophilia and Pseudomonas in prior sputum cultures. Plan: Continue current treatment and supportive care per admitting and other teams on the case. Will titrate supplemental O2 by patient response and protocol. Antibiotic (Zosyn and Vancomycin). Bronchodilators. Mucomyst. IV Solu-Medrol. GI and DVT prophylaxis. Discharge planning per Admitting MD> Input was appreciated from Admitting MD and other teams on the case.
[2019-05-19] MEDS: REMERON PO SCH (21:01)
[2019-05-19] MEDS: ATIVAN PO SCH (21:12)
--- NOTE | 2019-05-19 22:20 | PROGRESS NOTE ---
DATE: 05/19/2019 SUBJECTIVE: The patient is resting comfortably in bed. He has no complaints at this time. He is eating well and having regular bowel movements. OBJECTIVE: Vital Signs: Temperature 97.6 degrees, blood pressure 122/74, heart rate 91, respirations 16, O2 saturation 95% on 2 L nasal cannula. General: This is a chronically ill- appearing elderly male sitting up in bed in no acute distress. Heart: S1, S2 normal. Lungs: Equal air entry bilaterally. No crackles. No rales. Abdomen: Positive bowel sounds. Soft, nontender, nondistended. Extremities: No edema, no cyanosis. Neuro: The patient is alert and oriented x3. LABS: Sodium 141, potassium 4.2, BUN 10, creatinine 0.7, glucose 108. Chest x-ray reveals pneumonia in the right middle lobe. Pulmonary fibrosis. ASSESSMENT AND PLAN: 1. Chronic hypoxemic respiratory failure. Stable. 2. Left lower lobe pneumonia. Continue on the current treatment regimen. 3. Left basilar opacity. The patient is scheduled to undergo a CT-guided biopsy on Monday. 4. Chronic obstructive pulmonary disease . Improved. Continue on the steroid taper. 5. History of pseudomonas and Stenotrophomonas pneumonia. Aware. 6. Anxiety disorder. Continue on Ativan. 7. Seizure disorder. Continue on Keppra. 8. Situational depression. Continue on Paxil. 9. Benign prostatic hypertrophy. Continue on Flomax. 10. Deep vein thrombosis prophylaxis. The Lovenox is on hold due to the scheduled CT-guided biopsy tomorrow. cc: Salima Dubon MD MTDD
[2019-05-20] MEDS: VANCOMYCIN 1,900 MG in NS 500 ML IV SCH ×2 (01:24→15:06)
[2019-05-20] MEDS: BENADRYL PO PRN (01:24)
[2019-05-20] MEDS: PERCOCET-10 PO PRN ×4 (03:38→22:47)
[2019-05-20] MEDS: DUONEB (A & A) INH SCH ×6 (03:41→23:39)
[2019-05-20] MEDS: ZOSYN 4.5 GM in NS 100 ML IV SCH ×3 (04:29→17:23)
[2019-05-20] MEDS: PRILOSEC PO SCH ×2 (05:02→06:58)
[2019-05-20 07:27] LABS: BASO# 0.02 X1000 (0.0-0.2); BASO% 0.2 % (0.0-0.8); EOS# 0.81 X1000 (0.0-0.7); EOS% 6.7 % (0.0-10.0); HEMATOCRIT 33.7 % (42.0-52.0); HEMOGLOBIN 9.9 g/dL (14.0-18.0); IMM GRAN# 0.15 X1000 (0.0-0.04); IMM GRAN% 1.2 % (0.0-0.5); LYMPH# 1.52 X1000 (1.2-3.4); LYMPH% 12.5 % (20.5-51.1); MCH 26.7 PG (27-31); MCHC 29.4 g/dL (33-37); MCV 90.8 FL (81-99); MONO# 0.89 X1000 (0.11-0.59); MONO% 7.3 % (1.7-9.3); MPV 9.2 FL (7.4-10.4); NEUT# 8.74 X1000 (1.4-6.5); NEUT% 72.1 % (42.2-75.2); PLT 333 X1000 (130-400); RBC 3.71 XMIL (4.7-6.1); RDW 17.2 % (11.5-14.5); WBC 12.13 X1000 (4.8-10.8)
[2019-05-20 07:38] LABS: INR 0.88
[2019-05-20 08:03] LABS: AGAP 10; BUN 9 mg/dL (8-22); CALCIUM 8.6 mg/dL (8.8-10.2); CHLORIDE 100 mmol/L (98-107); COSMO 280; CREATININE 0.7 mg/dL (0.7-1.2); ESTIMATED GFR > 60; GLUCOSE 99 mg/dL (70-104); POTASSIUM 4.1 mmol/L (3.5-5.1); SODIUM 141 mmol/L (136-145); TCO2 31 mmol/L (25-35)
[2019-05-20] MEDS: PULMICORT INH SCH ×2 (08:09→19:46)
[2019-05-20] MEDS: MUCOMYST 20% INH SCH ×2 (08:09→19:46)
--- NOTE | 2019-05-20 10:04 | Diag Imaging Result Doc PS360 ---
CHEST-2 VIEWS - 05/20/2019 INDICATION: POST LEFT LUNG BIOPSY COMPARISON: 05/19/2019 FINDINGS: There is no pneumothorax. IMPRESSION: No evidence of complication. Electronically signed by Parviz Klein 05/20/2019 10:02 AM
[2019-05-20] MEDS: PAXIL PO SCH (10:25)
[2019-05-20] MEDS: FERROUS SULFATE PO SCH (10:26)
[2019-05-20] MEDS: FLOMAX PO SCH (10:26)
[2019-05-20] MEDS: MUCINEX PO SCH ×2 (10:26→21:25)
[2019-05-20] MEDS: LEVAQUIN PO SCH (10:26)
[2019-05-20] MEDS: PREDNISONE PO SCH (10:26)
[2019-05-20] MEDS: DULCOLAX PR SCH ×2 (10:26→21:25)
[2019-05-20] MEDS: KEPPRA PO SCH ×2 (10:26→21:25)
[2019-05-20] MEDS: METAMUCIL POWDER PACKET PO SCH (10:27)
[2019-05-20] MEDS: MIRALAX PO SCH ×2 (10:27→21:25)
[2019-05-20] MEDS: NICODERM PATCH TD SCH (10:27)
[2019-05-20] MEDS: FLONASE NAS SCH (10:30)
--- NOTE | 2019-05-20 12:23 | Diag Imaging Result Doc PS360 ---
CHEST-2 VIEWS - 05/20/2019 12:02 PM INDICATION: POST LUNG BIOPSY COMPARISON: 9:58 AM FINDINGS: There is no pneumothorax. IMPRESSION: No complication. Electronically signed by Parviz Klein 05/20/2019 12:20 PM
--- NOTE | 2019-05-20 14:24 | Diag Imaging Result Doc PS360 ---
CHEST-2 VIEWS - 05/20/2019 2:17 PM INDICATION: POST LUNG BIOPSY COMPARISON: 12:02 PM FINDINGS: There is no pneumothorax. IMPRESSION: No complication. Electronically signed by Parviz Klein 05/20/2019 2:22 PM
--- NOTE | 2019-05-20 14:25 | Diag Imaging Result Doc PS360 ---
CT GUIDED BIOPSY LUNG - 05/20/2019 INDICATION: left lower lobe opacity/mass TECHNIQUE: The risks and benefits of the procedure were discussed with the patient. All questions were answered. Written and verbal informed consent was obtained. Overlying skin was prepped and draped in sterile fashion. Anesthesia was achieved with injection of 10 cc of 1% lidocaine. COMPARISON: Chest CT 05/06/2019 FINDINGS: The lateral left lower lobe pulmonary mass was biopsied with the 6/11 cm 19/20 gauge Temno biopsy needle set. Eight biopsy specimens were obtained. The needles were withdrawn intact. The patient reported no symptoms from the procedure. Postprocedural monitoring and was unremarkable. IMPRESSION: Successful and uncomplicated CT-guided left lower lobe lung mass biopsy. Electronically signed by Parviz Klein 05/20/2019 2:23 PM
--- NOTE | 2019-05-20 15:43 | PROGRESS NOTE ---
DATE: 05/20/2019 SUBJECTIVE: The patient just returned from the CT-guided lung biopsy. He is sitting up eating. He reports that he almost choked on some peas that he was eating yesterday with dinner. OBJECTIVE: Vital Signs: Temperature 98.7 degrees, blood pressure 116/68, heart rate 84, respirations 18, O2 saturation 95% on 2 L nasal cannula. General: This is a chronically ill- appearing elderly male lying in bed in no acute distress. Heart: S1, S2 normal. Regular rate and rhythm. Lungs: Equal air entry bilaterally. No wheezes. No rales. No rhonchi. Abdomen: Positive bowel sounds. Soft, nontender, nondistended. Extremities: No edema, no cyanosis, no calf tenderness. Neurologic: The patient is alert and oriented x4. LABS: White blood cell count 12, hemoglobin 9.9, hematocrit 33, platelets 333,000. Sodium 141, potassium 4.1, chloride 100, CO2 31, BUN 9, creatinine 0.7, glucose 99. ASSESSMENT AND PLAN: 1. Chronic hypoxemic respiratory failure. Stable. 2. Left lower lobe pneumonia. The patient is on day 14 of Zosyn, day 4 of vancomycin and day 7 of Levaquin. 3. Left basilar opacity status post CT-guided lung biopsy. We will await the results of the pathology. Further recommendations to follow from Dr. Almonte. 4. Chronic obstructive pulmonary disease exacerbation. Improved. The patient is on a steroid taper. 5. History of pseudomonas and Stenotrophomonas pneumonia. Aware. 6. Anxiety disorder. Continue on Ativan. 7. Seizure disorder. Continue on Keppra. 8. Situational depression. Continue on Paxil. 9. Benign prostatic hypertrophy. Continue on Flomax. 10. Deep vein thrombosis prophylaxis. We will restart Lovenox. DISPOSITION: We will plan to discharge the patient home once cleared by Dr. Almonte. cc: Salima Dubon MD [facility]
[2019-05-20] MEDS: REMERON PO SCH (21:25)
[2019-05-21] MEDS: ZOSYN 4.5 GM in NS 100 ML IV SCH ×4 (00:05→18:35)
[2019-05-21] MEDS: BENADRYL PO PRN (02:28)
[2019-05-21] MEDS: VANCOMYCIN 1,900 MG in NS 500 ML IV SCH ×2 (02:28→15:47)
[2019-05-21] MEDS: DUONEB (A & A) INH SCH ×6 (03:35→22:59)
[2019-05-21] MEDS: PRILOSEC PO SCH (05:40)
--- NOTE | 2019-05-21 07:27 | EKG Report ---
Test Performed on : 05/21/2019 06:53:01 AM Test Reason : 21 beat run of [employer] Blood Pressure : / mmHG Vent. Rate : 080 BPM Atrial Rate : 080 BPM P-R Int : 168 ms QRS Dur : 116 ms QT Int : 392 ms P-R-T Axes : 081 -34 044 degrees QTc Int : 452 ms Normal sinus rhythm. Left axis deviation Left ventricular hypertrophy with QRS widening Abnormal ECG When compared with ECG of 18-MAY-2019 02:10, premature ventricular complexes. are no longer present Confirmed by Casey Méndez MD ([id number]) on 05/21/2019 1:06:08 PM
[2019-05-21 07:44] LABS: BASO# 0.04 X1000 (0.0-0.2); BASO% 0.4 % (0.0-0.8); EOS# 0.76 X1000 (0.0-0.7); EOS% 8.4 % (0.0-10.0); HEMATOCRIT 35.2 % (42.0-52.0); HEMOGLOBIN 10.3 g/dL (14.0-18.0); IMM GRAN# 0.11 X1000 (0.0-0.04); IMM GRAN% 1.2 % (0.0-0.5); LYMPH# 1.47 X1000 (1.2-3.4); LYMPH% 16.2 % (20.5-51.1); MCH 26.5 PG (27-31); MCHC 29.3 g/dL (33-37); MCV 90.5 FL (81-99); MONO# 0.65 X1000 (0.11-0.59); MONO% 7.1 % (1.7-9.3); MPV 9.4 FL (7.4-10.4); NEUT# 6.07 X1000 (1.4-6.5); NEUT% 66.7 % (42.2-75.2); PLT 335 X1000 (130-400); RBC 3.89 XMIL (4.7-6.1); RDW 17.1 % (11.5-14.5)
[2019-05-21] MEDS: MUCOMYST 20% INH SCH ×2 (07:53→19:49)
[2019-05-21] MEDS: PULMICORT INH SCH ×2 (07:53→19:49)
[2019-05-21 08:17] LABS: AGAP 7; BUN 14 mg/dL (8-22); CHLORIDE 98 mmol/L (98-107); COSMO 274; CREATININE 0.7 mg/dL (0.7-1.2); ESTIMATED GFR > 60; GLUCOSE 101 mg/dL (70-104); POTASSIUM 3.8 mmol/L (3.5-5.1); SODIUM 137 mmol/L (136-145); TCO2 32 mmol/L (25-35)
--- NOTE | 2019-05-21 08:22 | PULMONOLOGY PROGRESS NOTE ---
DATE: 05/20/2019 SUBJECTIVE: The patient is awake and alert. He reports he had his biopsy performed earlier today. He is without new complaints. OBJECTIVE: Vital Signs: The patient has been afebrile for the last 24 hours. Blood pressure 122/72, heart rate 90, respiratory rate 21, oxygen saturation 95%. HEENT: Pupils are equal and reactive. Oropharynx appears clear. Neck: Is supple. Chest: Reveals rhonchi bilaterally but improved. Cardiac exam: S1, S2. Abdomen: Is soft. Extremities: Without edema. LABORATORIES: White blood count 12.13, hemoglobin 9.9, platelet count 333,000. Chest x-ray reveals no evidence of pneumothorax following CT-guided biopsy. IMPRESSION: A 63-year-old with 1. Fibro emphysema. 2. Pneumonia. 3. Masslike area in the left base. 4. Chronic obstructive pulmonary disease with ongoing tobacco use at the time of admission. 5. Status post CT-guided biopsy. PLAN: 1. Continue low-dose steroids. 2. Continue current antibiotic regimen. Consider initiation of an oral antibiotic at the time of discharge. 3. Follow up results of CT-guided biopsy which hopefully will be available tomorrow afternoon to help guide additional management. cc: Juan Miguel Almonte MD
[2019-05-21] MEDS: METAMUCIL POWDER PACKET PO SCH (09:28)
[2019-05-21] MEDS: FLOMAX PO SCH (09:28)
[2019-05-21] MEDS: PAXIL PO SCH (09:28)
[2019-05-21] MEDS: MUCINEX PO SCH ×2 (09:28→20:42)
[2019-05-21] MEDS: KEPPRA PO SCH ×2 (09:28→20:42)
[2019-05-21] MEDS: MIRALAX PO SCH ×2 (09:28→20:42)
[2019-05-21] MEDS: FERROUS SULFATE PO SCH (09:28)
[2019-05-21] MEDS: PREDNISONE PO SCH (09:28)
[2019-05-21] MEDS: NICODERM PATCH TD SCH (09:28)
[2019-05-21] MEDS: LEVAQUIN PO SCH (09:28)
[2019-05-21] MEDS: DULCOLAX PR SCH ×2 (09:29→20:41)
[2019-05-21] MEDS: FLONASE NAS SCH (09:31)
[2019-05-21] MEDS: LOVENOX SUBQ SCH (09:31)
[2019-05-21] MEDS: PERCOCET-10 PO PRN ×2 (13:19→20:42)
[2019-05-21] MEDS: ATIVAN PO SCH ×2 (20:40→20:42)
[2019-05-21] MEDS: REMERON PO SCH (20:42)
--- NOTE | 2019-05-21 22:21 | PROGRESS NOTE ---
DATE: 05/21/2019 INTERVAL HISTORY: Unfortunately, the pathology report suggested poorly-differentiated small cell lung cancer. Pulmonology team had already conveyed this news to the patient. Mr. Rodriges seems to be in good spirits. He states he is feeling fine and he is asking asked me about the discharge plan. He states occasionally he does have episodes of flushing, dizziness especially during physical exertion. He denies any particular episode this morning. PHYSICAL EXAMINATION: Vital Signs: Temperature 98 degrees, pulse 95, respiratory 18, blood pressure 104/62. He is saturating 98% on 3 L nasal cannula. general: He is not in acute distress. HEENT: Oral cavity is moist. Lungs: He does have inspiratory crackles in bilateral infrascapular regions. Cardiovascular: S1, S2 normal. No murmur or gallop. Abdomen: Scaphoid, soft, nontender. Extremities: He has bilateral varicose veins of lower extremities. No edema. Neurologic: He is alert oriented x3. LAB: Suggesting hemoglobin of 10.3, platelet of 335,000. ASSESSMENT AND PLAN: 1. Acute on chronic hypoxic respiratory failure due to left lower lobe pneumonia. He has been on intravenous Zosyn and intravenous vancomycin and Levaquin. My plan is to stop the IV antibiotics and discharge him on a 5-day course of oral Levaquin. Continue oxygenation and inhaled bronchodilators 2. 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 He also had mediastinal and hilar adenopathy. I will consult Oncology tomorrow for establishment of care and future need of therapy. 3. Others; I will continue his current medications for anxiety, seizure, benign prostatic hypertrophy. DISPOSITION: My plan is to discharge the patient in next 24 hours. I will appreciate Pulmonology recommendations. Plan of care discussed with the patient. His questions have been answered. cc: Aquiles Evans MD
[2019-05-22] MEDS: ZOSYN 4.5 GM in NS 100 ML IV SCH ×5 (01:50→18:49)
[2019-05-22] MEDS: BENADRYL PO PRN ×2 (01:51→13:40)
[2019-05-22] MEDS: PERCOCET-10 PO PRN ×4 (01:51→21:58)
[2019-05-22] MEDS: DUONEB (A & A) INH SCH ×6 (03:45→23:54)
[2019-05-22] MEDS: VANCOMYCIN 1,900 MG in NS 500 ML IV SCH ×2 (03:49→15:39)
[2019-05-22] MEDS: PRILOSEC PO SCH (06:49)
--- NOTE | 2019-05-22 06:52 | PULMONOLOGY PROGRESS NOTE ---
DATE: 05/21/2019 SUBJECTIVE: The patient is awake and alert. He reports he feels a little bit better today. His sputum production has diminished. OBJECTIVE: He has been afebrile for the last 24 hours, blood pressure 104/62, heart rate 95, respiratory rate 18, oxygen saturation 98%. HEENT: Pupils are equal and reactive. Oropharynx is clear. Neck is supple. Chest reveals scattered crackles bilaterally. Cardiac Examination: S1- S2. Abdomen is soft. Extremities are without edema. Laboratories: Preliminary biopsy of the left lower lobe reveals poorly differentiated, hyperchromatic small cell carcinoma. IMPRESSION: A 63-year-old with: 1. Emphysema with significant component of fibrosis. 2. Pneumonia with continued improvement. White blood count has been normal today for the first time since admission. 3. Small cell carcinoma. It looks like he has limited disease but this has not yet been confirmed. PLAN: 1. Continue current antibiotic regimen. 2. Continue low-dose steroids. 3. We will ask oncology to evaluate this patient. cc: Juan Miguel Almonte MD
[2019-05-22 07:24] LABS: AGAP 7; BUN 13 mg/dL (8-22); CALCIUM 8.7 mg/dL (8.8-10.2); CHLORIDE 100 mmol/L (98-107); COSMO 275; CREATININE 0.6 mg/dL (0.7-1.2); ESTIMATED GFR > 60; GLUCOSE 91 mg/dL (70-104); POTASSIUM 4.1 mmol/L (3.5-5.1); SODIUM 138 mmol/L (136-145); TCO2 31 mmol/L (25-35)
[2019-05-22] MEDS: PULMICORT INH SCH ×2 (07:31→19:31)
[2019-05-22] MEDS: MUCOMYST 20% INH SCH ×2 (07:31→19:31)
[2019-05-22] MEDS: MUCINEX PO SCH ×2 (09:44→20:19)
[2019-05-22] MEDS: PAXIL PO SCH (09:44)
[2019-05-22] MEDS: LEVAQUIN PO SCH (09:44)
[2019-05-22] MEDS: FERROUS SULFATE PO SCH (09:44)
[2019-05-22] MEDS: MIRALAX PO SCH ×2 (09:45→20:20)
[2019-05-22] MEDS: METAMUCIL POWDER PACKET PO SCH (09:45)
[2019-05-22] MEDS: KEPPRA PO SCH ×2 (09:45→20:19)
[2019-05-22] MEDS: DULCOLAX PR SCH ×2 (09:45→20:20)
[2019-05-22] MEDS: FLOMAX PO SCH (09:45)
[2019-05-22] MEDS: NICODERM PATCH TD SCH (09:45)
[2019-05-22] MEDS: PREDNISONE PO SCH (09:45)
[2019-05-22] MEDS: FLONASE NAS SCH (09:46)
[2019-05-22] MEDS: LOVENOX SUBQ SCH (09:46)
--- NOTE | 2019-05-22 17:01 | HEMO/ONC CONSULTATION ---
DATE: 05/22/2019 REASON FOR CONSULTATION: Small cell lung cancer. HISTORY OF PRESENT ILLNESS: Mr. Rodriges is a 63-year-old male who came into the ER with complaint of shortness of breath, productive phlegm, and fever that has been increasing over the past 3 weeks. He has been around family members with the flu. He states his plan is yellow-green the last 4 to 5 days. He normally uses home O2 and has had to increase his oxygen from 2 to 5 L. He has been out of albuterol treatments at home and his symptoms have progressively worsened. Workup in the ER revealed bilateral pneumonia, worse on the left. He is also hyponatremic. He had a fever of 101.6, elevated white blood count, is negative for the flu and he states he has chronic anemia. He currently denies any bleeding. The patient was admitted on 05/06/2019. CT angiogram showed masslike opacities in the left lower lung, hilar and mediastinal adenopathy, pulmonary fibrosis with honeycombing and COPD. The patient was hospitalized for the several days. On 05/16/[address] was obtained which showed a left lower lobe mass, severe emphysema, severe fibrosis, left lower lobe infiltrates and adenopathy. Pulmonology performed a CT-guided lung biopsy. Pathology revealed small cell neuroendocrine carcinoma. The patient's CEA was 2.1. We have been asked to evaluate further. PAST MEDICAL HISTORY: 1. History COPD with 2 L of oxygen at home. 2. History of polysubstance abuse. 3. Seizure disorder with frequent seizures. The last one 2-1/2weeks ago. 4. Coronary artery disease. He has had a cardiac stent placed. No CT. 5. Bipolar disorder. 6. BPH. 7. Emphysema. PAST SURGICAL HISTORY: 1. Left hip replacement in 2019. 2. Toe surgery. 3. Cardiac stent. 4. Right eye corneal transplant but failed. SOCIAL HISTORY: The patient has been a 2 pack per day smoker since age of 32. Alcohol abuse. He drinks 2 cases of beer a day. He states he has not done that in a long time. He does admit to smoking marijuana occasionally. ALLERGIES: 1. Phenytoin. 2. Lactose or milk containing products. 3. Ceftazidime. 4. Codeine. HOME MEDICATIONS: Ativan, Flomax, Paxil, Remeron, Atrovent, DuoNeb, ferrous sulfate, Keppra, nicotine, Percocet, and albuterol. VITAL SIGNS: Temperature 98.1 degrees, pulse rate 88, respiratory rate 18, blood pressure 127/68, O2 saturation 91% on room air. He is in 8/10 left hip pain. PHYSICAL EXAMINATION: General: The patient is in no acute distress. HEENT: Sclerae is anicteric. PERRLA. Oral mucosa is normal. Cardiovascular: Normal S1, S2. Heart rate and rhythm regular. Respiratory: Lung sounds reveal scattered crackles bilaterally. Normal respiratory effort GI: Abdomen is soft, nondistended, nontender. Extremities: Without edema. LABORATORY DATA: Sodium 138, creatinine 0.6, calcium 8.7, CEA 2.1. ASSESSMENT AND PLAN: 1. Small cell lung cancer. We will follow up with the patient as an outpatient in the office. We will obtain a PET scan. We have consulted Dr. Rocha for a Port-A-Cath placement. 2. Chronic hypoxemic respiratory failure with chronic obstructive pulmonary disease exacerbation. Continue treatment per hospitalist and pulmonology. 3. Bilateral pneumonia. Continue broad spectrum antibiotics. Continue hospitalist and pulmonology recommendation. 4. DVT prophylaxis. Continue the patient on sequential compression devices. 5. Nicotine abuse. Nicotine cessation was discussed with the patient. 6. Nutrition. Please add protein shakes to the patient's diet. We need them to maintain his weight and keep his protein levels up. Dictated by XENIA Bauer for Maulik Watson MD As above. Discussed with Dr. Evans. Port if possible before discharge. PET scan outpatient. Maulik Watson MD cc: Maulik Watson MD [facility]
[2019-05-22] MEDS: ATIVAN PO SCH (20:19)
[2019-05-22] MEDS: REMERON PO SCH (20:19)
--- NOTE | 2019-05-22 21:05 | PROGRESS NOTE ---
DATE: 05/30/2019 INTERVAL HISTORY: No acute events. SUBJECTIVE: He denies new complaints. He states he does get short of breath on physical exertion. VITALS: Temperature 98.2, pulse 73, respiratory rate 16, blood pressure 127/70, saturating 96% on nasal cannula 3 L. PHYSICAL EXAMINATION: Not in acute distress. Oral cavity is moist.Lungs: Air entry bilaterally equal. He has inspiratory crackles, infrascapular region, more pronounced on the right. Cardiac: S1, S2 normal. No murmur or gallop. Abdomen: Soft, nontender. No lower extremity edema. He has superficial venous dilatation because of chronic venous insufficiency. He is alert and oriented x3. LABS: Noted nothing remarkable today. ASSESSMENT: 1. Acute on chronic hypoxic respiratory failure. 2. Left lower lobe pneumonia. 3. Left lower lobe small cell lung cancer, poorly differentiated. 4. History of anxiety, seizure, and benign prostatic hypertrophy. PLAN: My plan is to discharge the patient home on 7 total days of oral Levaquin. The patient is medically ready to be discharged. Oncology team has evaluated the patient, and we are waiting for the surgeon's recommendation about possible port placement tomorrow. Based on that, I will consider discharging tomorrow. He is in agreement with the plan. cc: Aquiles Evans MD
[2019-05-23] MEDS: BENADRYL PO PRN (00:05)
[2019-05-23] MEDS: ZOSYN 4.5 GM in NS 100 ML IV SCH ×3 (01:04→09:48)
[2019-05-23] MEDS: DUONEB (A & A) INH SCH ×5 (04:01→21:04)
[2019-05-23] MEDS: VANCOMYCIN 1,900 MG in NS 500 ML IV SCH (04:36)
[2019-05-23] MEDS: PULMICORT INH SCH ×2 (07:37→21:04)
[2019-05-23] MEDS: MUCOMYST 20% INH SCH ×2 (07:37→21:03)
[2019-05-23] MEDS: PRILOSEC PO SCH (08:49)
[2019-05-23] MEDS: FERROUS SULFATE PO SCH (08:50)
[2019-05-23] MEDS: PREDNISONE PO SCH (08:51)
[2019-05-23] MEDS: DULCOLAX PR SCH ×2 (08:51→22:39)
[2019-05-23] MEDS: PAXIL PO SCH (08:51)
[2019-05-23] MEDS: MUCINEX PO SCH ×2 (08:52→22:46)
[2019-05-23] MEDS: MIRALAX PO SCH ×2 (08:52→22:46)
[2019-05-23] MEDS: METAMUCIL POWDER PACKET PO SCH (08:52)
[2019-05-23] MEDS: LEVAQUIN PO SCH (08:53)
[2019-05-23] MEDS: FLOMAX PO SCH (08:54)
[2019-05-23] MEDS: KEPPRA PO SCH ×2 (08:54→22:47)
[2019-05-23] MEDS: LOVENOX SUBQ SCH (09:52)
[2019-05-23] MEDS: NICODERM PATCH TD SCH (09:52)
[2019-05-23] MEDS: FLONASE NAS SCH (09:55)
[2019-05-23] MEDS: PERCOCET-10 PO PRN ×2 (12:02→22:53)
--- NOTE | 2019-05-23 16:42 | Diag Imaging Result Doc PS360 ---
EXAM: MRI BRAIN W/WO CONTRAST 05/23/2019 HISTORY: small cell lung ca TECHNIQUE: T1 sagittal, axial and post gadolinium-enhanced axial with coronal reformation, axial T2, FLAIR, DWI and coronal gradient echo. COMMENT: There are no previous MRI studies. There is mucosal thickening and fluid in the right maxillary sinus. There is no evidence of mass effect or bleed. There is increased T2-weighted signal intensity in the white matter adjacent to the atria of the lateral ventricles. There is no evidence of restricted diffusion. No abnormal gadolinium enhancement is present. IMPRESSION: No evidence of metastatic disease. Minimal microvascular white matter change. Right maxillary sinusitis. Electronically signed by George Canas 05/23/2019 4:40 PM
[2019-05-23] MEDS ORDERED: DIPRIVAN 1% ONE ×2 (17:07→18:08)
[2019-05-23] MEDS ORDERED: QUELICIN (DOSE) ONE (17:10)
[2019-05-23] MEDS ORDERED: XYLOCAINE-MPF 2% ONE (17:10)
[2019-05-23] MEDS ORDERED: HEPARIN ONE (17:10)
[2019-05-23] MEDS ORDERED: ROBINUL ONE (17:10)
[2019-05-23] MEDS ORDERED: XYLOCAINE 1% ONE (17:10)
[2019-05-23] MEDS ORDERED: NS 250 ML ONE (17:11)
[2019-05-23] MEDS ORDERED: VERSED ONE (17:31)
[2019-05-23] MEDS: DILAUDID ONE ×2 (19:00→19:05)
--- NOTE | 2019-05-23 19:01 | PROGRESS NOTE ---
DATE: 05/23/2019 INTERVAL HISTORY: No acute events overnight. SUBJECTIVE: Mr. Rodriges denies new complaints. He is ready to go for Port-A-Cath placement. VITALS: Temperature 98.6 degrees, pulse 88, respiratory 16, blood pressure 126/72, saturation 95% on 2 L nasal cannula. PHYSICAL EXAMINATION: Not in acute distress. Oral cavity is moist. He does have bilateral inspiratory crackles. No wheezes. S1, S2 normal. No murmur or gallop. Abdomen is soft, scaphoid, nontender. He has chronic venous insufficiency of lower extremities with varicose veins. LABS: No CBC or BMP today. ASSESSMENT: 1. Acute on chronic hypoxic respiratory failure. 2. Left lower lobe pneumonia with history of Pseudomonas and Stenotrophomonas pneumonia. 3. Left lower lobe small cell lung cancer, poorly differentiated. 4. History of anxiety, seizures, and BPH. PLAN: I will stop IV antibiotics, keep him on oral Levaquin. I have already sent a prescription to his pharmacy to complete remaining 5-day course. The patient will get up Port-A-Cath placement for chemotherapy, for which the Oncology team has been consulted. The patient is medically ready to be discharged after port, however, he does not want to go home today, he wanted to go home tomorrow. cc: Aquiles Evans MD
--- NOTE | 2019-05-23 19:14 | Diag Imaging Result Doc PS360 ---
EXAM: PORT A CATH FLUORO 05/23/2019 HISTORY: LT PORT INSERTION TECHNIQUE: One view, 36 seconds fluoroscopy time, 4.4 mGy. COMMENT: There are two images. The catheter tip appears to be in the superior vena cava although the quality of the images is very suboptimal. IMPRESSION: Apparent catheter in the superior vena cava. Electronically signed by George Canas 05/23/2019 7:11 PM
[2019-05-23] MEDS: REMERON PO SCH (22:47)
[2019-05-23] MEDS: ATIVAN PO SCH (22:47)
--- NOTE | 2019-05-23 22:59 | CONSULTATION ---
DATE OF CONSULTATION: 05/23/2019 HISTORY OF PRESENT ILLNESS: Mr. Obed Rodriges is a 63-year-old white male who has been diagnosed with lung cancer and will need chemotherapy. We were asked to place a port. PHYSICAL EXAMINATION: General: Mr. Rodriges is a slim, older white male with some work of breathing. HEENT Exam: No jaundice. No oral lesions. No cervical or supraclavicular lymphadenopathy. Cardiovascular: His heart has a regular rate. Lungs: Have some expiratory wheezing. Abdomen: Soft, nontender without palpable mass. No costovertebral tenderness. Rectal exam was not performed. He does have palpable femoral pulses. No peripheral edema. Neurological: No focal deficit. IMPRESSION: Small cell lung cancer requiring chemotherapy under the direction of Dr. Watson. We were asked to place access. I have discussed the procedure in detail with the patient at the bedside including risks of bleeding, infection, pneumothorax, nonfunctional port. He understands the need for this port and the risks of surgery and want to proceed. cc: Ayah Chavis MD
[2019-05-24] MEDS: DUONEB (A & A) INH SCH ×6 (00:04→19:40)
[2019-05-24] MEDS: BENADRYL PO PRN (02:15)
[2019-05-24] MEDS: TYLENOL PO PRN ×4 (04:14→20:37)
--- NOTE | 2019-05-24 04:26 | OPERATIVE NOTE ---
PROCEDURE DATE: 05/23/2019 PREOPERATIVE DIAGNOSIS: Small cell lung cancer requiring chemotherapy. POSTOPERATIVE DIAGNOSIS: Small cell lung cancer requiring chemotherapy. PRINCIPAL PROCEDURE: Left internal jugular Port-A-Cath using ultrasound and fluoroscopy. SURGEON: Ayah Chavis MD. BACTERIOLOGIST SOIL: TARAS Robbins surgical technology instructor. ANESTHESIA: Local with IV sedation. ESTIMATED BLOOD LOSS: Was 20 mL. DRAINS: None. INDICATIONS: Mr. Obed Rodriges is a 63-year-old white male, smoker, who has been diagnosed with small cell lung cancer and needs chemotherapy under the direction Dr. Watson. We were asked to place access. DESCRIPTION OF PROCEDURE: The patient was brought to the operating room, placed supine, received IV sedation and his left neck, shoulder and chest were prepped and draped in a sterile field. We began the procedure by cutting down on the external jugular vein but it was too small to use, so we went to the left internal jugular vein. Using ultrasound and an 18-gauge needle between the 2 heads of the left sternocleidomastoid muscle, we accessed the left internal jugular vein on the first stick. Through this needle we placed a guidewire and with the help of fluoroscopy, we placed a guidewire into the right side of the heart. A counterincision was made on the anterior left chest and a subcutaneous pocket was created for the port. We tunneled an 8-Lithuanian catheter from the chest incision to the neck incision. Then we placed a dilator and sheath over the guidewire into the superior vena cava. We removed the dilator and guidewire and through the sheath we placed the distal end of the catheter and directed it into the superior vena cava. The other end of the catheter was hooked to the port. The port was secured in its subcutaneous pocket with two 2-0 silk stitches. We flushed the port with heparin and saline. It was functioning well. We closed all incisions in layers. First layer 3-0 popoff Vicryl stitches closed subcutaneous tissue. The skin was closed with 4-0 Monocryl subcuticular stitch. Steri-Strips were applied. He tolerated the procedure well with plans for him to go the recovery room and then return to his room on the floor. cc: Ayah Chavis MD
[2019-05-24] MEDS: PERCOCET-10 PO PRN ×3 (05:36→18:14)
[2019-05-24] MEDS: PRILOSEC PO SCH (06:29)
[2019-05-24] MEDS: MUCOMYST 20% INH SCH ×2 (08:16→19:40)
[2019-05-24] MEDS: PULMICORT INH SCH ×2 (08:16→19:40)
[2019-05-24] MEDS: METAMUCIL POWDER PACKET PO SCH (10:39)
[2019-05-24] MEDS: NICODERM PATCH TD SCH (10:39)
[2019-05-24] MEDS: MIRALAX PO SCH ×2 (10:39→20:38)
[2019-05-24] MEDS: MUCINEX PO SCH ×2 (10:39→20:37)
[2019-05-24] MEDS: PAXIL PO SCH (10:40)
[2019-05-24] MEDS: KEPPRA PO SCH ×2 (10:40→20:37)
[2019-05-24] MEDS: LEVAQUIN PO SCH (10:40)
[2019-05-24] MEDS: DULCOLAX PR SCH ×3 (10:40→20:39)
[2019-05-24] MEDS: FERROUS SULFATE PO SCH (10:40)
[2019-05-24] MEDS: PREDNISONE PO SCH (10:40)
[2019-05-24] MEDS: FLOMAX PO SCH (10:40)
[2019-05-24] MEDS: LOVENOX SUBQ SCH (10:47)
[2019-05-24] MEDS: FLONASE NAS SCH (10:47)
--- NOTE | 2019-05-24 11:56 | HEMO/ONC PROGRESS NOTE ---
DATE: 05/24/2019 SUBJECTIVE: Mr. Rodriges is awake and talking this morning. He states that he feels very well. He has had no pain. He is hoping to be discharged today after he gets his port placed. We discussed his MRI and the expectations from the Port-A-Cath. The patient states his port site is sore at this time. He has no complaints. He had a good night's sleep. No acute events overnight. We will follow up with him in the office first of next week. OBJECTIVE: Vital Signs: Temperature 98.7 degrees, pulse rate 60, respiratory rate 14, blood pressure 111/71, and O2 saturation 95% on 2 liters via nasal cannula. He is in 5/10 pain to his left Port-A-Cath site. General: On physical exam, the patient is in no acute distress. HEENT: Sclerae is anicteric. PERRLA. Oral mucosa is normal. Cardiovascular: Normal S1 and S2. Heart rate and rhythm are regular. Respiratory: Lung sounds still have some scattered crackles. Normal respiratory effort. Gastrointestinal: The abdomen is soft, nontender, nondistended. Extremities: Without edema. Neurological: Alert and oriented x3. No focal motor deficits. LABORATORY: No labs from today. ASSESSMENT AND PLAN: 1. Small cell lung cancer. We will follow up with the patient in the office next week. We will obtain a PET scan. We have obtained a brain MRI which is negative for any brain metastasis. The patient received a Port-A-Cath yesterday for palliative chemotherapy. The patient is okay to be discharged from our standpoint. 2. Chronic respiratory failure with chronic obstructive pulmonary disease exacerbation. The patient has been treated per the hospitalist. The patient may be discharged today per hospitalist's decision. 3. Bilateral pneumonia. The patient has been on broad-spectrum antibiotics. Continue treatment per hospitalist. 4. Deep venous thrombosis prophylaxis. The patient is to remain in sequential compression devices until he is discharged and up and about. 5. Nicotine abuse. The patient states he has stopped smoking. He has had his family get rid of all of his cigarettes in his house. 6. Nutrition. The patient has been told about increasing protein shakes at home. He is to continue to drink protein shakes, maintain his weight. Dictated by XENIA Bauer for Maulik Watson MD cc: Maulik Watson MD [facility]
--- NOTE | 2019-05-24 13:37 | PROGRESS NOTE ---
DATE: 05/24/2019 INTERVAL HISTORY: He underwent a brain MRI to rule out a metastasis, which was unremarkable. He also underwent port placement, which he tolerated well. SUBJECTIVE: Mr. Rodriges states he is feeling as if he is catching the flu. He denies any chest pain, shortness of breath, or increasing cough. He is feeling he has fatigue and muscle aches. OBJECTIVE: Vital Signs: Currently, temperature 99.2 degrees, pulse 95, respiratory rate 20, blood pressure 119/74, he is saturating 100% on a nasal cannula. General: On physical examination, he is not in any distress. He is sleepy. Oral cavity is moist. Lungs: Air entry bilaterally equal. No wheezes. No rhonchi. He has coarse crackles bilateral infrascapular region. Cardiovascular: S1 and S2 normal. No murmur, rub, or gallop. Abdomen: Soft, nontender. Skin: He has a left-sided chest port. The site has no undue bleeding. Extremities: He has superficial venous dilatation of lower extremities. LABS: No CBC today. BMP suggestive of BUN of 13, creatinine 0.6. Microbiology, no new data. IMAGING: Brain MRI performed yesterday did not have any evidence of metastatic disease. He had right maxillary sinusitis. ASSESSMENT: 1. Acute on chronic hypoxic respiratory failure. 2. Left lower lobe pneumonia with history of Pseudomonas and Stenotrophomonas pneumonia. 3. Acute chronic obstructive pulmonary disease exacerbation. 4. Left lower small cell lung cancer, poorly differentiated. 5. History of anxiety, seizures, and benign prostatic hypertrophy. PLAN: The patient appears to be hemodynamically stable, though he complains of some muscle ache, and medically stable to be discharged. I will discharge him on oral levofloxacin and prednisone, and he would have outpatient followup with his regular physician, pulmonology, and oncology, Dr. Watson has been consulted. cc: Aquiles Evans MD
--- NOTE | 2019-05-24 17:29 | Diag Imaging Result Doc PS360 ---
EXAM: CHEST-2 VIEWS HISTORY: Fever TECHNIQUE: Two views COMPARISON: 05/20/2019 FINDINGS: The lungs are hyperexpanded. Increased AP diameter to the chest. There are increased interstitial markings in the mid and lower lungs. These are most prominent in the left costophrenic angle. These are similar to the prior exam. No pneumothoraces. There is a left-sided portacatheter. Tip overlies the right atrium. IMPRESSION: Left portacatheter placement, otherwise stable chest Electronically signed by Esau Kelly 05/24/2019 5:27 PM
[2019-05-24] MEDS: ATIVAN PO SCH (20:37)
[2019-05-24] MEDS: REMERON PO SCH (20:38)
[2019-05-24] MEDS ORDERED: TORADOL IV ONE (23:37)
[2019-05-24] MEDS ORDERED: NS 500 ML IV ONE (23:37)
[2019-05-24] MEDS: NS 1,000 ML IV SCH (23:58)
[2019-05-25] MEDS: MUCOMYST 20% INH SCH ×3 (00:06→19:42)
[2019-05-25] MEDS: PULMICORT INH SCH ×3 (00:06→19:42)
--- NOTE | 2019-05-25 00:06 | DISCHARGE SUMMARY ---
ADMISSION DATE: 05/06/2019 DISCHARGE DATE: Likely 05/24/19 pending clinical course. DISCHARGE DISPOSITION: Home. DISCHARGE CONDITION: Hemodynamically stable. He is going home on home oxygen for his chronic hypoxic respiratory failure. DISCHARGE DIAGNOSES: 1. Acute on chronic hypoxic respiratory failure. 2. Acute chronic obstructive pulmonary disease exacerbation. 3. Left lower lobe pneumonia. 4. Poorly differentiated small cell left lung cancer. 5. Anxiety. 6. Active tobacco abuse. 7. Constipation. OTHER DIAGNOSES: 1. History of chronic obstructive pulmonary disease with pulmonary fibrosis. 2. History of active tobacco abuse. 3. History of chronic hypoxic respiratory failure on home oxygen. 4. History of seizures. 5. History of benign prostatic hypertrophy. 6. History of coronary artery disease. DISCHARGE MEDICATIONS: 1. Lorazepam 0.5 mg t.i.d. 2. Tamsulosin 0.4 mg daily. 3. Paroxetine 40 mg daily. 4. Mirtazapine 50 mg at nighttime. 5. Atrovent inhaler 2 puffs inhaled 4 times a day. 6. Dulcolax 10 mg per rectal b.i.d. 7. DuoNeb 3 mL routine every 6 hours. 8. Ferrous sulfate 325 mg with breakfast. 9. Keppra 500 mg b.i.d. 10. Levaquin 500 mg daily 5 tablets have been prescribed. 11. Nicotine patch 21 mg daily. 12. Percocet 10 one tablet every 6 hours as needed for pain. 13. Prednisone 5 mg daily for 6 days. 14. Pulmicort 0.4 mg inhaled routine b.i.d. 15. Albuterol sulfate inhaler 2 puffs inhaled every 6 hours as needed for shortness of breath. CONSULTATION DURING HOSPITAL ADMISSION: 1. Pulmonology, Dr. Almonte. 2. Heme-Onc, Dr. Watson. 3. General surgery, Dr. Chavis, for port placement. VITALS: At time of discharge currently temperature 99.2 degrees, pulse 95, respiratory 20, blood pressure 119/74, saturating 100% on 2 L nasal cannula. PHYSICAL EXAMINATION: Air entry bilaterally equal. He has inspiratory coarse crackles infrascapular region. S1, S2 normal. Left chest port site appears to be appears without any active bleeding. Abdomen: Soft, nontender. Bilateral lower extremity varicose veins. He is alert oriented x3. He is on oxygen. LABS: At the time of discharge, WBC 9000, hemoglobin 10.3, platelet 335,000, potassium 4.1, BUN 13, creatinine 0.6. Microbiology, blood culture, influenza screen and sputum culture did not have any growth. SIGNIFICANT IMAGIN. During hospital admission, pulmonary arteriogram on May 06 had masslike opacity in the left lower lobe, worsened hilar mediastinal adenopathy, pulmonary fibrosis with honeycombing, COPD without any evidence of pulmonary embolus. 2. Chest CT on 05/16/2019 had left lower lobe mass which was unchanged, severe emphysema, severe fibrosis, left lower lobe infiltrate and adenopathy. 3. Brain MRI on 05/23/2019 did not have any evidence of metastatic disease. PROCEDURES DURING HOSPITAL ADMISSION: On 05/23/2019, he underwent left internal jugular Port-A- Cath using ultrasound and fluoroscopy. HOSPITAL COURSE SUMMARY: Mr. Obed Rodriges is a 63-year-old man with past medical history of active tobacco abuse who presented on 05/06/2019 with chief complaints of shortness of breath, productive cough and fever, which was ongoing since about one week. His expectoration was yellowish green in color and he had to increase his oxygenation from 2 to 5 L. Despite that, he did not feel well and his shortness of breath progressively got worse so he decided to come to the hospital. In the emergency room, he was found to have temperature of 101.6 degrees, pulse of 105, respiratory rate of 31, and blood pressure of 105/62. His oxygen saturation was 94%. He underwent chest x-ray and he was found to have left lower lobe infiltrate, so he was admitted for sepsis, acute on chronic hypoxic respiratory failure due to left lower lobe pneumonia. The patient previously had history of Pseudomonas and Stenotrophomonas pneumonia. He was started on broad-spectrum intravenous antibiotic including Levaquin as well as inhaled bronchodilators and intravenous steroids. His oxygenation clinical signs and symptoms were followed up and pulmonology was consulted. He was also found to have left lower lobe mass. After several days of intravenous antibiotics, patient's symptoms had improved and so a repeat CT scan was performed to see if the opacity present on admission CT had resolved as it could suggest pneumonia. However, the opacity remained. It was thought to be related to cancer, so the patient eventually underwent a CT-guided lung biopsy on 05/20/2019. 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 He also underwent port. At the time of discharge, the patient has completed courses of intravenous antibiotics for more than 14 days and he will be discharged on oral Levaquin and oral prednisone and he was advised to have outpatient followup with Oncology for discussing chemotherapy options and as well as establish care with a lung doctor. TIME SPENT: More than 30 minutes was spent in discharging the patient. I sat down with him and explained to him in detail about his medical conditions, need for continuous oxygen, need for quitting smoking. I also explained to him about the nature of his small cell lung cancer response to chemotherapy. I briefly discussed with him about chemotherapy, advantages and disadvantages and possible side effects and I informed him that he should have a detailed discussion with the oncologist. All of his questions were satisfactorily answered. ADDENDUM: His discharge was held on 05/24/19 because he developed fever and new pneumonia. cc: MD ILAN Kwong
[2019-05-25] MEDS: DUONEB (A & A) INH SCH ×7 (00:07→23:16)
[2019-05-25 01:24] LABS: BASO# 0.02 X1000 (0.0-0.2); BASO% 0.3 % (0.0-0.8); EOS# 0.16 X1000 (0.0-0.7); EOS% 2.3 % (0.0-10.0); HEMATOCRIT 35.5 % (42.0-52.0); HEMOGLOBIN 10.8 g/dL (14.0-18.0); IMM GRAN# 0.05 X1000 (0.0-0.04); IMM GRAN% 0.7 % (0.0-0.5); LYMPH# 0.29 X1000 (1.2-3.4); LYMPH% 4.1 % (20.5-51.1); MCH 26.7 PG (27-31); MCHC 30.4 g/dL (33-37); MCV 87.7 FL (81-99); MONO# 0.27 X1000 (0.11-0.59); MONO% 3.8 % (1.7-9.3); MPV 8.6 FL (7.4-10.4); NEUT# 6.26 X1000 (1.4-6.5); NEUT% 88.8 % (42.2-75.2); PLT 251 X1000 (130-400); RBC 4.05 XMIL (4.7-6.1); RDW 16.7 % (11.5-14.5); WBC 7.05 X1000 (4.8-10.8)
[2019-05-25 01:29] LABS: INR 1.01; PROTIME 13.4 Seconds (11.0-16.0)
[2019-05-25 01:31] LABS: PTT 38.2 Seconds (22.3-41.8)
[2019-05-25 01:38] LABS: AGAP 10; ALB/GLOB RATIO 0.9; ALBUMIN 3.3 g/dL (3.5-5.0); ALKALINE PHOSPHATASE 54 U/L (32-122); BUN 10 mg/dL (8-22); CALCIUM 9.1 mg/dL (8.8-10.2); CHLORIDE 97 mmol/L (98-107); COSMO 270; CREATININE 0.8 mg/dL (0.7-1.2); ESTIMATED GFR > 60; GLUCOSE 106 mg/dL (70-104); GOT 12 U/L (10-34); GPT 13 U/L (10-44); SODIUM 135 mmol/L (136-145); TCO2 28 mmol/L (25-35); TOTAL BILIRUBIN 0.18 mg/dL (0.20-1.00)
[2019-05-25 01:48] LABS: EOS 2 % (1-10); LYMPHS 4 % (21-51); MONO 3 % (1-9); SEGS 91 % (42-75)
[2019-05-25 02:16] LABS: ALLEN TEST YES; BE 5.6 mmoll (-3.0-3.0); BLOOD TYPE ARTERIAL; HCO3-(ACT) 29.2 mmoll (20.0-26.0); METHB 1.2 % (0.0-1.5); O2(CT) 15.2 mL/dL (15.0-23.0); O2HB 94.6 % (95.0-99.0); PO2(98.6) 79 mmHg (60-100); SAMPLE BLOOD; SAO2 98.2 % (95.0-100.0); THB 11.4 g/dL (11.5-17.4); pH(98.6) 7.38 (7.35-7.45)
[2019-05-25 02:18] LABS: MODALITY CANNULA
[2019-05-25 02:19] LABS: PCO2(98.6) 54 mmHg (35-45)
[2019-05-25 03:02] LABS: URINE SOURCE CLEAN CATCH
[2019-05-25 03:04] LABS: BILIRUBIN URINE NEGATIVE (NEGATIVE); BLOOD URINE NEGATIVE (NEGATIVE); COLOR YELLOW; GLUCOSE URINE NEGATIVE (NEGATIVE); KETONE URINE NEGATIVE (NEGATIVE); LEUKOCYTES URINE NEGATIVE (NEGATIVE); NITRITE URINE NEGATIVE (NEGATIVE); PH URINE 6.5; PROTEIN URINE TRACE mg/dL (NEGATIVE); SP GRAVITY URINE 1.028; TURBIDITY URINE CLEAR (CLEAR); UROBILINOGEN URINE NORMAL (NORMAL)
[2019-05-25 03:05] LABS: UR EPITHELIAL CELLS <10 /HPF (<10); URINE BACTERIA NEGATIVE /HPF; URINE RBC <10 /HPF (<10); URINE WBC <10 /HPF (<10)
[2019-05-25] MEDS: PRILOSEC PO SCH ×2 (04:22→06:13)
[2019-05-25] MEDS: PERCOCET-10 PO PRN ×3 (04:22→18:54)
--- NOTE | 2019-05-25 07:17 | Diag Imaging Result Doc PS360 ---
EXAM: CHEST-1 VIEW HISTORY: Fever TECHNIQUE: Single view COMPARISON: 05/24/2019 FINDINGS: There are infiltrates in the mid and lower lungs bilaterally. These are more prominent than on the prior study. Nodular parenchyma in the left costophrenic angle is unchanged. There is a small left pleural effusion. No pneumothorax. No change in the left portacatheter. IMPRESSION: Interval worsening in the bilateral infiltrates Electronically signed by Esau Kelly 05/25/2019 7:15 AM
[2019-05-25] MEDS ORDERED: VANCOMYCIN IV PER PHARMACY MISC SCH (07:45)
[2019-05-25] MEDS: TYLENOL PO PRN ×3 (08:49→22:53)
[2019-05-25] MEDS: PREDNISONE PO SCH (08:50)
[2019-05-25] MEDS: PAXIL PO SCH (08:50)
[2019-05-25] MEDS: FLOMAX PO SCH (08:51)
[2019-05-25] MEDS: FERROUS SULFATE PO SCH (08:51)
[2019-05-25] MEDS: KEPPRA PO SCH ×2 (08:51→20:34)
[2019-05-25] MEDS: MUCINEX PO SCH ×2 (08:51→20:34)
[2019-05-25] MEDS: NICODERM PATCH TD SCH (08:51)
[2019-05-25] MEDS: LOVENOX SUBQ SCH (08:53)
[2019-05-25] MEDS: ZOSYN 4.5 GM in NS 100 ML IV SCH ×3 (08:53→20:34)
[2019-05-25] MEDS: MIRALAX PO SCH ×2 (08:53→20:34)
[2019-05-25] MEDS: METAMUCIL POWDER PACKET PO SCH (08:53)
[2019-05-25] MEDS: LEVAQUIN PO SCH (08:53)
[2019-05-25] MEDS: DULCOLAX PR SCH ×2 (08:54→22:47)
[2019-05-25] MEDS: FLONASE NAS SCH (08:57)
[2019-05-25] MEDS: VANCOMYCIN 1,900 MG in NS 500 ML IV SCH ×2 (10:51→22:52)
[2019-05-25] MEDS: NS 1,000 ML IV SCH (16:56)
--- NOTE | 2019-05-25 17:46 | PROGRESS NOTE ---
DATE: 05/25/2019 INTERVAL HISTORY: Mr. Rodriges did not feel like going home yesterday and he had started developing fever, so discharge order was discontinued. Overnight he also started becoming tachycardic and he was started on IV fluids. SUBJECTIVE: I had ordered intravenous antibiotics and by the time I saw see him in the afternoon time he is feeling better. He denies any chest pain or shortness of breath. He denies any cough out of usual proportion. PHYSICAL EXAMINATION: Vital signs: Temperature 98.9 degrees, pulse 92, respiratory 20, blood pressure 105/69. He is saturating 93% on nasal cannula. pulmonary: He does have new crackles in left supramammary region. No wheeze or rhonchi. He does have coarse crackles in bilateral lower lung dockery and decreased air entry in left lung dockery. cardiac: S1, S2 normal. No murmur or gallop. Abdomen: Soft, nontender. chest: Left-sided chest port site appears normal. Extremities: He has superficial venous dilation of lower extremities. Neurologic: He is alert and oriented x3. LABORATORIES: Suggestive of WBC of 7000, hemoglobin 10.8, platelet 251,000. He does have hypercarbia with normal oxygenation. His BMP is essentially unchanged. ASSESSMENT AND PLAN: 1. Recurrent sepsis due to recurrent pneumonia of bilateral lung dockery, especially left middle lobe. Restart intravenous vancomycin and intravenous Zosyn. Continue oral Levaquin. Follow up with repeat blood cultures. His influenza screen was negative. Continue oxygenation. 2. Acute on chronic hypoxic respiratory failure, acute chronic obstructive pulmonary disease exacerbation, and left acute chronic obstructive pulmonary disease exacerbation. Currently stable. I will continue him on current dose of prednisone and continue oxygenation with inhaled bronchodilators. 3. Left lower lung small cell cancer, poorly differentiated, status post biopsy and port placement. He should have outpatient Oncology followup. 4. History of anxiety, seizure, and benign prostatic hypertrophy. Currently stable. PLAN: I will continue to monitor the patient inside the hospital because of his recurrent sepsis as he would need another course of intravenous antibiotics. Plan of care discussed with him. His questions have been answered. cc: Aquiles Evans MD
[2019-05-25] MEDS: REMERON PO SCH (20:34)
[2019-05-25] MEDS: ATIVAN PO SCH (20:34)
[2019-05-26] MEDS: PERCOCET-10 PO PRN ×3 (01:02→21:53)
[2019-05-26] MEDS: DUONEB (A & A) INH SCH ×6 (03:16→22:58)
[2019-05-26] MEDS: ZOSYN 4.5 GM in NS 100 ML IV SCH ×3 (03:34→21:59)
[2019-05-26] MEDS: TYLENOL PO PRN ×2 (05:41→09:44)
[2019-05-26] MEDS: PRILOSEC PO SCH ×2 (05:42→06:44)
[2019-05-26] MEDS: MUCOMYST 20% INH SCH ×2 (07:43→19:53)
[2019-05-26] MEDS: PULMICORT INH SCH ×2 (07:43→19:53)
[2019-05-26 07:57] LABS: BASO# 0.02 X1000 (0.0-0.2); BASO% 0.6 % (0.0-0.8); EOS# 0.02 X1000 (0.0-0.7); EOS% 0.6 % (0.0-10.0); HEMATOCRIT 32.8 % (42.0-52.0); HEMOGLOBIN 9.9 g/dL (14.0-18.0); LYMPH# 0.48 X1000 (1.2-3.4); LYMPH% 13.6 % (20.5-51.1); MCH 26.5 PG (27-31); MCHC 30.2 g/dL (33-37); MCV 87.7 FL (81-99); MONO# 0.22 X1000 (0.11-0.59); MONO% 6.3 % (1.7-9.3); MPV 9.3 FL (7.4-10.4); NEUT# 2.78 X1000 (1.4-6.5); NEUT% 78.9 % (42.2-75.2); PLT 187 X1000 (130-400); RBC 3.74 XMIL (4.7-6.1); RDW 16.7 % (11.5-14.5); WBC 3.52 X1000 (4.8-10.8)
[2019-05-26 08:29] LABS: AGAP 10; BUN 12 mg/dL (8-22); CALCIUM 8.2 mg/dL (8.8-10.2); CHLORIDE 95 mmol/L (98-107); COSMO 264; CREATININE 0.8 mg/dL (0.7-1.2); ESTIMATED GFR > 60; GLUCOSE 94 mg/dL (70-104); MAGNESIUM 1.7 mg/dL (1.5-2.7); POTASSIUM 4.1 mmol/L (3.5-5.1); SODIUM 132 mmol/L (136-145); TCO2 27 mmol/L (25-35)
[2019-05-26] MEDS: VANCOMYCIN 1,900 MG in NS 500 ML IV SCH ×2 (09:42→23:14)
[2019-05-26] MEDS: NICODERM PATCH TD SCH (09:44)
[2019-05-26] MEDS: LEVAQUIN PO SCH (09:44)
[2019-05-26] MEDS: FLOMAX PO SCH (09:44)
[2019-05-26] MEDS: MUCINEX PO SCH ×2 (09:44→21:53)
[2019-05-26] MEDS: PAXIL PO SCH (09:45)
[2019-05-26] MEDS: KEPPRA PO SCH ×2 (09:45→21:53)
[2019-05-26] MEDS: FLONASE NAS SCH (09:45)
[2019-05-26] MEDS: FERROUS SULFATE PO SCH (09:45)
[2019-05-26] MEDS: LOVENOX SUBQ SCH (09:45)
[2019-05-26] MEDS: DULCOLAX PR SCH ×2 (09:45→21:55)
[2019-05-26] MEDS: PREDNISONE PO SCH (09:45)
[2019-05-26] MEDS: METAMUCIL POWDER PACKET PO SCH (09:46)
[2019-05-26] MEDS: MIRALAX PO SCH ×2 (09:46→21:51)
--- NOTE | 2019-05-26 20:26 | PROGRESS NOTE ---
DATE: 05/26/2019 INTERVAL HISTORY: No acute events overnight. Mr. Rodriges had another episode of fever today in the morning. In the later part of the day, he started feeling better. He does not complain of chest pain, however, he is complaining of increasing sputum production. He denies any unusual shortness of breath. He is feeling stronger. He ate only a little bit of his meals. VITALS: Temperature 100.4 degrees, pulse 95, respiratory rate 18, blood pressure 118/69. He is saturating 96% on 4 L nasal cannula. PHYSICAL EXAMINATION: He is in mild distress because of shortness of breath. HEENT: Oral cavity is moist. Lungs: Air entry bilaterally equal. No wheeze or rhonchi. He does have crackles in the left supramammary region which is new. He has coarse crackles in bilateral lower lung dockery related to his pulmonary fibrosis. Heart: S1, S2 normal. No murmur or gallop. Abdomen: Soft, nontender. Left-sided chest port site appears not inflamed. Extremities: He has superficial venous dilation of lower extremities. Neurologic: He is alert and oriented x3. LABS: Suggestive of no leukocytosis. WBC of 3.5, hemoglobin 9.9, platelet 187,000. Sodium of 132, chloride 95, BUN 12, creatinine 0.8. One of the 2 blood cultures growing gram-positive cocci, pending further speciation. ASSESSMENT AND PLAN: 1. Recurrent sepsis due to recurrent pneumonia, bilateral lung dockery, especially left middle lobe. Continue intravenous vancomycin, Zosyn, and oral Levaquin. Follow up with repeat set of blood cultures and sputum culture results. Continue oxygenation. 2. History of Stenotrophomonas and pseudomonas pneumonia and now with recurrent left middle lobe pneumonia. Continue Levaquin. Vancomycin and Zosyn and follow up sputum and blood culture results. 2. Acute on chronic hypoxic respiratory failure and acute chronic obstructive pulmonary disease exacerbation, due to left lower lobe pneumonia. Currently appears stable. I will follow up with chest x-ray tomorrow. Continue current dose of prednisone inhaled bronchodilators. 3. Left lower lung small cell poorly-differentiated cancer, status post biopsy and port placement. Outpatient oncology follow-up is recommended. 4. History of anxiety, seizure and benign prostatic hypertrophy are stable. PLAN: Continue to monitor inside the hospital. Plan of care discussed with him. His questions have been answered. He needs intravenous antibiotics until he becomes fever free. cc: Aquiles Evans MD [facility]US[facility]
[2019-05-26] MEDS: REMERON PO SCH (21:53)
[2019-05-26] MEDS: ATIVAN PO SCH (23:14)
[2019-05-27] MEDS: DUONEB (A & A) INH SCH ×6 (03:28→22:43)
[2019-05-27] MEDS: ZOSYN 4.5 GM in NS 100 ML IV SCH (03:58)
[2019-05-27] MEDS: TYLENOL PO PRN ×2 (04:19→13:10)
[2019-05-27] MEDS: PERCOCET-10 PO PRN ×3 (06:20→18:19)
[2019-05-27] MEDS: PRILOSEC PO SCH (06:41)
[2019-05-27] MEDS ORDERED: CUBICIN 600 MG in NS 100 ML IV SCH ×2 (08:15→10:00)
[2019-05-27] MEDS: MUCOMYST 20% INH SCH ×2 (08:25→19:25)
[2019-05-27] MEDS: PULMICORT INH SCH ×2 (08:25→19:25)
[2019-05-27] MEDS ORDERED: LEVAQUIN 750 MG/D5W 750 MG/150 ML IVPB IV SCH (08:30)
[2019-05-27 08:44] LABS: AGAP 9; BUN 8 mg/dL (8-22); CHLORIDE 97 mmol/L (98-107); COSMO 264; CREATININE 0.7 mg/dL (0.7-1.2); ESTIMATED GFR > 60; GLUCOSE 92 mg/dL (70-104); POTASSIUM 3.8 mmol/L (3.5-5.1); SODIUM 133 mmol/L (136-145); TCO2 27 mmol/L (25-35)
--- NOTE | 2019-05-27 11:03 | INFECTIOUS DISEASE CONSULT REP ---
DATE: 05/27/2019 CONCLUSION: The patient is admitted to the hospital with pneumonia. He got better and then he became worse. Dr. Evans feels that the patient while in the hospital developed a pneumonia with vancomycin-resistant Enterococcus, and after that the patient became bacteremic with Enterococcus. The patient's studies thus far show 1/2 blood cultures is growing a vancomycin- resistant Enterococcus. The patient's CBC shows a white blood cell count of 3520, hemoglobin is 9.9, and platelet count is 187,000. Creatinine is 0.9. GFR is greater than 60. The patient's sputum culture grew normal priya. The patient's most recent chest x-ray shows increase in the patient's bilateral infiltrates. The patient's chest x-ray did have a nodule on it, and this was biopsied and it showed that the patient had lung cancer. RECOMMENDATION: I suggest treating the patient with daptomycin and Zyvox. Some of the side effects of the antibiotics (rash, diarrhea, muscle toxicity, hematotoxicity) were explained to the patient who agrees with treatment. The patient will need 6 weeks of daptomycin because the metal plates in his hip may have become infected hematogenously while he is bacteremic. I discontinued Levaquin because the patient has seizures. PAST MEDICAL HISTORY/REVIEW OF SYSTEMS: Eyes and ears: The patient says he has good vision and hearing. Neck: No stiffness. Respiratory: See Present Illness. Cardiac: No chest pain or palpitations. GI: No nausea, vomiting, or diarrhea. When the patient came in the hospital, he did not have a good appetite. Neurologic: Patient has a history of seizures. He does not have any recent loss of motor or sensory function. PREVIOUS HOSPITALIZATIONS AND OPERATIONS: Patient fractured his hip and he told me he had metal plates put in the hip. He has had a stent placed in coronary arteries. He has had ocular surgery. The patient has had surgery on both of the great toes. They had to have hammertoe deformity and he had surgery on that. The patient has also had placement of a Port-A-Cath on the left side of the chest and, as mentioned earlier, the patient had a lung biopsy which showed lung cancer. MEDICAL DISEASES: Positive for lung cancer, seizure disorder, chronic obstructive pulmonary disease, coronary artery disease, bipolar disorder, and benign prostatic hypertrophy. Infectious disease history is positive for pneumonia and urinary tract infection. SOCIAL HISTORY: [place] He is . 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 He lives with his daughter. He has a dog as a pet. The patient smokes cigarettes. He most recently discontinued. He also does smoke marijuana. The patient was a heavy alcoholic drinker, but he said he stopped drinking in the past year. ALLERGIES: Dilantin, ceftazidime and codeine. MEDICATIONS TAKEN AT HOME: Include albuterol inhaler, Pulmicort, ferrous sulfate, Atrovent inhaler, Keppra, Levaquin, Ativan, Remeron, oxycodone, Paxil and Flomax. PHYSICAL EXAMINATION: Vital signs: Temperature was 103 degrees earlier; it is 101 now. Pulse is 96, respirations 16, blood pressure is 109/66. The patient is 6 feet 5 inches tall, weighs 151 pounds. General: This is a chronically ill-appearing, middle-aged male. He is in no acute distress. Head/eyes/ears/nose/throat: He is edentulous. I did not see any white patches on his tongue. He can hear my spoken words and see near objects. Neck: No meningismus. Thorax: Patient has an increased AP diameter of the chest on the left side. The patient has a Port-A- Cath. The site is not erythematous or swollen. Lungs: Clear to auscultation. Cardiovascular: At times the patient was in sinus rhythm, and he had a regular heart rate. At other times he had PVCs and an irregular heart rate. Abdomen: Soft and nontender. Neurologic: The patient is alert. He can move his extremities. There is no tremor. His memory as regarding his medical history was decreased. Integument: No rash. Thank you for the consult. cc: Lawrence Ozuna MD [facility]
[2019-05-27] MEDS: NICODERM PATCH TD SCH (11:51)
[2019-05-27] MEDS: FLOMAX PO SCH (11:51)
[2019-05-27] MEDS: MIRALAX PO SCH ×2 (11:51→22:23)
[2019-05-27] MEDS: PREDNISONE PO SCH (11:52)
[2019-05-27] MEDS: PAXIL PO SCH (11:52)
[2019-05-27] MEDS: KEPPRA PO SCH ×2 (11:52→22:23)
[2019-05-27] MEDS: MUCINEX PO SCH ×2 (11:53→22:23)
[2019-05-27] MEDS: DULCOLAX PR SCH ×2 (11:53→22:23)
[2019-05-27] MEDS: FERROUS SULFATE PO SCH (11:53)
[2019-05-27] MEDS: LOVENOX SUBQ SCH (11:53)
[2019-05-27] MEDS: METAMUCIL POWDER PACKET PO SCH (11:53)
[2019-05-27] MEDS: FLONASE NAS SCH (11:57)
[2019-05-27] MEDS: CUBICIN 500 MG in NS 100 ML IV SCH (12:20)
--- NOTE | 2019-05-27 12:41 | PROGRESS NOTE ---
DATE: 05/27/2019 INTERVAL HISTORY: Continues to have fever spike, with 1 of the 2 blood cultures growing vancomycin-resistant enterococci. SUBJECTIVE: Mr. Rodriges is denying any complaints except that he has been feeling a little short of breath, and he is feeling weak because of fever. OBJECTIVE: Vital Signs: Temperature 99.6 degrees, pulse 89, respiratory rate 16, blood pressure 91/50. He is saturating 97% on 4 liters nasal cannula. General: On physical examination, he is in mild distress because of shortness of breath. HEENT: Oral cavity is moist. Lungs: Air entry bilaterally equal. No wheezes or rhonchi. He does have improvement in the inspiratory crackles on the left supramammary region as compared to previous examination. He continues to have decreased air entry on the left infrascapular region and coarse inspiratory crackles of bilateral infrascapular region. Cardiovascular: S1 and S2 normal. No murmur or gallop. Abdomen: Soft, nontender. Skin: Left-sided chest port site appears to be not inflamed. Extremities: He has superficial venous dilation of lower extremities. Neurologic: He is alert and oriented x3. He has nasal cannula. Input and Output: Suggest he had a bowel movement today. LABORATORY DATA: Suggestive of no CBC today. BMP is unremarkable. Repeat blood cultures have been drawn and results are pending. IMAGING: No new imaging. ASSESSMENT AND PLAN: 1. Recurrent sepsis due to recurrent pneumonia affecting bilateral lung dockery, especially left. Lung blood culture is growing vancomycin-resistant enterococci. Potential source of this bacteremia could be his left-sided chest port versus, less likely pneumonia leading to bacteremia. Stop intravenous vancomycin and start the patient on intravenous daptomycin for bacteremia and intravenous linezolid for pneumonia. I also changed the dose of levofloxacin from 500 mg 750 mg and consulted Infectious Disease doctor for further management. He does have history of Stenotrophomonas and Pseudomonas pneumonia. Follow up repeat blood culture and sputum culture results. 2. Chronic hypoxic respiratory failure, acute chronic obstructive pulmonary disease exacerbation due to recurrent pneumonia are currently stable. I will repeat chest x-rays as necessary. Continue current dose of oral prednisone and inhaled bronchodilators. 3. 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 Oncology team outpatient management is recommended. 4. Others. I will continue her lorazepam and mirtazapine for anxiety, levetiracetam for seizures, nicotine patch for active tobacco abuse, omeprazole for stress ulcer prophylaxis. DISPOSITION: I will continue to monitor the patient inside the hospital. Plan of care discussed with the patient. Appreciate Infectious Disease's recommendation. cc: Aquiles Evans MD
[2019-05-27] MEDS: ZYVOX 600 MG/D5W 600 MG/300 ML IVPB IV SCH ×2 (12:56→22:24)
--- NOTE | 2019-05-27 13:46 | HEMO/ONC PROGRESS NOTE ---
DATE: 05/27/2019 SUBJECTIVE: Mr. Rodriges is awake and is in a pleasant mood this morning. He states he is feeling a little bit better. He did get sicker over the weekend. He was planned to be discharged on Monday. Unfortunately, he began running a fever and developed recurrent sepsis due to recurrent pneumonia. The patient continues to stay in the hospital. The patient is very concerned about pain. He has a history of chronic pain and chronic opioid use. The patient was also diagnosed with VRE today and placed on contact precautions. He states he is feeling better today, although he continues to have a fever. VITAL SIGNS: Temperature 99.6 degrees, pulse rate 89, respiratory rate 16, blood pressure 91/50, O2 saturation 97% on nasal cannula at 4 L. T-max over the last 24 hours is 103.1. PHYSICAL EXAMINATION: General: The patient is in no acute distress. HEENT: Sclerae is anicteric. PERRLA. Oral mucosa is normal. Respiratory: Inspiratory crackles noted. Normal respiratory effort. Cardiovascular: Normal S1, S2. Heart rate and rhythm regular. Abdomen: Soft, nondistended, nontender. Skin: Left-sided Port-A-Cath site appears to be healing as expected. Neurologic: Alert and oriented x3. No focal motor deficits noted. LABORATORY: No CBC drawn today. Sodium 133, potassium 3.8, creatinine 0.7, calcium 8.0. ASSESSMENT AND PLAN: 1. Small cell lung cancer. We plan to begin treatment on the patient as soon as he is discharged from the hospital and he will come into the hospital. We will obtain an outpatient PET in approximately a week and we will continue to follow along. 2. Recurrent sepsis due to recurrent pneumonia affecting bilateral lung dockery. Blood culture grew vancomycin-resistant Enterococcus. Dr. Ozuna has started the patient on daptomycin and Zyvox. 3. Chronic obstructive pulmonary disease exacerbation due to recurrent pneumonia. The patient will continue steroids and albuterol inhalers. He continues to be on oxygen. Continue management per hospitalist and muskrat trapper. 4. Deep venous thrombosis prophylaxis. The patient is on Lovenox daily. Allow the patient to get up and sit in a chair as well. He is at high risk due to hospitalization and malignancy. 5. Nicotine abuse. The patient states he is no longer smoking. He plans to not restart once he gets home. 6. Nutrition: The patient is aware that he needs to be increasing his protein. He needs protein shakes with every meal. Dictated by XENIA Bauer for Maulik Watson MD cc: Maulik Watson MD [facility]TD[facility]
[2019-05-27] MEDS: REMERON PO SCH (22:22)
[2019-05-27] MEDS: ATIVAN PO SCH (22:23)
[2019-05-28] MEDS: BENADRYL PO PRN ×2 (00:40→11:01)
[2019-05-28] MEDS: PERCOCET-10 PO PRN ×3 (00:41→16:00)
[2019-05-28] MEDS: TYLENOL PO PRN (02:31)
[2019-05-28] MEDS: DUONEB (A & A) INH SCH ×6 (03:40→23:05)
[2019-05-28] MEDS: PRILOSEC PO SCH (06:32)
[2019-05-28] MEDS: MIRALAX PO SCH ×3 (07:48→20:34)
[2019-05-28] MEDS: MUCINEX PO SCH ×3 (07:48→20:34)
[2019-05-28] MEDS: PAXIL PO SCH ×2 (07:48→09:18)
[2019-05-28] MEDS: KEPPRA PO SCH ×3 (07:48→20:34)
[2019-05-28] MEDS: NICODERM PATCH TD SCH ×2 (07:48→09:18)
[2019-05-28] MEDS: FLONASE NAS SCH ×2 (07:49→09:20)
[2019-05-28] MEDS: PREDNISONE PO SCH ×2 (07:49→09:18)
[2019-05-28] MEDS: FERROUS SULFATE PO SCH (07:49)
[2019-05-28] MEDS: METAMUCIL POWDER PACKET PO SCH ×2 (07:49→09:19)
[2019-05-28] MEDS: LOVENOX SUBQ SCH ×2 (07:49→09:19)
[2019-05-28] MEDS: FLOMAX PO SCH ×2 (07:49→09:20)
[2019-05-28 07:58] LABS: BASO# 0.01 X1000 (0.0-0.2); BASO% 0.4 % (0.0-0.8); EOS# 0.06 X1000 (0.0-0.7); EOS% 2.3 % (0.0-10.0); HEMATOCRIT 37.1 % (42.0-52.0); HEMOGLOBIN 11.3 g/dL (14.0-18.0); IMM GRAN# 0.02 X1000 (0.0-0.04); IMM GRAN% 0.8 % (0.0-0.5); LYMPH# 0.65 X1000 (1.2-3.4); LYMPH% 24.7 % (20.5-51.1); MCH 26.5 PG (27-31); MCHC 30.5 g/dL (33-37); MCV 86.9 FL (81-99); MONO# 0.18 X1000 (0.11-0.59); MONO% 6.8 % (1.7-9.3); MPV 9.6 FL (7.4-10.4); NEUT# 1.71 X1000 (1.4-6.5); PLT 160 X1000 (130-400); RBC 4.27 XMIL (4.7-6.1); RDW 16.5 % (11.5-14.5); WBC 2.63 X1000 (4.8-10.8)
[2019-05-28] MEDS: PULMICORT INH SCH ×2 (08:18→19:29)
[2019-05-28] MEDS: MUCOMYST 20% INH SCH ×2 (08:18→19:29)
[2019-05-28 08:46] LABS: AGAP 11; BUN 9 mg/dL (8-22); CALCIUM 8.6 mg/dL (8.8-10.2); CHLORIDE 90 mmol/L (98-107); COSMO 262; CREATININE 0.7 mg/dL (0.7-1.2); ESTIMATED GFR > 60; GLUCOSE 114 mg/dL (70-104); MAGNESIUM 1.8 mg/dL (1.5-2.7); POTASSIUM 3.4 mmol/L (3.5-5.1); SODIUM 131 mmol/L (136-145); TCO2 30 mmol/L (25-35)
[2019-05-28] MEDS: DULCOLAX PR SCH ×2 (09:18→20:35)
[2019-05-28] MEDS: ZYVOX 600 MG/D5W 600 MG/300 ML IVPB IV SCH ×2 (09:30→22:07)
[2019-05-28] MEDS ORDERED: KLOR-CON PO ONE (10:54)
[2019-05-28] MEDS: CUBICIN 500 MG in NS 100 ML IV SCH (10:59)
--- NOTE | 2019-05-28 18:57 | INFECTIOUS DISEASE PROGRESS NO ---
DATE: 05/28/2019 PRESENT ILLNESS: Mr. Rodriges is being treated for pneumonia and a vancomycin- resistant enterococcal bacteremia. MEDICATIONS: Today is day 1 of daptomycin 500 mg IV daily and Zyvox 600 mg IV every 12 hours. PHYSICAL EXAMINATION: Vital Signs: Temperature is 98.5 degrees, pulse rate 84, respiratory rate 18, blood pressure 106/62. O2 saturation is 90% on 4 L nasal cannula. General: This is a chronically ill-appearing, middle-aged male. He is lying in bed, currently in no acute distress. HEENT: Atraumatic, normocephalic. Oral mucous membranes are pink and moist. Conjunctivae are pink. Neck: Supple. Trachea is midline. Cardiovascular: Heart rate and rhythm are regular. Normal sinus rhythm on the monitor. Respiratory: Lung sounds have rhonchi and wheezes noted on the left side with clear exchange to the right upper and middle lobes and diminished to the right lower lobe. No work of breathing is noted. Abdomen: Soft, flat, and nontender. Bowel sounds are active. Integumentary: Skin is warm and dry. There is a Port-A-Cath with Steri-Strips in place to the left chest and anterior neck. The sites are clean, dry, and intact. Neurologic: He is awake and lethargic and drowsy but arousable. Able to move all extremities in the bed independently. LABORATORY AND X-RAY: Today his white count is 2.63, hemoglobin 11.3, platelet count 160,000. Creatinine is 0.7 with estimated GFR greater than 60. His blood has previously grown vancomycin resistant enterococcus and repeat blood cultures were done yesterday and are pending. No imaging reports today. ASSESSMENT AND PLAN: Mr. Rodriges is being treated for pneumonia as well as a vancomycin-resistant enterococcal bacteremia. Because of the history of left hip arthroplasty, he will need 6 weeks to complete the treatment for his bacteremia. Day 1 will be the first day of sterile blood cultures, which we are waiting to obtain. He does have pneumonia which may possibly be related to the vancomycin-resistant enterococcus, so we will continue Zyvox for that. These plans have been discussed with and recommended by Dr. Ozuna. COMORBIDITIES: for the patient include small cell lung cancer, seizure disorder, chronic obstructive pulmonary disease, coronary artery disease, bipolar disorder, cigarette smoking, and illicit drug use. Dictated by XENIA Rodriguez for Lawrence Ozuna MD cc: Lawrence Ozuna MD [facility]
--- NOTE | 2019-05-28 20:20 | PROGRESS NOTE ---
DATE: 05/28/2019 SUBJECTIVE: The patient is sitting up in bed eating lunch. He has no complaints at this time. He states that he feels much better today. OBJECTIVE: Vital Signs: Temperature 98.5 degrees, blood pressure 106/62, heart rate 84, respirations 18, O2 saturation 90% on 4 L nasal cannula. General: This is a chronically ill- appearing elderly male sitting up in bed in no acute distress. Heart: S1, S2 normal. Regular rate and rhythm. Lungs: Equal air entry bilaterally. No wheezing. Abdomen: Positive bowel sounds. Soft, nontender, nondistended. Extremities: No edema no cyanosis. Neurologic: The patient is alert and oriented x4. LABS: White blood cell count 2.6, hemoglobin 11, hematocrit 37, platelets 160,000. Sodium 131, potassium 3.4, chloride 90, CO2 30, BUN 9, creatinine 0.7, glucose 114, magnesium 1.8. ASSESSMENT AND PLAN: 1. Sepsis secondary to pneumonia, secondary to vancomycin-resistant Enterococci. Continue with the current antibiotic regimen as directed by Dr. Ozuna. 2. Bacteremia secondary to vancomycin-resistant Enterococci. Continue with the current antibiotic regimen. Repeat blood cultures are currently pending. 3. Chronic hypoxemic respiratory failure. Stable. 4. Left basilar small cell carcinoma. The patient will follow up with Dr. Watson as outpatient for further treatment options and further imaging. 5. Seizure disorder. Continue on Keppra. 6. Tobacco dependence. The patient has been counseled about smoking cessation. 7. Gastrointestinal prophylaxis. Continue on omeprazole. 8. Anxiety disorder. Continue on Ativan. 9. Deep vein thrombosis prophylaxis. Continue on Lovenox. cc: Salima Dubon MD
[2019-05-28] MEDS: REMERON PO SCH (20:34)
[2019-05-28] MEDS: ATIVAN PO SCH (20:34)
[2019-05-29] MEDS: PERCOCET-10 PO PRN ×4 (00:49→23:46)
[2019-05-29] MEDS: DUONEB (A & A) INH SCH ×6 (02:40→23:00)
[2019-05-29] MEDS: PRILOSEC PO SCH (06:18)
[2019-05-29] MEDS: TYLENOL PO PRN (06:19)
[2019-05-29] MEDS: PULMICORT INH SCH ×2 (07:22→19:57)
[2019-05-29] MEDS: MUCOMYST 20% INH SCH ×2 (07:22→19:57)
[2019-05-29 08:06] LABS: AGAP 7; BUN 8 mg/dL (8-22); CALCIUM 8.5 mg/dL (8.8-10.2); CHLORIDE 91 mmol/L (98-107); COSMO 259; CREATININE 0.7 mg/dL (0.7-1.2); ESTIMATED GFR > 60; GLUCOSE 94 mg/dL (70-104); POTASSIUM 4.5 mmol/L (3.5-5.1); SODIUM 130 mmol/L (136-145); TCO2 32 mmol/L (25-35)
[2019-05-29] MEDS: KEPPRA PO SCH ×2 (08:41→20:07)
[2019-05-29] MEDS: FLONASE NAS SCH (08:41)
[2019-05-29] MEDS: MUCINEX PO SCH ×2 (08:41→20:07)
[2019-05-29] MEDS: FLOMAX PO SCH (08:41)
[2019-05-29] MEDS: FERROUS SULFATE PO SCH (08:41)
[2019-05-29] MEDS: PREDNISONE PO SCH (08:41)
[2019-05-29] MEDS: METAMUCIL POWDER PACKET PO SCH (08:41)
[2019-05-29] MEDS: NICODERM PATCH TD SCH (08:41)
[2019-05-29] MEDS: PAXIL PO SCH (08:41)
[2019-05-29] MEDS: LOVENOX SUBQ SCH (08:42)
[2019-05-29] MEDS: MIRALAX PO SCH ×3 (08:42→20:07)
[2019-05-29] MEDS: DULCOLAX PR SCH ×2 (08:42→20:08)
[2019-05-29] MEDS: ZYVOX 600 MG/D5W 600 MG/300 ML IVPB IV SCH (09:21)
[2019-05-29] MEDS: CUBICIN 500 MG in NS 100 ML IV SCH (10:59)
--- NOTE | 2019-05-29 14:24 | PROGRESS NOTE ---
DATE: 05/29/2019 SUBJECTIVE: The patient is resting comfortably in bed. He had a fever of 100.1 this morning. OBJECTIVE: Vital Signs: Temperature 99 degrees, blood pressure 94/51, heart rate 84, respirations 18, O2 saturation is 90% on 3 L nasal cannula. General: This is a chronically ill- appearing, elderly male lying in bed, in no acute distress. Heart: S1, S2 normal. Regular rate and rhythm. Lungs: Coarse breath sounds. Abdomen: Positive bowel sounds. Soft, nontender, nondistended. Extremities: No edema, no cyanosis. Neurologic: The patient is alert and oriented x3. Labs: Sodium 130, potassium 4.5, chloride 91, CO2 of 32, BUN 8, creatinine 0.7, glucose 94. ASSESSMENT AND PLAN: 1. Sepsis secondary to pneumonia. Continue with antibiotic therapy. 2. Bacteremia secondary to vancomycin-resistant enterococcus. Repeat blood cultures are in progress. Continue on the current antibiotic regimen. 3. Chronic hypoxemic respiratory failure. Stable. 4. Hyponatremia. We will check a urine sodium as well as urine osmolality. 5. Left basilar small cell lung carcinoma. Aware. The patient will follow up with Dr. Watson upon discharge to discuss further imaging and treatment options. 6. Seizure disorder. Continue on Keppra. 7. Tobacco dependence. The patient has been counseled about smoking cessation. 8. Gastrointestinal prophylaxis. Continue on omeprazole. 9. Anxiety disorder. Continue on Ativan. 10. Deep vein thrombosis prophylaxis. Continue on Lovenox. cc: Salima Dubon MD
[2019-05-29 18:23] LABS: URINE SOURCE CLEAN CATCH
[2019-05-29 18:41] LABS: BILIRUBIN URINE NEGATIVE (NEGATIVE); BLOOD URINE NEGATIVE (NEGATIVE); COLOR YELLOW; GLUCOSE URINE NEGATIVE (NEGATIVE); KETONE URINE NEGATIVE (NEGATIVE); LEUKOCYTES URINE NEGATIVE (NEGATIVE); NITRITE URINE NEGATIVE (NEGATIVE); PH URINE 6.5; PROTEIN URINE NEGATIVE (NEGATIVE); SP GRAVITY URINE 1.009; TURBIDITY URINE CLEAR (CLEAR); UROBILINOGEN URINE NORMAL (NORMAL)
--- NOTE | 2019-05-29 18:42 | INFECTIOUS DISEASE PROGRESS NO ---
DATE: 05/29/2019 PRESENT ILLNESS: Mr. Rodriges has pneumonia and a vancomycin-resistant enterococcal bacteremia. MEDICATIONS: He is receiving daptomycin 500 mg IV daily and zyvox 600 mg IV every 12 hours. Based on his sterile blood cultures, today is day 2 of treatment for his bacteremia. PHYSICAL EXAMINATION: Vital Signs: Temperature is 99 degrees, pulse rate 84, respiratory rate 18, blood pressure 94/51. O2 saturation 90% on 3 L nasal cannula. General: This is a chronically ill-appearing, middle-aged male. He is lying in bed, currently in no acute distress. HEENT: Atraumatic, normocephalic. Oral mucous membranes are pink and moist. Conjunctivae are pink. Neck: Supple. Trachea is midline. Respiratory: Bilateral rhonchi and wheezes noted in the upper lobes. Diminished in the mid and bases. No work of breathing is noted. Cardiovascular: Heart rate and rhythm are regular with normal sinus rhythm on the monitor. Abdomen: Soft, flat, and nontender. Bowel sounds are active. Neurologic: He is awake, alert, oriented, and able to move around in the bed independently. Integumentary: Skin is warm and dry with a Port-A-Cath in place with Steri-Strips clean and dry to the left chest and anterior neck. LABORATORY AND X-RAY: No CBC today, but his creatinine is 0.7, with an estimated GFR of greater than 60. His blood culture showed a vancomycin-resistant enterococcus with a repeat set of cultures that were sterile. There is another set of cultures that were drawn this morning, and preliminary. No imaging reports today. ASSESSMENT AND PLAN: Mr. Rodriges is being treated for pneumonia and a vancomycin-resistant enterococcal bacteremia. Based on his sterile blood cultures, today is day 2 of treatment with daptomycin, which he will need to continue for a total of 6 weeks, due to his left hip arthroplasty, which could have been infected while he was bacteremic. There is also a pneumonia. The patient states he is feeling much better today and is able to eat now. We will continue the Zyvox but change that to oral at this time. Blood work and chest x-ray have already been ordered for in the morning. These plans have been discussed with and recommended by Dr. Ozuna. COMORBIDITIES: For Mr. Rodriges include small cell lung cancer, cigarette smoking with chronic obstructive pulmonary disease, seizure disorder, coronary artery disease, bipolar disorder and illicit drug use. Dictated by XENIA Rodriguez for Lawrence Ozuna MD cc: Lawrence Ozuna MD [facility]
[2019-05-29 18:51] LABS: UR EPITHELIAL CELLS <10 /HPF (<10); URINE BACTERIA NEGATIVE /HPF; URINE RBC <10 /HPF (<10); URINE WBC <10 /HPF (<10)
[2019-05-29 19:00] LABS: URINE CASTS NONE SEEN; URINE CRYSTALS NONE SEEN; URINE SMALL ROUND CELLS NONE SEEN; URINE YEAST NONE SEEN
[2019-05-29] MEDS: REMERON PO SCH (20:07)
[2019-05-29] MEDS: ATIVAN PO SCH (20:07)
[2019-05-29] MEDS: ZYVOX PO SCH (20:07)
[2019-05-30] MEDS: DUONEB (A & A) INH SCH ×6 (03:05→23:05)
[2019-05-30 04:00] LABS: ALLEN TEST YES; BE 8.6 mmoll (-3.0-3.0); BLOOD TYPE ARTERIAL; HCO3-(ACT) 31.6 mmoll (20.0-26.0); METHB 0.9 % (0.0-1.5); O2(CT) 14.6 mL/dL (15.0-23.0); O2HB 94.8 % (95.0-99.0); PCO2(98.6) 50 mmHg (35-45); PO2(98.6) 70 mmHg (60-100); SAMPLE BLOOD; SAO2 98.5 % (95.0-100.0); THB 10.9 g/dL (11.5-17.4); pH(98.6) 7.44 (7.35-7.45)
[2019-05-30 04:01] LABS: MODALITY CANNULA
[2019-05-30] MEDS: PRILOSEC PO SCH (06:01)
[2019-05-30] MEDS: PERCOCET-10 PO PRN ×3 (06:25→18:44)
[2019-05-30] MEDS: PULMICORT INH SCH ×2 (08:00→19:05)
[2019-05-30] MEDS: MUCOMYST 20% INH SCH ×2 (08:00→19:05)
--- NOTE | 2019-05-30 08:04 | Diag Imaging Result Doc PS360 ---
EXAM: CHEST-1 VIEW INDICATION: pneumonia TECHNIQUE: One view COMPARISON: 05/25/2019 FINDINGS: The left chest port is in stable position. Extensive patchy airspace infiltrates bilaterally are unchanged. No new consolidation is identified. Cardiac silhouette is stable. IMPRESSION: Stable chest. Electronically signed by Armani Ansari 05/30/2019 8:02 AM
[2019-05-30] MEDS: DULCOLAX PR SCH ×2 (08:24→22:00)
[2019-05-30] MEDS: METAMUCIL POWDER PACKET PO SCH (08:25)
[2019-05-30] MEDS: MIRALAX PO SCH ×2 (08:25→22:00)
[2019-05-30] MEDS: FLOMAX PO SCH (08:29)
[2019-05-30] MEDS: LOVENOX SUBQ SCH (08:29)
[2019-05-30] MEDS: KEPPRA PO SCH ×2 (08:29→21:59)
[2019-05-30] MEDS: ZYVOX PO SCH ×2 (08:29→21:59)
[2019-05-30] MEDS: PAXIL PO SCH (08:29)
[2019-05-30] MEDS: MUCINEX PO SCH ×2 (08:29→21:59)
[2019-05-30] MEDS: PREDNISONE PO SCH (08:29)
[2019-05-30] MEDS: FERROUS SULFATE PO SCH (08:30)
[2019-05-30] MEDS: FLONASE NAS SCH (08:30)
[2019-05-30] MEDS: NICODERM PATCH TD SCH (08:31)
[2019-05-30 08:43] LABS: BASO# 0.08 X1000 (0.0-0.2); BASO% 2.3 % (0.0-0.8); EOS# 0.21 X1000 (0.0-0.7); EOS% 6.1 % (0.0-10.0); HEMATOCRIT 34.5 % (42.0-52.0); HEMOGLOBIN 10.3 g/dL (14.0-18.0); LYMPH# 1.26 X1000 (1.2-3.4); LYMPH% 36.5 % (20.5-51.1); MCH 26.3 PG (27-31); MCHC 29.9 g/dL (33-37); MCV 88.2 FL (81-99); MONO# 0.39 X1000 (0.11-0.59); MONO% 11.3 % (1.7-9.3); MPV 9.8 FL (7.4-10.4); NEUT# 1.51 X1000 (1.4-6.5); NEUT% 43.8 % (42.2-75.2); PLT 172 X1000 (130-400); RBC 3.91 XMIL (4.7-6.1); RDW 16.1 % (11.5-14.5); WBC 3.45 X1000 (4.8-10.8)
[2019-05-30 09:01] LABS: AGAP 7; BUN 6 mg/dL (8-22); CALCIUM 8.3 mg/dL (8.8-10.2); CHLORIDE 97 mmol/L (98-107); COSMO 269; CREATININE 0.6 mg/dL (0.7-1.2); ESTIMATED GFR > 60; GLUCOSE 114 mg/dL (70-104); POTASSIUM 3.7 mmol/L (3.5-5.1); SODIUM 135 mmol/L (136-145); TCO2 31 mmol/L (25-35)
[2019-05-30] MEDS: CUBICIN 500 MG in NS 100 ML IV SCH ×2 (13:52→13:53)
--- NOTE | 2019-05-30 14:32 | INFECTIOUS DISEASE PROGRESS NO ---
DATE: 05/30/2019 PRESENT ILLNESS: The patient has a vancomycin-resistant enterococcal bacteremia and pneumonia. MEDICATIONS: The patient for the past 3 days has been getting IV daptomycin and Zyvox. PHYSICAL EXAMINATION: Vital Signs: Temperature is 97.8 degrees, pulse 84, respirations 17, blood pressure is 102/61. General: This is a chronically ill-appearing, middle-aged male. He is in no acute distress. Head/eyes/ears/nose/throat: He can hear my spoken words and see near objects. I did not see any white patches in his mouth. Neck: No pain with movement. Thorax: Patient has an increased AP diameter of the chest. There is a portacath on the left side. Lungs: Bilateral rhonchi. Cardiovascular: Heart rate is regular. Abdomen: Soft and nontender. Neurologic: The patient is alert. He can move his extremities. There is no tremor. LAB AND X-RAY: Chest x-ray shows bilateral airspace infiltrates. Repeat blood cultures are pending. The patient's CBC shows a white count of 3450, hemoglobin 10.3, platelet count 172,000. Blood gases show a pH of 7.44, pO2 of 70, and a pCO2 of 50. Creatinine is 0.6. GFR is greater than 60. ASSESSMENT AND PLAN: The patient has pneumonia and has vancomycin-resistant enterococcal bacteremia and pneumonia. My plan is to continue Zyvox and daptomycin. COMORBIDITIES: The patient has lung cancer, cigarette smoking, chronic obstructive pulmonary disease, seizure disorder, coronary artery disease, bipolar disorder, and illicit drug use. cc: Lawrence Ozuna MD [facility]TD[facility]
--- NOTE | 2019-05-30 18:09 | PROGRESS NOTE ---
DATE: 05/30/2019 SUBJECTIVE: The patient is resting comfortably in bed. He states that he feels much better today than he did yesterday. OBJECTIVE: Vital Signs: Temperature 98 degrees, blood pressure 107/59, heart rate 78, respirations 18, and O2 saturation 94% on 4 L nasal cannula. General: This is a chronically ill- appearing male lying in bed in no acute distress. Heart: S1, S2 normal. Regular rate and rhythm. Lungs: Coarse breath sounds with rhonchi mainly in the left lung field. Extremities: No edema. No cyanosis. No calf tenderness. Neurologic: The patient is alert and oriented x3. LABORATORY: White blood cell count 10, hemoglobin 10. Sodium 135, potassium 3.7, chloride 97, CO2 31, BUN 6, creatinine 0.5 glucose 114, and magnesium 1.7. ASSESSMENT AND PLAN: 1. Sepsis secondary to pneumonia. Slowly improving. 2. Bacteremia secondary to VRE. Continue on the current antibiotic regimen. So far, the repeat blood cultures remain negative. 3. Pneumonia. Continue with antibiotic therapy. 4. Chronic hypoxemic respiratory failure. Stable. 5. Hyponatremia. Improved. 6. Left basilar small cell lung cancer. Aware. The patient will follow up with Dr. Watson upon discharge from the hospital. 7. Seizure disorder. Continue on Keppra. 8. Tobacco dependence. The patient has been counseled about smoking cessation. 9. Anxiety disorder. Continue on Ativan. 10. Gastrointestinal prophylaxis. Continue omeprazole. 11. Deep vein thrombosis prophylaxis. Continue on Lovenox. cc: Salima Dubon MD [facility]TD[facility]
[2019-05-30] MEDS: ATIVAN PO PRN (18:43)
[2019-05-30] MEDS: REMERON PO SCH (21:59)
[2019-05-30] MEDS: ATIVAN PO SCH (22:00)
[2019-05-31] MEDS: PERCOCET-10 PO PRN ×4 (01:08→21:10)
[2019-05-31] MEDS: DUONEB (A & A) INH SCH ×6 (03:05→22:43)
--- NOTE | 2019-05-31 04:11 | PULMONOLOGY PROGRESS NOTE ---
DATE: 05/30/2019 SUBJECTIVE: The patient is awake and alert. He reports that his breathing is the best that it has been since his admission. OBJECTIVE: Vital Signs: The patient has been afebrile for the last 24 hours. Blood pressure 107/59, heart rate 78, respiratory rate 18, oxygen saturation 95% on nasal cannula. HEENT: Pupils are equal and reactive. Oropharynx appears clear. Neck: Supple. Chest: Reveals crackles bilaterally. Cardiac: S1-S2. Abdomen: Soft. Extremities: Without edema. LABORATORIES: Chest x-ray reveals fibroemphysema bilaterally with stable left basilar mass. IMPRESSION: A 63-year-old with: 1. Recent diagnosis of lung cancer. 2. Vancomycin-resistant enterococcal bacteremia with pneumonia. 3. Severe fibroemphysema. 4. Nicotine addiction/tobacco use. 5. Alcohol use. PLAN: 1. Continue antibiotics per Dr. Lawrence Ozuna. 2. Encourage patient to discontinue tobacco use. 3. Anticipate treatment for lung cancer pending completion of treatment for pneumonia/bacteremia. cc: Juan Miguel Almonte MD
[2019-05-31] MEDS: BENADRYL PO PRN (05:31)
[2019-05-31] MEDS: PRILOSEC PO SCH (06:39)
[2019-05-31] MEDS: PULMICORT INH SCH ×2 (07:42→19:34)
[2019-05-31] MEDS: MUCOMYST 20% INH SCH ×2 (07:42→19:35)
[2019-05-31 07:47] LABS: BASO# 0.06 X1000 (0.0-0.2); BASO% 1.4 % (0.0-0.8); EOS% 7.2 % (0.0-10.0); HEMATOCRIT 35.9 % (42.0-52.0); HEMOGLOBIN 10.8 g/dL (14.0-18.0); IMM GRAN# 0.02 X1000 (0.0-0.04); IMM GRAN% 0.5 % (0.0-0.5); LYMPH# 1.28 X1000 (1.2-3.4); LYMPH% 30.7 % (20.5-51.1); MCH 26.8 PG (27-31); MCHC 30.1 g/dL (33-37); MCV 89.1 FL (81-99); MONO# 0.33 X1000 (0.11-0.59); MONO% 7.9 % (1.7-9.3); MPV 9.4 FL (7.4-10.4); NEUT# 2.18 X1000 (1.4-6.5); NEUT% 52.3 % (42.2-75.2); PLT 211 X1000 (130-400); RBC 4.03 XMIL (4.7-6.1); RDW 16.2 % (11.5-14.5); WBC 4.17 X1000 (4.8-10.8)
[2019-05-31 07:59] LABS: AGAP 10; BUN 5 mg/dL (8-22); CHLORIDE 97 mmol/L (98-107); COSMO 271; CREATININE 0.6 mg/dL (0.7-1.2); ESTIMATED GFR > 60; GLUCOSE 102 mg/dL (70-104); POTASSIUM 4.5 mmol/L (3.5-5.1); SODIUM 137 mmol/L (136-145); TCO2 30 mmol/L (25-35)
[2019-05-31 08:06] LABS: BANDS 2 % (0-1); EOS 4 % (1-10); LYMPHS 32 % (21-51); SEGS 62 % (42-75)
[2019-05-31] MEDS: ZYVOX PO SCH ×2 (08:31→21:09)
[2019-05-31] MEDS: MUCINEX PO SCH ×2 (08:31→21:10)
[2019-05-31] MEDS: PAXIL PO SCH (08:31)
[2019-05-31] MEDS: ATIVAN PO PRN ×2 (08:31→15:26)
[2019-05-31] MEDS: KEPPRA PO SCH ×2 (08:31→21:10)
[2019-05-31] MEDS: FLOMAX PO SCH (08:31)
[2019-05-31] MEDS: NICODERM PATCH TD SCH (08:31)
[2019-05-31] MEDS: MIRALAX PO SCH ×2 (08:31→21:09)
[2019-05-31] MEDS: PREDNISONE PO SCH (08:31)
[2019-05-31] MEDS: LOVENOX SUBQ SCH (08:31)
[2019-05-31] MEDS: FERROUS SULFATE PO SCH (08:31)
[2019-05-31] MEDS: FLONASE NAS SCH (08:32)
[2019-05-31] MEDS: DULCOLAX PR SCH (08:32)
[2019-05-31] MEDS: METAMUCIL POWDER PACKET PO SCH (08:32)
[2019-05-31] MEDS: CUBICIN 500 MG in NS 100 ML IV SCH (10:12)
--- NOTE | 2019-05-31 11:43 | HEMO/ONC PROGRESS NOTE ---
DATE: 05/31/2019 SUBJECTIVE: Mr. Rodriges refers to be improving. He states he has no pain. He is breathing better. He is getting anxious to go home and start cancer treatment in the clinic. The patient understands he is here to continue improving from his VRE bacteremia and pneumonia. VITAL SIGNS: Temperature 97.8 degrees, pulse rate 90, respiratory rate 18, blood pressure 103/66, O2 saturation 95% on nasal cannula at 4 L. He is in 3/10 generalized pain. PHYSICAL EXAMINATION: General: Patient is in no acute distress. HEENT: Sclerae is anicteric. PERRLA. Oral mucosa is normal. Cardiovascular: Normal S1, S2. Heart rate and rhythm is regular. Respiratory: Lung sounds are clear to auscultation. Abdomen: Soft, nontender, nondistended. Extremities: No lower extremity edema noted. LABORATORY DATA: WBC 4.17, hemoglobin 10.8, hematocrit 35.9, platelet count 211,000. ANC 2.18. Sodium 137, potassium 4.5, creatinine 0.6. Blood cultures from the show no growth after 48 hours. ASSESSMENT AND PLAN: 1. Small cell lung cancer. We will need to begin treatment on the patient as soon as he is discharged from the hospital. We will obtain an outpatient PET scan and continue to follow. 2. Recurrent sepsis due to recurrent pneumonia affecting bilateral lung dockery. Patient has vancomycin-resistant enterococcal bacteremia. He is continuing to be medicated with antibiotics per Dr. Ozuna. His latest blood cultures have revealed no growth in the last 48 hours. Hopefully, he is improving and will be able to be discharged soon. 3. Severe fibro emphysema. The patient is being followed by Dr. Almonte. 4. Deep venous thrombosis prophylaxis. The patient is on Lovenox daily. The patient needs to also be getting up out of the bed at least 3 times a day. He is at high risk for deep vein thrombosis due to hospitalization, immobilization and malignancy. 5. Nicotine abuse. The patient states he is no longer going to smoke once he gets discharged. 6. Nutrition. Continue the patient with protein shakes with each meal. Dictated by XENIA Bauer for Maulik Watson MD Continue current management of sepsis. We will manage cancer once better from infection. Maulik Watson MD cc: Maulik Watson MD [facility]
--- NOTE | 2019-05-31 15:48 | INFECTIOUS DISEASE PROGRESS NO ---
DATE: 05/31/2019 PRESENT ILLNESS: Mr. Rodriges is being treated for vancomycin-resistant enterococcal bacteremia, as well as a pneumonia. MEDICATIONS: Based on his sterile blood cultures, today is day 4 of treatment for his bacteremia, using daptomycin 500 mg IV daily. He is also on Zyvox 600 mg by mouth every 12 hours for his pneumonia. PHYSICAL EXAMINATION: Vital Signs: Temperature is 97.8 degrees, pulse rate 81, respiratory rate 20, blood pressure 103/66, O2 saturation is 94% on 4 L nasal cannula. General: This is a chronically ill-appearing, elderly gentleman. He is lying in bed, currently in no acute distress. HEENT: Atraumatic, normocephalic. Oral mucous membranes are pink and moist. Conjunctivae are pink. Neck: Supple. Trachea is midline. Cardiovascular: Heart rate is regular, S1-S2 noted. Respiratory: Lung sounds have bilateral coarse wheezes in the upper lobes, crackles in the right mid and base and diminished in the left base. Abdomen: Soft, flat, nontender. Bowel sounds are active. Integumentary: Skin is warm and dry. There is a Port-A-Cath to the left chest with Steri-Strips in place that are dry and intact. No redness, edema, or drainage noted to the area. Neurologic: He is awake, alert, oriented, and able to move around independently in the bed. LABORATORY AND X-RAY: Today his white count is 4.17, hemoglobin 10.8, platelet count 211,000, creatinine is 0.6, estimated GFR is greater than 60. Creatine kinase is 40. His original blood cultures grew 1/2 and are vancomycin-resistant enterococcus. Most recently 2 sets of blood cultures have been negative. No imaging reports today. ASSESSMENT AND PLAN: Mr. Rodriges has pneumonia as well as a vancomycin- resistant enterococcal bacteremia. I have calculated 6 weeks of treatment, which he will require due to his left hip arthroplasty. He will need the daptomycin to continue through July 07. This order has been put in the computer for [facility] to consider home IV antibiotics using his Port-A-Cath. He is also receiving Zyvox for his pneumonia and states he is continuing to feel better every day, so we will continue Zyvox for now. These plans have been discussed with and recommended by Dr. Ozuna. COMORBIDITIES: Comorbidities for Mr. Rodriges include cigarette smoking with chronic obstructive pulmonary disease, a new diagnosis of small cell lung cancer, seizure disorder, coronary artery disease, bipolar disorder and illicit drug use. Dictated by XENIA Rodriguez for Lawrence Ozuna MD cc: Lawrence Ozuna MD [facility]
--- NOTE | 2019-05-31 17:34 | PROGRESS NOTE ---
DATE: 05/31/2019 SUBJECTIVE: The patient is resting comfortably in bed. He states that he does not have any complaints today. OBJECTIVE: Vital Signs: Temperature 97.4 degrees, blood pressure 112/66, heart rate 83, respirations 14, O2 saturation 94% on 4 L nasal cannula. General: This is a chronically ill- appearing elderly male sitting up in bed in no acute distress. Heart: S1, S2 normal. Regular rate and rhythm. Lungs: Coarse breath sounds in the left lung field. Abdomen: Positive bowel sounds. Soft, nontender, nondistended. Extremities: No edema, no cyanosis. Neurologic: The patient is alert and oriented x3. LABS: White blood cell count 4, hemoglobin 10, hematocrit 35, platelets 211,000. Sodium 137, potassium 4.5, chloride 97, CO2 30, BUN 5, creatinine 0.6 glucose 102. ASSESSMENT AND PLAN: 1. Bacteremia secondary to vancomycin-resistant enterococcus. Continue on daptomycin and Zyvox as directed by Dr. Ozuna. 2. Pneumonia. Continue on the current treatment regimen as directed by Dr. Ozuna. 3. Chronic hypoxemic respiratory failure. Stable. 4. Hyponatremia. Resolved. 5. Left basilar small cell lung cancer. Aware. The patient has a Port-A-Cath in place. He will follow up with Dr. Watson as outpatient to discuss treatment. 6. Tobacco dependence. The patient has been counseled about smoking cessation. 7. Anxiety disorder. Continue on Ativan as needed. 8. Gastrointestinal prophylaxis. Continue on omeprazole. 9. Deep vein thrombosis prophylaxis. Continue on Lovenox. cc: Salima Dubon MD
--- NOTE | 2019-05-31 18:48 | PROVIDER PROGRESS NOTE ---
Progress Note Dr. Salazar Progress Note/Pulmonary and or critical care Subjective: The patient is lying in bed on NC 4L. He appears a little bit lethargic, but easily arousable. He states he feels pretty good. He denies any pain. He states he is ready to quit smoking. Objective: Vital Signs: T 97.8 (no fever in last 24 hours), MO 90, RR 18, BP 103/66 and SaO2 95% on NC 4L. Physical Examination: General: Lying in bed with no acute distress noted. HEENT: Normocephalic. Trachea midline. Mucosa pink and moist. Pupils equal round reactive to light. Chest: Even and unlabored. Auscultation reveals coarse inspiratory and expiratory crackles bilaterally. CVS: Regular rate and rhythm with S1 and S2 appreciated. Abdomen: Soft. Nontender. Nontender. Bowel sounds present in all 4 quadrants. Extremities: No pedal edema. Neuro: Lethargic. Speech fluent. Follow commands. Labs and Radiology: Laboratory Results 05/31/19 05/31/19 05/31/19 07:20 07:20 07:20 WBC 4.17 L RBC 4.03 L Hgb 10.8 L Hct 35.9 L MCV 89.1 MCH 26.8 L MCHC 30.1 L RDW Std Deviation 16.2 H Plt Count 211 MPV 9.4 Immature Gran % (Auto) 0.5 Neut % (Auto) 52.3 Lymph % (Auto) 30.7 Appling % (Auto) 7.9 Eos % (Auto) 7.2 Baso % (Auto) 1.4 H Immature Gran # (Auto) 0.02 Neut # (Auto) 2.18 Lymph # (Auto) 1.28 Appling # (Auto) 0.33 Eos # (Auto) 0.30 Baso # (Auto) 0.06 Segmented Neutrophils 62 Band Neutrophils 2 H Lymphocytes 32 Eosinophils 4 Sodium 137 Potassium 4.5 D Chloride 97 L Carbon Dioxide 30 Anion Gap 10 BUN 5 L Creatinine 0.6 L Estimated GFR/1.73 m2 > 60 BUN/Creatinine Ratio 8 Glucose 102 Calculated Osmolality 271 Calcium 9.0 Creatine Kinase 40 Assessment: Acute hypoxic respiratory failure. Emphysema with significant component of fibrosis. Pneumonia. Vancomycin-resistant enterococcal bacteremia. Left basilar small cell lung cancer. GARFIELD Watson outpatient. Tobacco dependence. Alcohol use. Plan: Weaning oxygen as tolerated. Antibiotics, including Daptomycin and Linezolid per Dr. Ozuna. Oral prednisone. Bronchodilators. Mucomyst. Tobacco cessation education. Patient states he is ready to quit smoking. Appropriate DVT and GI prophylaxis Anticipate treatment for lung cancer pending completion of treatment for pneumonia and bacteremia.
[2019-05-31] MEDS: REMERON PO SCH (21:10)
[2019-05-31] MEDS: ATIVAN PO SCH (21:10)
[2019-06-01] MEDS: TYLENOL PO PRN (01:41)
[2019-06-01] MEDS: BENADRYL PO PRN (01:42)
[2019-06-01] MEDS: DUONEB (A & A) INH SCH ×6 (03:35→23:07)
[2019-06-01] MEDS: DULCOLAX PR SCH ×3 (04:00→20:09)
[2019-06-01] MEDS: PERCOCET-10 PO PRN ×4 (04:12→22:49)
[2019-06-01] MEDS: ATIVAN PO PRN ×4 (04:12→22:49)
[2019-06-01] MEDS: PRILOSEC PO SCH (06:29)
[2019-06-01 07:26] LABS: BASO# 0.02 X1000 (0.0-0.2); BASO% 0.4 % (0.0-0.8); EOS# 0.24 X1000 (0.0-0.7); EOS% 4.6 % (0.0-10.0); HEMATOCRIT 36.4 % (42.0-52.0); HEMOGLOBIN 10.8 g/dL (14.0-18.0); IMM GRAN# 0.02 X1000 (0.0-0.04); IMM GRAN% 0.4 % (0.0-0.5); LYMPH# 1.36 X1000 (1.2-3.4); LYMPH% 26.1 % (20.5-51.1); MCH 26.6 PG (27-31); MCHC 29.7 g/dL (33-37); MCV 89.7 FL (81-99); MONO# 0.36 X1000 (0.11-0.59); MONO% 6.9 % (1.7-9.3); MPV 9.1 FL (7.4-10.4); NEUT# 3.21 X1000 (1.4-6.5); NEUT% 61.6 % (42.2-75.2); PLT 232 X1000 (130-400); RBC 4.06 XMIL (4.7-6.1); RDW 16.2 % (11.5-14.5); WBC 5.21 X1000 (4.8-10.8)
[2019-06-01] MEDS: MUCOMYST 20% INH SCH ×2 (07:39→19:40)
[2019-06-01] MEDS: PULMICORT INH SCH ×2 (07:39→19:40)
[2019-06-01 07:52] LABS: AGAP 7; BUN 5 mg/dL (8-22); CALCIUM 9.2 mg/dL (8.8-10.2); CHLORIDE 97 mmol/L (98-107); COSMO 266; CREATININE 0.6 mg/dL (0.7-1.2); ESTIMATED GFR > 60; GLUCOSE 105 mg/dL (70-104); POTASSIUM 4.5 mmol/L (3.5-5.1); SODIUM 134 mmol/L (136-145); TCO2 30 mmol/L (25-35)
[2019-06-01 08:35] LABS: EOS 4 % (1-10); LYMPHS 22 % (21-51); MONO 8 % (1-9); SEGS 63 % (42-75)
[2019-06-01 08:36] LABS: ANISOCYTOSIS 1+; LARGE PLATELETS 1+; MICROCYTOSIS 1+; POIKILOCYTOSIS 1+
[2019-06-01] MEDS: NICODERM PATCH TD SCH (10:14)
[2019-06-01] MEDS: CUBICIN 500 MG in NS 100 ML IV SCH (10:14)
[2019-06-01] MEDS: PREDNISONE PO SCH (10:14)
[2019-06-01] MEDS: KEPPRA PO SCH ×2 (10:14→20:10)
[2019-06-01] MEDS: FERROUS SULFATE PO SCH (10:14)
[2019-06-01] MEDS: ZYVOX PO SCH ×2 (10:14→20:10)
[2019-06-01] MEDS: PAXIL PO SCH (10:14)
[2019-06-01] MEDS: LOVENOX SUBQ SCH (10:14)
[2019-06-01] MEDS: FLONASE NAS SCH (10:15)
[2019-06-01] MEDS: MIRALAX PO SCH ×2 (10:15→20:09)
[2019-06-01] MEDS: METAMUCIL POWDER PACKET PO SCH (10:15)
[2019-06-01] MEDS: FLOMAX PO SCH (10:15)
[2019-06-01] MEDS: MUCINEX PO SCH ×2 (10:16→20:10)
--- NOTE | 2019-06-01 15:16 | PROGRESS NOTE ---
DATE: 06/01/2019 SUBJECTIVE: The patient is resting comfortably in bed. No acute events noted overnight. OBJECTIVE: Vital Signs: Temperature 98.2 degrees, blood pressure 112/68, heart rate 87, respirations 16, O2 saturation 94% on 4 L nasal cannula. General: This is a chronically ill- appearing elderly male, sitting up in bed in no acute distress. Heart: S1, S2 normal. Regular rate and rhythm. Lungs: Coarse breath sounds in the left lung field. Abdomen: Positive bowel sounds. Soft, nontender, nondistended. Extremities: No edema, no cyanosis. Neurologic: The patient is alert and oriented x3. LABS: White blood cell count 10, hemoglobin 36, platelets 232. White blood cell count 5.2. Sodium 134, potassium 4.5, chloride 97, CO2 30. BUN 5, creatinine 0.6, glucose 105. ASSESSMENT AND PLAN: 1. Bacteremia secondary to vancomycin-resistant Enterococcus. Continue on daptomycin and Zyvox. 2. Pneumonia. Continue on the current treatment regimen plus bronchodilator therapy and oxygen. 3. Chronic hypoxemic respiratory failure. Stable. 4. Left basilar small cell lung cancer. Aware. Dr. Watson will discuss further treatment with the patient as outpatient. 5. Tobacco dependence. The patient has been counseled about smoking cessation. 6. Anxiety disorder. Continue on Ativan as needed. 7. Gastrointestinal prophylaxis. Continue on omeprazole. 8. Deep vein thrombosis prophylaxis. Continue on Lovenox. cc: Salima Dubon MD
--- NOTE | 2019-06-01 18:59 | PROVIDER PROGRESS NOTE ---
Progress Note Dr. Salazar Progress Note/Pulmonary and or critical care Subjective: The patient is lying in bed. He pulls NC off without realizing it. I check SaO2. It is 87%. So we put NC back. I stress the importance of oxygen therapy and patient states he will try not pulling it out again. He states he is fine and he is interested with cancer treatment now. Objective: Vital Signs: T 98.9 (no fever in last 24 hours), MD 80, RR 18, BP 107/63 and SaO2 95% on NC 4L. Physical Examination: General: Lying in bed with no acute distress noted. HEENT: Normocephalic. Trachea midline. Mucosa pink and moist. Pupils equal round reactive to light. Chest: Even and unlabored. Auscultation reveals coarse inspiratory and expiratory crackles bilaterally with left side worse than right side. CVS: Regular rate and rhythm with S1 and S2 appreciated. Abdomen: Soft. Nontender. Nontender. Bowel sounds present in all 4 quadrants. Extremities: No pedal edema. Neuro: Awake and alert with confusin at times. Speech fluent. Follow commands. Labs and Radiology: Laboratory Results 06/01/19 06/01/19 07:09 07:09 WBC 5.21 RBC 4.06 L Hgb 10.8 L Hct 36.4 L MCV 89.7 MCH 26.6 L MCHC 29.7 L RDW Std Deviation 16.2 H Plt Count 232 MPV 9.1 Immature Gran % (Auto) 0.4 Neut % (Auto) 61.6 Lymph % (Auto) 26.1 Tripp % (Auto) 6.9 Eos % (Auto) 4.6 Baso % (Auto) 0.4 Immature Gran # (Auto) 0.02 Neut # (Auto) 3.21 Lymph # (Auto) 1.36 Tripp # (Auto) 0.36 Eos # (Auto) 0.24 Baso # (Auto) 0.02 Segmented Neutrophils 63 Lymphocytes 22 Monocytes 8 Eosinophils 4 Atypical Lymphocytes 3.0 Large Platelets 1+ Poikilocytosis 1+ Anisocytosis 1+ Microcytosis 1+ Sodium 134 L Potassium 4.5 Chloride 97 L Carbon Dioxide 30 Anion Gap 7 BUN 5 L Creatinine 0.6 L Estimated GFR/1.73 m2 > 60 BUN/Creatinine Ratio 8 Glucose 105 H Calculated Osmolality 266 Calcium 9.2 Assessment: Acute hypoxic respiratory failure. Stay same. Emphysema with significant component of fibrosis. Pneumonia. Vancomycin-resistant enterococcal bacteremia. Left basilar small cell lung cancer. FU Dr. Watson outpatient. Tobacco dependence. Alcohol use. Plan: Weaning oxygen as tolerated. Antibiotics, including Daptomycin and Linezolid per Dr. Ozuna. Oral prednisone. Bronchodilators. Mucomyst. Tobacco cessation education. Patient states he is going to quit it. Appropriate DVT and GI prophylaxis Anticipate treatment for lung cancer pending completion of treatment for pneu monia and bacteremia.
[2019-06-01] MEDS: ATIVAN PO SCH (20:10)
[2019-06-01] MEDS: REMERON PO SCH (20:10)
[2019-06-02] MEDS: DUONEB (A & A) INH SCH ×6 (03:37→23:10)
[2019-06-02] MEDS: PRILOSEC PO SCH (06:12)
[2019-06-02] MEDS: PERCOCET-10 PO PRN ×2 (06:12→18:53)
[2019-06-02] MEDS: ATIVAN PO PRN ×2 (06:14→18:52)
[2019-06-02] MEDS: PULMICORT INH SCH ×2 (07:32→19:45)
[2019-06-02] MEDS: MUCOMYST 20% INH SCH ×2 (07:32→19:45)
--- NOTE | 2019-06-02 07:40 | Diag Imaging Result Doc PS360 ---
EXAM: CHEST-1 VIEW - 06/02/2019 HISTORY: SOB TECHNIQUE: Portable chest one view COMPARISON: 05/30/2019 FINDINGS: Heart size appears normal. There are bilateral infiltrates and/or scarring similar to prior. Compared to prior, there are no acute changes identified. There is no evidence of pneumothorax. Central venous catheter remains in place. IMPRESSION: Stable bilateral infiltrates and/or scarring. Electronically signed by Daniel Singh 06/02/2019 7:38 AM
[2019-06-02] MEDS: FERROUS SULFATE PO SCH (09:43)
[2019-06-02] MEDS: PAXIL PO SCH (09:44)
[2019-06-02] MEDS: CUBICIN 500 MG in NS 100 ML IV SCH (09:44)
[2019-06-02] MEDS: KEPPRA PO SCH ×2 (09:44→19:59)
[2019-06-02] MEDS: FLOMAX PO SCH (09:44)
[2019-06-02] MEDS: MUCINEX PO SCH ×2 (09:44→19:59)
[2019-06-02] MEDS: PREDNISONE PO SCH (09:44)
[2019-06-02] MEDS: LOVENOX SUBQ SCH (09:44)
[2019-06-02] MEDS: ZYVOX PO SCH ×2 (09:44→19:59)
[2019-06-02] MEDS: METAMUCIL POWDER PACKET PO SCH (09:46)
[2019-06-02] MEDS: NICODERM PATCH TD SCH (09:46)
[2019-06-02] MEDS: MIRALAX PO SCH ×2 (09:46→19:59)
[2019-06-02] MEDS: DULCOLAX PR SCH ×2 (09:46→20:00)
[2019-06-02] MEDS: FLONASE NAS SCH (09:46)
--- NOTE | 2019-06-02 17:17 | PROGRESS NOTE ---
DATE: 06/02/2019 SUBJECTIVE: The patient is resting comfortably in bed. He has no complaints. No acute events noted overnight. OBJECTIVE: Vital Signs: Temperature 98.2 degrees, blood pressure 104/66, heart rate 83, respirations 16, O2 saturation 95% on 4 L nasal cannula, urine output 800. General: This is a chronically ill-appearing elderly male lying in bed in no acute distress. Heart: S1, S2 normal. Regular rate and rhythm. Lungs: Equal air entry bilaterally. Coarse breath sounds in the left lung field. Abdomen: Positive bowel sounds. Soft, nontender, nondistended. Extremities: No edema, no cyanosis. Neuro: The patient is alert and oriented x3. LAB: Hemoglobin 10, hematocrit 36, platelets 232,000. Sodium 134, potassium 4.5, chloride 97, CO2 30, BUN 5, creatinine 0.6, glucose 105. Blood cultures remain negative. ASSESSMENT AND PLAN: 1. Bacteremia secondary to vancomycin-resistant enterococci. So far the 2 sets of blood cultures remain negative, as per Dr. Ozuna the patient will need to continue on daptomycin through July 07. 2. Pneumonia. Continue on Zyvox. 3. Chronic hypoxemic respiratory failure. Stable. 4. Chronic obstructive pulmonary disease. Stable, continue with bronchodilator therapy and supplemental oxygen. 5. Left basilar small cell lung cancer. Aware. The patient will follow up with Dr. Watson as outpatient to discuss further imaging and treatment. 6. Tobacco dependence. Aware. 7. Anxiety disorder. Continue on Ativan as needed. 8. Benign prostatic hypertrophy. Continue on Flomax. 9. Constipation. Continue with scheduled laxative therapy. 10. Deep vein thrombosis prophylaxis. Continue on Lovenox. 11. Disposition. Will plan to discharge the patient home once cleared by Dr. Almonte. cc: Salima Dubon MD
--- NOTE | 2019-06-02 17:21 | PROVIDER PROGRESS NOTE ---
Progress Note Dr. Salazar Progress Note/Pulmonary and or critical care Subjective: The patient is lying in bed. He is on NC 4L. He is more alert today. He states he is feeling ok. He has no cough, but SOB with activities. Objective: Vital Signs: T 98 (no fever in last 24 hours), IN 81, RR 16, BP 105/69 and SaO2 97% on NC 4L. Physical Examination: General: Lying in bed with no acute distress noted. HEENT: Normocephalic. Trachea midline. Mucosa pink and moist. Pupils equal round reactive to light. Chest: Even and unlabored. Auscultation reveals mildly worsening coarse inspiratory and expiratory crackles bilaterally with left side worse than right side. CVS: Regular rate and rhythm with S1 and S2 appreciated. Abdomen: Soft. Nontender. Nontender. Bowel sounds present in all 4 quadrants. Extremities: No pedal edema. Neuro: Awake and alert. Speech fluent. Follow commands. Labs and Radiology: Assessment: Acute hypoxic respiratory failure. Stable. Emphysema with significant component of fibrosis. Pneumonia. CXR today shows stable bilateral infiltrates +/- scarring. Vancomycin-resistant enterococcal bacteremia. Blood cultures on 05/27/19 and 05/29/19 showed no growth. Left basilar small cell lung cancer. FU Dr. Watson outpatient. Tobacco dependence. Alcohol use. Plan: Supplemental oxygen as needed. Antibiotics, including Daptomycin and Linezolid per Dr. Ozuna. Oral prednisone. Bronchodilators. Mucomyst. Tobacco cessation education. Patient states he is going to quit it. Appropriate DVT and GI prophylaxis Anticipate treatment for lung cancer pending completion of treatment for pneu monia and bacteremia.
[2019-06-02] MEDS: ATIVAN PO SCH (19:59)
[2019-06-02] MEDS: REMERON PO SCH (19:59)
[2019-06-03] MEDS: PERCOCET-10 PO PRN ×3 (02:08→20:16)
[2019-06-03] MEDS: DUONEB (A & A) INH SCH ×6 (03:59→22:19)
[2019-06-03] MEDS: MUCOMYST 20% INH SCH ×2 (07:31→19:49)
[2019-06-03] MEDS: PULMICORT INH SCH ×2 (07:36→19:49)
[2019-06-03 07:39] LABS: HEMATOCRIT 37.6 % (42.0-52.0); HEMOGLOBIN 11.4 g/dL (14.0-18.0); MCH 27.3 PG (27-31); MCHC 30.3 g/dL (33-37); MCV 90.2 FL (81-99); MPV 8.8 FL (7.4-10.4); RBC 4.17 XMIL (4.7-6.1); RDW 16.4 % (11.5-14.5); WBC 6.69 X1000 (4.8-10.8)
[2019-06-03 08:00] LABS: AGAP 12; ALB/GLOB RATIO 0.8; ALKALINE PHOSPHATASE 61 U/L (32-122); BUN 8 mg/dL (8-22); CALCIUM 8.8 mg/dL (8.8-10.2); CHLORIDE 99 mmol/L (98-107); COSMO 276; CREATININE 0.7 mg/dL (0.7-1.2); ESTIMATED GFR > 60; GLUCOSE 92 mg/dL (70-104); GOT 27 U/L (10-34); GPT 25 U/L (10-44); POTASSIUM 4.9 mmol/L (3.5-5.1); SODIUM 139 mmol/L (136-145); TCO2 28 mmol/L (25-35); TOTAL BILIRUBIN 0.15 mg/dL (0.20-1.00); TOTAL PROTEIN 6.9 g/dL (6.3-8.3)
[2019-06-03] MEDS: LOVENOX SUBQ SCH (09:43)
[2019-06-03] MEDS: FLOMAX PO SCH (09:43)
[2019-06-03] MEDS: PAXIL PO SCH (09:43)
[2019-06-03] MEDS: MIRALAX PO SCH ×2 (09:43→20:16)
[2019-06-03] MEDS: MUCINEX PO SCH ×2 (09:43→20:17)
[2019-06-03] MEDS: NICODERM PATCH TD SCH (09:43)
[2019-06-03] MEDS: ZYVOX PO SCH ×2 (09:43→20:16)
[2019-06-03] MEDS: METAMUCIL POWDER PACKET PO SCH (09:43)
[2019-06-03] MEDS: PREDNISONE PO SCH (09:43)
[2019-06-03] MEDS: KEPPRA PO SCH ×2 (09:43→20:17)
[2019-06-03] MEDS: FERROUS SULFATE PO SCH (09:43)
[2019-06-03] MEDS: FLONASE NAS SCH (09:44)
[2019-06-03] MEDS: DULCOLAX PR SCH ×2 (09:44→20:16)
[2019-06-03] MEDS: PRILOSEC PO SCH (09:49)
[2019-06-03] MEDS: CUBICIN 500 MG in NS 100 ML IV SCH (10:56)
--- NOTE | 2019-06-03 13:22 | HEMO/ONC PROGRESS NOTE ---
DATE: 06/03/2019 SUBJECTIVE: The patient is asleep this morning, wakes easily to my voice. He is feeling well. He is hoping to go home soon. He feels as though he is doing better. He still gets some shortness of breath with activities. Otherwise, he has no complaints. No acute events occurred over the weekend. OBJECTIVE: Vital Signs: Temperature 98.1 degrees, pulse rate 84, respiratory rate 17, blood pressure 106/65, O2 saturation 93% on nasal cannula at 3 L. He is in 0/10 pain. General: On physical examination, the patient is in no acute distress. HEENT: Sclerae anicteric. PERRLA. Oral mucosa is normal. Cardiovascular: Normal S1, S2. Heart rate and rhythm is regular. Respiratory: Lung sounds are clear to auscultation. Normal respiratory effort. The patient does have some upper coarse breath sounds. Abdomen: Soft, nontender, nondistended. Extremities: No lower extremity edema noted. Neurological: Alert and oriented x3. LABORATORY DATA: Most recent blood cultures so far have remained negative. WBCs 6.69, hemoglobin 11.4, hematocrit 37.6, platelet count 380,000. Albumin 3.0. Chemistry otherwise unremarkable. RADIOLOGY: Chest x-ray 06/02/2019: Bilateral infiltrates similar to prior. Minimal change from prior x-ray. ASSESSMENT AND PLAN: 1. Small cell lung cancer. Continue patient's current management of sepsis. We will manage his cancer once he is improved and out of the hospital. 2. Recurrent sepsis. Bacteremia secondary to vancomycin-resistant Enterococcus. The patient's most recent blood cultures have remained negative. The patient will continue daptomycin per Dr. Ozuna. 3. Chronic obstructive pulmonary disease. The patient is being managed by Pulmonology. 4. Tobacco dependence. Aware. The patient states that he is doing well with not smoking at this time. 5. Anxiety. Continue medical management with Ativan as needed. 6. Deep vein thrombosis prophylaxis. The patient has been on Lovenox. Continue to get the patient out of bed. He is at high risk for deep vein thrombosis due to hospitalization, immobilization and malignancy. Dictated by XENIA Bauer for Maulik Watson MD Plan for chemo outpatient when infection controlled and Ok with Dr. Ozuna.. Maulik Watson MD cc: [facility]ik [facility] MD [facility]
--- NOTE | 2019-06-03 17:00 | PROGRESS NOTE ---
DATE: 06/03/2019 SUBJECTIVE: The patient is resting comfortably in bed. He has no complaints at this time. OBJECTIVE: Vital Signs: Temperature 98.1 degrees, blood pressure 111/66, heart rate 88, respirations 17, O2 saturation 95% on 3 L nasal cannula. General: This is a chronically ill- appearing elderly male lying in bed in no acute distress. Heart: S1, S2 normal. Regular rate and rhythm. Lungs: Equal air entry bilaterally. Coarse breath sounds in the left lung field. Abdomen: Positive bowel sounds. Soft, nontender, nondistended. Extremities: No edema. No cyanosis. Neurologic: The patient is alert and oriented x3. LABS: White blood cell count 6.6, hemoglobin 11, hematocrit 37, platelets 380,000. Sodium 139, potassium 4.9, chloride 99, CO2 28, BUN 8, creatinine 0.7, glucose 92. ASSESSMENT AND PLAN: 1. Bacteremia secondary to vancomycin-resistant enterococcus. The 2 sets of blood cultures remain negative. As per Dr. Ozuna the patient will need to continue on daptomycin through July 07. 2. Pneumonia. The patient has had 5 days of therapy with Zyvox. 3. Seizure disorder. Continue on Keppra. 4. Chronic hypoxemic respiratory failure. Stable. 5. Anxiety disorder. Continue on Ativan as needed. 6. Chronic obstructive pulmonary disease. Stable. 7. The left basilar small cell lung cancer. Aware. The patient will follow up with Dr. Watson as outpatient to discuss further imaging and treatment. 8. Benign prostatic hypertrophy. Continue on Flomax. 9. Deep vein thrombosis prophylaxis. Continue on Lovenox. 10. Disposition. We will plan to discharge the patient home with IV antibiotics once cleared by Dr. Almonte. cc: Salima Dubon MD
[2019-06-03] MEDS: REMERON PO SCH (20:17)
[2019-06-03] MEDS: ATIVAN PO SCH (20:17)
[2019-06-04] MEDS: PERCOCET-10 PO PRN ×4 (02:31→21:10)
[2019-06-04] MEDS: ATIVAN PO PRN ×3 (02:32→14:47)
[2019-06-04] MEDS: DUONEB (A & A) INH SCH ×6 (03:26→23:15)
[2019-06-04] MEDS: PRILOSEC PO SCH (06:01)
[2019-06-04] MEDS: MUCOMYST 20% INH SCH ×2 (07:39→19:36)
[2019-06-04] MEDS: PULMICORT INH SCH ×2 (07:39→19:36)
[2019-06-04 07:50] LABS: HEMOGLOBIN 10.9 g/dL (14.0-18.0); MCH 26.3 PG (27-31); MCHC 29.5 g/dL (33-37); MCV 89.4 FL (81-99); MPV 8.5 FL (7.4-10.4); RBC 4.14 XMIL (4.7-6.1); RDW 16.3 % (11.5-14.5); WBC 5.48 X1000 (4.8-10.8)
[2019-06-04 08:28] LABS: AGAP 9; BUN 8 mg/dL (8-22); CALCIUM 9.4 mg/dL (8.8-10.2); CHLORIDE 99 mmol/L (98-107); COSMO 277; CREATININE 0.7 mg/dL (0.7-1.2); ESTIMATED GFR > 60; GLUCOSE 111 mg/dL (70-104); POTASSIUM 4.5 mmol/L (3.5-5.1); SODIUM 139 mmol/L (136-145); TCO2 31 mmol/L (25-35)
[2019-06-04] MEDS: FERROUS SULFATE PO SCH (08:41)
[2019-06-04] MEDS: ZYVOX PO SCH ×2 (08:41→21:02)
[2019-06-04] MEDS: FLOMAX PO SCH (08:41)
[2019-06-04] MEDS: MUCINEX PO SCH ×2 (08:41→21:01)
[2019-06-04] MEDS: PREDNISONE PO SCH (08:41)
[2019-06-04] MEDS: FLONASE NAS SCH (08:42)
[2019-06-04] MEDS: NICODERM PATCH TD SCH (08:42)
[2019-06-04] MEDS: MIRALAX PO SCH ×2 (08:42→21:02)
[2019-06-04] MEDS: PAXIL PO SCH (08:42)
[2019-06-04] MEDS: LOVENOX SUBQ SCH (08:42)
[2019-06-04] MEDS: KEPPRA PO SCH ×2 (08:42→21:02)
[2019-06-04] MEDS: METAMUCIL POWDER PACKET PO SCH (08:42)
[2019-06-04] MEDS: DULCOLAX PR SCH ×2 (08:47→21:02)
[2019-06-04] MEDS: CUBICIN 500 MG in NS 100 ML IV SCH (10:48)
--- NOTE | 2019-06-04 14:44 | PROGRESS NOTE ---
DATE: 06/04/2019 INTERVAL HISTORY: No acute events overnight. SUBJECTIVE: Mr. Rodriges is feeling better. Denies new complaints. He still gets short of breath when he comes out of bed and goes to the bathroom. OBJECTIVE: Vital Signs: Temperature 97.9 degrees, pulse 85, respiratory rate 17, blood pressure 92/59, he is saturating 94% on 4 L nasal cannula. HEENT: Oral cavity is moist. Lungs: Decreased breath sounds in bilateral lung dockery. Coarse inspiratory crackles in bilateral infrascapular region. Cardiovascular: S1, S2 normal. No murmur or gallop. Abdomen: Soft, nontender. Extremities: No lower extremity edema. He does have superficial venous dilatation of lower extremities. Left-sided chest port site appears noninflamed. Neurologic: He is alert and oriented x3. LABORATORY DATA: Normal CBC and normal BMP with BUN of 8, creatinine 0.7, potassium of 4.5. WBC of 5.4, hemoglobin 10.9, platelets of 472,000. MICROBIOLOGY: No new microbiological data. IMAGING: Chest x-ray on 06/02/2019 had stable bilateral infiltrate and/or scarring. ASSESSMENT AND PLAN: 1. Vancomycin-resistant enterococcal bacteremia with recurrent pneumonia. Continue intravenous daptomycin through 07/08/2019 as per Infectious Disease recommendation and oral linezolid. My plan is to change his antibiotics to oral doxycycline at the time of discharge. I may combine it with levofloxacin considering his prior history of Pseudomonas and Stenotrophomonas pneumonia, though he previously had history of seizures, and duration of levofloxacin accordingly could be tricky. 2. History of chronic obstructive pulmonary disease, chronic hypoxic respiratory failure. I signed his home oxygen. 3. Other. Continue Keppra for seizures, Ativan as needed for anxiety, along with fluticasone nasal spray, omeprazole for gastroesophageal reflux disease, and I will decrease his steroid dose starting tomorrow. 4. Left lower lung small-cell lung cancer, status post port placement. Oncology Team on board, planning further treatment once his pneumonia resolves. 5. Disposition. Instructional Leader is working on setting up home antibiotics. We discussed about two options with the patient. First option is to give him intravenous daptomycin through port at home, where he lives with his daughter. Option two is the patient coming to the hospital every single day for 6 weeks to get antibiotics. Based on how things rashid out, my plan is to discharge him in the next 24 hours. The patient is in agreement. All of his questions have been answered. cc: Aquiles Evans MD MTDD
--- NOTE | 2019-06-04 16:56 | INFECTIOUS DISEASE PROGRESS NO ---
DATE: 06/04/2019 PRESENT ILLNESS: Mr. Rodriges is being treated for a vancomycin-resistant enterococcal bacteremia and pneumonia. MEDICATIONS: He is receiving daptomycin 500 mg IV daily. Based on his sterile blood cultures, today is day 8 of treatment for his bacteremia. He is also receiving Zyvox 600 mg by mouth every 12 hours. PHYSICAL EXAMINATION: Vital Signs: Temperature 97.7. Pulse rate 77, respiratory rate 16, blood pressure 98/53, O2 saturation is 93% on 4 L nasal cannula. General: This is a chronically ill- appearing, elderly gentleman. He is sitting up in bed, currently in no acute distress. HEENT: Atraumatic, normocephalic. Oral mucous membranes are pink and dry. Conjunctivae are pink. Neck: Supple. Trachea is midline. Cardiovascular: Heart rate and rhythm are regular. Normal sinus rhythm on the monitor. Respiratory: Lung sounds have scattered rales and coarse breath sounds bilaterally. Diminished in the bases. Abdomen: Soft, round and nontender. Bowel sounds are active. Integumentary: Skin is warm, dry, and intact. There is a Port-A-Cath in place to the left chest with no erythema or edema noted. It is not accessed at this point. Neurologic: He is awake, alert, oriented, and able to ambulate around the room with some restrictions due to shortness of breath. LABORATORY AND X-RAY: Today, his white count is 5.48. Hemoglobin 10.9, platelet count 472,000. Creatinine is 0.7, estimated GFR is greater than 60. He previously grew a vancomycin resistant enterococcus in his blood. No imaging reports today. However his chest x-ray on the showed stable, bilateral infiltrates and/or scarring. ASSESSMENT AND PLAN: Mr. Rodriges is being treated for a vancomycin-resistant enterococcal bacteremia and will need to continue daptomycin daily through July 07. After speaking with him, he prefers to come into the hospital once a day to outpatient infusion. I have written out orders and lab work to be drawn weekly for the outpatient infusion. He lives near the hospital and can ride the bus during the week and then can get a ride on the weekends to come in. I have also spoken with Dr. Watson who says it is okay to use the patient's Port-A-Cath. He is currently receiving Zyvox for the pneumonia. There are tentative plans to possibly send him home tomorrow. I have put in a follow-up appointment in the office for 2 weeks. COMORBIDITIES: For Mr. Rodriges, include that he is elderly with cigarette smoking and chronic obstructive pulmonary disease, seizure disorder, coronary artery disease, bipolar disorder, use of illicit drugs, and a new diagnosis of small cell lung cancer. Dictated by XENIA Rodriguez for Denilson Capone MD cc: Denilson Capone MD, MD ILAN Stahl
[2019-06-04] MEDS: ATIVAN PO SCH (21:01)
[2019-06-04] MEDS: REMERON PO SCH (21:02)
[2019-06-05] MEDS: PERCOCET-10 PO PRN ×2 (03:14→15:18)
[2019-06-05] MEDS: ATIVAN PO PRN ×2 (03:15→15:18)
[2019-06-05] MEDS: DUONEB (A & A) INH SCH ×4 (03:42→15:35)
[2019-06-05] MEDS: PRILOSEC PO SCH (06:23)
[2019-06-05] MEDS: MUCOMYST 20% INH SCH (07:42)
[2019-06-05] MEDS: PULMICORT INH SCH (07:42)
[2019-06-05 08:15] LABS: BASO# 0.03 X1000 (0.0-0.2); BASO% 0.4 % (0.0-0.8); EOS# 0.39 X1000 (0.0-0.7); EOS% 5.4 % (0.0-10.0); HEMATOCRIT 36.7 % (42.0-52.0); HEMOGLOBIN 10.7 g/dL (14.0-18.0); IMM GRAN# 0.13 X1000 (0.0-0.04); IMM GRAN% 1.8 % (0.0-0.5); LYMPH# 1.54 X1000 (1.2-3.4); LYMPH% 21.2 % (20.5-51.1); MCH 26.2 PG (27-31); MCHC 29.2 g/dL (33-37); MCV 89.7 FL (81-99); MONO# 0.68 X1000 (0.11-0.59); MONO% 9.4 % (1.7-9.3); MPV 8.3 FL (7.4-10.4); NEUT# 4.49 X1000 (1.4-6.5); NEUT% 61.8 % (42.2-75.2); PLT 488 X1000 (130-400); RBC 4.09 XMIL (4.7-6.1); RDW 15.9 % (11.5-14.5); WBC 7.26 X1000 (4.8-10.8)
[2019-06-05] MEDS ORDERED: PREDNISONE PO SCH (09:00)
[2019-06-05 09:04] LABS: AGAP 13; BUN 6 mg/dL (8-22); CHLORIDE 99 mmol/L (98-107); CK TOTAL 21 U/L (24-204); COSMO 277; CREATININE 0.7 mg/dL (0.7-1.2); ESTIMATED GFR > 60; GLUCOSE 100 mg/dL (70-104); POTASSIUM 4.8 mmol/L (3.5-5.1); SODIUM 140 mmol/L (136-145); TCO2 28 mmol/L (25-35)
[2019-06-05] MEDS: LOVENOX SUBQ SCH (09:40)
[2019-06-05] MEDS: METAMUCIL POWDER PACKET PO SCH (09:40)
[2019-06-05] MEDS: FLOMAX PO SCH (09:41)
[2019-06-05] MEDS: ZYVOX PO SCH (09:41)
[2019-06-05] MEDS: PAXIL PO SCH (09:41)
[2019-06-05] MEDS: KEPPRA PO SCH (09:41)
[2019-06-05] MEDS: NICODERM PATCH TD SCH (09:41)
[2019-06-05] MEDS: MUCINEX PO SCH (09:41)
[2019-06-05] MEDS: FERROUS SULFATE PO SCH (09:41)
[2019-06-05] MEDS: MIRALAX PO SCH (09:41)
[2019-06-05] MEDS: FLONASE NAS SCH (09:43)
[2019-06-05] MEDS: DULCOLAX PR SCH (09:43)
[2019-06-05] MEDS: CUBICIN 500 MG in NS 100 ML IV SCH (09:47)
[2019-06-05 12:01] VITALS: BP 104/68
[2019-06-05] MEDS ORDERED: SOLU-MEDROL IV ONE (13:34)
--- NOTE | 2019-06-05 14:02 | Diag Imaging Result Doc PS360 ---
CHEST-PORTABLE - 06/05/2019 INDICATION: Evaluate for worsening infiltrate COMPARISON: 06/02/2019 FINDINGS: Stable left chest port in good position. There is been slight worsening in the infiltrates in the midlungs. Otherwise stable diffuse heterogeneous infiltrates. Heart size remains top normal. No pneumothorax or large pleural effusion. IMPRESSION: Slight worsening in the midlung infiltrates. Electronically signed by Parviz Klein 06/05/2019 2:00 PM
[2019-06-05] MEDS ORDERED: REMERON PO SCH (21:00)
--- NOTE | 2019-06-06 07:50 | DISCHARGE SUMMARY ---
ADMISSION DATE: 05/06/2019 DISCHARGE DATE: 06/05/2019 DISCHARGE DISPOSITION: Home with home intravenous antibiotics through left- sided chest port. DISCHARGE CONDITION: Hemodynamically stable. HOSPITAL COURSE: The patient has not had any fevers, chills. His oxygen saturations are stable. He is on intravenous, as well as oral antibiotics. Though chest x-ray suggests persistent infiltrate, clinically he appears to have improved. DISCHARGE DIAGNOSES: 1. Acute on chronic hypoxic respiratory failure. 2. Acute chronic obstructive pulmonary disease exacerbation. 3. Recurrent sepsis due to bilateral multifocal pneumonia. 4. Left lower lobe small cell lung cancer, poorly differentiated. 5. Anxiety. 6. Pruritic rash. 7. Vancomycin-resistant enterococcal bacteremia. OTHER DIAGNOSES: 1. History of chronic obstructive pulmonary disease. 2. History of chronic hypoxic respiratory failure on home oxygen. 3. History of seizures. 4. History of anxiety. 5. History of coronary artery disease with stent placement in the past. 6. Benign prostatic hypertrophy. DISCHARGE MEDICATIONS: 1. Intravenous daptomycin 500 mg every 24 hours until 07/08/2019. 2. Lorazepam 0.5 mg t.i.d. 3. Tamsulosin 0.4 mg daily. 4. Paroxetine 40 mg daily. 5. Mirtazapine 15 mg at nighttime. 6. Ipratropium bromide inhaler 2 puffs inhaled four times a day. 7. Doxycycline 100 mg b.i.d. 20 tablets. 8. Bisacodyl 10 mg per rectal b.i.d., 15 suppositories. 9. Albuterol ipratropium nebulization 3 mL every 6 hours. 10. Ferrous sulfate 325 mg with breakfast. 11. Keppra 500 mg b.i.d. 12. Levaquin 500 mg daily; 5 tablets have been prescribed. 13. Nicotine patch 21 mg daily. 14. Percocet 10 one tablet every 6 hours as needed for pain. 15. Prednisone taper 20 mg daily for 5 days, 10 mg daily, and then 5 mg daily. 16. Pulmicort 0.4 mg inhaled b.i.d. 17. Albuterol sulfate inhaler, 2 puffs inhaled every 6 hours as needed for shortness of breath. VITALS: At the time of discharge temperature 98.2 degrees, pulse 90, respiratory 18, blood pressure 104/68, saturating 97% on 4 L nasal cannula. PHYSICAL EXAMINATION: General: Mr. Rodriges was not in acute distress. Oral cavity: Moist. Lungs: Air entry bilaterally equal. No wheeze, rhonchi. He has diffuse coarse crackles in bilateral lung dockery. No wheezes. Cardiovascular: S1, S2 normal. No murmur or gallop. Abdomen: Soft, nontender. Extremities: No lower extremity edema. He has bilateral superficial venous dilatation of the lower extremities due to venous insufficiency. LABS: At the time of discharge, WBC 7.2, hemoglobin 10.7, platelet 488. BUN is 13, creatinine 0.7. MICROBIOLOGY: Repeated blood cultures did not have any growth, except May 25 where 1 of the 2 blood cultures grew Enterococcus faecium group D which was resistant to vancomycin. Repeat blood cultures on May 27 did not have any growth. SIGNIFICANT IMAGIN. During hospital admission, pulmonary arteriogram on June 06 had masslike opacity in the left lower lobe, worsened hilar and mediastinal adenopathy, pulmonary fibrosis with honeycombing, COPD without any evidence of pulmonary embolism. 2. Chest CT on 05/16/2019 had left lower lobe mass, severe emphysema, severe fibrosis, left lower lobe infiltrate and adenopathy. 3. Brain MRI on 05/23/2019 had no evidence of metastatic disease, minimal microvascular white matter changes and right maxillary sinusitis. 4. Chest x-ray on 06/02/2019 had stable bilateral infiltrates and/or scarring. PATHOLOGY DURING HOSPITAL ADMISSION: A lung biopsy had hyperchromatic, poorly differentiated small cell neuroendocrine carcinoma Electrocardiogram on presentation had sinus tachycardia with occasional premature ventricular complexes, possible left atrial enlargement, incomplete right bundle branch block and left anterior fascicular block, left ventricular hypertrophy with repolarization abnormality. HOSPITAL COURSE SUMMARY: This is an addendum to discharge summary on 05/24/2019. In brief, the patient had initially presented on 05/06/2019 with chief complaint of shortness of breath, productive phlegm, and fever. He did have prior history of Stenotrophomonas and Pseudomonas pneumonia. He was started on inhaled bronchodilators, intravenous antibiotics, steroids and was admitted for management of acute COPD exacerbation due to bilateral lower lobe pneumonia. CT scan of the chest performed had suggested left lower lobe mass, so initially he was treated with at least 10 days of intravenous antibiotics and chest CT was repeated which did detect persistent mass. So, he underwent a biopsy of the mass which turned out to be small cell lung cancer. Oncology team and general surgical team were involved, and patient underwent port placement on the left chest and a brain MRI, which did not have any metastasis. After the port placement, the plan was to discharge the patient on oral antibiotics to complete remaining antibiotic course for bilateral pneumonia. However, right before patient could be discharged, he had started developing recurrent fever, so sepsis workup was again initiated. At this time around, the blood culture grew vancomycin-resistant enterococci, and the chest x-ray was also positive for worsening infiltrates. It was thought the patient had bacteremia from pneumonia since his symptoms had started a few hours before the port was actually inserted. He was restarted on intravenous antibiotics, including daptomycin and linezolid, following which his fever resolved. The patient previously had prosthesis in his leg, so it was decided to treat him for at least 6 weeks of intravenous daptomycin for vancomycin-resistant enterococcal bacteremia, and the patient will be receiving intravenous daptomycin through left- sided chest port at home. [employer] have arranged the home antibiotics. The patient will also be discharged on oral levofloxacin, doxycycline for his suspected VRE pneumonia. TIME SPENT: More than 30 minutes time was spent discharging the patient. Plan of care was extensively discussed with him. He was advised to have follow up with lung doctor, regular doctor, as well as cancer doctor. All of his questions are satisfactorily answered. cc: MD ILAN Kwong
[2019-06-06] MEDS ORDERED: PREDNISONE PO SCH (09:00)
== END 2019-06-05 17:21 | disposition home health service (06) | DRG 853 ==
LOC: SUPCPDRO → ED 07:44 → SUATTDRO 10:09 → EDIPHOLD 10:09 → 2N 11:17 → 4N 05-08 12:58 → 3N 05-28 09:04
PROVIDERS: ATTEND Internal Medicine